=== PATIENT | male | born 1995 | race Asian ===

== ENCOUNTER 2023-03-26 09:00 | Outpatient (AMB) | payer OTHER, SELFPAY ==
[2023-03-26 09:09] VITALS: BP 116/66; PULSE 74; RESP 13; TEMP 36.4; O2SAT 99; BMI 28.3
--- NOTE | 2023-03-26 09:09 | MHC.PC.OV ---
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 Patient states that it occurred when moving a washing machine from out of a truck and at first he states that it felt like a jolt and went to go lift again and realized he pulled something. Patient states that it is more of a stiff pain. Patient states that when he tries to crack it he gets some relief but the pain is stemming from lower right back. Fitting Room Attendant Required: No Accompanied by: Self / Same As Patient Allergies No Known Allergies Allergy (Verified 03/26/23 09:43) Medication List - Last Reconciled 03/26/23 by Efren Cerda CNP No Known Home Meds Tobacco use date assessed: 03/26/23 Dental Screening Dental Screen Date: 03/26/23 Did you have a dental visit in the last 12 months?: No Did you have a dental problem in the last 6 months where you did not have access to dental care?: No Was dental information given to patient?: Yes HPI HPI Comments History of Present Illness Details 27-year-old male presents to establish care He is in the . He notes that he relocated to [facility] from [facility] in late September, He states that he was last seen by his former PCP in Sep, 2022. He does not recall his last routine blood work. He notes that he was diagnosed with anxiety 3 weeks ago. He reports history of significant anxiety with chest discomfort. His symptoms have been controlled in the past 2 weeks. He is within to be referred to a therapist by the . He is not currently on antianxiety medication. He reports stiffness to his lower back since July,. His symptoms after her moved a washing machine out of a truck. He initially had pain that completely subsided. No tingling, numbness, loss of sensation. He denies cigarette smoking or recreational drug use. He drinks alcohol occasionally. He notes that he is sexually active, in a monogamous relationship, and has no concerns for STD. [facility] Medical History (Updated 03/26/23 @ 10:12 by Efren Cerda CNP) Lower back pain Surgical History (Updated 03/26/23 @ 09:24 by Belkys Zepeda MA) No pertinent past surgical history Family History (Updated 03/26/23 @ 09:27 by Belkys Zepeda MA) Mother High blood pressure High cholesterol Maternal Grandfather High blood pressure High cholesterol Diabetes Cardiovascular disease Paternal Grandfather Diabetes Cardiovascular disease Social History Housing: House Patient Tobacco Use Status: Never used Tobacco e-Cigarette/Vaping Use: Never Used service: Yes Current occupational status: employed 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 1. Little interest or pleasure in doing things: not at all 2. Feeling down, depressed, or hopeless: several days 3. Trouble falling or staying asleep, or sleeping too much: several days 4. Feeling tired or having little energy: not at all 5. Poor appetite or overeating: several days 6. Feeling bad about yourself - or that you are a failure or have let yourself or your family down: several days 7. Trouble concentrating on things, such as reading the newspaper or watching television: not at all 8. Moving or speaking so slowly that other people could have noticed. Or the opposite - being so fidgety or restless that you have been moving around a lot more than usual: not at all 9. Thoughts that you would be better off or of hurting yourself in some way: not at all Total score: 4 Depression Screening Interpretation: Negative Depression Screening Done: Yes 95389 - PHQ-9 Billing: Yes Source: Developed by Drs. Abel Mcclendon, Bridgette Doe, Jorge A Quintana and colleagues, with an educational prachi from [employer]. Thrive Questionnaire Date Thrive assessed: 03/26/23 I am a: Patient What is your living situation today?: I have a steady place to live Within the past 12 months, did the food you bought not last and you didn't have the money to get more?: Never true Within the past 12 months, did you worry whether your food would run out before you got money to buy more?: Never true Do you have trouble paying for medicines?: No Do you have trouble getting transportation to medical appointments?: No Do you have trouble paying your heating and electricity bill?: Yes Do you have trouble taking care of your child, family member or friend?: Yes (childcare) Do you have trouble with day-to-day activities such as bathing, preparing meals, shopping, managing finances, etc.?: No Are you currently unemployed and looking for a job?: No Are you interested in more education?: No Please select the resources that you would like help with: Utilities and Childcare Currently or been in a relationship where the following occur: no concerns reported AUDIT C Alcohol Use Questionnaire (AUDIT-C) 1. How often do you have a drink containing alcohol?: Monthly or less 2. How many drinks containing alcohol do you have on a typical day when you are drinking?: 1 or 2 3. How often do you have six or more drinks on one occasion?: Never Total Score: 1 AARON-7 AMB Questionnaire AARON-7 Date AARON - 7 assessed: 03/26/23 Feeling nervous, anxious, or on edge: 2 = More than half the days Not being able to stop or control worryin = Several days Worrying too much about different things: 1 = Several days Trouble relaxin = Several days Being so restless that it is hard to sit still: 0 = Not at all Becoming easily annoyed or irritable: 0 = Not at all Feeling afraid as if something awful might happen: 1 = Several days Total AARON-7 score (0-4 normal; 5-9 mild; 10-14 moderate; 15-21 severe): 6 Source: Developed by Drs. Abel Mcclendon, Bridgette Doe, Jorge A Quintana and colleagues, with an educational prachi from [employer]. AARON-7 Assessment Billing AARON-7 Assessment Tool: AARON-7 Assessment [id number] Review of Systems Const Details: Denies chills, Denies fatigue, Denies fever(s), Denies headache(s) and Denies weakness HEENT Denies change in vision, Denies dizziness, Denies headache(s), Denies hearing loss, Denies nasal congestion, Denies sinus pain, Denies sinus pressure and Denies sore throat Card Denies chest pain, Denies lightheadedness, Denies dyspnea and Denies other (palpitations) Resp Denies cough, Denies dyspnea and Denies wheezing GI Denies abdominal pain, Denies melena, Denies hematochezia, Denies change in bowel habits, Denies dyspepsia and Denies nausea Denies hematuria and Denies dysuria Musc Reports as per HPI Skin/Breast Denies rash, Denies unusual bruising and Denies wounds Neuro Denies abnormal gait, Denies dizziness, Denies headache(s), Denies memory loss, Denies numbness, Denies Sensory deficit (Neuro), Denies tingling and Denies weakness Psych Reports anxiety, Denies depression and Denies memory loss Endo Denies cold intolerance, Denies fatigue, Denies heat intolerance, Denies polydipsia and Denies polyuria Allen/Lymph Denies easy bleeding and Denies easy bruising Aller/Immun Denies wheezing Physical exam (Primary Care) Vital Signs: Last Vital Signs Temp 97.6 F 03/26/23 09:09 Pulse 74 03/26/23 09:09 Resp 13 03/26/23 09:09 BP 116/66 03/26/23 09:09 Pulse Ox 99 03/26/23 09:09 Oxygen Delivery Method Room Air 03/26/23 09:09 BMI result Body Mass Index 28.3 Tobacco/Smoking Status: Tobacco use Status Tobacco use date assessed 03/26/23 03/26/23 09:29 Patient Tobacco Use Status Never used Tobacco 03/26/23 09:29 e-Cigarette/Vaping Use Never Used 03/26/23 09:29 PHQ-9: PHQ-9 Score PHQ-9: Total score 4 03/26/23 09:55 Depression Screening Interpretation: Negative Thrive Assessment: Date of Thrive Assessment Date Thrive assessed 03/26/23 03/26/23 09:29 Currently or been in a relationship where the following occur: no concerns reported Const Other: General: no acute distress, well developed, alert and awake Nutritional Appearance: well nourished Orientation/consciousness: patient oriented x3 HENMT Head: Yes normocephalic and Yes atraumatic Ears: hearing grossly normal bilaterally and TM's normal bilaterally General nose exam: Normal external nose present and Normal nares present Mouth: Normal oral and palatal mucosa present and moist mucous membranes Teeth and gingiva: dentition normal Throat: Yes oropharynx normal Eyes Pupils: Equal, round and reactive pupils present and Pupil accommodation reflex normal EOM: EOMs intact bilaterally Neck Neck: Yes normal visual inspection, Yes no lymphadenopathy and Yes trachea midline Thyroid: Thyroid normal Carotids: no bruits Lymphatic: no lymphadenopathy noted Chest Chest palpation & inspection: normal inspection of the chest Resp Effort & Inspection: normal respiratory effort Auscultation: clear to auscultation bilaterally Cardio Rate: regular rate Rhythm: regular rhythm Heart sounds: S1 normal heart sound present, S2 normal heart sound present, no gallops, no murmurs and no rubs Bruits: no abdominal aortic bruits and no carotid bruits GI Palpation (GI): No Abdominal aortic bruit present, Soft to palpation, nontender, No hepatosplenomegaly present and No Rebound tenderness present Auscultation: normal bowel sounds General: Yes no CVA tenderness Back/Spine/Pelvis Back: no CVA tenderness Cervical Spine: cervical ROM normal and No Cervical spine tenderness Thoracic/Lumbar Spine: thoraco-lumbar ROM normal, No pain with thoraco-lumbar ROM, No thoracic spinal tenderness and No lumbar spinal tenderness Skin General: warm and dry. Normal skin color. Normal skin turgor Lesions: no lesions Rashes: no rashes Trauma: no lacerations or abrasions Wounds: no wounds Nails: normal Neuro General: patient oriented x3, gait normal and CN's II-XI intact bilaterally Cranial nerves: Yes Equal, round and reactive pupils present Cognition (Neuro): normal cognition Gait exam (Neuro): Normal gait present Motor exam (neuro): 5/5 motor strength present throughout Sensory Exam: No Sensory deficit (Neuro) Deep tendon reflexes (DTR's): Right patellar reflex intensity grade: 2+ and Left patellar reflex intensity grade: 2+ Extrem General: Yes normal to inspection, No edema and No calf tenderness Psych Appearance: grossly normal Affect: normal affect Attitude: cooperative Thought process: Normal thought process present Assessment and Plan Assessment & Plan (1) Normal physical examination, routine: Code(s): Z00.00 - Encounter for general adult medical examination without abnormal findings Plan: No significant physical restrictions or limitations noted Advised to get blood work done before next visit Follow-up with symptoms or concerns Verbalized understanding and agreed with the plan. (2) Anxiety: Code(s): F41.9 - Anxiety disorder, unspecified Plan: PHQ-9 score is negative for depression AARON-7 score reveals mild anxiety He was diagnosed with anxiety 3 weeks ago. His symptoms have been controlled for the past 2 weeks Not currently on antianxiety medication. He is awaiting to be referred to a therapist by the Routine exercise encouraged He may contact his PCP for referral to a therapist as needed Follow-up in 1 month or return sooner with worsening or new symptoms Verbalized understanding and agreed with treatment plan. (3) Stiff back: Code(s): M25.69 - Stiffness of other specified joint, not elsewhere classified Plan: Reports low back stiffness for the past 20 months related to lifting injury No pain, tingling, numbness, or loss of sensation Stretching and warm/cool compresses encouraged Referred to PT Return with worsening or new symptoms Verbalized understanding and agreed with treatment plan. (4) Laboratory tests ordered as part of a complete physical exam (CPE): Code(s): Z00.00 - Encounter for general adult medical examination without abnormal findings Orders: Orders Comprehensive [place]. Panel Fast Today Z00.00 - Encounter for general adult medical examination without abnormal findings TSH reflex Free T4 Today Z00.00 - Encounter for general adult medical examination without abnormal findings UA CC w/rflx Micro + Cult Today Z00.00 - Encounter for general adult medical examination without abnormal findings Complete Blood Count Auto Diff Today Z00.00 - Encounter for general adult medical examination without abnormal findings Lipid Panel Today Z00.00 - Encounter for general adult medical examination without abnormal findings PT Evaluation and Treatment Today M25.69 - Stiffness of other specified joint, not elsewhere classified Coding Level of Care Code New Pt Prev Care 18-39yr([id number] Diagnoses Normal physical examination, routine Z00.00 Anxiety F41.9 Stiff back M25.69 Laboratory tests ordered as part of a complete physical exam (CPE) Z00.00 Additional Codes AARON-7 Assessment Billing - AARON-7 Assessment Tool: AARON-7 Assessment [id number] ([id number])
== END 2023-03-26 10:15 | disposition home or self-care (01) ==
PROVIDERS: PCP Nurse Practitioner Family; Visit Provider Nurse Practitioner Family
DX: Z00.00 Encounter for general adult medical examination without abnormal findings (principal); F41.9 Anxiety disorder, unspecified; M25.69 Stiffness of other specified joint, not elsewhere classified
CPT/HCPCS: 99385

== ENCOUNTER 2023-04-30 12:26 | Outpatient (AMB) | payer OTHER, SELFPAY ==
--- NOTE | 2023-04-30 12:29 | MHC.PC.OV ---
Vital Signs 04/30/23 12:30 Height 5 ft 8 in Weight 185 lb 8 oz BMI 28.2 BP 124/70 Blood Pressure Location Rt brachial Position Sitting Respiration 13 Pulse 74 Pulse Source Pulse Oximeter Temp 97.8 F Temp Source Temporal Artery Scan Pulse Oximetry (%) 99 Oxygen Delivery Method Room Air Intake Visit Reasons: labs review, anxiety Intake Note: Patient states that when he was at Physical therapy they recommended to get a MRI and X-ray of his back Director Of Event Sales Required: No Accompanied by: Self / Same As Patient Allergies No Known Allergies Allergy (Verified 04/30/23 12:46) Medication List - Last Reconciled 04/30/23 by Efren Cerda CNP No Known Home Meds Tobacco use date assessed: 03/26/23 Dental Screening Dental Screen Date: 04/30/23 Did you have a dental visit in the last 12 months?: Yes Did you have a dental problem in the last 6 months where you did not have access to dental care?: No Was dental information given to patient?: Patient has dentist HPI HPI Comments History of Present Illness Details 27-year-old male presents for anxiety and review of recent blood work He notes that he is having difficulty connecting to a therapist due to long wait lists or no coverage with his current health plan He notes that he feels more anxious. He is worried about the holidays. He has not been able to get things done for his and family. His is 27 weeks . He is not able to get thing things done financially to make her comfortable He is currently doing physical therapy for stiff back He has not gotten his routine fasting blood work done [facility] Medical History Lower back pain Surgical History No pertinent past surgical history Family History Mother High blood pressure High cholesterol Maternal Grandfather High blood pressure High cholesterol Diabetes Cardiovascular disease Paternal Grandfather Diabetes Cardiovascular disease Social History Housing: House Patient Tobacco Use Status: Never used Tobacco e-Cigarette/Vaping Use: Never Used service: Yes Current occupational status: employed 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 1. Little interest or pleasure in doing things: several days 2. Feeling down, depressed, or hopeless: several days 3. Trouble falling or staying asleep, or sleeping too much: nearly every day 4. Feeling tired or having little energy: more than half the days 5. Poor appetite or overeating: more than half the days 6. Feeling bad about yourself - or that you are a failure or have let yourself or your family down: nearly every day 7. Trouble concentrating on things, such as reading the newspaper or watching television: nearly every day 8. Moving or speaking so slowly that other people could have noticed. Or the opposite - being so fidgety or restless that you have been moving around a lot more than usual: nearly every day 9. Thoughts that you would be better off or of hurting yourself in some way: not at all Total score: 18 Depression Screening Interpretation: Positive Depression Screening Follow-up: Community Mental Health Worker F/U and Declines treatment Depression Screening Done: Yes 29416 - PHQ-9 Billing: Yes Source: Developed by Drs. Abel Mcclendon, Bridgette Doe, Jorge A Quintana and colleagues, with an educational prachi from [employer]. Thrive Questionnaire Date Thrive assessed: 03/26/23 AARON-7 AMB Questionnaire AARON-7 Date AARON - 7 assessed: 04/30/23 Feeling nervous, anxious, or on edge: 1 = Several days Not being able to stop or control worryin = Several days Worrying too much about different things: 1 = Several days Trouble relaxin = Nearly every day Being so restless that it is hard to sit still: 0 = Not at all Becoming easily annoyed or irritable: 1 = Several days Feeling afraid as if something awful might happen: 2 = More than half the days Total AARON-7 score (0-4 normal; 5-9 mild; 10-14 moderate; 15-21 severe): 9 Source: Developed by Drs. Abel Mcclendon, Jorge A Guerra and colleagues, with an educational prachi from [employer]. AARON-7 Assessment Billing AARON-7 Assessment Tool: AARON-7 Assessment 18304 Review of Systems Const Details: Const Denies chills, Denies fatigue, Denies fever(s), Denies headache(s) and Denies weakness ENT Denies dizziness and Denies headache(s) Card Denies chest pain, Denies lightheadedness, Denies dyspnea and Denies other (Palpitations) Resp Denies cough, Denies dyspnea, Denies wheezing and Denies other ( shortness of breath) GI Denies abdominal pain, Denies melena, Denies hematochezia, Denies change in bowel habits, Denies dyspepsia and Denies nausea Denies hematuria and Denies dysuria Musc Denies abnormal gait, Denies myalgias, Denies arthralgias, Denies numbness and Denies tingling Skin/Breast Denies rash, Denies unusual bruising and Denies wounds Neuro Denies abnormal gait, Denies dizziness, Denies headache(s), Denies memory loss, Denies numbness, Denies Sensory deficit (Neuro), Denies tingling and Denies weakness Psych Denies anxiety, Denies depression, Denies memory loss Endo Denies cold intolerance, Denies fatigue, Denies heat intolerance, Denies polydipsia and Denies polyuria Aller/Immun Denies wheezing Physical exam (Primary Care) Vital Signs: Last Vital Signs Temp 97.8 F 04/30/23 12:30 Pulse 74 04/30/23 12:30 Resp 13 04/30/23 12:30 BP 124/70 04/30/23 12:30 Pulse Ox 99 04/30/23 12:30 Oxygen Delivery Method Room Air 04/30/23 12:30 BMI result Body Mass Index 28.2 Tobacco/Smoking Status: Tobacco use Status Tobacco use date assessed 03/26/23 04/30/23 12:43 Patient Tobacco Use Status Never used Tobacco 04/30/23 12:43 e-Cigarette/Vaping Use Never Used 04/30/23 12:43 PHQ-9: PHQ-9 Score PHQ-9: Total score 18 04/30/23 12:43 Depression Screening Interpretation: Positive Depression Screening Follow-up: Community Mental Health Worker F/U and Declines treatment Thrive Assessment: Date of Thrive Assessment Date Thrive assessed 03/26/23 04/30/23 12:43 Const Other: General: no acute distress and well developed Nutritional Appearance: well nourished Orientation/consciousness: patient oriented x3 HENMS Head: Yes normocephalic and Yes atraumatic Eyes General: appearance normal, both eyes and all related structures Pupils: Equal, round and reactive pupils present EOM: EOMs intact bilaterally Resp Effort & Inspection: normal respiratory effort Auscultation: clear to auscultation bilaterally Cardio Rate: regular rate Rhythm: regular rhythm Heart sounds: S1 normal heart sound present, S2 normal heart sound present, no gallops, no murmurs and no rubs GI Palpation (GI): No Abdominal aortic bruit present, Soft to palpation, nontender, No hepatosplenomegaly present and No Rebound tenderness present Auscultation: normal bowel sounds General: Yes no CVA tenderness Back/Spine/Pelvis Back: no CVA tenderness Cervical Spine: cervical ROM normal and No Cervical spine tenderness Thoracic/Lumbar Spine: thoraco-lumbar ROM normal, No pain with thoraco-lumbar ROM, No thoracic spinal tenderness and No lumbar spinal tenderness Extrem General: Yes normal to inspection, No edema and No calf tenderness Skin General: warm and dry. Normal skin color. Normal skin turgor Neuro General: patient oriented x3, gait normal and no focal neuro deficit Cranial nerves: Yes Equal, round and reactive pupils present Cognition (Neuro): normal cognition Gait exam (Neuro): Normal gait present Sensory Exam: No Sensory deficit (Neuro) Psych Appearance: grossly normal Affect: normal affect Attitude: cooperative Thought process: Normal thought process present Assessment and Plan Assessment & Plan (1) Anxiety: Code(s): F41.9 - Anxiety disorder, unspecified Plan: He notes that he feels more anxious and worry about a holiday. He is not able to provide for his and family PHQ-9 and AARON-7 scores revealed moderately severe depression and mild anxiety respectively Declines medication treatment at this time He met with the community navigator who will refer him to a therapist Routine exercise encouraged Advised to get routine fast blood work done before his next visit Follow-up in 1 month or return sooner with worsening or new symptoms Verbalized understanding and agreed with treatment plan (2) Depression: Code(s): F32.A - Depression, unspecified Plan: As above Coding Level of Care Code Est Pt Level 3 (75335) Diagnoses Anxiety F41.9 Depression F32.A Additional Codes AARON-7 Assessment Billing - AARON-7 Assessment Tool: AARON-7 Assessment 93236 ([id number])
[2023-04-30 12:30] VITALS: BP 124/70; PULSE 74; RESP 13; TEMP 36.6; O2SAT 99; BMI 28.2
== END 2023-04-30 13:37 | disposition home or self-care (01) ==
PROVIDERS: PCP Nurse Practitioner Family; Visit Provider Nurse Practitioner Family
DX: F41.9 Anxiety disorder, unspecified (principal); F32.A Depression, unspecified
CPT/HCPCS: 96127; 99213

== ENCOUNTER 2023-05-12 10:34 | Outpatient (REF) | payer OTHER, SELFPAY | END 2023-05-12 10:35 | disposition home or self-care (01) | LOC: HO.WFDLDS 10:34 | PROVIDERS: Visit Provider Nurse Practitioner Family | DX: Z00.00 Encounter for general adult medical examination without abnormal findings (principal); Z13.220 Encounter for screening for lipoid disorders; Z13.29 Encounter for screening for other suspected endocrine disorder | CPT/HCPCS: 36415; 80053; 80061; 81003; 84443; 85025 ==

== ENCOUNTER 2023-05-19 13:05 | Inpatient (IN) | payer OTHER, SELFPAY ==
[2023-05-19 13:16] VITALS: BP 141/90; PULSE 76; RESP 18; TEMP 36.9; O2SAT 98; BMI 29.0
--- NOTE | 2023-05-19 13:16 | ED_ITS ---
HPI - Psych General Chief Complaint: Psychiatric Symptoms Stated Complaint: Crisis Time Seen by Provider: 05/19/23 14:43 Source: patient Mode of arrival: ambulatory Limitations: no limitations History of Present Illness HPI Narrative: Patient is a 27-year-old male with history of anxiety, depression, chronic back pain presenting to the emergency department after making suicidal statements at work prior to arrival. Patient reports increased stress over the past several weeks. He reports making these statement at work today because he feels as though no one understands the amount of stress he is currently under. States he is having difficulty establishing care with a therapist due to his insurance. His is in her 3rd trimester of and he reports significant financial stressors. States he feels as though his anxiety and stress are increasing and does not have a way to manage this stress. He denies current suicidal or homicidal ideation, denies any auditory or visual hallucinations. Reports that he does not have any family support as both he and his are from the [facility] and are here because they are in the [employer]. He reports that he recently asked his PCP for an MRI regarding his chronic back pain which stems from a Krav Perry injury from years ago but was told an MRI was not indicated. He feels as though his back pain is being minimized and this is also adding to his stress. Was seen at [facility] ED this morning for his back pain and was given Flexeril which he reports helped somewhat. Has also been using OTC Salon Pas patches. Denies any drug or alcohol use. He does not take any medications for his anxiety or depression. MD complaint: feels depressed and anxiety Onset (ago): week(s) Duration: getting worse Relieving factors: none Associated psychiatric symptoms: depression Treatments prior to arrival: none Related Data Home Medications Medication Instructions Recorded Confirmed No Known Home Meds 03/26/23 04/30/23 Allergies Allergy/AdvReac Type Severity Reaction Status Date / Time No Known Allergies Allergy Verified 04/30/23 12:46 Review of Systems 2 Review of Systems: As per HPI. Yes all other systems are reviewed and are negative Constitutional: Constitutional: Reports as per HPI [facility] Past Medical History Onset Date is defined in the Problem List Problems that require an onset date and time if occurred within 24 hrs of arrival to the ED Aortic Dissection and Rupture; Neurologic impairment; Cardiopulmonary Arrest; Endotracheal Intubation; Insertion or Replacement of Mechanical Circulatory Assist Device Medical History Lower back pain Surgical History No pertinent past surgical history Family History Family History Mother High blood pressure High cholesterol Maternal Grandfather High blood pressure High cholesterol Diabetes Cardiovascular disease Paternal Grandfather Diabetes Cardiovascular disease Social History Social History Housing: House Unable to assess alcohol history related to: Unknown Patient Tobacco Use Status: Never used Tobacco Smoked in Last 30 Days: No e-Cigarette/Vaping Use: Never Used Use of substances other than those prescribed or required for medical reasons: Unknown Advance Directives: No Advance Directives Information Provided: No Healthcare Proxy: No Guardian: No service: Yes Current occupational status: employed Current occupation: [employer] Cognitive needs: No Hearing needs: No Vision needs: No Physical Exam 2 Vital Signs: Vital Signs: Last Vital Signs Temp 98.5 F 05/19/23 13:16 Pulse 76 05/19/23 13:16 Resp 18 05/19/23 13:16 BP 141/90 H 05/19/23 13:16 Pulse Ox 98 05/19/23 13:16 O2 Del Method Room Air 05/19/23 13:16 BMI result Body Mass Index 29.0 Vital signs have been reviewed and appear to be correct. Blood pressure elevated. Heart rate normal. Respiratory rate normal. Temperature normal. Oxygen saturation normal. Const: General: cooperative, healthy appearing and no acute distress O rientation/consciousness: oriented to person, oriented to place, oriented to time and patient oriented x3 Limitations: no limitations HEENT: Head: Yes normocephalic and Yes atraumatic Ears: external ears normal General nose exam: Normal external nose present Face and sinus: Yes face symmetric Mouth: oropharynx normal and moist mucous membranes Throat: Yes uvula midline Eyes: Pupils: Equal, round and reactive pupils present Neck: Neck: Yes normal visual inspection and Yes supple Resp: Effort & Inspection: normal respiratory effort and able to speak in complete sentences Auscultation: clear to auscultation bilaterally Cardio: Rate: regular rate Rhythm: regular rhythm Heart sounds: S1 normal heart sound present and S2 normal heart sound present GI: Palpation (GI): Soft to palpation and nontender Auscultation: n ormoactive bowel sounds : General: Yes no CVA tenderness Back/Spine/Pelvis: Back: no CVA tenderness Thoracic/Lumbar Spine: thoracic and lumbar spine normal to inspection, pain with thoraco-lumbar ROM, paraspinal muscle tenderness bilaterally in the lower thoracic and in the upper lumbar, No thoracic spinal tenderness and No lumbar spinal tenderness Skin: General skin exam: elasticity normal and turgor normal Neuro: General: oriented to person, oriented to place, oriented to time, patient oriented x3, moves all extremities, no focal motor deficits and CN's II- XI intact bilaterally Cranial nerves: Yes Equal, round and reactive pupils present Cognition (Neuro): normal cognition Extrem: General: Yes full ROM, Yes no pedal edema and Yes no calf tenderness Psych: Mental Status: mental status grossly normal Affect: normal affect Thought process: Normal thought process present Course Course Course Narrative: RME: 27 year-old M w/PMHx HLD, anxiety, presenting to the ED c/o increasing depression & stating I'm getting closer to killing myself to coworkers [employer] while venting. Denies SI/HI at present labs, SOOD/Tox screen ordered Full HPI, ROS and PE to be performed by primary ED provider. Reevaluation(s) Reevaluation #1: Patient was given sign-out to me through my colleague, Grace Wells NP. Tested positive for COVID. Mild leukopenia at 4.3, differential within normal limits. ALT elevated at 48, which is the same from her previous. She tested positive for opiates, urine drug screen otherwise unremarkable. Patient medically cleared as vital signs have been stable. Pending crisis team eval Time: 22:04 Medications Administered Discontinued Medications Generic Name Dose Route Start Last Admin Trade Name Freq PRN Reason Stop Dose Admin Lidocaine 2 patch 05/19/23 15:20 05/19/23 16:11 Lidocaine 4 % Patch Adh..Patch TRANSDERMA 05/19/23 15:21 2 patch ONCE ONE Administration Protocol Medical Decision Making Medical Decision Making MDM Narrative: Patient is a 27-year-old male with history of anxiety, depression, chronic back pain presenting to the emergency department after making suicidal statements at work prior to arrival. On exam patient is awake, A+Ox3, VS WNL, afebrile, normal neurological exam without focal deficits, physical exam findings as above. Given reported symptoms and physical exam findings, initial differential includes anxiety, depression, suicidal ideation. Labs notable for mild leukopenia, mildly elevated ALT, no significant electrolyte abnormalities. COVID swab positive, patient updated on results. No evidence of infection on urinalysis. Urine drug screen positive for opiates, unsure what other medications patient received at [facility] this morning. Will clear patient for care team eval at this time. Will order lidocaine patched for back pain as patient states Flexeril is beginning to wear off. Placed on physician observation pending care team disposition. Differential Diagnosis Differential Diagnoses: The differential diagnosis associated with the presentation includes As per [facility] Admission/Observation Consideration of admission/observation: Escalation of care including admission/observation considered Lab Data [facility] Lab Attestation statement: I reviewed the patient's lab results. As per [facility] 05/19/23 14:22 05/19/23 14:22 Labs: Lab Results 05/19/23 05/19/23 Range/Units 14:22 14:53 WBC 4.3 L (4.8-10.8) X10*3/uL RBC 5.24 (4.60-5.80) X10*6/uL Hgb 15.5 (14.0-18.0) g/dl Hct 45.4 (42.0-52.0) % MCV 86.6 (80.0-98.0) fL MCH 29.6 (27.0-33.0) pg MCHC 34.1 (31.0-36.0) g/dl RDW 12.1 (11.0-16.0) % Plt Count 232 (160-400) X10*3/uL MPV 9.9 (9.4-12.4) fL Immature Gran % (Auto) 0.2 (0.0-0.4) % Neut % (Auto) 58.1 (45-73) % Lymph % (Auto) 28.3 (20-40) % [place] % (Auto) 9.9 (2-11) % Eos % (Auto) 3.0 (0-4) % Baso % (Auto) 0.5 (0-2) % Lymph # (Auto) 1.2 (1.2-4.9) X10*3/uL [place] # (Auto) 0.4 (0.1-1.2) X10*3/uL Eos # (Auto) 0.1 (0.0-0.4) X10*3/uL Baso # (Auto) 0.0 (0.0-0.2) X10*3/uL Abs Immat Gran (auto) 0.01 (0.00-0.03) X10*3/uL Absolute Neuts (auto) 2.5 (2.0-8.3) x10*3/uL Absolute Nucleated RBC 0.000 (0.0-0.012) X10*3/uL Nucleated RBC % (auto) 0.0 (0.0-0.2) /100WBC Sodium 143 (135-145) mmol/L Potassium 4.1 (3.3-5.1) mmol/L Chloride 106 (96-108) mmol/L Carbon Dioxide 25 (22-29) mmol/L Anion Gap 16 (12-20) BUN 15 (9-16) mg/dL Creatinine 1.07 (0.5-1.4) mg/dL Estim Creat Clear Calc 112.9 Estimated GFR > 60 Random Glucose 100 (60-115) mg/dL Calcium 10.1 D (8.4-10.2) mg/dL Total Bilirubin 0.5 (0.0-1.0) mg/dL Direct Bilirubin 0.1 (0.0-0.5) mg/dL AST 27 (5-37) U/L ALT 48 H (0-40) U/L Alkaline Phosphatase 71 (39-117) U/L Total Protein 8.1 H (6.5-8.0) g/dL Albumin 4.9 (3.5-5.0) g/dL Urine Color Yellow Urine Appearance Clear Urine pH 6.0 (5.0-9.0) Ur Specific [place] 1.020 (1.005-1.025) Urine Protein Negative (Neg-Trace) mg/dL Urine Glucose (UA) Negative (Negative) mg/dL Urine Ketones Negative (Negative) mg/dL Urine Blood Negative (Negative) Urine Nitrite Negative (Negative) Ur Leukocyte Esterase Negative (Negative) Salicylates < 5.0 L (15-30) mg/dL Urine Opiates Screen POSITIVE H (Not Detect) Urine Fentanyl Screen Not Detected (Not Detect) Acetaminophen 7 (<30) mcg/mL Ur Barbiturates Screen Not Detected (Not Detect) Ur Phencyclidine Scrn Not Detected (Not Detect) Ur Amphetamines Screen Not Detected (Not Detect) U Benzodiazepines Scrn Not Detected (Not Detect) Urine Cocaine Screen Not Detected (Not Detect) U Marijuana (THC) Screen Not Detected (Not Detect) COVID-19 (ABA) Positive A (Negative) COVID-19 Clin Com See Note External Record Review External record reviewed: Inpatient record, Office record and Outpatient record Discharge Plan Discharge Clinical Impression: Anxiety, COVID-19 Patient Disposition: Still a Patient Instructions: Anxiety (ED), COVID-19 (Coronavirus Disease 2019) (ED) Prescriptions: No Action No Known Home Meds Interventions: [place]-Suicide Risk Severity Scale Last Done: 05/19/23 15:00
[2023-05-19 14:28] LABS: MANUAL DIFF FLAG NO
[2023-05-19 14:30] LABS: Basophils Percent Auto 0.5 % (0-2); Eosinophils Absolute Auto 0.1 X10*3/uL (0.0-0.4); Hematocrit 45.4 % (42.0-52.0); Hemoglobin 15.5 g/dl (14.0-18.0); Imm Gran Abs Auto 0.01 X10*3/uL (0.00-0.03); Imm Gran Pct Auto 0.2 % (0.0-0.4); Lymphocytes Absolute Auto 1.2 X10*3/uL (1.2-4.9); Lymphocytes Percent Auto 28.3 % (20-40); Mean Corpuscular HGB Conc 34.1 g/dl (31.0-36.0); Mean Corpuscular Hemoglobin 29.6 pg (27.0-33.0); Mean Corpuscular Volume 86.6 fL (80.0-98.0); Mean Platelet Volume 9.9 fL (9.4-12.4); Monocytes Absolute Auto 0.4 X10*3/uL (0.1-1.2); Monocytes Percent Auto 9.9 % (2-11); Neutrophils Absolute Auto 2.5 x10*3/uL (2.0-8.3); Neutrophils Percent Auto 58.1 % (45-73); Platelet Count 232 X10*3/uL (160-400); Red Blood Count 5.24 X10*6/uL (4.60-5.80); Red Cell Distribution Width 12.1 % (11.0-16.0); White Blood Count 4.3 X10*3/uL (4.8-10.8)
[2023-05-19 14:44] LABS: Alanine Aminotransferase 48 U/L (0-40); Albumin Level 4.9 g/dL (3.5-5.0); Alkaline Phosphatase 71 U/L (39-117); Anion Gap 16 (12-20); Aspartate Amino Transferase 27 U/L (5-37); Bilirubin Direct 0.1 mg/dL (0.0-0.5); Bilirubin Total 0.5 mg/dL (0.0-1.0); Blood Urea Nitrogen 15 mg/dL (9-16); Calcium 10.1 mg/dL (8.4-10.2); Carbon Dioxide 25 mmol/L (22-29); Chloride 106 mmol/L (96-108); Creatinine Clr Calc Pharmacy 112.9; Estimated Glomerular Filt Rate > 60; Glucose Random 100 mg/dL (60-115); Potassium 4.1 mmol/L (3.3-5.1); Sodium 143 mmol/L (135-145); Total Protein 8.1 g/dL (6.5-8.0)
[2023-05-19 14:47] LABS: Acetaminophen LAB 7 mcg/mL (<30); Salicylate < 5.0 mg/dL (15-30)
[2023-05-19 15:02] LABS: Appearance Urine Clear; Color Urine Yellow; Glucose Urine UA Negative (Negative); Leukocyte Esterase Urine Negative (Negative); Nitrite Urine Negative (Negative); Urine Blood Negative (Negative); Urine Ketones Negative (Negative); Urine Protein Negative (Neg-Trace)
--- NOTE | 2023-05-19 15:02 | PC.NURSE ---
Initial contact with pt. pt oriented to unit, changed over for safety. video monitor in place also 15 min checks.
[2023-05-19 15:09] LABS: Amphetamine Screen Urine Not Detected (Not Detect); Barbiturates, Urine Not Detected (Not Detect); Benzodiazepines Screen Urine Not Detected (Not Detect); Cannabinoid Screen Urine Not Detected (Not Detect); Cocaine Screen Urine Not Detected (Not Detect); Fentanyl, urine Not Detected (Not Detect); Opiate Screen Urine POSITIVE (Not Detect); Phencyclidine Screen Urine Not Detected (Not Detect)
[2023-05-19 15:13] LABS: COVID-19 Test Positive (Negative); IDNOW Serial# 08D9AD1C
[2023-05-19] MEDS: Lidocaine 4 % Patch ADH..PATCH 2 PATCH TRANSDERMA (16:11)
--- NOTE | 2023-05-19 16:39 | PC.NURSE ---
Care team assessment at bedside.
--- NOTE | 2023-05-19 19:28 | PC.NURSE ---
patient appears to remain at rest at present respirations are even and unlabored patient appears in no distress.
--- NOTE | 2023-05-20 07:19 | MHC.CARE ---
Please contact Jose Gunn at [facility] @ [phone] for continuity of care.
--- NOTE | 2023-05-20 10:53 | PM.PSYCN ---
History of Present Illness Date of Service: 05/20/2023 Chief Complaint: Depression,Anxiety Reason for Consult: SI Discussed with referring provider: Yes Sources of Information: patient interviewed, chart reviewed and crisis/core team assessment reviewed HPI Narrative: Mr. Dial is a 27 year-old male who self presented due to increase depression, feeling overwhelmed, not sleeping for the past 2 months. He identifies several triggers including financial stress, about to have his first child with , feeling overworked and parents going through (childhood home recently sold). He presented at request of his superior due to pt reporting he would kill himself in context of expressing his frustration. In the ED, pt presents as calm and cooperative. He reports he has been struggling with depression for the 2 months. He reports feeling irritable. He also reports feeling very overwhelmed. He reports he has not been able to connect with therapist. He also reports poor sleep exacerbated by subacute back pain. He denies any plan or intent to harm himself but does admit to feeling very overwhelmed, maybe more than he realized at first. He denies hx of VH/AH. No hx of increase energy, decreased need for sleep. No prior psych tx or medications. Past Psychiatric History: Inpt: none OP: none Medication trials: none Medical Evaluation Reviewed: Yes [facility] Medical History Lower back pain Surgical History No pertinent past surgical history Diagnostics Vital Signs (24Hr): Vital Signs - 24 hr 05/19/23 13:16 Temperature 98.5 F Pulse Rate 76 Respiratory Rate 18 Blood Pressure 141/90 H Pulse Oximetry 98 Oxygen Delivery Method Room Air BMI result Body Mass Index 29.0 Labs 05/19/23 14:22 05/19/23 14:22 Labs: Laboratory Results - last 48 hr 05/19/23 05/19/23 14:22 14:53 WBC 4.3 L RBC 5.24 Hgb 15.5 Hct 45.4 MCV 86.6 MCH 29.6 MCHC 34.1 RDW 12.1 Plt Count 232 MPV 9.9 Immature Gran % (Auto) 0.2 Neut % (Auto) 58.1 Lymph % (Auto) 28.3 [place] % (Auto) 9.9 Eos % (Auto) 3.0 Baso % (Auto) 0.5 Lymph # (Auto) 1.2 [place] # (Auto) 0.4 Eos # (Auto) 0.1 Baso # (Auto) 0.0 Abs Immat Gran (auto) 0.01 Absolute Neuts (auto) 2.5 Absolute Nucleated RBC 0.000 Nucleated RBC % (auto) 0.0 Sodium 143 Potassium 4.1 Chloride 106 Carbon Dioxide 25 Anion Gap 16 BUN 15 Creatinine 1.07 Estim Creat Clear Calc 112.9 Estimated GFR > 60 Random Glucose 100 Calcium 10.1 D Total Bilirubin 0.5 Direct Bilirubin 0.1 AST 27 ALT 48 H Alkaline Phosphatase 71 Total Protein 8.1 H Albumin 4.9 Urine Color Yellow Urine Appearance Clear Urine pH 6.0 Ur Specific Miranda 1.020 Urine Protein Negative Urine Glucose (UA) Negative Urine Ketones Negative Urine Blood Negative Urine Nitrite Negative Ur Leukocyte Esterase Negative Salicylates < 5.0 L Urine Opiates Screen POSITIVE H Urine Fentanyl Screen Not Detected Acetaminophen 7 Ur Barbiturates Screen Not Detected Ur Phencyclidine Scrn Not Detected Ur Amphetamines Screen Not Detected U Benzodiazepines Scrn Not Detected Urine Cocaine Screen Not Detected U Marijuana (THC) Screen Not Detected COVID-19 (ABA) Positive A COVID-19 Clin Com See Note Mental Status Exam Mental Status Exam Narrative: Appearance:wearing hospital gown, good hygiene, in NAD Behavior: cooperative Psychomotor:no agitation or retardation noted Speech:clear, normal rate/rhythm/volume, spontaneous TP:linear TC:feeling overwhelmed, back pain Mood: overwhelmed Affect:blunted SI:passive HI: none VH/AH: none Delusions:none Insight/judgment:fair x 2. Memory/cog:alert, oriented x 3. grossly intact to conversational testing. Medications Allergies Allergies Allergy/AdvReac Type Severity Reaction Status Date / Time No Known Allergies Allergy Verified 04/30/23 12:46 Assessment & Plan Assessment & Plan (1) MDD (major depressive disorder), recurrent episode, moderate: Status: Acute Code(s): F33.1 - Major depressive disorder, recurrent, moderate Plan Mr. Dial is a 27 year-old self presented with increased depression, feeling overwhelmed, passive SI. No hx suggestive of gabby. No hx of psychosis. We discussed risks, benefits and alternative treatment options, starting antidepressant, Lexapro. PLAN 1. Pt agrees to go inpt for stabilization and containment 2. start lexapro 10mg po daily. 3. flexeril 10mg po TID PRN back pain with Naproxen 500mg po BID PRN back pain Total time managing care of this patient today ____ minutes.
[2023-05-20] MEDS: Cyclobenzaprine HCl 10 MG TABLET PO ×3 (11:21→20:46)
[2023-05-20] MEDS: NaPROXEN 500 MG TABLET PO (11:22)
[2023-05-20] MEDS: Escitalopram Oxalate 10 MG TABLET PO (11:22)
--- NOTE | 2023-05-20 15:15 | PC.NURSE ---
Client in bed resting for most of shift. Requested number for physical therapy office to cancel appt for this AM. No behavioral issues. Appetite good. Visit with that went well. Covid positive but not symptomatic. CV signed to transfer to .
[2023-05-20 16:10] VITALS: BP 119/77; PULSE 91; TEMP 36.8
[2023-05-20] MEDS: Acetaminophen 325 MG TABLET 650 MG PO (17:24)
--- NOTE | 2023-05-21 00:32 | PC.ADMIT ---
A male aged 27 years was admitted to the [facility] as a CV at 1520 following referral from [facility] ED and CARE Team. Pt reports one other IPLOC. Pt has had three crisis assessments in two months. 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 Pt made a suicidal statement in his workplace, saying I'm this much closer to killing myself . Pt minimized the statement saying he was merely venting. Pt's commander directed pt to be assessed following statement. Pt's commander said pt has a history of recanting and minimizing suicidal statements once being assessed. Pt reports having had a rough week and pt's is in her third trimester of . Pt and his lost a baby via miscarriage about one year ago. Pt's stated she is worried about pt's depression, but she denied any safety concerns. Crisis assessment also mentions financial worries that pt has been experiencing. During admission assessment pt denied anxiety and depression, SI/HI and AVH. Pt reports chronic back pain 10/17. Pt was calm, cooperative and soft spoken. Pt became tired and asked to finish up with admission so he could go to bed. Medical issues include only a current Covid 19 infection and chronic back pain. Pt is open to being connected with providers and is open to medication management. Pt has no home medications. [id number] done, admission orders obtained, skin check done, treatment plan done but needs to be signed. Pt still needs to do safety tool. Pt is resting in bed on 15 minute safety checks in group room B at this time, as pt is in isolation for Covid 19 infection
[2023-05-21] MEDS: Acetaminophen 325 MG TABLET 650 MG PO (08:20)
[2023-05-21] MEDS: Escitalopram Oxalate 10 MG TABLET PO (08:20)
[2023-05-21] MEDS: Cyclobenzaprine HCl 10 MG TABLET PO ×3 (08:21→20:12)
[2023-05-21 08:40] VITALS: BP 132/69; PULSE 70; RESP 16; TEMP 36.6; O2SAT 98
[2023-05-21 08:56] LABS: Cholesterol 134 mg/dL (<200); HDL Cholesterol 29 mg/dL (>40); LDL Cholesterol Calculated 31 mg/dL (<100); Magnesium 2.2 mg/dL (1.6-2.6); Triglycerides 370 mg/dL (<150)
[2023-05-21 09:00] LABS: Estimated Average Glucose 103 mg/dL; Hemoglobin A1c % 5.2 % (<6.0)
[2023-05-21 09:19] LABS: Free T4 (Free Thyroxine) 0.75 ng/dL (0.71-1.85); Thyroid Stimulating Hormone 1.44 uIU/mL (0.32-4.0)
[2023-05-21 09:31] LABS: Folate 8.9 ng/mL (> or = 4.0); Vitamin B12 331 pg/mL (200-900)
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
[2023-05-21 18:00] VITALS: BP 137/68; PULSE 79; RESP 18; TEMP 36.6; O2SAT 97
[2023-05-21] MEDS: traZODone HCL 50 MG TABLET PO (20:14)
[2023-05-22] MEDS: Escitalopram Oxalate 10 MG TABLET PO (09:12)
[2023-05-22] MEDS: Cyclobenzaprine HCl 10 MG TABLET PO ×3 (09:12→19:55)
[2023-05-22 09:17] VITALS: BP 135/83; PULSE 105; RESP 18; TEMP 36.5
--- NOTE | 2023-05-22 09:43 | P.PNPSI_ITS ---
Subjective Subjective Date of Service: 05/22/23 Reason For Visit: Depression,Anxiety Subjective Notes: Conditional Voluntary Interim History: Patient was seen and discussed in rounds today. Records and plans were reviewed. He is in isolation because of COVID but is asymptomatic. He is medication compliant. He is guarded with constricted affect. Eating and sleeping adequately. No SI. No changes were made today Review of Systems Review of Systems Yes all other systems are reviewed and are negative Mental Status Exam Mental Status Exam Narrative: In today's visit he is alert, pleasant and minimally interactive. Normal/soft- spoken speech. No eye contact. Affect is constricted. No signs of psychosis. No active SI. Cognitively intact. Judgment is intact Diagnostics Vital Signs (24Hr): Vital Signs - 24 hr 05/21/23 18:00 05/22/23 09:17 Temperature 97.9 F 97.7 F Pulse Rate 79 105 H Respiratory Rate 18 18 Blood Pressure 137/68 135/83 Pulse Oximetry 97 Oxygen Delivery Method Room Air BMI result Body Mass Index 29.0 Labs 05/19/23 14:22 05/19/23 14:22 Labs: Laboratory Results - last 48 hr 05/21/23 07:50 Estimat Average Glucose 103 Hemoglobin A1c % 5.2 Magnesium 2.2 Triglycerides 370 H Cholesterol 134 LDL Cholesterol, Calc 31 HDL Cholesterol 29 L Vitamin B12 331 Folate 8.9 TSH 1.44 Free T4 0.75 Medications Medications Current Medications Acetaminophen (Acetaminophen 325 Mg Tablet) 650 mg PO Q6H PRN PRN Reason: Headache/Pain Mild Scale (1-3) Last Admin: 05/21/23 08:20 Dose: 650 mg Al Hydroxide/Mg Hydroxide (Magnesium Hydrox/Alum Hydrox 30 Ml Oral.Susp) 30 ml PO Q6H PRN PRN Reason: Heartburn/Nausea Cyclobenzaprine HCl (Cyclobenzaprine Hcl 10 Mg Tablet) 10 mg PO TID [facility] Last Admin: 05/22/23 09:12 Dose: 10 mg Escitalopram Oxalate (Escitalopram Oxalate 10 Mg Tablet) 10 mg PO DAILY [facility] Last Admin: 05/22/23 09:12 Dose: 10 mg Hydroxyzine HCl (Hydroxyzine Hcl 25 Mg Tablet) 25 mg PO Q6H PRN PRN Reason: Anxiety Magnesium Hydroxide (Milk Of Magnesia 30 Ml Oral.Susp) 30 ml PO DAILY PRN PRN Reason: Constipation Naproxen (Naproxen 500 Mg Tablet) 500 mg PO Q12H PRN PRN Reason: Pain, Moderate(Pain Scale 4-6) Last Admin: 05/20/23 11:22 Dose: 500 mg Trazodone HCl (Trazodone Hcl 50 Mg Tablet) 50 mg PO BEDTIME PRN PRN Reason: sleep Last Admin: 05/21/23 20:14 Dose: 50 mg Allergies Allergies Allergy/AdvReac Type Severity Reaction Status Date / Time No Known Allergies Allergy Verified 04/30/23 12:46 Assessment & Plan Assessment & Plan (1) MDD (major depressive disorder), recurrent episode, moderate: Status: Acute Code(s): F33.1 - Major depressive disorder, recurrent, moderate Plan Mr. Dial is a 27 year-old self presented with increased depression, feeling overwhelmed, passive SI. No hx suggestive of gabby. No hx of psychosis. We discussed risks, benefits and alternative treatment options, starting antidepressant, Lexapro. PLAN 1. Pt agrees to go inpt for stabilization and containment 2. start lexapro 10mg po daily. 3. flexeril 10mg po TID PRN back pain with Naproxen 500mg po BID PRN back pain 05/22/23: Continue current regimen and plans Reason for continued inpatient stay Substantial Risk for: med/psych decompensation Time Spent With Patient Time: Total time managing care of this patient today ____ minutes.
[2023-05-22] MEDS: NaPROXEN 500 MG TABLET PO (09:46)
[2023-05-22] MEDS: Acetaminophen 325 MG TABLET 650 MG PO (12:27)
[2023-05-22 18:00] VITALS: BP 142/76; PULSE 80; RESP 18
[2023-05-22] MEDS: traZODone HCL 50 MG TABLET PO (19:56)
[2023-05-23] MEDS: Cyclobenzaprine HCl 10 MG TABLET PO ×3 (09:13→20:32)
[2023-05-23] MEDS: NaPROXEN 500 MG TABLET PO ×2 (09:13→20:32)
[2023-05-23] MEDS: Escitalopram Oxalate 10 MG TABLET PO (09:13)
[2023-05-23 09:19] VITALS: BP 138/79; PULSE 78; TEMP 36.9; O2SAT 99
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
[2023-05-23 17:22] VITALS: BP 142/84; PULSE 90; RESP 18; TEMP 36.7; O2SAT 99
[2023-05-23] MEDS: Lidocaine 4 % Patch ADH..PATCH 1 PATCH TRANSDERMA (17:27)
[2023-05-23] MEDS: traZODone HCL 50 MG TABLET PO (20:32)
[2023-05-24 08:00] VITALS: BP 128/70; PULSE 81; TEMP 36.3; O2SAT 97
[2023-05-24] MEDS: Lidocaine 4 % Patch ADH..PATCH 1 PATCH TRANSDERMA (09:29)
[2023-05-24] MEDS: Cyclobenzaprine HCl 10 MG TABLET PO ×3 (09:30→21:28)
[2023-05-24] MEDS: NaPROXEN 500 MG TABLET PO (09:30)
[2023-05-24] MEDS: Escitalopram Oxalate 10 MG TABLET PO (09:30)
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
[2023-05-24] MEDS: Acetaminophen 325 MG TABLET 650 MG PO ×2 (15:26→21:28)
[2023-05-24 18:00] VITALS: BP 141/70; PULSE 102; RESP 16; TEMP 36.8; O2SAT 97
--- NOTE | 2023-05-24 19:38 | PC.NURSE ---
Assumed care of this pt at 19:30. Standing in group room watching television at this time. Offers no complaints. Plan of care ongoing.
[2023-05-24] MEDS: traZODone HCL 50 MG TABLET PO (21:28)
[2023-05-25 08:00] VITALS: BP 135/83; PULSE 89; RESP 18; TEMP 36.9; O2SAT 100
[2023-05-25] MEDS: Cyclobenzaprine HCl 10 MG TABLET PO (08:17)
[2023-05-25] MEDS: Escitalopram Oxalate 10 MG TABLET PO (08:18)
[2023-05-25] MEDS: Lidocaine 4 % Patch ADH..PATCH 1 PATCH TRANSDERMA (08:18)
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
== END 2023-05-25 11:15 | disposition home or self-care (01) | DRG 885 ==
LOC: HO.ED 05-20 14:01 → HO.PM5 05-20 14:47
PROVIDERS: Physician Assistant; Admitting Provider Clinical Nurse Specialist Psychiatric/Mental Health, Adult; Emergency Provider Emergency Medicine; PCP Nurse Practitioner Family; Visit Provider Clinical Nurse Specialist Psychiatric/Mental Health, Adult
DX: F33.1 Major depressive disorder, recurrent, moderate (principal); U07.1 COVID-19; R45.851 Suicidal ideations; F41.9 Anxiety disorder, unspecified; M54.50 Low back pain, unspecified; Z79.899 Other long term (current) drug therapy
CPT/HCPCS: 36415; 80048; 80061; 80076; 80143; 80179; 80307; 81003; 82607; 82746; 83036; 83735; 84439; 84443; 85025; 87635; 99285; S9485

== ENCOUNTER → 2023-05-20 14:45 | Outpatient (BNV) | payer OTHER, SELFPAY | PROVIDERS: Admitting Provider Clinical Nurse Specialist Psychiatric/Mental Health, Adult; Emergency Provider Emergency Medicine; PCP Nurse Practitioner Family; Visit Provider Social Worker | DX: F33.1 Major depressive disorder, recurrent, moderate (principal); U07.1 COVID-19; F41.9 Anxiety disorder, unspecified; M54.50 Low back pain, unspecified | CPT/HCPCS: 90792; 99231; 99238; 99285 ==

== ENCOUNTER 2023-06-04 13:34 | Outpatient (AMB) | payer OTHER, SELFPAY ==
--- NOTE | 2023-06-04 13:35 | A.OFFPC_ITS ---
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: No Accompanied by: Self / Same As Patient Allergies No Known Allergies Allergy (Verified 06/04/23 14:03) Medication List - Last Reconciled 06/04/23 by Efren Cerda CNP citalopram 20 mg PO DAILY clonazepam 0.5 - 1 mg (0.5 - 1 x 1 mg) PO BEDTIME cyclobenzaprine 10 mg PO TID 30 days ibuprofen 800 mg PO .QHS lidocaine 4% (Lidocaine Pain Relief) 1 patch See Protocol transdermal DAILY PRN 30 days trazodone 50 mg PO BEDTIME PRN 30 days Tobacco use date assessed: 06/04/23 Dental Screening Dental Screen Date: 06/04/23 Did you have a dental visit in the last 12 months?: No Did you have a dental problem in the last 6 months where you did not have access to dental care?: No Was dental information given to patient?: Yes HPI HPI Comments History of Present Illness Details 27-year-old male presents for anxiety an d depression follow-up He was recently hospitalized at [facility] Psychiatry for increased anxiety and depression symptoms and suicide ideation He is currently on citalopram and trazodone which he admits to taking as prescribed without adverse reactions. He reports controlled improved symptoms. His sleep has also improved. No SI/VAUGHN/AH/VH. He notes he has been going to [facility] partial hospital treatment Mondays-Fridays for his mental illness and finds it very helpful He brought a paperwork by his employer, [employer], to be filled out and signed for light duty due to physical restrictions/limitations [facility] Medical History Lower back pain Surgical History No pertinent past surgical history Family History Mother High blood pressure High cholesterol Maternal Grandfather High blood pressure High cholesterol Diabetes Cardiovascular disease Paternal Grandfather Diabetes Cardiovascular disease Social History Household Members: Spouse Housing: House Do you presently have visiting nurse or other home services: No Unable to assess alcohol history related to: Unknown Patient Tobacco Use Status: Never used Tobacco e-Cigarette/Vaping Use: Never Used service: Yes Current occupational status: employed 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 1. Little interest or pleasure in doing things: not at all 2. Feeling down, depressed, or hopeless: several days 3. Trouble falling or staying asleep, or sleeping too much: several days 4. Feeling tired or having little energy: not at all 5. Poor appetite or overeating: several days 6. Feeling bad about yourself - or that you are a failure or have let yourself or your family down: several days 7. Trouble concentrating on things, such as reading the newspaper or watching television: not at all 8. Moving or speaking so slowly that other people could have noticed. Or the opposite - being so fidgety or restless that you have been moving around a lot more than usual: not at all 9. Thoughts that you would be better off or of hurting yourself in some way: not at all Total score: 4 Depression Screening Interpretation: Negative Depression Screening Done: Yes 66571 - PHQ-9 Billing: Yes Source: Developed by Drs. Abel Mcclendon, Bridgette Doe, Jorge A Quintana and colleagues, with an educational prachi from [employer]. Thrive Questionnaire Date Thrive assessed: 05/21/23 AARON-7 AMB Questionnaire AARON-7 Date AARON - 7 assessed: 06/04/23 Feeling nervous, anxious, or on edge: 1 = Several days Not being able to stop or control worryin = Not at all Worrying too much about different things: 1 = Several days Trouble relaxin = More than half the days Being so restless that it is hard to sit still: 0 = Not at all Becoming easily annoyed or irritable: 1 = Several days Feeling afraid as if something awful might happen: 2 = More than half the days Total AARON-7 score (0-4 normal; 5-9 mild; 10-14 moderate; 15-21 severe): 7 Source: Developed by Drs. Abel Mcclendon, Bridgette Doe, Jorge A Quintana and colleagues, with an educational prachi from [employer]. AARON-7 Assessment Billing AARON-7 Assessment Tool: AARON-7 Assessment 39670 Review of Systems Const Details: Const Denies chills, Denies fatigue, Denies fever(s), Denies headache(s) and Denies weakness ENT Denies dizziness and Denies headache(s) Card Denies chest pain, Denies lightheadedness, Denies dyspnea and Denies other (Palpitations) Resp Denies cough, Denies dyspnea, Denies wheezing and Denies other ( shortness of breath) GI Denies abdominal pain, Denies melena, Denies hematochezia, Denies change in bowel habits, Denies dyspepsia and Denies nausea Denies hematuria and Denies dysuria Musc Denies abnormal gait, Denies myalgias, Denies arthralgias, Denies numbness and Denies tingling Skin/Breast Denies rash, Denies unusual bruising and Denies wounds Neuro Denies abnormal gait, Denies dizziness, Denies headache(s), Denies memory loss, Denies numbness, Denies Sensory deficit (Neuro), Denies tingling and Denies weakness Psych Denies anxiety, Denies depression, Denies memory loss Endo Denies cold intolerance, Denies fatigue, Denies heat intolerance, Denies polydipsia and Denies polyuria Aller/Immun Denies wheezing Physical exam (Primary Care) Vital Signs: Last Vital Signs Temp 97.6 F 06/04/23 13:45 Pulse 110 H 06/04/23 13:45 Resp 13 06/04/23 13:45 BP 132/82 06/04/23 13:45 Pulse Ox 99 06/04/23 13:45 Oxygen Delivery Method Room Air 06/04/23 13:45 BMI result Body Mass Index 29.1 Tobacco/Smoking Status: Tobacco use Status Tobacco use date assessed 06/04/23 06/04/23 13:53 Patient Tobacco Use Status Never used Tobacco 06/04/23 13:53 e-Cigarette/Vaping Use Never Used 06/04/23 13:53 Depression Screening Interpretation: Negative Thrive Assessment: Date of Thrive Assessment Date Thrive assessed 05/21/23 06/04/23 13:53 Const Other: General: no acute distress and well developed Nutritional Appearance: well nourished Orientation/consciousness: patient oriented x3 [facility] Head: Yes normocephalic and Yes atraumatic Eyes General: appearance normal, both eyes and all related structures Pupils: Equal, round and reactive pupils present EOM: EOMs intact bilaterally Resp Effort & Inspection: normal respiratory effort Auscultation: clear to auscultation bilaterally Cardio Rate: regular rate Rhythm: regular rhythm Heart sounds: S1 normal heart sound present, S2 normal heart sound present, no gallops, no murmurs and no rubs GI Palpation (GI): No Abdominal aortic bruit present, Soft to palpation, nontender, No hepatosplenomegaly present and No Rebound tenderness present Auscultation: normal bowel sounds General: Yes no CVA tenderness Back/Spine/Pelvis Back: no CVA tenderness Cervical Spine: cervical ROM normal and No Cervical spine tenderness Thoracic/Lumbar Spine: thoraco-lumbar ROM normal, No pain with thoraco-lumbar ROM, No thoracic spinal tenderness and No lumbar spinal tenderness Extrem General: Yes normal to inspection, No edema and No calf tenderness Skin General: warm and dry. Normal skin color. Normal skin turgor Lesions: no lesions Rashes: no rashes Trauma: no lacerations or abrasions Wounds: no wounds Nails: normal Neuro General: patient oriented x3, gait normal and no focal neuro deficit Cranial nerves: Yes Equal, round and reactive pupils present Cognition (Neuro): normal cognition Gait exam (Neuro): Normal gait present Sensory Exam: No Sensory deficit (Neuro) Psych Appearance: grossly normal Affect: normal affect Attitude: cooperative Thought process: Normal thought process present Assessment and Plan Assessment & Plan (1) MDD (major depressive disorder), recurrent episode, moderate: Code(s): F33.1 - Major depressive disorder, recurrent, moderate Plan: PHQ-9 score is normal. AARON-7 score reveals mild anxiety Continue current treatment regimen Continue follow-up with [facility] hospital treatment as planned Routine exercise encouraged Follow-up with worsening or new symptoms Verbalized understanding and agreed with the treatment plan Will complete and sign paperwork for his employment next week (2) Anxiety: Code(s): F41.9 - Anxiety disorder, unspecified Plan: As above Medications: Changed From citalopram 20 mg PO DAILY 30 days 30 tabs 1RF To citalopram 20 mg PO DAILY Coding Level of Care Code Est Pt Level 3 (43480) Diagnoses MDD (major depressive disorder), recurrent episode, moderate F33.1 Anxiety F41.9 Additional Codes AARON-7 Assessment Billing - AARON-7 Assessment Tool: AARON-7 Assessment 42038 ([id number])
[2023-06-04 13:45] VITALS: BP 132/82; PULSE 110; RESP 13; TEMP 36.4; O2SAT 99; BMI 29.1
== END 2023-06-04 14:43 | disposition home or self-care (01) ==
PROVIDERS: PCP Nurse Practitioner Family; Visit Provider Nurse Practitioner Family
DX: F33.1 Major depressive disorder, recurrent, moderate (principal); F41.9 Anxiety disorder, unspecified
CPT/HCPCS: 99213

== ENCOUNTER 2023-06-17 08:45 | Outpatient (RCR) | payer OTHER, SELFPAY ==
--- NOTE | 2023-05-31 13:01 | PC.ADMIT ---
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 According to ER note patient reportedly presented to the ER after making suicidal statements at work prior to his arrival and reported increased stress over the past week. Patients is reportedly in her 3rd trimester of and reports of financial stresses. Patient denied any substance use and stated he rarely drinks ETOH as it makes him physically sick. ER paperwork noted positive SOOD for opiates. Patient currently is alert and oriented x4. Calm and cooperative. He stated he is anxious and that is why he is not talking very much however when he gets to know people he is a talker. He stated he moved to this area for work 7 months ago. He stated he is from the [facility] and has lived there all his life until the move. He stated that he feels that he did not need inpatient level of care and feels that people went, overboard . He stated he is always like this. He stated that he and his are homebodies and he is an introvert. He denied SI. He was given a copy of his safety plan if needed and I reviewed this plan with him. Denied any history of SA. He did state that friends from the [facility] are coming to visit with he and his next weekend. He is planning to go back to work after competing PHP. Patient's medications reconciled with patient and patient's inpatient discharge paperwork. He reports he is taking his medications as prescribed.
--- NOTE | 2023-06-01 17:45 | HO.PHP ---
At roughly 11:00 press writer met with Rj Maxx to confirm whether he wanted [facility] staff to speak with Dr. Josr Gunn from the [facility]. Dr. Murillo called [facility] to speak with staff this morning concerning Maxx however a release was required. Pt gave consent, signed a release, [place] Maxx to [facility] but he is not his doctor. Conciliator called Dr. Murillo back at roughly 1:20, he was not available, contact info was left for him to call back.
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
--- NOTE | 2023-06-03 17:34 | HO.PHP ---
Pt's case has been opened and reviewed in team.
--- NOTE | 2023-06-03 18:10 | HO.PHP ---
At roughly 1:30 pm parts data writer spoke with Dr. Summers from [facility] regarding Maxx (Rj). Dr. Summers oversaw Maxx's MH as his general psych provider as part of the , he also referred Maxx to [facility]. Dr. 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 He also had questions regarding his current mental health and wellbeing. It was recommended that Dr. Summers speak with Dr. Hawley, [facility]'s attending med provider. An appt was made for them to speak tomorrow between after 2 pm.
--- NOTE | 2023-06-04 08:10 | HO.PHP ---
A referral form was faxed to [facility] requesting Rj be enrolled in individual and couples counseling as well as psychiatric management services.
--- NOTE | 2023-06-09 16:50 | HO.PHP ---
Pt asked to check in with writer technical publications after the 3rd group, at roughly 12:45 for 1 hour and 15 minutes. Pt stated he was struggling with many emotions and overwhlming thoughts. Pt was able to talk about some of them, requiring a lot of time for him to find his words and complete a thought. Pt stated when his emotions are strong he has a hard time knowing what to do with them. Pt would close his eyes while speaking at times which he said helped him to sort his thoughts and calm his emotions. With support, pt was able to identify other ways to manage his feelings such as by improving his communication with his and other people, by taking a minute to sort out his thoughts so he can express himself properly and by setting boundaries and not making rushed decisions if not ready. Pt stated he did say he was experiencing negative thoughts but denied current SI, denied he would hurt himself, stating I would get help . Pt was future oriented when prompted. Spoke about ways to work on improving his relationship with such as by letting go and forgiving her, and accepting that I may never know . Pt did not elaborate. Pt encouraged to used coping skills, distractions to minimize dissociative-like episodes and to allow only 15 of feeling feelings then getting up and doing something present and active. Pt was open to psychoeducation. Asked for community resources and supports. Fig Washer and pt discussed some options and will revisit the topic.
--- NOTE | 2023-06-10 17:22 | P.PNPSP_ITS ---
Subjective Subjective Date of Service: 06/10/23 Reason For Visit: depression,anxiety Interim History: Patient seen for follow-up. INitially discusses concerns about the next steps after leaving here. WE also discussed his delays in thought processing. He feels it stems from difficult interactions with his mother. He described some of their interactions and the affect it had on him. It sounds like she was a very emotionally charged person (a lot like my ) and that he was somebody who never really understood emotions and his mother would escalate emotionally in tehse conflicts with him. By description she sounded very domineering and as a child it felt oppressive and kind of lacked any authority to gain control of the situation and was sort of at the mercy of her intense emotional outbursts. He says both learned to internalize and say little (like his father, kind of hardy to learned helplessness, perhaps). He also says he felt under pressure to select his words wisely to eith avoid being misunderstood/getting in trouble, or risk provoking an even more emotional (and less rational) response from his mother, and being further subject to something that felt completely foreign to him and that he couldn't control or navigate. He says he is a lot like his father in the context of conflicts- who tends to implode first then explode which to say his father will shut down and withdraw emotionally/mentally. And then if he starts to feel trapped with someone who keeps coming after him...he will lose it . FOr the patient he says he will shut down and become almost non-communicative, but if he starts feeling cornered (like if his wants to talk it out, or he is under pressure to interact or engage, he will explode with the need to immediately escape the situation and get out of the house . He admits he will get verbally angry if he is made to feel he has to stay their or feels forced to respond if bombarded with questions or his looking for reassurances. He feels he has come a long way since then. He is learning to value communication skills, and says this has paved the way for more effective conversation between he and his . He also says he has been enagging his parents in discussions, and says he recently saved their marriage as he was able to share his thoughts about their communication problems as he sees it, and point out the dysfunction in their means of communicating with one another, that has lead to further conflicts and problems. He relays feeling very pleased with this. He indicates that his own progress has been yielding improved understanding between him and his . He continues to demonstrate latent thought process and delayed responses in our interactions. He does not get distracted or lose the thread of the conversation and appears to be using the delay to formulate his responses which are for the most part appropriate repsonses. Interestingly, as the topic of discussion became less emotionally-laden, and we were talking more casually about various topics including [place] Anime and martial arts, the patient shared some anecdotes and was foudn to be remarkably animated and spontaneous in his repsonses. There was no evidence of any thought or communication delay, no detecible apprehension, and affectively he was brighter and more intense and engaging. He also was prone to using swear words when recounting some stories about martial arts and even spontaneously standing up and deomnstrating some of these techniques. Medication Compliance: Yes Side effects from medications: No Attending Groups: Yes Review of Systems Acute medical concerns: No Mental Status Exam Mental Status Exam Narrative: Alert, oriented, in no acute distress. Calm, cooperative, but difficult to engage. No psychomotor agitation or neurovegetative retardation. Eye contact intermittent, avaiodant, at times glaring. Long pauses in blinking. Mood fine Affect depressed, flat. Speech soft, low rate and prosody with notable latency in response. Thought process linear, coherent, mild paucity but will come to response after consideration to get words right . Thought content related to stressors, denies any helplessness, hopelessness or SI. Some concerns where topics loosely involve violent behavior/aggression, but not overtly making threats. He denies any aggressive ideation or HI. No paranoia or delusional content elicited. No evidence of psychosis. Insight and judgment impaired. Assessment & Plan Assessment & Plan (1) Post-traumatic stress disorder, unspecified: Status: Acute Code(s): F43.10 - Post-traumatic stress disorder, unspecified Assessment and Plan: complex PTSD and/or relational trauma (2) Adjustment disorder with mixed disturbance of emotions and conduct: Status: Acute Code(s): F43.25 - Adjustment disorder with mixed disturbance of emotions and conduct (3) Pain disorder associated with psychological factors and medical condition: Status: Acute Code(s): F45.42 - Pain disorder with related psychological factors Assessment and Plan: chronic back pain (4) Mental disorder, not otherwise specified: Status: Acute Code(s): F99 - Mental disorder, not otherwise specified Assessment and Plan: r/o Autism Spectrum Disorder r/o NVD or other language or learning disability r/o Schizoid PD (5) Aspergers' syndrome: Status: Acute Code(s): F84.5 - Asperger's syndrome Plan start prazosin 1 mg qhs for sleep, nightmares start omeprazole 20 mg qd continue citalopram 20 mg qd continue to monitor Patient educated on: diagnosis and medication risk/benefits Informed Consent: understands Reason for contiued partial hosp. stay Substantial Risk for: inability to function, rapid decompensation and med/psych decompensation Certification I certify that partial hospital treatment is medically necessary due to the symptoms and problems resulting from the patient's mental illness and the failure to treat the patient at the partial hospital level of care would likely result in the patient requiring inpatient psychiatric care which could not be prevented at a less intensive level of care. Total time managing care of this patient today _40___ minutes. Discharge Plan Discharge Attending provider: Romelia Hawley Medications: Continued cyclobenzaprine 10 mg Tablet 10 mg PO TID 15 Days Qty: 45 0RF ibuprofen 800 mg tablet 800 mg PO BEDTIME PRN (Reason: with food) Qty: 20 0RF Rx Instructions: administer with food prazosin 1 mg capsule 1 - 2 mg PO BEDTIME PRN (Reason: sleep) Qty: 30 0RF omeprazole 20 mg capsule,delayed release(DR/EC) 20 mg PO DAILY 30 Days Qty: 30 0RF Changed clonazepam 1 mg tablet 0.5 - 1 mg PO BEDTIME PRN (Reason: as directed) Qty: 8 0RF Rx Instructions: administer 30 minutes before bedtime for lower back pain citalopram 20 mg tablet 20 mg PO BEDTIME 30 Days Qty: 30 0RF Discontinued lidocaine [Lidocaine Pain Relief] 4 % Adhesive Patch,Medicated 1 patch transdermal DAILY PRN (Reason: Pain, Moderate(Pain Scale 4-6)) 30 Days Qty: 30 0RF Protocol: Apply to: Apply to: back trazodone 50 mg Tablet 50 mg PO BEDTIME PRN (Reason: sleep) 30 Days Qty: 30 1RF No Action fenofibrate 54 mg tablet 54 mg PO DAILY 30 Days Qty: 30 3RF Stand Alone Forms: Patient Portal Discharge page Patient Education: Post Traumatic Stress Disorder (DC)
--- NOTE | 2023-06-15 13:59 | HO.PHP ---
Addendum entered by Lula Mejia 06/15/23 14:00: A voice message was left and we are awaiting a call back with those appointment dates and times. Original Note: [facility] staff member contacted [facility] to follow up around the referral that was placed on 06/04/23.
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
--- NOTE | 2023-06-16 10:00 | HO.PHP ---
Late entry: 06/16/23- [facility] staff member faxed over a referral for OP therapy and med management through [facility]. [facility] staff is awaiting a phone call with the scheduled appointments.
--- NOTE | 2023-06-17 08:30 | HO.PHP ---
PHP staff member received a phone call from Claudine through [facility], stating that they are unable to provide Rj with an appointment at the [facility] due to no one accepting [facility] but there is availability with an individual in the [place] area. PHP staff member was receptive. 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 PHP staff member was receptive and noted that she will reach out to his contact finger assembler. Claudine stated if they are able to get the authorization for OP therapy and med management they can fax it to her, in which she will contact back with the appointments. PHP staff member was receptive.
--- NOTE | 2023-06-17 10:00 | HO.PHP ---
[facility] staff member reached out to Jose Gunn to see if he is able to provide an authorization for Med Management and OP therapy since a prior authorization is needed. Jose Gunn noted that he could if the clinician provides him with the agency, service, and fax. [facility] staff member was receptive and provided him with an email with that information after getting consent from [place] around what was occurring with insurance and appointments. Jose gunn was receptive.
--- NOTE | 2023-06-17 14:35 | HO.PHP ---
Jose Gunn emailed back stating that he faxed the authorization for OP psychiatry but he was unable to do OP therapy due to Rj already having a request in from March with an individual. Jose Gunn was wondering if he had missed that appointment. [facility] staff member then spoke to Claudine from [facility] over the telephone who stated that they need to have an OP authorization as well in order to provide the intake appointment and med appointment. PHP staff member was receptive and stated she would need to reach out to the individual who is supporting in that area. PHP staff member emailed Jose Gunn back informing him of needing an authorization for both services and explored if his old one could be deleted. PHP staff member is awaiting a response. While waiting [facility] contacted a couple times trying to see if we were able to resolve. PHP staff member noted she is still awaiting a response and will reach out once she hears further. PHP staff member reached out to Jose Gunn via telephone and left a message for the administrative assistant receptionist and is awaiting a call back.
--- NOTE | 2023-06-17 17:50 | HO.PHP ---
[employer] spoke with Dr. Summers at roughly 5:00pm regarding Rj's discharge plan, provided an update. Stated he will call pt regarding aftercare due to an issue with insurance that Dr. Summers is aware of and needs to address before Rj's referral for services will be covered. Dr. uSmmers also reported he will call pt to followup regarding [place] post PHP.
--- NOTE | 2023-06-17 17:51 | P.PNPSP_ITS ---
Subjective Subjective Date of Service: 06/17/23 Reason For Visit: depression,anxiety Interim History: Patient shares various thoughts about his stressors, relationship dynamics and challenges in his marriage, as well as some frustrations about delays in community referrals, due to issues with his insurance. He continues on medications - citalopram, prazosin, clonazepam, omeprazole and prn cyclobenzaprine. He reports tolerating them, denies any adverse effects. Reports sleep, appetite, energy intact. He says he has been snoring and complains of dry mouth. Medication can certainly be contributing to the problem. He continues to notice tendency to flinch which has not improved with prazosin, although he feels he is sleeping better. He says he will try to stay on top of hydration, as he suspects he is sleeping more soundly and perhaps the snoring is drying his mouth out. Mood is okay , denies feeling depressed, but still feeling stressed, he is worried about getting back to work. His back is still a problem, but pain has been more manageable, rates it at a 4 out 10. He has an upcoming PCP appointment with Efren Cerda on 06/28. Medication Compliance: Yes Side effects from medications: No Attending Groups: Yes Review of Systems Acute medical concerns: No Mental Status Exam Mental Status Exam Narrative: Alert, oriented, in no acute distress. Mood fine less depressed. Affect moments of brightening, more affect around topics of interest, otherwise still quite flat, dysthymic affect. Speech soft, low rate and prosody with notable latency in response. Thought process linear, coherent. Thought content related to stressors, denies any helplessness, hopelessness or SI. He denies any aggressive ideation or HI. No paranoia or delusional content elicited. No evidence of psychosis. Insight limited and judgment fair but adequate . Assessment & Plan Assessment & Plan (1) Post-traumatic stress disorder, unspecified: Status: Acute Code(s): F43.10 - Post-traumatic stress disorder, unspecified (2) Adjustment disorder with mixed disturbance of emotions and conduct: Status: Acute Code(s): F43.25 - Adjustment disorder with mixed disturbance of emotions and conduct (3) Pain disorder associated with psychological factors and medical condition: Status: Acute Code(s): F45.42 - Pain disorder with related psychological factors (4) Mental disorder, not otherwise specified: Status: Acute Code(s): F99 - Mental disorder, not otherwise specified Assessment and Plan: hx and clinical presentation suggestive of Aspergers/ASD vs NVLD Plan Discharge from [facility] continue with treatment defer further medication management to outpatient provider Refills sent to pharmacy Patient educated on: diagnosis and medication risk/benefits Informed Consent: understands Reason for contiued partial hosp. stay Substantial Risk for: stable for discharge Certification I certify that partial hospital treatment is medically necessary due to the symptoms and problems resulting from the patient's mental illness and the failure to treat the patient at the partial hospital level of care would likely result in the patient requiring inpatient psychiatric care which could not be prevented at a less intensive level of care. Total time managing care of this patient today __30__ minutes. Discharge Plan Discharge Attending provider: Romelia Hawley Medications: Continued cyclobenzaprine 10 mg Tablet 10 mg PO TID 15 Days Qty: 45 0RF ibuprofen 800 mg tablet 800 mg PO BEDTIME PRN (Reason: with food) Qty: 20 0RF Rx Instructions: administer with food prazosin 1 mg capsule 1 - 2 mg PO BEDTIME PRN (Reason: sleep) Qty: 30 0RF omeprazole 20 mg capsule,delayed release(DR/EC) 20 mg PO DAILY 30 Days Qty: 30 0RF Changed clonazepam 1 mg tablet 0.5 - 1 mg PO BEDTIME PRN (Reason: as directed) Qty: 8 0RF Rx Instructions: administer 30 minutes before bedtime for lower back pain citalopram 20 mg tablet 20 mg PO BEDTIME 30 Days Qty: 30 0RF Discontinued lidocaine [Lidocaine Pain Relief] 4 % Adhesive Patch,Medicated 1 patch transdermal DAILY PRN (Reason: Pain, Moderate(Pain Scale 4-6)) 30 Days Qty: 30 0RF Protocol: Apply to: Apply to: back trazodone 50 mg Tablet 50 mg PO BEDTIME PRN (Reason: sleep) 30 Days Qty: 30 1RF No Action fenofibrate 54 mg tablet 54 mg PO DAILY 30 Days Qty: 30 3RF Stand Alone Forms: Patient Portal Discharge page Patient Education: Post Traumatic Stress Disorder (DC)
== END 2023-06-17 23:59 | disposition home or self-care (01) ==
LOC: HO.PHPA 08:45
PROVIDERS: Visit Provider Psychiatry & Neurology Psychiatry
DX: F43.10 Post-traumatic stress disorder, unspecified (principal); F43.25 Adjustment disorder with mixed disturbance of emotions and conduct; F45.42 Pain disorder with related psychological factors; F99 Mental disorder, not otherwise specified; F84.5 Asperger's syndrome; Z79.899 Other long term (current) drug therapy
CPT/HCPCS: 90791; 90853

== ENCOUNTER → 2023-06-17 08:45 | Outpatient (BNV) | payer OTHER, SELFPAY | PROVIDERS: Visit Provider Psychiatry & Neurology Psychiatry | DX: F43.10 Post-traumatic stress disorder, unspecified (principal); F43.25 Adjustment disorder with mixed disturbance of emotions and conduct; F45.42 Pain disorder with related psychological factors; F99 Mental disorder, not otherwise specified | CPT/HCPCS: 90792; 99213; 99214 ==

== ENCOUNTER 2023-06-28 14:54 | Outpatient (AMB) | payer OTHER, SELFPAY ==
[2023-06-28 14:59] VITALS: BP 118/86; PULSE 106; RESP 13; TEMP 36.6; O2SAT 98; BMI 30.2
--- NOTE | 2023-06-28 14:59 | A.OFFPC_ITS ---
Vital Signs 06/28/23 14:59 Height 5 ft 8 in Weight 198 lb 8 oz BMI 30.2 BP 118/86 Blood Pressure Location Rt brachial Position Sitting Respiration 13 Pulse 106 H Pulse Source Pulse Oximeter Temp 97.8 F Temp Source Temporal Artery Scan Pulse Oximetry (%) 98 Oxygen Delivery Method Room Air Intake [place] [facility] Traffic Operations Manager Required: No Accompanied by: Self / Same As Patient Allergies No Known Allergies Allergy (Verified 06/28/23 15:10) Medication List - Last Reconciled 06/28/23 by Efren Cerda CNP citalopram 20 mg PO BEDTIME 30 days clonazepam 0.5 - 1 mg (0.5 - 1 x 1 mg) PO BEDTIME PRN cyclobenzaprine 10 mg PO TID 15 days ibuprofen 800 mg PO BEDTIME PRN omeprazole 20 mg PO DAILY 30 days prazosin 1 - 2 mg (1 - 2 x 1 mg) PO BEDTIME PRN Tobacco use date assessed: 06/28/23 Dental Screening Dental Screen Date: 06/28/23 Did you have a dental visit in the last 12 months?: No Did you have a dental problem in the last 6 months where you did not have access to dental care?: No Was dental information given to patient?: Yes HPI HPI Comments History of Present Illness Details 27-year-old male presents for anxiety an d depression follow-up He was recently hospitalized [place] [facility] for increased anxiety and depression symptoms and suicide ideation He is currently on citalopram and prazosin which he admits to taking as prescribed without adverse reactions. He reports controlled improved symptoms No SI/VAUGHN/AH/VH. He notes he completed partial hospital treatment [place] [facility] [place] week and half ago. He was connected with a therapist with [facility] whom she met last week. He has a follow up appointment in 3 days He notes that his sleep has significantly improved. He notes that he has not been waking up and sleeps throughout the night He also notes that his acid reflux has resolved He reports continued lower back pain which responds well to cyclobenzaprine and ibuprofen He states that he is starting physical therapy this week and will be going twice weekly He is excited he and his expecting a boy, their first child, in the summer [facility] Medical History Lower back pain Surgical History No pertinent past surgical history Family History Mother High blood pressure High cholesterol Maternal Grandfather High blood pressure High cholesterol Diabetes Cardiovascular disease Paternal Grandfather Diabetes Cardiovascular disease Social History Household Members: Spouse Housing: House Do you presently have visiting nurse or other home services: No Unable to assess alcohol history related to: Unknown Comment: Rj has been referred to [facility]. 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 1. Little interest or pleasure in doing things: not at all 2. Feeling down, depressed, or hopeless: not at all 3. Trouble falling or staying asleep, or sleeping too much: not at all 4. Feeling tired or having little energy: not at all 5. Poor appetite or overeating: more than half the days 6. Feeling bad about yourself - or that you are a failure or have let yourself or your family down: several days 7. Trouble concentrating on things, such as reading the newspaper or watching television: more than half the days 8. Moving or speaking so slowly that other people could have noticed. Or the opposite - being so fidgety or restless that you have been moving around a lot more than usual: not at all 9. Thoughts that you would be better off or of hurting yourself in some way: not at all Total score: 5 Depression Screening Interpretation: Positive Depression Screening Follow-up: Existing condition and In treatment Depression Screening Done: Yes 26756 - PHQ-9 Billing: Yes Source: Developed by Drs. Abel Mcclendon, Bridgette Doe, Jorge A Quintana and colleagues, with an educational prachi from [employer]. Thrive Questionnaire Date Thrive assessed: 05/21/23 AARON-7 AMB Questionnaire AARON-7 Date AARON - 7 assessed: 06/28/23 Feeling nervous, anxious, or on edge: 0 = Not at all Not being able to stop or control worryin = Not at all Worrying too much about different things: 0 = Not at all Trouble relaxin = Not at all Being so restless that it is hard to sit still: 0 = Not at all Becoming easily annoyed or irritable: 0 = Not at all Feeling afraid as if something awful might happen: 2 = More than half the days Total AARON-7 score (0-4 normal; 5-9 mild; 10-14 moderate; 15-21 severe): 2 Source: Developed by Drs. Abel Mcclendon, Bridgette Doe, Jorge A Quintana and colleagues, with an educational prachi from [employer]. AARON-7 Assessment Billing AARON-7 Assessment Tool: AARON-7 Assessment 54846 Review of Systems Const Details: Const Denies chills, Denies fatigue, Denies fever(s), Denies headache(s) and Denies weakness ENT Denies dizziness and Denies headache(s) Card Denies chest pain, Denies lightheadedness, Denies dyspnea and Denies other (Palpitations) Resp Denies cough, Denies dyspnea, Denies wheezing and Denies other ( shortness of breath) GI Denies abdominal pain, Denies melena, Denies hematochezia, Denies change in bowel habits, Denies dyspepsia and Denies nausea Denies hematuria and Denies dysuria Musc Denies abnormal gait, Denies myalgias, Denies arthralgias, Denies numbness and Denies tingling Skin/Breast Denies rash, Denies unusual bruising and Denies wounds Neuro Denies abnormal gait, Denies dizziness, Denies headache(s), Denies memory loss, Denies numbness, Denies Sensory deficit (Neuro), Denies tingling and Denies weakness Psych Denies anxiety, Denies depression, Denies memory loss Endo Denies cold intolerance, Denies fatigue, Denies heat intolerance, Denies polydipsia and Denies polyuria Aller/Immun Denies wheezing Physical exam (Primary Care) Vital Signs: Last Vital Signs Temp 97.8 F 06/28/23 14:59 Pulse 106 H 06/28/23 14:59 Resp 13 06/28/23 14:59 BP 118/86 02/19/24 14:59 Pulse Ox 98 06/28/23 14:59 Oxygen Delivery Method Room Air 06/28/23 14:59 BMI result Body Mass Index 30.2 Tobacco/Smoking Status: Tobacco use Status Tobacco use date assessed 06/28/23 06/28/23 15:13 Patient Tobacco Use Status Never used Tobacco 06/28/23 15:09 e-Cigarette/Vaping Use Never Used 06/28/23 15:09 PHQ-9: PHQ-9 Score PHQ-9: Total score 5 06/28/23 15:21 Depression Screening Interpretation: Positive Depression Screening Follow-up: Existing condition and In treatment Thrive Assessment: Date of Thrive Assessment Date Thrive assessed 05/21/23 06/28/23 15:09 Const Other: General: no acute distress and well developed Nutritional Appearance: well nourished Orientation/consciousness: patient oriented x3 HENMT Head: Yes normocephalic and Yes atraumatic Eyes General: appearance normal, both eyes and all related structures Pupils: Equal, round and reactive pupils present EOM: EOMs intact bilaterally Resp Effort & Inspection: normal respiratory effort Auscultation: clear to auscultation bilaterally Cardio Rate: regular rate Rhythm: regular rhythm Heart sounds: S1 normal heart sound present, S2 normal heart sound present, no gallops, no murmurs and no rubs GI Palpation (GI): No Abdominal aortic bruit present, Soft to palpation, nontender, No hepatosplenomegaly present and No Rebound tenderness present Auscultation: normal bowel sounds General: Yes no CVA tenderness Back/Spine/Pelvis Back: no CVA tenderness Cervical Spine: cervical ROM normal and No Cervical spine tenderness Thoracic/Lumbar Spine: thoraco-lumbar ROM normal, No pain with thoraco-lumbar ROM, No thoracic spinal tenderness and No lumbar spinal tenderness Extrem General: Yes normal to inspection, No edema and No calf tenderness Skin General: warm and dry. Normal skin color. Normal skin turgor Neuro General: patient oriented x3, gait normal and no focal neuro deficit Cranial nerves: Yes Equal, round and reactive pupils present Cognition (Neuro): normal cognition Gait exam (Neuro): Normal gait present Sensory Exam: No Sensory deficit (Neuro) Psych Appearance: grossly normal Affect: normal affect Attitude: cooperative Thought process: Normal thought process present Assessment and Plan Assessment & Plan (1) MDD (major depressive disorder), recurrent episode, moderate: Code(s): F33.1 - Major depressive disorder, recurrent, moderate Plan: Reports improved depression and anxiety symptoms on current treatment PHQ-9 score revealed mild depression. AARON-7 score is normal Continue current treatment Routine exercise encouraged Follow-up in 6 weeks or return sooner with worsening or new symptoms Verbalized understanding and agreed with treatment (2) Anxiety: Code(s): F41.9 - Anxiety disorder, unspecified Plan: As above (3) Lower back pain: Code(s): M54.50 - Low back pain, unspecified Plan: Continue current treatment regimen Return with worsening or new symptoms Verbalized understanding and agreed with the plan (4) Dyslipidemia: Code(s): E78.5 - Hyperlipidemia, unspecified Plan: Recent triglyceride level is elevated, 370. HDL level is low, 29 Fenofibrate ordered. Take as prescribed Advised to limit foods high in saturated fat and avoid foods high in trans fat Routine exercise encouraged Repeat lipid panel level in 6 weeks. Advised to fast for 10-12 hours, may drink water only, and get blood work done before his next visit Follow-up in 6 weeks Verbalized understanding and agreed with treatment plan Orders: Orders Lipid Panel 6 Weeks E78.5 - Hyperlipidemia, unspecified Medications: New fenofibrate 54 mg PO DAILY 30 tabs 3RF 30 days Coding Level of Care Code Est Pt Level 4 (03617) Diagnoses MDD (major depressive disorder), recurrent episode, moderate F33.1 Anxiety F41.9 Lower back pain M54.50 Dyslipidemia E78.5 Additional Codes AARON-7 Assessment Billing - AARON-7 Assessment Tool: AARON-7 Assessment 04759 ([id number])
== END 2023-06-28 16:05 | disposition home or self-care (01) ==
PROVIDERS: PCP Nurse Practitioner Family; Visit Provider Nurse Practitioner Family
DX: F33.1 Major depressive disorder, recurrent, moderate (principal); F41.9 Anxiety disorder, unspecified; M54.50 Low back pain, unspecified; E78.5 Hyperlipidemia, unspecified
CPT/HCPCS: 96127; 99214

== ENCOUNTER 2023-07-29 13:00 | Outpatient (RCR) | payer OTHER, SELFPAY ==
--- NOTE | 2023-04-28 10:13 | MHC.PT.EP ---
[facility] [place] [facility] [place] [facility] [place] [facility] [address] Marysol Tena [address] [phone] F: [phone] F: [phone] F: [phone] F: [phone] Physical Therapy Plan of Care Date of Evaluation: 04/28/23 Date of Surgery: Diagnosis: This is a 27 yo male presenting to skilled PT with a script for stiff back. Assessment: This is a 27 yo male presenting to skilled PT with a script for stiff back. Patient states that back pain started around July 2020 when he was moving a washing machine from out of the bed of a truck. Upon this incident he felt a jolt/felt like he pulled a muscle (machine was about 2 inches from the ground). He reports that he was bed ridden for a few weeks following this. He proceeded to see PT after this and has been seeing PT off and on since then (2 different places, this is the third facility). He reports that PT was somewhat helpful however he continues to have pain. He does do some of his HEP (mainly hip abductions) and tries to focus on his posture and core. Pain is now described as uncomfortable, tight, grabbing my spine and stiff. Pain is consistent and centralized to thoracic/low back. He denies radiating symptoms, numbness/tingling. He is cautious about lifting more than 40 lbs and modifies activities including standing, running. He has used icy hot and salon pas, self manipulation for pain relief. Assessment reveals pain that ranges from up to a 4/10 at the worst. Patient demos decreased lumbar and thoracic ROM, strength of gluts, core and back, TTP at thoracic and lumabar fascia and SP and demos impaired posture with forward head and rounded shoulders. Based on functional limitations, impaired QOL and pain tolerance patient is a good candidate for skilled PT 2x/wk for 4wks. Frequency and Duration: The patient will be seen 2x/wk for 4wks Short Term Goals: Pt will demonstrate improved postural awareness and understanding of core engagement with supine and standing tasks without cues throughout session to improve overall back safety in 2 weeks. Pt will demonstrate I in HEP in 2 wks Pt will continue to reinforce precautions, sitting, standing and ADL modifications with proper body mechanics in 2 wks. Case Briefer Goals: Pt will demonstrate improved outcome measure by 5 points in 4 weeks for improved functional mobility. Pt will demonstrate ability to bend and lift WNL min to no pain for household tasks in 4 wks. Pt will report 50% improvement in general lumbar stiffness and symptoms in 4 wks. Treatment Plan: Modalities to reduce pain, spasms and effusion. Manual therapy to restore motion and function. Therapeutic exercise to improve strength and flexibility. Neuromuscular re-education for posture and balance. Therapeutic activities to return to functional activities of daily living. Electronically signed by: Amanda Murray PT Please sign and return to therapist. Thank you for your referral.
--- NOTE | 2023-05-31 14:48 | MHC.PT.PR ---
[facility] [place] Office [place] [facility] [place] Office [address] Marysol Tena [address] [phone] F: [phone] F: [phone] F: [phone] F: [phone] Physical Therapy Progress Note Diagnosis: This is a 27 yo male presenting to skilled PT with a script for stiff back. Date of Surgery: Date of Evaluation: 04/28/23 Treatments to Date: 4 Cancellations to Date: 0 No Shows to Date: Subjective: Patient reporting that he has been in the hospital for his back. He was given cyclobenzaprine. He has 6/10 pain today that is centralized. Pain Score and Location: 6 thoracic and lumbar Objective Measures: see eval Assessment: 05/31/23: Patient returns to PT after being away for a few weeks due to covid complications and hospitalization. He reports that his pain is about the same since starting PT. He reports bending and sitting bothers him and gets up to an 8/10. He is seeing PCP this week. I educated him that he may benefit about talking with PCP about a referral to an orthopedic or pain management. He is also interested in a higher level image. In the mean time he will be continuing PT however this is also complicated by mental health appointments and program he is starting. He needed to leave 30 mins early for a conflicting appointment. PT Plan: Continue with PT Frequency and Duration: The patient will be seen 2x/wk for 4wks Treatment Plan: Therapeutic Exercise Dynamic Therapeutic Activities Neuromuscular Re-ed Manual Therapies Joint Mobilization Taping Gait Home Exercise Program Patient Education Electrical Stimulation Hot or Cold Pack Reviewed/ Agreed with Student Documentation: Therapist: Thank you once again for your referral.
--- NOTE | 2023-08-12 08:17 | MHC.PT.DC ---
[facility] [place] Office [place] Office [place] Office [address] Marysol Tena [address] [phone] F: [phone] F: [phone] F: [phone] F: [phone] Physical Therapy Discharge Report Diagnosis: This is a 27 yo male presenting to skilled PT with a script for stiff back. Date of Surgery: Date of Evaluation: 04/28/23 Date of Discharge: 08/12/23 Treatments to Date: 12 Cancellations to Date: 0 No Shows to Date: Discharge Status: Achieved Goals Improved Function Independent with HEP Insurance Declined Tx Discharge Summary: Patient had 12 visits of PT that were intermittent over a longer period of time due to patient personal complicating factors. He did improve pain, ROM and strength. He was educated on the importance of core stab, lifting mechanics, tens unit for home and postural importance. His end date has come and no further appointments were made. Patient's chart was DC'd. He has a sufficient HEP to continue on his own at this time. Electronically signed by: Amanda Murray, PT Please sign and return to therapist. Thank you for your referral.
== END 2023-08-12 08:17 | disposition home or self-care (01) ==
LOC: HO.PTCHIC 13:00
PROVIDERS: PCP Nurse Practitioner Family; Visit Provider Nurse Practitioner Family
DX: M25.69 Stiffness of other specified joint, not elsewhere classified (principal)
CPT/HCPCS: 97014; 97110; 97161

== ENCOUNTER 2023-08-24 12:39 | Outpatient (REF) | payer OTHER, SELFPAY ==
[2023-08-24 15:16] LABS: Cholesterol 135 mg/dL (<200); HDL Cholesterol 37 mg/dL (>40); LDL Cholesterol Calculated 35 mg/dL (<100); Triglycerides 315 mg/dL (<150)
== END 2023-08-24 12:40 | disposition home or self-care (01) ==
LOC: HO.CHCLDS 12:39
PROVIDERS: Visit Provider Nurse Practitioner Family
DX: E78.5 Hyperlipidemia, unspecified (principal)
CPT/HCPCS: 36415; 80061

== ENCOUNTER 2023-08-27 16:50 | Outpatient (AMB) | payer OTHER, SELFPAY ==
[2023-08-27 16:58] VITALS: BP 116/74; PULSE 95; RESP 13; TEMP 36.6; O2SAT 99; BMI 29.5
--- NOTE | 2023-08-27 16:58 | MHC.PC.OV ---
Vital Signs 08/27/23 16:58 Height 5 ft 8 in Weight 194 lb 4 oz BMI 29.5 BP 116/74 Blood Pressure Location Rt brachial Position Sitting Respiration 13 Pulse 95 Pulse Source Pulse Oximeter Temp 97.9 F Temp Source Temporal Artery Scan Pulse Oximetry (%) 99 Oxygen Delivery Method Room Air Intake Visit Reasons: anxiety, depression Table Filler Required: No Accompanied by: Self / Same As Patient Allergies No Known Allergies Allergy (Verified 08/27/23 17:12) Medication List - Last Reconciled 08/27/23 by Efren Cerda CNP citalopram 20 mg PO BEDTIME 30 days clonazepam 0.5 - 1 mg (0.5 - 1 x 1 mg) PO BEDTIME PRN cyclobenzaprine 10 mg PO TID 15 days fenofibrate 54 mg PO DAILY 30 days ibuprofen 800 mg PO BEDTIME PRN omeprazole 20 mg PO DAILY 30 days prazosin 1 - 2 mg (1 - 2 x 1 mg) PO BEDTIME PRN Tobacco use date assessed: 06/28/23 Dental Screening Dental Screen Date: 06/28/23 HPI HPI Comments History of Present Illness Details 27-year-old male presents for anxiety, depression, and hypertriglyceridemia follow-up He admits to taking his medications as prescribed without adverse reactions He is currently on citalopram, clonazepam, and prazosin which he admits to taking as prescribed without adverse reactions. He reports controlled improved symptoms He notes that his symptoms significantly improved since the of his son on 07/19/2023. He is currently on paternity leave and enjoying family time No SI/VAUGHN/AH/VH. [facility] Medical History Lower back pain Surgical History No pertinent past surgical history Family History Mother High blood pressure High cholesterol Maternal Grandfather High blood pressure High cholesterol Diabetes Cardiovascular disease Paternal Grandfather Diabetes Cardiovascular disease Social History Household Members: Spouse Housing: House Do you presently have visiting nurse or other home services: No Unable to assess alcohol history related to: Unknown Comment: Rj has been referred to [facility]. 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 1. Little interest or pleasure in doing things: not at all 2. Feeling down, depressed, or hopeless: not at all 3. Trouble falling or staying asleep, or sleeping too much: several days 4. Feeling tired or having little energy: not at all 5. Poor appetite or overeating: not at all 6. Feeling bad about yourself - or that you are a failure or have let yourself or your family down: not at all 7. Trouble concentrating on things, such as reading the newspaper or watching television: not at all 8. Moving or speaking so slowly that other people could have noticed. Or the opposite - being so fidgety or restless that you have been moving around a lot more than usual: not at all 9. Thoughts that you would be better off or of hurting yourself in some way: not at all Total score: 1 Depression Screening Interpretation: Negative Depression Screening Done: Yes 91730 - PHQ-9 Billing: Yes Source: Developed by Drs. Abel Mcclendon, Bridgette Doe, Jorge A Quintana and colleagues, with an educational prachi from [employer]. Thrive Questionnaire Date Thrive assessed: 05/21/23 AARON-7 AMB Questionnaire AARON-7 Date AARON - 7 assessed: 08/27/23 Feeling nervous, anxious, or on edge: 0 = Not at all Not being able to stop or control worryin = Not at all Worrying too much about different things: 0 = Not at all Trouble relaxin = Several days Being so restless that it is hard to sit still: 0 = Not at all Becoming easily annoyed or irritable: 1 = Several days Feeling afraid as if something awful might happen: 0 = Not at all Total AARON-7 score (0-4 normal; 5-9 mild; 10-14 moderate; 15-21 severe): 2 Source: Developed by Drs. Abel Mcclendon, Bridgette Doe, Jorge A Quintana and colleagues, with an educational prachi from [employer]. AARON-7 Assessment Billing AARON-7 Assessment Tool: AARON-7 Assessment 45104 Review of Systems Const Details: Const Denies chills, Denies fatigue, Denies fever(s), Denies headache(s) and Denies weakness ENT Denies dizziness and Denies headache(s) Card Denies chest pain, Denies lightheadedness, Denies dyspnea and Denies other (Palpitations) Resp Denies cough, Denies dyspnea, Denies wheezing and Denies other ( shortness of breath) GI Denies abdominal pain, Denies melena, Denies hematochezia, Denies change in bowel habits, Denies dyspepsia and Denies nausea Denies hematuria and Denies dysuria Musc Denies abnormal gait, Denies myalgias, Denies arthralgias, Denies numbness and Denies tingling Skin/Breast Denies rash, Denies unusual bruising and Denies wounds Neuro Denies abnormal gait, Denies dizziness, Denies headache(s), Denies memory loss, Denies numbness, Denies Sensory deficit (Neuro), Denies tingling and Denies weakness Psych Denies anxiety, Denies depression, Denies memory loss Endo Denies cold intolerance, Denies fatigue, Denies heat intolerance, Denies polydipsia and Denies polyuria Aller/Immun Denies wheezing Physical exam (Primary Care) Vital Signs: Last Vital Signs Temp 97.9 F 08/27/23 16:58 Pulse 95 08/27/23 16:58 Resp 13 08/27/23 16:58 BP 116/74 08/27/23 16:58 Pulse Ox 99 08/27/23 16:58 Oxygen Delivery Method Room Air 08/27/23 16:58 BMI result Body Mass Index 29.5 Tobacco/Smoking Status: Tobacco use Status Tobacco use date assessed 06/28/23 08/27/23 17:06 Patient Tobacco Use Status Never used Tobacco 08/27/23 17:06 e-Cigarette/Vaping Use Never Used 08/27/23 17:06 PHQ-9: PHQ-9 Score PHQ-9: Total score 1 08/27/23 17:06 Depression Screening Interpretation: Negative Thrive Assessment: Date of Thrive Assessment Date Thrive assessed 05/21/23 08/27/23 17:06 Const Other: General: no acute distress and well developed Nutritional Appearance: well nourished Orientation/consciousness: patient oriented x3 HENMT Head: Yes normocephalic and Yes atraumatic Eyes General: appearance normal, both eyes and all related structures Pupils: Equal, round and reactive pupils present EOM: EOMs intact bilaterally Resp Effort & Inspection: normal respiratory effort Auscultation: clear to auscultation bilaterally Cardio Rate: regular rate Rhythm: regular rhythm Heart sounds: S1 normal heart sound present, S2 normal heart sound present, no gallops, no murmurs and no rubs GI Palpation (GI): No Abdominal aortic bruit present, Soft to palpation, nontender, No hepatosplenomegaly present and No Rebound tenderness present Auscultation: normal bowel sounds General: Yes no CVA tenderness Back/Spine/Pelvis Back: no CVA tenderness Cervical Spine: cervical ROM normal and No Cervical spine tenderness Thoracic/Lumbar Spine: thoraco-lumbar ROM normal, No pain with thoraco-lumbar ROM, No thoracic spinal tenderness and No lumbar spinal tenderness Extrem General: Yes normal to inspection, No edema and No calf tenderness Skin General: warm and dry. Normal skin color. Normal skin turgor Neuro General: patient oriented x3, gait normal and no focal neuro deficit Cranial nerves: Yes Equal, round and reactive pupils present Cognition (Neuro): normal cognition Gait exam (Neuro): Normal gait present Sensory Exam: No Sensory deficit (Neuro) Psych Appearance: grossly normal Affect: normal affect Attitude: cooperative Thought process: Normal thought process present Assessment and Plan Assessment & Plan (1) MDD (major depressive disorder), recurrent episode, moderate: Code(s): F33.1 - Major depressive disorder, recurrent, moderate Plan: Reports controlled depression and anxiety symptoms since the of his son a month ago. He has been taking his medications as prescribed without adverse reactions PHQ-9 and AARON-7 scores are normal Continue current treatment regimen Routine exercise encouraged Follow-up in 2 months or return sooner with worsening or new symptoms Verbalized understanding and agreed with treatment plan (2) Anxiety: Code(s): F41.9 - Anxiety disorder, unspecified Plan: As above (3) Dyslipidemia: Code(s): E78.5 - Hyperlipidemia, unspecified Plan: Triglycerides improved to 370 from 315 and LDL improved to 37 from 29 Will increase fenofibrate 120 mg daily. Take as prescribed Advised to limit foods high in saturated fat and avoid foods high in trans fat Routine exercise encouraged Encouraged to get fasting labs done before his next visit Follow-up in 2 months Verbalized understanding and agreed with treatment plan Medications: New fenofibrate 120 mg PO DAILY 30 days 30 tabs 3RF Discontinued fenofibrate Discontinued Reason: Doctor's Order 54 mg PO DAILY 30 days 30 tabs 3RF Coding Level of Care Code Est Pt Level 3 (03684) Diagnoses MDD (major depressive disorder), recurrent episode, moderate F33.1 Anxiety F41.9 Dyslipidemia E78.5 Additional Codes AARON-7 Assessment Billing - AARON-7 Assessment Tool: AARON-7 Assessment 29770 ([id number])
== END 2023-08-27 17:32 | disposition home or self-care (01) ==
PROVIDERS: Visit Provider Nurse Practitioner Family
DX: E78.5 Hyperlipidemia, unspecified (principal); F33.1 Major depressive disorder, recurrent, moderate; F41.9 Anxiety disorder, unspecified
CPT/HCPCS: 99213

== ENCOUNTER 2023-10-22 08:51 | Outpatient (AMB) | payer OTHER, SELFPAY ==
[2023-10-22 08:57] VITALS: BP 124/80; PULSE 83; RESP 14; TEMP 36.4; O2SAT 98; BMI 30.6
--- NOTE | 2023-10-22 08:57 | A.OFFPC_ITS ---
Vital Signs 10/22/23 08:57 Height 5 ft 8 in Weight 201 lb 6 oz BMI 30.6 BP 124/80 Blood Pressure Location Rt brachial Position Sitting Respiration 14 Pulse 83 Pulse Source Pulse Oximeter Temp 97.6 F Temp Source Temporal Artery Scan Pulse Oximetry (%) 98 Oxygen Delivery Method Room Air Intake Visit Reasons: F/U on 08/26 Intake Note: Patient would like refill cyclobenzaprine. Port Warden Required: No Accompanied by: Self / Same As Patient Allergies No Known Allergies Allergy (Verified 10/22/23 09:22) Medication List - Last Reconciled 10/22/23 by Efren Cerda CNP citalopram 20 mg PO BEDTIME 30 days clonazepam 0.5 - 1 mg (0.5 - 1 x 1 mg) PO BEDTIME PRN cyclobenzaprine 10 mg PO TID 15 days fenofibrate micronized 134 mg PO DAILY 30 days ibuprofen 800 mg PO BEDTIME PRN omeprazole 20 mg PO DAILY 30 days prazosin 1 - 2 mg (1 - 2 x 1 mg) PO BEDTIME PRN Tobacco use date assessed: 06/28/23 Dental Screening Dental Screen Date: 06/28/23 HPI HPI Comments History of Present Illness Details 28-year-old male presents for anxiety an d depression follow-up He admits to taking his medications as prescribed without adverse reactions He offers no complaints and denies acute symptoms at this time He is excited that his son is now 3 months and doing well. His is also happy He reports continued lower back pain which responds well to cyclobenzaprine and ibuprofen [facility] Medical History Lower back pain Surgical History No pertinent past surgical history Family History (Updated 10/22/23 @ 09:08 by SHELDON Carrasco) Mother High blood pressure High cholesterol Fibromyalgia Vitiligo Maternal Grandfather High blood pressure High cholesterol Diabetes Cardiovascular disease Paternal Grandfather Diabetes Cardiovascular disease Social History Household Members: Spouse Housing: House Do you presently have visiting nurse or other home services: No Unable to assess alcohol history related to: Unknown Comment: Rj has been referred to [facility]. 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 1. Little interest or pleasure in doing things: several days 2. Feeling down, depressed, or hopeless: several days 3. Trouble falling or staying asleep, or sleeping too much: more than half the days (due to family being away) 4. Feeling tired or having little energy: several days 5. Poor appetite or overeating: not at all 6. Feeling bad about yourself - or that you are a failure or have let yourself or your family down: not at all 7. Trouble concentrating on things, such as reading the newspaper or watching television: several days 8. Moving or speaking so slowly that other people could have noticed. Or the opposite - being so fidgety or restless that you have been moving around a lot more than usual: not at all 9. Thoughts that you would be better off or of hurting yourself in some way: not at all Total score: 6 Depression Screening Interpretation: Positive Depression Screening Follow-up: Existing condition and In treatment Depression Screening Done: Yes 41079 - PHQ-9 Billing: Yes Source: Developed by Drs. Abel Mcclendon, Bridgette Doe, Jorge A Quintana and colleagues, with an educational prachi from [employer]. Thrive Questionnaire Date Thrive assessed: 05/21/23 AARON-7 AMB Questionnaire AARON-7 Date AARON - 7 assessed: 10/22/23 Feeling nervous, anxious, or on edge: 1 = Several days Not being able to stop or control worryin = Not at all Worrying too much about different things: 2 = More than half the days Trouble relaxin = Several days Being so restless that it is hard to sit still: 0 = Not at all Becoming easily annoyed or irritable: 0 = Not at all Feeling afraid as if something awful might happen: 0 = Not at all Total AARON-7 score (0-4 normal; 5-9 mild; 10-14 moderate; 15-21 severe): 4 Source: Developed by Drs. Abel Mcclendon, Bridgette Doe, Jorge A Quintana and colleagues, with an educational prachi from [employer] AARON-7 Assessment Billing AARON-7 Assessment Tool: AARON-7 Assessment 26156 Review of Systems Const Details: Const Denies chills, Denies fatigue, Denies fever(s), Denies headache(s) and Denies weakness ENT Denies dizziness and Denies headache(s) Card Denies chest pain, Denies lightheadedness, Denies dyspnea and Denies other (Palpitations) Resp Denies cough, Denies dyspnea, Denies wheezing and Denies other ( shortness of breath) GI Denies abdominal pain, Denies melena, Denies hematochezia, Denies change in bowel habits, Denies dyspepsia and Denies nausea Denies hematuria and Denies dysuria Musc Denies abnormal gait, Denies myalgias, Denies arthralgias, Denies numbness and Denies tingling Skin/Breast Denies rash, Denies unusual bruising and Denies wounds Neuro Denies abnormal gait, Denies dizziness, Denies headache(s), Denies memory loss, Denies numbness, Denies Sensory deficit (Neuro), Denies tingling and Denies weakness Psych Denies anxiety, Denies depression, Denies memory loss Endo Denies cold intolerance, Denies fatigue, Denies heat intolerance, Denies polydipsia and Denies polyuria Aller/Immun Denies wheezing Physical exam (Primary Care) Vital Signs: Last Vital Signs Temp 97.6 F 10/22/23 08:57 Pulse 83 10/22/23 08:57 Resp 14 10/22/23 08:57 BP 124/80 10/22/23 08:57 Pulse Ox 98 10/22/23 08:57 Oxygen Delivery Method Room Air 10/22/23 08:57 BMI result Body Mass Index 30.6 Tobacco/Smoking Status: Tobacco use Status Tobacco use date assessed 06/28/23 10/22/23 08:58 Patient Tobacco Use Status Never used Tobacco 10/22/23 08:58 e-Cigarette/Vaping Use Never Used 10/22/23 08:58 PHQ-9: PHQ-9 Score PHQ-9: Total score 6 10/22/23 09:12 Depression Screening Interpretation: Positive Depression Screening Follow-up: Existing condition and In treatment Thrive Assessment: Date of Thrive Assessment Date Thrive assessed 05/21/23 10/22/23 08:58 Const Other: General: no acute distress and well developed Nutritional Appearance: well nourished Orientation/consciousness: patient oriented x3 HENMT Head: Yes normocephalic and Yes atraumatic Eyes General: appearance normal, both eyes and all related structures Pupils: Equal, round and reactive pupils present EOM: EOMs intact bilaterally Resp Effort & Inspection: normal respiratory effort Auscultation: clear to auscultation bilaterally Cardio Rate: regular rate Rhythm: regular rhythm Heart sounds: S1 normal heart sound present, S2 normal heart sound present, no gallops, no murmurs and no rubs GI Palpation (GI): No Abdominal aortic bruit present, Soft to palpation, nontender, No hepatosplenomegaly present and No Rebound tenderness present Auscultation: normal bowel sounds General: Yes no CVA tenderness Back/Spine/Pelvis Back: no CVA tenderness Cervical Spine: cervical ROM normal and No Cervical spine tenderness Thoracic/Lumbar Spine: thoraco-lumbar ROM normal, No pain with thoraco-lumbar ROM, No thoracic spinal tenderness and No lumbar spinal tenderness Extrem General: Yes normal to inspection, No edema and No calf tenderness Skin General: warm and dry. Normal skin color. Normal skin turgor Neuro General: patient oriented x3, gait normal and no focal neuro deficit Cranial nerves: Yes Equal, round and reactive pupils present Cognition (Neuro): normal cognition Gait exam (Neuro): Normal gait present Sensory Exam: No Sensory deficit (Neuro) Psych Appearance: grossly normal Affect: normal affect Attitude: cooperative Thought process: Normal thought process present Assessment and Plan Assessment & Plan (1) MDD (major depressive disorder), recurrent episode, moderate: Code(s): F33.1 - Major depressive disorder, recurrent, moderate Plan: Controlled anxiety and depression symptoms PHQ-9 score revealed mild depression. AARON-7 score is normal Continue current treatment regimen Routine exercise encouraged Follow-up in 4 months or sooner with symptoms or concerns Verbalized understanding and agreed with treatment plan (2) Dyslipidemia: Code(s): E78.5 - Hyperlipidemia, unspecified Plan: Last triglyceride levels was 315 and LDL was 37 Fenofibrate was increased to 120 mg daily. Encouraged to continue current treatment regimen Advised to limit foods high in saturated fat and avoid foods high in trans fat Routine exercise encouraged Lipid panel ordered. Advised to to get fasting blood work at his earliest convenience. Will make changes as needed Verbalized understanding and agreed with the plan (3) Lower back pain: Code(s): M54.50 - Low back pain, unspecified Plan: Cyclobenzaprine and ibuprofen as prescribed Warm/cool compresses encouraged Work restriction form signed for his employer Follow-up with worsening or new symptoms Verbalized understanding and agreed with the treatment plan Orders: Orders Lipid Panel Today E78.5 - Hyperlipidemia, unspecified Medications: Refilled cyclobenzaprine 10 mg PO TID 15 days 45 tabs 0RF Coding Level of Care Code Est Pt Level 4 (29433) Complex EM visit Add On G2211 Diagnoses MDD (major depressive disorder), recurrent episode, moderate F33.1 Dyslipidemia E78.5 Lower back pain M54.50 Additional Codes AARON-7 Assessment Billing - AARON-7 Assessment Tool: AARON-7 Assessment [id number] ([id number])
== END 2023-10-22 09:39 | disposition home or self-care (01) ==
PROVIDERS: Visit Provider Nurse Practitioner Family
DX: E78.5 Hyperlipidemia, unspecified (principal); F33.1 Major depressive disorder, recurrent, moderate; M54.50 Low back pain, unspecified
CPT/HCPCS: 99214; G2211

== ENCOUNTER 2023-10-29 09:35 | Outpatient (REF) | payer OTHER, SELFPAY ==
[2023-10-29 12:25] LABS: Cholesterol 102 mg/dL (<200); HDL Cholesterol 31 mg/dL (>40); LDL Cholesterol Calculated 20 mg/dL (<100); Triglycerides 259 mg/dL (<150)
[2023-10-30 10:03] LABS: LDL Cholesterol Direct 30 mg/dL (<100)
== END 2023-10-29 09:36 | disposition home or self-care (01) ==
LOC: HO.WFDLDS 09:35
PROVIDERS: Visit Provider Nurse Practitioner Family
DX: E78.5 Hyperlipidemia, unspecified (principal)
CPT/HCPCS: 36415; 80061; 83721

== ENCOUNTER 2023-12-21 12:50 | Outpatient (AMB) | payer OTHER, SELFPAY ==
--- NOTE | 2023-12-21 13:05 | MHC.PC.OV ---
Vital Signs 12/21/23 13:09 Height 5 ft 8 in Weight 206 lb 8 oz BMI 31.4 BP 116/72 Blood Pressure Location Rt brachial Position Sitting Respiration 16 Pulse 90 Pulse Source Pulse Oximeter Pulse Oximetry (%) 97 Oxygen Delivery Method Room Air Intake Visit Reasons: blood work needed for [facility] paperwork Intake Note: Needs blood work, yearly HIV testing, for [facility]. Allergies No Known Allergies Allergy (Verified 12/21/23 13:25) Medication List - Last Reconciled 12/21/23 by Efren Cerda CNP citalopram 20 mg PO BEDTIME 30 days clonazepam 0.5 - 1 mg (0.5 - 1 x 1 mg) PO BEDTIME PRN cyclobenzaprine 10 mg PO TID 15 days fenofibrate micronized 134 mg PO DAILY 30 days ibuprofen 800 mg PO BEDTIME PRN omeprazole 20 mg PO DAILY 30 days prazosin 1 - 2 mg (1 - 2 x 1 mg) PO BEDTIME PRN Tobacco use date assessed: 06/28/23 Dental Screening Dental Screen Date: 06/28/23 HPI HPI Comments History of Present Illness Details 28-year-old male presents with request for HIV labs for his employer He offers no complaint and denies acute symptoms at this time He notes that his sexually active, in a monogamous relationship, and has no STD concerns [facility] Medical History Lower back pain Surgical History No pertinent past surgical history Family History (Updated 10/22/23 @ 09:08 by SHELDON Carrasco) Mother High blood pressure High cholesterol Fibromyalgia Vitiligo Maternal Grandfather High blood pressure High cholesterol Diabetes Cardiovascular disease Paternal Grandfather Diabetes Cardiovascular disease Social History Household Members: Spouse Housing: House Do you presently have visiting nurse or other home services: No Unable to assess alcohol history related to: Unknown Comment: Rj has been referred to [facility]. Patient Tobacco Use Status: Never used Tobacco e-Cigarette/Vaping Use: Never Used service: Yes Current occupational status: employed Current occupation: [employer] Sexual orientation: Straight/Heterosexual Cognitive needs: No Hearing needs: No Vision needs: No Questionnaire PHQ-9 Over the last 2 weeks, how often have you been bothered by any of the following problems? 1. Little interest or pleasure in doing things: not at all 2. Feeling down, depressed, or hopeless: not at all 3. Trouble falling or staying asleep, or sleeping too much: not at all 4. Feeling tired or having little energy: not at all 5. Poor appetite or overeating: not at all 6. Feeling bad about yourself - or that you are a failure or have let yourself or your family down: not at all 7. Trouble concentrating on things, such as reading the newspaper or watching television: not at all 8. Moving or speaking so slowly that other people could have noticed. Or the opposite - being so fidgety or restless that you have been moving around a lot more than usual: not at all 9. Thoughts that you would be better off or of hurting yourself in some way: not at all Total score: 0 Depression Screening Interpretation: Negative Depression Screening Done: Yes 47547 - PHQ-9 Billing: Yes Source: Developed by Drs. Abel Mcclendon, Bridgette Doe, Jorge A Quintana and colleagues, with an educational prachi from [employer]. Thrive Questionnaire Date Thrive assessed: 05/21/23 AARON-7 AMB Questionnaire AARON-7 Date AARON - 7 assessed: 12/21/23 Feeling nervous, anxious, or on edge: 0 = Not at all Not being able to stop or control worryin = Not at all Worrying too much about different things: 0 = Not at all Trouble relaxin = Not at all Being so restless that it is hard to sit still: 0 = Not at all Becoming easily annoyed or irritable: 0 = Not at all Feeling afraid as if something awful might happen: 0 = Not at all Total AARON-7 score (0-4 normal; 5-9 mild; 10-14 moderate; 15-21 severe): 0 Source: Developed by Drs. Abel Mcclendon, Bridgette Doe, Jorge A Quintana and colleagues, with an educational prachi from [employer]. AARON-7 Assessment Billing AARON-7 Assessment Tool: AARON-7 Assessment 47161 Review of Systems Const Details: Const Denies chills, Denies fatigue, Denies fever(s), Denies headache(s) and Denies weakness ENT Denies dizziness and Denies headache(s) Card Denies chest pain, Denies lightheadedness, Denies dyspnea and Denies other (Palpitations) Resp Denies cough, Denies dyspnea, Denies wheezing and Denies other ( shortness of breath) GI Denies abdominal pain, Denies melena, Denies hematochezia, Denies change in bowel habits, Denies dyspepsia and Denies nausea Denies hematuria and Denies dysuria Musc Denies abnormal gait, Denies myalgias, Denies arthralgias, Denies numbness and Denies tingling Skin/Breast Denies rash, Denies unusual bruising and Denies wounds Neuro Denies abnormal gait, Denies dizziness, Denies headache(s), Denies memory loss, Denies numbness, Denies Sensory deficit (Neuro), Denies tingling and Denies weakness Psych Denies anxiety, Denies depression, Denies memory loss Endo Denies cold intolerance, Denies fatigue, Denies heat intolerance, Denies polydipsia and Denies polyuria Aller/Immun Denies wheezing Physical exam (Primary Care) Vital Signs: Last Vital Signs Pulse 90 12/21/23 13:09 Resp 16 12/21/23 13:09 BP 116/72 12/21/23 13:09 Pulse Ox 97 12/21/23 13:09 Oxygen Delivery Method Room Air 12/21/23 13:09 BMI result Body Mass Index 31.4 Tobacco/Smoking Status: Tobacco use Status Tobacco use date assessed 06/28/23 12/21/23 13:13 Patient Tobacco Use Status Never used Tobacco 12/21/23 13:13 e-Cigarette/Vaping Use Never Used 12/21/23 13:13 PHQ-9: PHQ-9 Score PHQ-9: Total score 0 12/21/23 13:13 Depression Screening Interpretation: Negative Thrive Assessment: Date of Thrive Assessment Date Thrive assessed 05/21/23 12/21/23 13:13 Const Other: General: no acute distress and well developed Nutritional Appearance: well nourished Orientation/consciousness: patient oriented x3 HENMT Head: Yes normocephalic and Yes atraumatic Eyes General: appearance normal, both eyes and all related structures Pupils: Equal, round and reactive pupils present EOM: EOMs intact bilaterally Resp Effort & Inspection: normal respiratory effort Auscultation: clear to auscultation bilaterally Cardio Rate: regular rate Rhythm: regular rhythm Heart sounds: S1 normal heart sound present, S2 normal heart sound present, no gallops, no murmurs and no rubs GI Palpation (GI): No Abdominal aortic bruit present, Soft to palpation, nontender, No hepatosplenomegaly present and No Rebound tenderness present Auscultation: normal bowel sounds General: Yes no CVA tenderness Back/Spine/Pelvis Back: no CVA tenderness Cervical Spine: cervical ROM normal and No Cervical spine tenderness Thoracic/Lumbar Spine: thoraco-lumbar ROM normal, No pain with thoraco-lumbar ROM, No thoracic spinal tenderness and No lumbar spinal tenderness Extrem General: Yes normal to inspection, No edema and No calf tenderness Skin General: warm and dry. Normal skin color. Normal skin turgor Neuro General: patient oriented x3, gait normal and no focal neuro deficit Cranial nerves: Yes Equal, round and reactive pupils present Cognition (Neuro): normal cognition Gait exam (Neuro): Normal gait present Sensory Exam: No Sensory deficit (Neuro) Psych Appearance: grossly normal Affect: normal affect Attitude: cooperative Thought process: Normal thought process present Assessment and Plan Assessment & Plan (1) Screen for STD (sexually transmitted disease): Code(s): Z11.3 - Encounter for screening for infections with a predominantly sexual mode of transmission Plan: HIV lab ordered Advised to follow-up as planned Verbalized understanding and agreed with the plan Orders: Orders HIV Ab/Ag Today Z11.3 - Encounter for screening for infections with a predominantly sexual mode of transmission Coding Level of Care Code Est Pt Level 3 (72920) Diagnoses Screen for STD (sexually transmitted disease) Z11.3 Additional Codes AARON-7 Assessment Billing - AARNO-7 Assessment Tool: AARON-7 Assessment 09540 ([id number])
[2023-12-21 13:09] VITALS: BP 116/72; PULSE 90; RESP 16; O2SAT 97; BMI 31.4
== END 2023-12-21 13:32 | disposition home or self-care (01) ==
PROVIDERS: Visit Provider Nurse Practitioner Family
DX: Z11.3 Encounter for screening for infections with a predominantly sexual mode of transmission (principal)
CPT/HCPCS: 99213

== ENCOUNTER 2023-12-21 13:46 | Outpatient (REF) | payer OTHER, SELFPAY ==
[2023-12-22 08:06] LABS: HIV AB/AG Nonreactive (Nonreactive); HIV Num 1 0.05 S/CO (0.00-0.99)
== END 2023-12-21 13:47 | disposition home or self-care (01) ==
LOC: HO.WFDLDS 13:46
PROVIDERS: Visit Provider Nurse Practitioner Family
DX: Z11.3 Encounter for screening for infections with a predominantly sexual mode of transmission (principal)
CPT/HCPCS: 36415; 87389

== ENCOUNTER 2024-02-03 09:30 | Outpatient (REF) | payer OTHER, SELFPAY ==
[2024-02-03 12:21] LABS: Cholesterol 108 mg/dL (<200); HDL Cholesterol 34 mg/dL (>40); LDL Cholesterol Calculated 39 mg/dL (<100); Triglycerides 176 mg/dL (<150)
== END 2024-02-03 09:31 | disposition home or self-care (01) ==
LOC: HO.WFDLDS 09:30
PROVIDERS: Visit Provider Nurse Practitioner Family
DX: E78.5 Hyperlipidemia, unspecified (principal)
CPT/HCPCS: 36415; 80061

== ENCOUNTER 2024-02-22 08:57 | Outpatient (AMB) | payer OTHER, SELFPAY ==
--- NOTE | 2024-02-22 08:59 | MHC.PC.OV ---
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: No Allergies No Known Allergies Allergy (Verified 02/22/24 09:14) Medication List - Last Reconciled 02/22/24 by Efren Cerda CNP citalopram 20 mg PO BEDTIME 30 days clonazepam 0.5 - 1 mg (0.5 - 1 x 1 mg) PO BEDTIME PRN cyclobenzaprine 10 mg PO TID 15 days fenofibrate micronized 134 mg PO DAILY 30 days ibuprofen 800 mg PO BEDTIME PRN prazosin 1 - 2 mg (1 - 2 x 1 mg) PO BEDTIME PRN Tobacco use date assessed: 02/22/24 Dental Screening Dental Screen Date: 02/22/24 Did you have a dental visit in the last 12 months?: Yes Did you have a dental problem in the last 6 months where you did not have access to dental care?: No Was dental information given to patient?: Patient has dentist HPI HPI Comments History of Present Illness Details 28-year-old male presents for depression follow-up He admits to taking his medications as prescribed without adverse reactions He admits to taking as prescribed without adverse reactions. He reports controlled depressive symptoms He continues to enjoy fatherhood He notes intermittent low back stiffness. He had physical therapy at [facility] for this with improvement; he requests another referral for physical therapy. He has not had imaging of the lumbar spine. No associated pain. No injury or trauma No SI/VAUGHN/AH/VH. [facility] Medical History Lower back pain Surgical History No pertinent past surgical history Family History (Updated 10/22/23 @ 09:08 by SHELDON Carrasco) Mother High blood pressure High cholesterol Fibromyalgia Vitiligo Maternal Grandfather High blood pressure High cholesterol Diabetes Cardiovascular disease Paternal Grandfather Diabetes Cardiovascular disease Social History Household Members: Spouse Housing: House Do you presently have visiting nurse or other home services: No Unable to assess alcohol history related to: Unknown Comment: Rj has been referred to [facility]. Patient Tobacco Use Status: Never used Tobacco e-Cigarette/Vaping Use: Never Used service: Yes Current occupational status: employed Current occupation: [employer] Sexual orientation: Straight/Heterosexual Cognitive needs: No Hearing needs: No Vision needs: No Questionnaire PHQ-9 Over the last 2 weeks, how often have you been bothered by any of the following problems? 1. Little interest or pleasure in doing things: not at all 2. Feeling down, depressed, or hopeless: not at all 3. Trouble falling or staying asleep, or sleeping too much: not at all 4. Feeling tired or having little energy: not at all 5. Poor appetite or overeating: more than half the days 6. Feeling bad about yourself - or that you are a failure or have let yourself or your family down: not at all 7. Trouble concentrating on things, such as reading the newspaper or watching television: not at all 8. Moving or speaking so slowly that other people could have noticed. Or the opposite - being so fidgety or restless that you have been moving around a lot more than usual: not at all 9. Thoughts that you would be better off or of hurting yourself in some way: not at all Total score: 2 Depression Screening Interpretation: Negative Depression Screening Done: Yes 66676 - PHQ-9 Billing: Yes Source: Developed by Drs. Abel Mcclendon, Bridgette Doe, Jorge A Quintana and colleagues, with an educational prachi from [employer]. Thrive Questionnaire Date Thrive assessed: 05/21/23 AARON-7 AMB Questionnaire AARON-7 Date AARON - 7 assessed: 02/22/24 Feeling nervous, anxious, or on edge: 0 = Not at all Not being able to stop or control worryin = Several days Worrying too much about different things: 1 = Several days Trouble relaxin = Several days Being so restless that it is hard to sit still: 0 = Not at all Becoming easily annoyed or irritable: 1 = Several days Feeling afraid as if something awful might happen: 0 = Not at all Total AARON-7 score (0-4 normal; 5-9 mild; 10-14 moderate; 15-21 severe): 4 Source: Developed by Drs. Abel Mcclendon, Bridgette Doe, Jorge A Quintana and colleagues, with an educational prachi from [employer]. AARON-7 Assessment Billing AARON-7 Assessment Tool: AARON-7 Assessment 92470 Review of Systems Const Details: Const Denies chills, Denies fatigue, Denies fever(s), Denies headache(s) and Denies weakness ENT Denies dizziness and Denies headache(s) Card Denies chest pain, Denies lightheadedness, Denies dyspnea and Denies other (Palpitations) Resp Denies cough, Denies dyspnea, Denies wheezing and Denies other ( shortness of breath) GI Denies abdominal pain, Denies melena, Denies hematochezia, Denies change in bowel habits, Denies dyspepsia and Denies nausea Denies hematuria and Denies dysuria Musc Denies abnormal gait, Denies myalgias, Denies arthralgias, Denies numbness and Denies tingling Skin/Breast Denies rash, Denies unusual bruising and Denies wounds Neuro Denies abnormal gait, Denies dizziness, Denies headache(s), Denies memory loss, Denies numbness, Denies Sensory deficit (Neuro), Denies tingling and Denies weakness Psych Denies anxiety, Denies depression, Denies memory loss Endo Denies cold intolerance, Denies fatigue, Denies heat intolerance, Denies polydipsia and Denies polyuria Aller/Immun Denies wheezing Physical exam (Primary Care) Vital Signs: Last Vital Signs Temp 98.2 F 02/22/24 09:05 Pulse 76 02/22/24 09:05 Resp 16 02/22/24 09:05 BP 120/72 02/22/24 09:05 Pulse Ox 97 02/22/24 09:05 Oxygen Delivery Method Room Air 02/22/24 09:05 BMI result Body Mass Index 29.8 Tobacco/Smoking Status: Tobacco use Status Tobacco use date assessed 02/22/24 02/22/24 09:05 Patient Tobacco Use Status Never used Tobacco 02/22/24 09:02 e-Cigarette/Vaping Use Never Used 02/22/24 09:02 PHQ-9: PHQ-9 Score PHQ-9: Total score 2 02/22/24 09:17 Depression Screening Interpretation: Negative Thrive Assessment: Date of Thrive Assessment Date Thrive assessed 05/21/23 02/22/24 09:02 Const Other: General: no acute distress and well developed Nutritional Appearance: well nourished Orientation/consciousness: patient oriented x3 HENMT Head: Yes normocephalic and Yes atraumatic Eyes General: appearance normal, both eyes and all related structures Pupils: Equal, round and reactive pupils present EOM: EOMs intact bilaterally Resp Effort & Inspection: normal respiratory effort Auscultation: clear to auscultation bilaterally Cardio Rate: regular rate Rhythm: regular rhythm Heart sounds: S1 normal heart sound present, S2 normal heart sound present, no gallops, no murmurs and no rubs GI Palpation (GI): No Abdominal aortic bruit present, Soft to palpation, nontender, No hepatosplenomegaly present and No Rebound tenderness present Auscultation: normal bowel sounds General: Yes no CVA tenderness Back/Spine/Pelvis Back: no CVA tenderness Cervical Spine: cervical ROM normal and No Cervical spine tenderness Thoracic/Lumbar Spine: thoraco-lumbar ROM normal, No pain with thoraco-lumbar ROM, No thoracic spinal tenderness and No lumbar spinal tenderness Extrem General: Yes normal to inspection, No edema and No calf tenderness Skin General: warm and dry. Normal skin color. Normal skin turgor Neuro General: patient oriented x3, gait normal and no focal neuro deficit Cranial nerves: Yes Equal, round and reactive pupils present Cognition (Neuro): normal cognition Gait exam (Neuro): Normal gait present Sensory Exam: No Sensory deficit (Neuro) Psych Appearance: grossly normal Affect: normal affect Attitude: cooperative Thought process: Normal thought process present Coding Level of Care Code Est Pt Level 3 (72825) Diagnoses Depression F32.A Dyslipidemia E78.5 Stiff back M25.69 Additional Codes AARON-7 Assessment Billing - AARON-7 Assessment Tool: AARON-7 Assessment 65629 ([id number]) Assessment & Plan Assessment & Plan (1) Depression: Code(s): F32.A - Depression, unspecified Category: Medical Plan: Reports controlled anxiety and depressive symptoms PHQ-9 and AARON-7 scores are normal Continue current treatment regimen Routine exercise encouraged Follow-up in 2 months for an extended physical exam or sooner with symptoms or concerns Verbalized understanding and agreed with treatment plan (2) Dyslipidemia: Code(s): E78.5 - Hyperlipidemia, unspecified Category: Medical Plan: Recent triglycerides level with significant improvement, 176. Previous triglycerides level was 259. HDL level with slight improvement, 34. Previous HDL was 31 Continue to take fenofibrate as prescribed Advised to limit foods high in saturated fat and avoid foods high in trans fat Routine exercise encouraged Will recheck lipid panel levels. Advised to fast for 10-12 hours, may drink water only, and get blood work done before his next visit Follow-up in 2 months Verbalized understanding and agreed with the plan (3) Stiff back: Code(s): M25.69 - Stiffness of other specified joint, not elsewhere classified Category: Medical Plan: Reports intermittent low back stiffness; he had physical therapy for this in the past with improvement Lumbar spine nontender to palpation Referred to physical therapy as requested X-ray of lumbar spine ordered Stretching as tolerable encouraged Follow-up as needed Verbalized understanding and agreed with the plan Orders: Orders PT Evaluation and Treatment Today M25.69 - Stiffness of other specified joint, not elsewhere classified Lipid Panel 2 Months E78.5 - Hyperlipidemia, unspecified XR lumbar spine 2-3V Today M25.69 - Stiffness of other specified joint, not elsewhere classified
[2024-02-22 09:05] VITALS: BP 120/72; PULSE 76; RESP 16; TEMP 36.8; O2SAT 97; BMI 29.8
== END 2024-02-22 09:55 | disposition home or self-care (01) ==
PROVIDERS: Visit Provider Nurse Practitioner Family
DX: F32.A Depression, unspecified (principal); E78.5 Hyperlipidemia, unspecified; M25.69 Stiffness of other specified joint, not elsewhere classified

== ENCOUNTER → 2024-02-22 08:57 | Outpatient (BNVA) | payer OTHER, SELFPAY | PROVIDERS: Visit Provider Nurse Practitioner Family | DX: F32.A Depression, unspecified (principal); E78.5 Hyperlipidemia, unspecified; M25.69 Stiffness of other specified joint, not elsewhere classified | CPT/HCPCS: 96127; 99212 ==

== ENCOUNTER 2024-03-30 16:15 | Emergency (ER) | payer OTHER, SELFPAY ==
--- NOTE | ~2024-03-30 | XR_ITS ---
EXAMINATION: XR LUMBOSACRAL SPINE CLINICAL INFORMATION: low back pain COMPARISON: None available. TECHNIQUE: Frontal and lateral and coned views of the lumbosacral spine. FINDINGS: The vertebral bodies and posterior elements are normal. The disc spaces are preserved and the vertebral alignment is normal. The sacrum and sacroiliac joints are unremarkable. The paraspinal soft tissues are normal. XR/XR lumbar spine 2-3V IMPRESSION: Unremarkable plain radiographs of the lumbar spine.. Electronically signed by: Jose Vu MD 03/30/2024 06:59 PM [facility]
[2024-03-30 16:51] VITALS: BP 120/75; PULSE 72; RESP 18; TEMP 36.5; O2SAT 98; BMI 29.7
--- NOTE | 2024-03-30 16:56 | ED.GENADULT ---
HPI - General Adult General Chief complaint: Back Pain/Injury Stated complaint: lwr back x-ray Time Seen by Provider: 03/30/24 20:27 Source: patient, RN notes reviewed and old records reviewed Mode of arrival: ambulatory Limitations: no limitations History of Present Illness ED Provider: Ayo RICHARDSON narrative: 28-year-old male presents for evaluation of back pain. Patient reports he has had the pain for 3 years his pain started after he was lifting a dry and he has had a pain in the area ever since. His pain is a 5/10 today. 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 He reports he is always bent in awkward positions which he feels is contributing to his back pain he denies any numbness, tingling, weakness. Denies any bladder or bowel incontinence Related Data Previous Rx's ?Medication ?Instructions ?Recorded citalopram 20 mg tablet 20 mg PO BEDTIME 30 days #30 tabs 06/18/23 clonazepam 1 mg tablet 0.5 - 1 mg (0.5 - 1 x 1 mg) PO 06/18/23 BEDTIME PRN as directed #8 tabs ibuprofen 800 mg tablet 800 mg PO BEDTIME PRN with food 06/18/23 #20 tabs prazosin 1 mg capsule 1 - 2 mg (1 - 2 x 1 mg) PO BEDTIME 06/18/23 PRN sleep #30 caps cyclobenzaprine 10 mg tablet 10 mg PO TID 15 days #45 tabs 10/22/23 fenofibrate micronized 134 mg 134 mg PO DAILY 30 days #30 caps 01/13/24 capsule cyclobenzaprine 10 mg tablet 10 mg PO TID PRN muscle spasm #20 03/30/24 tabs Allergies Allergy/AdvReac Type Severity Reaction Status Date / Time No Known Allergies Allergy Verified 03/30/24 16:53 Review of Systems Constitutional: Constitutional: Denies body ache(s), Denies chills and Denies fever(s) ENT: Denies vertigo, Denies dizziness and Denies sore throat Cardiovascular: Cardiovascular: Denies chest pain and Denies dyspnea Respiratory: Respiratory: Denies cough and Denies dyspnea Gastrointestinal: Gastrointestinal: Denies abdominal pain, Denies nausea and Denies vomiting Musculoskeletal: Musculoskeletal: Reports back pain, Denies muscle weakness, Denies numbness, Denies radiating pain into limb, Reports stiffness and Denies tingling Integumentary/Breasts: Skin/Breast: Denies rash Neurologic: Denies vertigo, Denies dizziness, Denies numbness and Denies tingling Psychiatric: Psychiatric: Denies anxiety PMFSH Past Medical History Medical History Lower back pain Surgical History No pertinent past surgical history Family History Family History (Updated 10/22/23 @ 09:08 by SHELDON Carrasco) Mother High blood pressure High cholesterol Fibromyalgia Vitiligo Maternal Grandfather High blood pressure High cholesterol Diabetes Cardiovascular disease Paternal Grandfather Diabetes Cardiovascular disease Social History Social History Household Members: Spouse Housing: House Do you presently have visiting nurse or other home services: No Unable to assess alcohol history related to: Unknown Comment: Rj has been referred to [facility]. Patient Tobacco Use Status: Never used Tobacco e-Cigarette/Vaping Use: Never Used Advance Directives: No Advance Directives Information Provided: No Do you have a plan to hurt others: No Plan service: Yes Current occupational status: employed Current occupation: [employer] Sexual orientation: Straight/Heterosexual Cognitive needs: No Hearing needs: No Vision needs: No Physical Exam ED Vital Signs: Vital Signs - 24 hr 03/30/24 16:51 03/30/24 20:28 03/30/24 20:48 Temperature 97.7 F 98.1 F 98.1 F Pulse Rate 72 57 57 Respiratory Rate 18 16 16 Blood Pressure 120/75 138/81 138/81 Pulse Oximetry 98 98 98 Oxygen Delivery Method Room Air Room Air Room Air BMI result Body Mass Index 29.7 Const General: healthy appearing, comfortable, no acute distress, alert and awake Nutritional Appearance: well nourished Orientation/consciousness: patient oriented x3 HENMT Head: Yes normocephalic and Yes atraumatic Eyes Eyelids: Yes eyelids normal Conjunctivae: conjunctivae normal Sclerae: sclerae normal Corneas: corneas normal Pupils: Equal, round and reactive pupils present EOM: EOMs intact bilaterally Neck Neck: Yes full ROM Resp Effort & Inspection: normal respiratory effort, able to speak in complete sentences and not labored Cardio Rate: regular rate Rhythm: regular rhythm GI Inspection: No distended Palpation (GI): Soft to palpation, not firm, nontender, no guarding and not rigid Back/Spine/Pelvis Other: no significant tenderness to the lumbar spine or paraspinous region. Straight leg raise negative bilaterally Skin General skin exam: elasticity normal Neuro General: patient oriented x3 Cranial nerves: Yes Equal, round and reactive pupils present and Yes Bilaterally intact EOM present Cognition (Neuro): normal cognition Motor exam (neuro): 5/5 motor strength present throughout Extrem Other: Moving all extremities well without any obvious deformities Course Course Course Narrative: RME: 28 yold male presens to the ED for chronic back pain exacerbatio. Patient has exacerbated lower back pain after heavy lifting. Positive for lumbar spine tenderness on palpation. X-ray ordered. Medical Decision Making Medical Decision Making [facility] Narrative: 28-year-old male presents for evaluation of chronic back pain. His x-ray shows no significant abnormalities, he has no warning signs for cauda equina syndrome, his reflexes are normal, 2+ to the patellar region. He has no bladder or bowel incontinence / retention. Plan to discharge with symptomatic treatment only Differential Diagnosis Differential Diagnoses: The differential diagnosis associated with the presentation includes chronic back pain Muscle strain Radiculopathy Sciatica Independent Interpretation I performed an independent interpretation of an: Plain X-Ray Interpretation: straightening of the lumbar spine Radiology Impression Discussion of test interpretation with radiology: I have reviewed the radiologist's reading. Radiologist Impression: FINDINGS: The vertebral bodies and posterior elements are normal. The disc spaces are preserved and the vertebral alignment is normal. The sacrum and sacroiliac joints are unremarkable. The paraspinal soft tissues are normal. XR/XR lumbar spine 2-3V IMPRESSION: Unremarkable plain radiographs of the lumbar spine.. Electronically signed by: Jose Vu MD 03/30/2024 06:59 PM [facility] [place] Management I considered prescription management with: Pain Medication Discharge Plan Discharge Clinical Impression: Chronic bilateral back pain Patient Disposition: Home, Self-Care Instructions: Back Pain (ED) Additional Instructions: your x-ray today was completely unremarkable. I recommend an MRI of the lumbar spine on an outpatient basis to assess for herniated disc in the meantime, you may use ibuprofen / Tylenol for pain. You may use cyclobenzaprine/ Flexeril as needed for muscle spasms this may make you drowsy, do not take it before work or before driving, do not mix with alcohol Ordering Physician: Darion Moore Date of Service: 03/30/24 Procedure(s): XR lumbar spine 2-3V Accession Number(s): [id number] cc: Darion Moore; Physician,Unknown ~ EXAMINATION: XR LUMBOSACRAL SPINE CLINICAL INFORMATION: low back pain COMPARISON: None available. TECHNIQUE: Frontal and lateral and coned views of the lumbosacral spine. FINDINGS: The vertebral bodies and posterior elements are normal. The disc spaces are preserved and the vertebral alignment is normal. The sacrum and sacroiliac joints are unremarkable. The paraspinal soft tissues are normal. XR/XR lumbar spine 2-3V IMPRESSION: Unremarkable plain radiographs of the lumbar spine.. Electronically signed by: Jose Vu MD 03/30/2024 06:59 PM [facility] [place] Prescriptions: New cyclobenzaprine 10 mg tablet 10 mg PO TID PRN (Reason: muscle spasm) Qty: 20 0RF No Action fenofibrate micronized 134 mg capsule 134 mg PO DAILY 30 Days Qty: 30 3RF ibuprofen 800 mg tablet 800 mg PO BEDTIME PRN (Reason: with food) Qty: 20 0RF Rx Instructions: administer with food prazosin 1 mg capsule 1 - 2 mg PO BEDTIME PRN (Reason: sleep) Qty: 30 0RF clonazepam 1 mg tablet 0.5 - 1 mg PO BEDTIME PRN (Reason: as directed) Qty: 8 0RF Rx Instructions: administer 30 minutes before bedtime for lower back pain citalopram 20 mg tablet 20 mg PO BEDTIME 30 Days Qty: 30 0RF cyclobenzaprine 10 mg tablet 10 mg PO TID 15 Days Qty: 45 0RF Interventions: ED Discharge Assessment Last Done: 03/30/24 20:48 Discharge Date/Time: 03/30/24 20:50 Print Language: Irish
[2024-03-30 20:28] VITALS: BP 138/81; PULSE 57; RESP 16; TEMP 36.7; O2SAT 98
--- NOTE | 2024-03-30 20:33 | PC.NURSE ---
Pt ambulatory to 22h from waiting room assumed care of pt at this time. A&Ox3 skin pwd respirations even unlabored. Provider to bedside for primary eval, plan for dc with outpt f/u.
[2024-03-30 20:48] VITALS: BP 138/81; PULSE 57; RESP 16; TEMP 36.7; O2SAT 98
== END 2024-03-30 20:50 | disposition home or self-care (01) ==
PROVIDERS: Emergency Provider Internal Medicine; PCP Nurse Practitioner Family
DX: M54.50 Low back pain, unspecified (principal); Z79.899 Other long term (current) drug therapy
CPT/HCPCS: 72100; 99282; 99283

== ENCOUNTER 2024-03-31 12:58 | Outpatient (AMB) | payer OTHER, SELFPAY ==
--- NOTE | 2024-03-31 13:04 | A.OFFPC_ITS ---
Vital Signs 03/31/24 13:10 Height 5 ft 8 in Weight 191 lb 2 oz BMI 29.1 BP 114/78 Blood Pressure Location Rt brachial Position Sitting Respiration 16 Pulse 60 Pulse Source Pulse Oximeter Temp 97.8 F Temp Source Oral Pulse Oximetry (%) 99 Oxygen Delivery Method Room Air Intake Visit Reasons: ED follow up and paperwork Intake Note: patient here for [employer] paper work to be filled, PT referral. Lifestyle Coordinator Required: No Allergies No Known Allergies Allergy (Verified 03/31/24 13:15) Medication List - Last Reconciled 03/31/24 by Efren Cerda CNP citalopram 20 mg PO BEDTIME 30 days clonazepam 0.5 - 1 mg (0.5 - 1 x 1 mg) PO BEDTIME PRN cyclobenzaprine 10 mg PO TID PRN fenofibrate micronized 134 mg PO DAILY 30 days ibuprofen 800 mg PO BEDTIME PRN prazosin 1 - 2 mg (1 - 2 x 1 mg) PO BEDTIME PRN Tobacco use date assessed: 03/31/24 Dental Screening Dental Screen Date: 03/31/24 Did you have a dental visit in the last 12 months?: Yes Did you have a dental problem in the last 6 months where you did not have access to dental care?: No Was dental information given to patient?: Patient has dentist HPI HPI Comments History of Present Illness Details The patient is a 28-year-old male presenting with low back stiffness and request to have paperwork completed for his employer in the [employer]. The back stiffness has been ongoing, with the patient having had stiffness when attempting physical activities such as jogging and prolonged work. The discomfort is persistent and described as a constant sensation like something being held or seized in the back. Previous interventions include the use of Tylenol, ibuprofen, and cyclobenzaprine. The patient reported presenting to the emergency room yesterday due to the back stiffness, where he was instructed to continue the medications as prescribed. X-ray was negative. The stiffness remains unchanged since the visit. The patient has attempted physical therapy but faced issues with the referral specifics regarding its indication for lower back pain at [facility]. The patient was also recommended warm and cold compresses, in conjunction with stretching exercises that are tolerable. FOR[facility]LY [facility], [facility] Medical History Lower back pain Surgical History No pertinent past surgical history Family History (Updated 10/22/23 @ 09:08 by SHELDON Carrasco) Mother High blood pressure High cholesterol Fibromyalgia Vitiligo Maternal Grandfather High blood pressure High cholesterol Diabetes Cardiovascular disease Paternal Grandfather Diabetes Cardiovascular disease Social History Household Members: Spouse Housing: House Do you presently have visiting nurse or other home services: No Unable to assess alcohol history related to: Unknown Comment: Rj has been referred to [facility]. 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 1. Little interest or pleasure in doing things: not at all 2. Feeling down, depressed, or hopeless: not at all 3. Trouble falling or staying asleep, or sleeping too much: several days 4. Feeling tired or having little energy: several days 5. Poor appetite or overeating: not at all 6. Feeling bad about yourself - or that you are a failure or have let yourself or your family down: not at all 7. Trouble concentrating on things, such as reading the newspaper or watching television: not at all 8. Moving or speaking so slowly that other people could have noticed. Or the opposite - being so fidgety or restless that you have been moving around a lot more than usual: not at all 9. Thoughts that you would be better off or of hurting yourself in some way: not at all Total score: 2 Depression Screening Interpretation: Negative Depression Screening Done: Yes Source: Developed by Drs. Abel Mcclendon, Bridgette Doe, Jorge A Quintana and colleagues, with an educational prachi from [employer]. Thrive Questionnaire Date Thrive assessed: 03/31/24 I am a: Patient What is your living situation today?: I have a place to live, but I am worried about losing it in the future Within the past 12 months, did the food you bought not last and you didn't have the money to get more?: Never true Within the past 12 months, did you worry whether your food would run out before you got money to buy more?: Sometimes True Do you have trouble paying for medicines?: No Do you have trouble getting transportation to medical appointments?: No Do you have trouble paying your heating and electricity bill?: Yes Do you have trouble taking care of your child, family member or friend?: No Do you have trouble with day-to-day activities such as bathing, preparing meals, shopping, managing finances, etc.?: No Are you currently unemployed and looking for a job?: No Are you interested in more education?: No Please select the resources that you would like help with: Food Currently or been in a relationship where the following occur: I choose not to answer THRIVE Score: 3 AUDIT C Alcohol Use Questionnaire (AUDIT-C) 1. How often do you have a drink containing alcohol?: Monthly or less 2. How many drinks containing alcohol do you have on a typical day when you are drinking?: 1 or 2 3. How often do you have six or more drinks on one occasion?: Never Total Score: 1 AARON-7 AMB Questionnaire AARON-7 Date AARON - 7 assessed: 03/31/24 Feeling nervous, anxious, or on edge: 0 = Not at all Not being able to stop or control worryin = Not at all Worrying too much about different things: 0 = Not at all Trouble relaxin = Not at all Being so restless that it is hard to sit still: 0 = Not at all Becoming easily annoyed or irritable: 0 = Not at all Feeling afraid as if something awful might happen: 0 = Not at all Total AARON-7 score (0-4 normal; 5-9 mild; 10-14 moderate; 15-21 severe): 0 Source: Developed by Drs. Abel Mcclendon, Bridgette Doe, Jorge A Quintana and colleagues, with an educational prachi from [employer]. AARON-7 Assessment Billing AARON-7 Assessment Tool: AARON-7 Assessment 03216 Review of Systems Const Details: Const Denies chills, Denies fatigue, Denies fever(s), Denies headache(s) and Denies weakness ENT Denies dizziness and Denies headache(s) Card Denies chest pain, Denies lightheadedness, Denies dyspnea and Denies other (Palpitations) Resp Denies cough, Denies dyspnea, Denies wheezing and Denies other ( shortness of breath) GI Denies abdominal pain, Denies melena, Denies hematochezia, Denies change in bowel habits, Denies dyspepsia and Denies nausea Denies hematuria and Denies dysuria Musc Reports as per HPI Skin/Breast Denies rash, Denies unusual bruising and Denies wounds Neuro Denies abnormal gait, Denies dizziness, Denies headache(s), Denies memory loss, Denies numbness, Denies Sensory deficit (Neuro), Denies tingling and Denies weakness Psych Denies anxiety, Denies depression, Denies memory loss Endo Denies cold intolerance, Denies fatigue, Denies heat intolerance, Denies polydipsia and Denies polyuria Aller/Immun Denies wheezing Physical exam (Primary Care) Vital Signs: Last Vital Signs Temp 97.8 F 03/31/24 13:10 Pulse 60 03/31/24 13:10 Resp 16 03/31/24 13:10 BP 114/78 03/31/24 13:10 Pulse Ox 99 03/31/24 13:10 Oxygen Delivery Method Room Air 03/31/24 13:10 BMI result Body Mass Index 29.1 Tobacco/Smoking Status: Tobacco use Status Tobacco use date assessed 03/31/24 03/31/24 13:13 Patient Tobacco Use Status Never used Tobacco 03/31/24 13:07 e-Cigarette/Vaping Use Never Used 03/31/24 13:07 PHQ-9: PHQ-9 Score PHQ-9: Total score 2 03/31/24 13:07 Depression Screening Interpretation: Negative Thrive Assessment: Date of Thrive Assessment Date Thrive assessed 03/31/24 03/31/24 13:13 Currently or been in a relationship where the following occur: I choose not to answer Const Other: General: no acute distress and well developed Nutritional Appearance: well nourished Orientation/consciousness: patient oriented x3 HENMT Head: Yes normocephalic and Yes atraumatic Eyes General: appearance normal, both eyes and all related structures Pupils: Equal, round and reactive pupils present EOM: EOMs intact bilaterally Resp Effort & Inspection: normal respiratory effort Auscultation: clear to auscultation bilaterally Cardio Rate: regular rate Rhythm: regular rhythm Heart sounds: S1 normal heart sound present, S2 normal heart sound present, no gallops, no murmurs and no rubs GI Palpation (GI): No Abdominal aortic bruit present, Soft to palpation, nontender, No hepatosplenomegaly present and No Rebound tenderness present Auscultation: normal bowel sounds General: Yes no CVA tenderness Back/Spine/Pelvis Back: no CVA tenderness Cervical Spine: cervical ROM normal and No Cervical spine tenderness Thoracic/Lumbar Spine: thoraco-lumbar ROM normal, No pain with thoraco-lumbar ROM, No thoracic spinal tenderness and No lumbar spinal tenderness Extrem General: Yes normal to inspection, No edema and No calf tenderness Skin General: warm and dry. Normal skin color. Normal skin turgor Lesions: no lesions Rashes: no rashes Trauma: no lacerations or abrasions Wounds: no wounds Nails: normal Neuro General: patient oriented x3, gait normal and no focal neuro deficit Cranial nerves: Yes Equal, round and reactive pupils present Cognition (Neuro): normal cognition Gait exam (Neuro): Normal gait present Sensory Exam: No Sensory deficit (Neuro) Psych Appearance: grossly normal Affect: normal affect Attitude: cooperative Thought process: Normal thought process present Coding Level of Care Code Est Pt Level 4 (20987) Diagnoses Stiff back M25.69 Additional Codes AARON-7 Assessment Billing - AARON-7 Assessment Tool: AARON-7 Assessment 07592 ([id number]) Assessment & Plan Assessment & Plan (1) Stiff back: Code(s): M25.69 - Stiffness of other specified joint, not elsewhere classified Category: Medical Plan: Transition the patient to receive physical therapy within our facility, addressing issues with previous therapy referrals. The patient is advised to continue prescribed medications, including cyclobenzaprine and ibuprofen, and to apply warm and cold compresses. Monitoring of symptoms and function will occur at follow-up. Plan During the visit, I discussed with the patient the management of his low back pain, including the continuation of current medications and the transition to physical therapy within our facility. We explored the challenges faced with previous therapy referrals and planned to address them. I emphasized the importance of adhering to the prescribed treatment regimen and the approach of stretching exercises as tolerable. I informed the patient that scheduling for his annual physical examination could be arranged, noting its relevance for his requirements. Additionally, I assured him that further paperwork and referrals would be coordinated to minimize impediments in therapy continuity. Future contact was also arranged to facilitate timely appointments. Patient Instructions: - Continue taking cyclobenzaprine and ibuprofen as needed. - Apply warm and cold compresses as required to manage pain and stiffness. - Schedule and attend physical therapy appointments as organized with our facility. - Arrange the annual physical evaluation at the earliest possible convenience. - Return to the clinic if symptoms persist or escalate despite treatment. - paperwork will be completed after his physical exam. Patient was informed and verbally consented to the use of an ambient scribe for clinic note documentation during this visit.
[2024-03-31 13:10] VITALS: BP 114/78; PULSE 60; RESP 16; TEMP 36.6; O2SAT 99; BMI 29.1
== END 2024-03-31 13:27 | disposition home or self-care (01) ==
PROVIDERS: Visit Provider Nurse Practitioner Family
DX: M25.69 Stiffness of other specified joint, not elsewhere classified (principal)

== ENCOUNTER → 2024-03-31 12:58 | Outpatient (BNVA) | payer OTHER, SELFPAY | PROVIDERS: Visit Provider Nurse Practitioner Family | DX: M25.69 Stiffness of other specified joint, not elsewhere classified (principal) | CPT/HCPCS: 96127; 99212 ==

== ENCOUNTER 2024-04-03 07:50 | Outpatient (AMB) | payer OTHER, SELFPAY ==
--- NOTE | 2024-04-03 08:01 | MHC.PC.OV ---
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 Allergies No Known Allergies Allergy (Verified 04/03/24 08:19) Medication List - Last Reconciled 04/03/24 by Efren Cerda CNP citalopram 20 mg PO BEDTIME 30 days clonazepam 0.5 - 1 mg (0.5 - 1 x 1 mg) PO BEDTIME PRN cyclobenzaprine 10 mg PO TID PRN fenofibrate micronized 134 mg PO DAILY 30 days ibuprofen 800 mg PO BEDTIME PRN prazosin 1 - 2 mg (1 - 2 x 1 mg) PO BEDTIME PRN Tobacco use date assessed: 03/31/24 Dental Screening Dental Screen Date: 04/03/24 Did you have a dental visit in the last 12 months?: No Did you have a dental problem in the last 6 months where you did not have access to dental care?: No Was dental information given to patient?: Patient has dentist HPI HPI Comments History of Present Illness Details Routine physical examination and medication review. The patient is a 28-year-old male presenting for an external physical examination and evaluation of current medication management. He has a history of Major Depressive Disorder, for which he is currently taking Citalopram and prazosin. The patient reports that his depressive symptoms are currently well controlled. He is also being managed for hyperlipidemia with fenofibrate. The patient has a history of back muscle stiffness, for which he is taking cyclobenzaprine and ibuprofen. There are no new complaints of pain or stiffness reported during this visit. He is followed by a psychiatric provider every four to six months via [facility] and a therapist every two weeks in person at [facility]. Social History - The patient has a child who is approximately eight months old, suggesting a family status as a parent. - He denies smoking, vaping, and use of recreational drugs. - Alcohol consumption is limited to having a beer approximately every month and a half. - The patient describes his diet as mainly processed foods with limited fresh or healthy options. - He exercises regularly. 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 - He is sexually active, in a monogamous relationship, and has no concern for STDs. Health Maintenance - Last dental check-up was approximately one year ago; advised to schedule annual dental exams. - PHQ-9 and AARON-7 scores are normal, indicating well-managed depressive and anxiety symptoms. - Last eye exam was performed several years ago; referral to an eye surgeon was agreed upon for annual eye exams. - Tetanus vaccination status is uncertain, suggested to verify with records. - His flu vaccine status is up-to-date. [facility], LAT[facility] Medical History Lower back pain Surgical History No pertinent past surgical history Family History (Updated 10/22/23 @ 09:08 by SHELDON Carrasco) Mother High blood pressure High cholesterol Fibromyalgia Vitiligo Maternal Grandfather High blood pressure High cholesterol Diabetes Cardiovascular disease Paternal Grandfather Diabetes Cardiovascular disease Social History Household Members: Spouse Housing: House Do you presently have visiting nurse or other home services: No Unable to assess alcohol history related to: Unknown Comment: Rj has been referred to [facility]. 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 1. Little interest or pleasure in doing things: not at all 2. Feeling down, depressed, or hopeless: not at all 3. Trouble falling or staying asleep, or sleeping too much: not at all 4. Feeling tired or having little energy: not at all 5. Poor appetite or overeating: not at all 6. Feeling bad about yourself - or that you are a failure or have let yourself or your family down: not at all 7. Trouble concentrating on things, such as reading the newspaper or watching television: not at all 8. Moving or speaking so slowly that other people could have noticed. Or the opposite - being so fidgety or restless that you have been moving around a lot more than usual: not at all 9. Thoughts that you would be better off or of hurting yourself in some way: not at all Total score: 0 Depression Screening Interpretation: Negative Depression Screening Done: Yes Source: Developed by Drs. Abel Mcclendon, Bridgette Doe, Jorge A Quintana and colleagues, with an educational prachi from [employer]. Thrive Questionnaire Date Thrive assessed: 04/03/24 I am a: Patient What is your living situation today?: I have a place to live, but I am worried about losing it in the future Within the past 12 months, did the food you bought not last and you didn't have the money to get more?: Never true Within the past 12 months, did you worry whether your food would run out before you got money to buy more?: Sometimes True Do you have trouble paying for medicines?: No Do you have trouble getting transportation to medical appointments?: No Do you have trouble paying your heating and electricity bill?: Yes Do you have trouble taking care of your child, family member or friend?: No Do you have trouble with day-to-day activities such as bathing, preparing meals, shopping, managing finances, etc.?: No Are you currently unemployed and looking for a job?: No Are you interested in more education?: No Please select the resources that you would like help with: Food Currently or been in a relationship where the following occur: I choose not to answer THRIVE Score: 3 AUDIT C Alcohol Use Questionnaire (AUDIT-C) 1. How often do you have a drink containing alcohol?: Monthly or less 2. How many drinks containing alcohol do you have on a typical day when you are drinking?: 1 or 2 3. How often do you have six or more drinks on one occasion?: Never Total Score: 1 Score Reviewed/Action Taken: Yes AARON-7 AMB Questionnaire AARON-7 Date AARON - 7 assessed: 04/03/24 Feeling nervous, anxious, or on edge: 0 = Not at all Not being able to stop or control worryin = Not at all Worrying too much about different things: 1 = Several days Trouble relaxin = Not at all Being so restless that it is hard to sit still: 0 = Not at all Becoming easily annoyed or irritable: 0 = Not at all Feeling afraid as if something awful might happen: 0 = Not at all Total AARON-7 score (0-4 normal; 5-9 mild; 10-14 moderate; 15-21 severe): 1 Source: Developed by Drs. Abel Mcclendon, Bridgette Doe, Jorge A Quintana and colleagues, with an educational prachi from [employer]. AARON-7 Assessment Billing AARON-7 Assessment Tool: AARON-7 Assessment 11660 Review of Systems Const Details: Denies chills, Denies fatigue, Denies fever(s), Denies headache(s) and Denies weakness HEENT Denies change in vision, Denies dizziness, Denies headache(s), Denies hearing loss, Denies nasal congestion, Denies sinus pain, Denies sinus pressure and Denies sore throat Card Denies chest pain, Denies lightheadedness, Denies dyspnea and Denies other (palpitations) Resp Denies cough, Denies dyspnea and Denies wheezing GI Denies abdominal pain, Denies melena, Denies hematochezia, Denies change in bowel habits, Denies dyspepsia and Denies nausea Denies hematuria and Denies dysuria Musc Denies abnormal gait, Denies myalgias, Denies arthralgias, Denies numbness and Denies tingling Skin/Breast Denies rash, Denies unusual bruising and Denies wounds Neuro Denies abnormal gait, Denies dizziness, Denies headache(s), Denies memory loss, Denies numbness, Denies Sensory deficit (Neuro), Denies tingling and Denies weakness Psych Denies anxiety, Denies depression and Denies memory loss Endo Denies cold intolerance, Denies fatigue, Denies heat intolerance, Denies polydipsia and Denies polyuria Allen/Lymph Denies easy bleeding and Denies easy bruising Aller/Immun Denies wheezing Physical exam (Primary Care) Vital Signs: Last Vital Signs Temp 97.3 F 04/03/24 08:09 Pulse 69 04/03/24 08:09 Resp 16 04/03/24 08:09 BP 123/71 04/03/24 08:09 Pulse Ox 97 04/03/24 08:09 Oxygen Delivery Method Room Air 04/03/24 08:09 BMI result Body Mass Index 29.1 Tobacco/Smoking Status: Tobacco use Status Tobacco use date assessed 03/31/24 04/03/24 08:04 Patient Tobacco Use Status Never used Tobacco 04/03/24 08:04 e-Cigarette/Vaping Use Never Used 04/03/24 08:04 PHQ-9: PHQ-9 Score PHQ-9: Total score 0 04/03/24 10:18 Depression Screening Interpretation: Negative Thrive Assessment: Date of Thrive Assessment Date Thrive assessed 04/03/24 04/03/24 08:04 Currently or been in a relationship where the following occur: I choose not to answer Const Other: General: no acute distress, well developed, alert and awake Nutritional Appearance: well nourished Orientation/consciousness: patient oriented x3 HENMT Head: Yes normocephalic and Yes atraumatic Ears: hearing grossly normal bilaterally and TM's normal bilaterally General nose exam: Normal external nose present and Normal nares present Mouth: Normal oral and palatal mucosa present and moist mucous membranes Teeth and gingiva: dentition normal Throat: Yes oropharynx normal Eyes Pupils: Equal, round and reactive pupils present and Pupil accommodation reflex normal EOM: EOMs intact bilaterally Neck Neck: Yes normal visual inspection, Yes no lymphadenopathy and Yes trachea midline Thyroid: Thyroid normal Carotids: no bruits Lymphatic: no lymphadenopathy noted Chest Chest palpation & inspection: normal inspection of the chest Resp Effort & Inspection: normal respiratory effort Auscultation: clear to auscultation bilaterally Cardio Rate: regular rate Rhythm: regular rhythm Heart sounds: S1 normal heart sound present, S2 normal heart sound present, no gallops, no murmurs and no rubs Bruits: no abdominal aortic bruits and no carotid bruits GI Palpation (GI): No Abdominal aortic bruit present, Soft to palpation, nontender, No hepatosplenomegaly present and No Rebound tenderness present Auscultation: normal bowel sounds General: Yes no CVA tenderness Back/Spine/Pelvis Back: no CVA tenderness Cervical Spine: cervical ROM normal and No Cervical spine tenderness Thoracic/Lumbar Spine: thoraco-lumbar ROM normal, No pain with thoraco-lumbar ROM, No thoracic spinal tenderness and No lumbar spinal tenderness Skin General: warm and dry. Normal skin color. Normal skin turgor Lesions: no lesions Rashes: no rashes Trauma: no lacerations or abrasions Wounds: no wounds Nails: normal Neuro General: patient oriented x3, gait normal and CN's II-XI intact bilaterally Cranial nerves: Yes Equal, round and reactive pupils present Cognition (Neuro): normal cognition Gait exam (Neuro): Normal gait present Motor exam (neuro): 5/5 motor strength present throughout Sensory Exam: No Sensory deficit (Neuro) Deep tendon reflexes (DTR's): Right patellar reflex intensity grade: 2+ and Left patellar reflex intensity grade: 2+ Extrem General: Yes normal to inspection, No edema and No calf tenderness Psych Appearance: grossly normal Affect: normal affect Attitude: cooperative Thought process: Normal thought process present Coding Level of Care Code Est Pt Prev Care 18-39y(86045) Diagnoses Normal physical examination, routine Z00.00 MDD (major depressive disorder), recurrent episode, moderate F33.1 Dyslipidemia E78.5 Stiff back M25.69 Eye exam, routine Z01.00 Additional Codes AARON-7 Assessment Billing - AARON-7 Assessment Tool: AARON-7 Assessment 73949 ([id number]) Assessment & Plan Assessment & Plan (1) Normal physical examination, routine: Code(s): Z00.00 - Encounter for general adult medical examination without abnormal findings Category: Medical Plan: No significant functional limitation noted (2) MDD (major depressive disorder), recurrent episode, moderate: Code(s): F33.1 - Major depressive disorder, recurrent, moderate Category: Medical Plan: Continue current regimen of Tylopam and prazosin as symptoms are well-controlled. Follow up with a psychiatric provider and therapist as planned. (3) Dyslipidemia: Code(s): E78.5 - Hyperlipidemia, unspecified Category: Medical Plan: Maintain current treatment with fenofibrate. Schedule follow-up in a month for a cholesterol check with fasting lipids done 10-12 hours before labs. (4) Stiff back: Code(s): M25.69 - Stiffness of other specified joint, not elsewhere classified Category: Medical Plan: Continue using cyclobenzaprine and ibuprofen as needed for symptom management. (5) Eye exam, routine: Code(s): Z01.00 - Encounter for examination of eyes and vision without abnormal findings Category: Medical Plan: Referred to ophthalmology Plan During the consultation, I reviewed the management of the patient's depression and anxiety. The patient seems to benefit from his current medication regimen, with no new depressive or anxiety symptoms emerging. We discussed the importance of maintaining regular psychiatric follow-ups and therapist sessions to manage his mental health proactively. Regarding hyperlipidemia management, I emphasized the necessity of completing blood work and following up as scheduled to monitor lipid levels. We also addressed his muscle and back stiffness, focusing on continued use of current medications. I provided recommendations for diet improvement and regular physical activity to improve his overall health. Discussions included arranging an eye exam and verifying his tetanus vaccination status, emphasizing the significance of these preventive care measures. Orders: Referrals Ophthalmology Referral Z01.00 - Encounter for examination of eyes and vision without abnormal findings Patient Instructions: - Schedule a dental appointment for annual exam. - Arrange an eye exam with the referral provided. - Verify tetanus vaccination status with records. - Continue current medications as prescribed. - Follow fasting instructions and complete lipid blood work before the next visit. - Maintain routine appointments with psychiatric and therapy providers. - Focus on incorporating fresh and healthy dietary choices. - Engage in regular physical exercise and manage sleep routines. - Return for follow-up in one month for cholesterol evaluation. Patient was informed and verbally consented to the use of an ambient scribe for clinic note documentation during this visit.
[2024-04-03 08:09] VITALS: BP 123/71; PULSE 69; RESP 16; TEMP 36.3; O2SAT 97; BMI 29.1
== END 2024-04-03 08:48 | disposition home or self-care (01) ==
PROVIDERS: PCP Nurse Practitioner Family; Visit Provider Nurse Practitioner Family
DX: Z00.00 Encounter for general adult medical examination without abnormal findings (principal); F33.1 Major depressive disorder, recurrent, moderate; E78.5 Hyperlipidemia, unspecified; M25.69 Stiffness of other specified joint, not elsewhere classified

== ENCOUNTER → 2024-04-03 07:50 | Outpatient (BNVA) | payer OTHER, SELFPAY | PROVIDERS: PCP Nurse Practitioner Family; Visit Provider Nurse Practitioner Family | DX: Z00.00 Encounter for general adult medical examination without abnormal findings (principal); F33.1 Major depressive disorder, recurrent, moderate; E78.5 Hyperlipidemia, unspecified; M25.69 Stiffness of other specified joint, not elsewhere classified | CPT/HCPCS: 96127 ==

== ENCOUNTER 2024-04-18 15:25 | Outpatient (REF) | payer OTHER, SELFPAY ==
[2024-04-18 17:55] LABS: Cholesterol 124 mg/dL (<200); HDL Cholesterol 31 mg/dL (>40); LDL Cholesterol Calculated 34 mg/dL (<100); Triglycerides 298 mg/dL (<150)
--- OUTSIDE RECORDS SUMMARY | 2024-04-19 22:24 | XMS_ITS | Continuity of Care Document ---
Author Name [facility] Organization [facility] Care Team Providers Care Thiokol Operator Name Role Phone [facility] Unavailable Unavailable Problems Combined list of problems from Department of Defense and Veterans Affairs facilities. It does not include entries that were removed or entered in error. 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 Follow up CSP Aug 2021 revelaed single 4mm sigmoid polyp, otherwise unremarkable w/o evidence of diverticulosis. Ambulatory Pharmacy Dyslipidemia Active Condition [facility] Ganglion cyst of left dorsal wrist2 Active Condition 3 mm diameter; asymptomatic: 12/2018 Ambulatory Pharmacy Insomnia Active Condition Ambulatory Pharm[facility] LBP - Low back pain Active Condition [facility]ulatory Pharm[facility] Low back pain Active Condition [facility] Pain of left wrist Active Condition Ambulatory Pharmacy Medications Combined list of outpatient medications from Department of [facility] and Veterans Affairs facilities.Medications provided include 1) outpatient medications from the last 15 months, and 2) patient-reported medications. Medication Details Route Status Patient Instructions Prescription Expires Prescription Number Last Dispense Date Ordering Provider Order Date Order Qty Source Augmentin 875 mg-125 mg oral tablet amoxicil jeniffer (as trihydra te) 1 tabs, Oral, every 12 hr, X 7 days, # 20 tabs, 0 total refill(s ), Acute, 11/13/18 12:56:00 PM CDT Oral (given by mouth) Complet ed 11/13/2018 20.0 0128C-9 [facility] chlorhexidi ne 0.12% mucous membrane liquid 15 mL, Oral, BID, swish and spit; do not swallow, # 473 mL, 0 total refill(s ), Maintena nce, [facility] pharmacy dispense (Rx) Oral (given by mouth) Discont inued 11/05/2020 473.0 0128C-[address] [place] [address]-[facility] R[facility] CITALOPRAM HBR (CITALOPRAM HYDROBROMID E), 20MG, TABLET, ORAL, [facility], 500 ea. BOTTLE Cancele d [id number] : 2023 0 Pharmac y Data Transac tion Service Facilit y CITALOPRAM HBR (CITALOPRAM HYDROBROMID E), 20MG, TABLET, ORAL, [facility], 500 ea. BOTTLE Cancele d [id number] : 2023 0 Pharmac y Data Transac tion Service Facilit y CITALOPRAM HBR (CITALOPRAM HYDROBROMID E), 20MG, TABLET, ORAL, [facility], 500 ea. BOTTLE Active [id number] 4 2023 30 Pharmac y Data Transac tion Service Facilit y CITALOPRAM HBR (CITALOPRAM HYDROBROMID E), 20MG, TABLET, ORAL, [facility], 500 ea. BOTTLE Active [id number] 4 2023 30 Pharmac y Data Transac tion Service Facilit y CLONAZEPAM (CLONAZEPAM ), 0.5MG, TABLET, ORAL, TEVA [place], 500 ea. BOTTLE Active [id number] 4 2023 30 Pharmac y Data Transac tion Service Facilit y CLONAZEPAM (clonazepam ), 1 MG, TABLET, ORAL, TEVA [place], 500 ea. BOTTLE Active [id number] 4 2023 8 Pharmac y Data Transac tion Service Facilit y CLONAZEPAM (clonazepam ), 1 MG, TABLET, ORAL, TEVA [place], 500 ea. BOTTLE Active [id number] 4 2023 8 Pharmac y Data Transac tion Service Facilit y clonazePAM 0.5 mg oral tablet 2 tab(s), Oral, Daily, 0 total refill(s ), Maintena nce Oral (given by mouth) Ordered 0310C-A F-C[facility]t [facility] CLONIDINE HCL (clonidine HCl), 0.1 MG, TABLET, ORAL, [facility], 1000 ea. BOTTLE Active [id number] 2023 45 Pharmac y Data Transac tion Service Facilit y CLONIDINE HCL (clonidine HCl), 0.1 MG, TABLET, ORAL, [facility], 1000 ea. BOTTLE Active [id number] 4 2023 45 Pharmac y Data Transac tion Service Facilit y CLONIDINE HCL (clonidine HCl), 0.1 MG, TABLET, ORAL, [facility], 1000 ea. BOTTLE Active [id number] 4 2023 45 Pharmac y Data Transac tion Service Facilit y CLONIDINE HCL (clonidine HCl), 0.1 MG, TABLET, ORAL, [facility], 1000 ea. BOTTLE Active [id number] 4 2023 45 Pharmac y Data Transac tion Service Facilit y cyclobenzap rine 10 mg oral tablet See Instruct ions, TAKE ONE TABLET BY MOUTH AT BEDTIME NEEDED FOR MUSCLE SPASM, # 21 tab(s), 0 total refill(s ), Acute, TAKE ONE TABLET BY MOUTH AT BEDTIME NEEDED FOR MUSCLE SPASM, Pharmacy : [facility] Complet ed 12/19/2021 21.0 0128C-9 [facility] cyclobenzap rine 10 mg oral tablet 1 tab(s), Oral, TID, 0 total refill(s ), Maintencalixto nce Oral (given by mouth) Discont inued 11/18/2021 0128C-9 [facility] CYCLOBENZAP RINE HCL (cyclobenza dayana HCl), 10 MG, TABLET, ORAL, TEVA [place], 1000 ea. BOTTLE Active [id number] 2023 45 Pharmac y Data Transac tion Service Facilit y CYCLOBENZAP RINE HCL (cyclobenza dayana HCl), 10 MG, TABLET, ORAL, TEVA [place], 1000 ea. BOTTLE Active [id number] 4 2023 45 Pharmac y Data Transac tion Service Facilit y CYCLOBENZAP RINE HCL (cyclobenza dayana HCl), 10 MG, TABLET, ORAL, TEVA [place], 1000 ea. BOTTLE Active [id number] 2023 90 Pharmac y Data Transac tion Service Facilit y CYCLOBENZAP RINE HCL (cyclobenza dayana HCl), 10 MG, TABLET, ORAL, TEVA [place], 1000 ea. BOTTLE Active [id number] 4 2023 90 Pharmac y Data Transac tion Service Facilit y escitalopra m 10 mg oral tablet 1 tab(s), Oral, Daily, 0 total refill(s ), Maintena nce Oral (given by mouth) Ordered 0310C-A F[facility] ESCITALOPRA M OXALATE (ESCITALOPR AM OXALATE), 10 MG, TABLET, ORAL, [facility], 100 ea. BOTTLE Active [id number] 4 2023 30 Pharmac y Data Transac tion Service Facilit y ESCITALOPRA M OXALATE (ESCITALOPR AM OXALATE), 10 MG, TABLET, ORAL, [facility], 100 ea. BOTTLE Active [id number] 2023 30 Pharmac y Data Transac tion Service Facilit y ESCITALOPRA M OXALATE (ESCITALOPR AM OXALATE), 10 MG, TABLET, ORAL, [facility], 100 ea. BOTTLE Active [id number] 2023 30 Pharmac y Data Transac tion Service Facilit y ESCITALOPRA M OXALATE (ESCITALOPR AM OXALATE), 10 MG, TABLET, ORAL, [facility], 100 ea. BOTTLE Active [id number] 2023 30 Pharmac y Data Transac tion Service Facilit y FENOFIBRATE (fenofibrat e), 54 MG, TABLET, ORAL, [facility], 90 ea. BOTTLE Active [id number] 4 2023 30 Pharmac y Data Transac tion Service Facilit y FENOFIBRATE (fenofibrat e), 54 MG, TABLET, ORAL, AUROBINDO PHARM, 90 ea. BOTTLE Active [id number] 4 2023 30 Pharmac y Data Transac tion Service Facilit y FENOFIBRATE (fenofibrat e), 54 MG, TABLET, ORAL, AUROBINDO PHARM, 90 ea. BOTTLE Active [id number] 4 2023 30 Pharmac y Data Transac tion Service Facilit y FENOFIBRATE (fenofibrat e,micronize d), 134 MG, CAPSULE, ORAL, AJANTA PHARMA L, 100 ea. BOTTLE Cancele d [id number] : 2023 0 Pharmac y Data Transac tion Service Facilit y FENOFIBRATE (fenofibrat e,micronize d), 134 MG, CAPSULE, ORAL, AJANTA PHARMA L, 100 ea. BOTTLE Active [id number] 4 2023 30 Pharmac y Data Transac tion Service Facilit y FENOFIBRATE (fenofibrat e,micronize d), 134 MG, CAPSULE, ORAL, AJANTA PHARMA L, 100 ea. BOTTLE Active [id number] 4 2023 30 Pharmac y Data Transac tion Service Facilit y fenofibrate 30 mg oral capsule 1 cap(s), Oral, Daily, # 30 cap(s), 0 total refill(s ), Maintena nce Oral (given by mouth) Ordered 30.0 0310C-A F-C-66t h [facility] IBUPROFEN (ibuprofen) , 800 MG, TABLET, ORAL, TIME-CAP LABS, 500 ea. BOTTLE Active [id number] 4 2023 20 Pharmac y Data Transac tion Service Facilit y IBUPROFEN (ibuprofen) , 800 MG, TABLET, ORAL, TIME-CAP LABS, 500 ea. BOTTLE Active [id number] 4 2023 7 Pharmac y Data Transac tion Service Facilit y ibuprofen 800 mg oral tablet 1 tab(s), Oral, TID, PRN pain, # 30 tab(s), 0 total refill(s ), Acute, 03/17/20 2:00:00 AM [facility], [facility] pharmacy dispense (Rx) Oral (given by mouth) Complet ed 03/17/2020 30.0 0128C-9 [facility] lidocaine 5% topical film 1 patch(es ), Topical, Daily, Leave on for up to 12 hours within a 24 hour period (12 hours on, 12 hours off), # 30 patch(es ), 3 total refill(s ), Maintena nce, 1 patch(es ) Topical Daily,In str:Mary arnold on for up to 12 hours within a 24 hour period (12 hours on, 12 hours off), Pharmacy : [facility] Topica l (on the skin) Discont inued 04/12/2024 30.0 0128C-9 [facility] melatonin every day at bedtime, 0 total refill(s ), Maintena nce Discont inued 04/12/2024 0128C-9 [facility] mupirocin 2% topical ointment 1 appl(s), Topical, TID, X 7 days, # 15 g, 0 total refill(s ), Acute, 1 appl(s) Topical TID,x7 days, Pharmacy : [facility] Topica l (on the skin) Complet ed 09/11/2022 15.0 0128C-9 [facility] naproxen 500 mg oral tablet 1 tab(s), Oral, BID, # 20 tab(s), 0 total refill(s ), Acute, 12/19/21 2:00:00 AM CDT, 1 tab(s) Oral BID, Pharmacy : [facility] Oral (given by mouth) Complet ed 12/19/2021 20.0 0128C-9 [facility] OMEPRAZOLE (omeprazole ), 20 MG, CAPSULE DR, ORAL, [facility], 1000 ea. BOTTLE Active [id number] 4 2023 30 Pharmac y Data Transac tion Service Facilit y Percocet 5 mg-325 mg oral tablet 1 tab(s), Oral, every 4 hr, PRN pain, # 24 tab(s), 0 total refill(s ), Acute, 03/24/19 2:00:00 AM [employer], [facility] pharmacy dispense (Rx) Oral (given by mouth) Complet ed 03/24/2019 24.0 0128C-9 [facility] PRAZOSIN HCL (prazosin HCl), 1 MG, CAPSULE, ORAL, NOVITIUM/AN I PH, 100 ea. BOTTLE Active [id number] 4 2023 30 Pharmac y Data Transac tion Service Facilit y PRAZOSIN HCL (prazosin HCl), 1 MG, CAPSULE, ORAL, NOVITIUM/AN I PH, 100 ea. BOTTLE Active [id number] 4 2023 30 Pharmac y Data Transac tion Service Facilit y PRAZOSIN HCL (prazosin HCl), 1 MG, CAPSULE, ORAL, NOVITIUM/AN I PH, 100 ea. BOTTLE Active [id number] 4 2023 30 Pharmac y Data Transac tion Service Facilit y PRAZOSIN HCL (prazosin HCl), 1 MG, CAPSULE, ORAL, NOVITIUM/AN I PH, 100 ea. BOTTLE Active [id number] 4 2023 30 Pharmac y Data Transac tion Service Facilit y PRAZOSIN HCL (prazosin HCl), 1 MG, CAPSULE, ORAL, NOVITIUM/AN I PH, 100 ea. BOTTLE Active [id number] 4 2023 30 Pharmac y Data Transac tion Service Facilit y PRAZOSIN HCL (prazosin HCl), 1 MG, CAPSULE, ORAL, NOVITIUM/AN I PH, 100 ea. BOTTLE Active [id number] 4 2023 20 Pharmac y Data Transac tion Service Facilit y TRAZODONE HCL (trazodone HCl), 50 MG, TABLET, ORAL, TEVA [place], 100 ea. BOTTLE Active [id number] 4 2023 15 Pharmac y Data Transac tion Service Facilit y TRAZODONE HCL (trazodone HCl), 50 MG, TABLET, ORAL, TEVA [place], 100 ea. BOTTLE Active [id number] 4 2023 15 Pharmac y Data Transac tion Service Facilit y TRAZODONE HCL (trazodone HCl), 50 MG, TABLET, ORAL, TEVA [place], 100 ea. BOTTLE Active [id number] 4 2023 15 Pharmac y Data Transac tion Service Facilit y TRAZODONE HCL (trazodone HCl), 50 MG, TABLET, ORAL, TEVA [place], 100 ea. BOTTLE Active [id number] 4 2023 15 Pharmac y Data Transac tion Service Facilit y TRAZODONE HCL (trazodone HCl), 50 MG, TABLET, ORAL, TEVA [place], 100 ea. BOTTLE Active [id number] 4 2023 30 Pharmac y Data Transac tion Service Facilit y TRAZODONE HCL (trazodone HCl), 50 MG, TABLET, ORAL, TEVA [place], 100 ea. BOTTLE Active [id number] 4 2023 30 Pharmac y Data Transac tion Service Facilit y Tylenol Oral, 0 total refill(s ), Maintena nce Oral (given by mouth) Discont inued 09/16/2022127C-9 [facility] Tylenol 325 mg oral tablet 1 tab(s), Oral, every 4 hr, PRN pain or fever, # 100 tab(s), 0 total refill(s ), Acute, 12/19/21 2:00:00 AM CDT, 1 tab(s) Oral every 4 hr,PRN:a s needed for pain or fever, Pharmacy : [facility] Oral (given by mouth) Complet ed 12/19/2021 100.0 8C-9 [facility] Allergies, Adverse Reactions, Alerts Combined list of allergies from Department of Defense and Veterans Affairs facilities. It does not include entries that were removed or entered in error. Substance Category Reaction Severity Reaction type Status Date Reported Comments Source No Known Allergies Drug allergy (disorder) active 09/16/2022 [facility] [place], [place] ([facility]) Immunizations Combined list of available immunizations from the Department of Defense and Veterans Affairs facilities. Immunization Series Date Given Administered By Site Reaction Lot Number CVX Code Drug Cash Applications Representative Status Comments Source influenza, injectable, quadrivalent- pf 2021 GENEVIEVERCAN ETE [id number] complet ed Result Comment: Route: Unknown Manufactu rer: OTH (SKB) 0128C-9 [facility] COVID Vaccine Pfizer 2020 Geraldine er Shoul sung, left (delt oid) [id number] PFIZER complet ed COVID Vaccine Pfizer 08/20/20 Given 0128C-9 [facility] COVID Vaccine Pfizer 2020 JONO Kumarul sung, left (delt oid) [id number] PFIZER complet ed COVID Vaccine Pfizer 08/01/20 Given 0128C-9 [facility] Human Papillomaviru s 9-valent vaccine 2018 CAPTGENEVIEVE RCANETE [id number] 165 complet ed Result Comment: Route: Unknown Manufactu rer: OT (MSD) 0128C-9 [facility] human papillomaviru s vaccine 2018 Sivakumar howard Arm [id number] 165 [employer] complet ed human papilloma virus vaccine 11/09/18 Given 0128C-9 [facility] Human Papillomaviru s 9-valent vaccine 2018 GENEVIEVERCAN ETE [id number] 165 complet ed Result Comment: Route: Unknown Manufactu rer: OT (MSD) 0128C-9 [facility] Human Papillomaviru s 9-valent vaccine 2017 GENEVIEVERCAN ETE [id number] 165 complet ed Result Comment: Route: Unknown Manufactu rer: OT (MSD) 0128C-9 [facility] hepatitis B adult vaccine 2017 [id number] GlaxoSmithKli ne complet ed hepatitis B adult vaccine 11/15/17 Given Ambulat ory Pharmac y hepatitis B vaccine, adult dosage 1 2017 [id number] 43 SmithKline (SKB) complet ed hepatitis B vaccine, adult dosage DoD hepatitis B adult vaccine 2017 [id number] 43 GlaxoSmithKli ne complet ed hepatitis B adult vaccine 10/06/17 Given Ambulat ory Pharmac y hepatitis B vaccine, adult dosage 1 2017 [id number] 43 SmithKline (SKB) complet ed hepatitis B vaccine, adult dosage DoD adenovirus vaccine, live 2017 [id number] 143 Teva Pharmaceutica complet ed adenoviru s vaccine, live 09/29/17 Given Ambulat ory Pharmac y tetanus, diphtheria, acellular pertu is 2017 [id number] 115 [facility] ed tetanus, diphtheri a, acellular pertussis 09/29/17 Given Ambulat ory Pharmac y meningococcal A,C,Y,W-135 (MCV4P) 2017 [id number] 114 sanofi pasteur complet ed meningoco ccal A,C,Y,W-1 35 (MCV4P) 09/29/17 Given Ambulat ory Pharmac y poliovirus vaccine, inactivated 2017 [id number] sanofi pasteur complet ed polioviru s vaccine, inactivat ed 09/29/17 Given Ambulat ory Pharmac y poliovirus vaccine, inactivated 1 2017 [id number] 10 Sanofi Pasteur (PMC) complet ed polioviru s vaccine, inactivat ed DoD meningococcal polysaccharid e (groups A, C, Y and W-135) diphtheria toxoid conjugate vaccine (MCV4P) 1 2017 [id number] 114 Sanofi Pasteur (PMC) complet ed meningoco ccal polysacch aride (groups A, C, Y and W-135) diphtheri a toxoid conjugate vaccine (MCV4P) DoD tetanus toxoid, reduced diphtheria toxoid, and acellular pertu is vaccine, adsorbed 1 2017 [id number] 115 [facility] (SKB) complet ed tetanus toxoid, reduced diphtheri a toxoid, and acellular pertussis vaccine, adsorbed DoD Adenovirus, type 4 and type 7, live, oral 1 2017 [id number] 143 [facility] ([facility]) complet ed Adenoviru s, type 4 and type 7, live, oral DoD Influenza, injectable, Madin Su Canine Kidney, quadrivalent with preservative 1 2017 [id number] Seqirus (SEQ) comple t ed Influenza , injectabl e, Madin Su Canine Kidney, quadrival ent with preservat victor m DoD measles virus vaccine 0 2017 05 () Not Given measles virus vaccine DoD rubella virus vaccine 0 2017 06 () Not Given rubella virus vaccine DoD mumps virus vaccine 0 2017 07 () Not Given mumps virus vaccine DoD varicella virus vaccine 0 2017 21 () Not Given varicella virus vaccine DoD hepatitis A vaccine, adult dosage 0 2017 52 () Not Given hepatitis A vaccine, adult dosage DoD Results Combined list of recent chemistry, hematology and other laboratory results from Department of Defense and Veterans Affairs, ranging from 15 months to all on record, depending upon the facility. Order Name Results Value Reference Range Date Interpretation Specimen Comments Source Infectio us Disease HIV-1/O/2 Non-Reac tive 9 (12/24/23 10:39 AM) 12/23 N Interpretiv e Data: INTERPRETAT ION: This method is a screening procedure for the detection of HIV p24 Antigen and Antibodies to HIV-1, including Group O, and/or HIV-2. NON-REACTIV E: HIV-1 antigen and HIV-1 / HIV-2 antibodies were not detected. No laboratory evidence of HIV infection. A negative test result does not exclude the possibility of exposure to or infection with HIV. HIV antibodies and/or p24 antigen may be undetectabl e in some stages of the infection and in some clinical conditions. If acute HIV infection is suspected, consider submitting another specimen to a reference laboratory for HIV-1 RNA. SCREEN REACTIVE - CONFIRMATIO N TO FOLLOW: Possible presence of HIV-1antibo dies, HIV-2 antibodies and/or HIV-1 p24 antigen. Specimen will reflex to the confirmatio n testing that fulfills the Center for Disease Control and Prevention' s HIV diagnostic algorithm. Refer to [facility] Lab Guide for additional information : [email or web address] [email or web address] x Testing performed by [facility] leandro peck. [facility] Miscella neous Sendouts Repository Sample Received (12/24/23 10:39 AM) 12/23 N [facility] Infectio us Disease HIV-1/O/2. EPI NON-REAC TIVE 11/04 Result Comment: INTERPRETAT ION(S): This method is a screening procedure for the detection of HIV p24 Antigen and Antibodies to HIV-1, including Group O, and/or HIV-2. NON-REACTIV E: HIV-1 antigen and HIV-1 / HIV-2 antibodies were not detected. No laboratory evidence of HIV infection. A negative test results does not exclude the possibility of exposure to or infection with HIV. HIV antibodies and/or p24 antigen may be undetectabl e in some stages of the infection and in some clinical conditions. If acute HIV infection is suspected, consider submitting another specimen to a reference laboratory for HIV-1 RNA. SCREEN REACTIVE - CONFIRMATIO N TO FOLLOW: Possible presence of HIV-1 antibodies, HIV-2 antibodies and/or HIV-1 p24 antigen. Specimen will reflex to the confirmatio n testing that fulfills the Center for Disease Control and Prevention' s HIV diagnostic algorithm. Refer to [facility] Lab Guide for additional information : [email or web address]/ [email or web address] [email or web address] x Testing performed by [facility] [employer] [facility]. Performed by: Epidemi[facility] [address] [place] [address], [place] [address] [facility] Miscella neous Sendouts Repository Sample.EPI RECEIVED 11/04 Result Comment: INTERPRETAT ION(S): Performed by: Epidemiolog [facility] [address] [place] [address], [place] [address] [facility] Molecula r Infectio us Disease Reason for Test? Diagnosi s ( 1 9:28 AM) 04/25 N [facility] Molecula r Infectio us Disease SARS-CoV-2 PCR SEE COMMENT 04/25 Result Comment: SARS: NEG FLU A: NEG FLU B: NEG RSV: POSITIVE 04/25/21 10:17:29 PST. CTL Interpretiv e Data: This test is not yet approved or cleared by the [place] FDA. When there are no FDA-approve d or cleared tests available, and other criteria are met, FDA can make tests available under an emergency access mechanism called an Emergency Use Authorizati on (EUA). The EUA for this test is supported by the Hazmat Technician of Health and Human Service s (HHS s ) declaration that circumstanc es exist to justify the emergency use of in vitro diagnostics for the detection and/or diagnosis of the virus that causes COVID-19. This EUA will remain in effect (meaning this test can be used) for the duration of the COVID-19 declaration justifying emergency of IVDs, unless it is terminated or revoked by FDA (after which the test may no longer be used). [facility] Infectio us Disease SARS-CoV-2 ANTIGEN Negative (01/15/21 7:53 AM) 01/15 N [facility] Infectio us Disease Flu A Rapid Ag Neg (01/15/21 7:53 AM) 01/15 N [facility] Infectio us Disease Flu B Rapid Ag Neg (01/15/21 7:53 AM) 01/15 N [facility] Pharm[facility] Infectio us Disease Reason for Test? Diagnosi s (01/15/21 7:53 AM) 01/15 N [facility] Molecula r Infectio us Disease SARS-CoV-2 PCR Negative 12, 13 (01/15/21 7:53 AM) 01/15 N Result Comment: flu a negative, flu b negative, rsv negative 01/15/21 11:38:12 PDT gww Interpretiv e Data: This test is not yet approved or cleared by the [place] FDA. When there are no FDA-approve d or cleared tests available, and other criteria are met, FDA can make tests available under an emergency access mechanism called an Emergency Use Authorizati on (EUA). The EUA for this test is supported by the Hazmat Technician of Health and Human Service s (HHS s ) declaration that circumstanc es exist to justify the emergency use of in vitro diagnostics for the detection and/or diagnosis of the virus that causes COVID-19. This EUA will remain in effect (meaning this test can be used) for the duration of the COVID-19 declaration justifying emergency of IVDs, unless it is terminated or revoked by FDA (after which the test may no longer be used). [facility] Molecula r Infectio us Disease Reason for Test? Diagnosi s (01/15/21 7:53 AM) 01/15 N [facility] Infectio us Disease SARS-CoV-2 ANTIGEN Negative (12/13/20 8:02 AM) 12/13 N [facility] Infectio us Disease Flu A Rapid Ag Neg (12/13/20 8:02 AM) 12/13 N [facility] Infectio us Disease Flu B Rapid Ag Neg (12/13/20 8:02 AM) 12/13 N [facility] Infectio us Disease Reason for Test? Diagnosi s (12/13/20 8:02 AM) 12/13 N [facility] Molecula r Infectio us Disease SARS-CoV-2 PCR Negative 14 (12/13/20 8:02 AM) 12/13 N Interpretiv e Data: This test is not yet approved or cleared by the [place] FDA. When there are no FDA-approve d or cleared tests available, and other criteria are met, FDA can make tests available under an emergency access mechanism called an Emergency Use Authorizati on (EUA). The EUA for this test is supported by the Hazmat Technician of Health and Human Service s (HHS s ) declaration that circumstanc es exist to justify the emergency use of in vitro diagnostics for the detection and/or diagnosis of the virus that causes COVID-19. This EUA will remain in effect (meaning this test can be used) for the duration of the COVID-19 declaration justifying emergency of IVDs, unless it is terminated or revoked by FDA (after which the test may no longer be used). [facility] Molecula r Infectio us Disease Reason for Test? Diagnosi s (12/13/20 8:02 AM) 12/13 N [facility] Infectio us Disease HIV-1/O/2. EPI NON-REAC TIVE 10/25 Result Comment: INTERPRETAT ION(S): This method is a screening procedure for the detection of HIV p24 Antigen and Antibodies to HIV-1, including Group O, and/or HIV-2. NON-REACTIV E: HIV-1 antigen and HIV-1 / HIV-2 antibodies were not detected. No laboratory evidence of HIV infection. A negative test results does not exclude the possibility of exposure to or infection with HIV. HIV antibodies and/or p24 antigen may be undetectabl e in some stages of the infection and in some clinical conditions. If acute HIV infection is suspected, consider submitting another specimen to a reference laboratory for HIV-1 RNA. SCREEN REACTIVE - CONFIRMATIO N TO FOLLOW: Possible presence of HIV-1 antibodies, HIV-2 antibodies and/or HIV-1 p24 antigen. Specimen will reflex to the confirmatio n testing that fulfills the Center for Disease Control and Prevention' s HIV diagnostic algorithm. Refer to [facility] Lab Guide for additional information : [email or web address] .[email or web address]/k j/kx5/EPILa b/Pages/lab _guide.aspx Testing performed by Osmany peck. Performed by: Epidemiolog y Laboratory Service [facility] [address] [place] [address], [place] [address] [facility] Surinder ptael Sendouts Repository Sample.EPI RECEIVED 10/25 Result Comment: INTERPRETAT ION(S): Performed by: Epidemiolog y Laboratory Service [facility] [address] [place] [address], [place] [address] [facility] Immunolo gy/Serol ogy Hep B Surface Ag Non-Reac tive 1 (10/26/19 11:16 AM) 10/25 N Interpretiv e Data: Note to [facility] Physicians: = Acute Hepatitis A, B, or C is a reportable illness. If these results indicate acute hepatitis, please forward the results to PM,DOCTOR . Preventive Medicine will contact the patient to begin contact tracing. [facility] Immunolo gy/Serol ogy Hep B Surface Ab Reactive *ABN* (10/26/19 11:16 AM) 10/25 A [facility] Immunolo gy/Serol ogy Hep C Ab Non-Reac tive (10/26/19 11:16 AM) 10/25 N [facility] Immunolo gy/Serol ogy Hep A Ab Reactive *ABN* (10/26/19 11:16 AM) 10/25 A [facility] Immunolo gy/Serol ogy Hep B Core Ab Non-Reac tive (10/26/19 11:16 AM) 10/25 N [facility] Immunolo gy/Serol ogy Syphilis Screen Non-Reac tive (10/26/19 11:16 AM) 10/25 N [facility] Immunolo gy/Serol ogy Hep A Ab IgM Non-Reac tive (10/26/19 11:16 AM) 10/25 N [facility] Infectio us Disease Chlamydia NAAT.EPI NEGATIVE 10/25 Result Comment: INTERPRETAT ION(S): [facility] Infectio us Disease GC NAAT.EPI NEGATIVE 10/25 Result Comment: INTERPRETAT ION(S): NAAT = Nucleic acid amplificati on test A positive result indicates that DNA of Chlamydia trachomatis (CT) and/or Neisseria gonorrhoeae (GC) is present in the specimen tested and strongly supports a diagnosis of chlamydial/ gonorrheal infection. A negative result indicates that DNA for CT and/or GC was not detected in the specimen. The performance of this assay has not been evaluated in adolescents less than 14 years of age. This report is intended for use in clinical monitoring or management of patients; it is not intended for use in medico-lega l application s. The assay has not been evaluated with patients who are currently being treated with antimicrobi al agents active against CT or GC as well as patients with a history of hysterectom y. In general, this assay should not be used to assess therapeutic success or failure since nucleic acids from these organisms may persist for 3 weeks or more following antimicrobi al therapy. The predictive value of an assay depends on the prevalence of the disease in any particular population. In settings with a high prevalence of sexually transmitted disease, positive assay results have a high likelihood of being true positives. In settings with a low prevalence of sexually transmitted disease, or in any setting in which a patient's clinical signs and symptoms or risk factors are inconsisten t with gonococcal or chlamydial urogenital infection, positive results should be carefully assessed and the patient retested by other methods (e.g., culture for Neisseria gonorrhoeae ), if appropriate . The prevalence for all specimens tested in this laboratory is 5% for CT and 0.5% for GC. At this prevalence, the [employer] r estimates the overall sensitivity and specificity for CT to be 94.1% and 99.6% respectivel y. For GC the sensitivity and specificity rates are 97.1% and 99.8%. The Positive Predictive Value and the Negative Predictive Value calculated by the [employer] [facility] r using the above clinical trial data are 92% and 99.7% for CT and 82% and 100% for GC. Results should be interpreted in conjunction with other laboratory and clinical information . A negative result does not exclude the possibility of infection. Improper specimen collection, concurrent antibiotic therapy, presence of inhibitors, or low numbers of organisms in the specimen may cause false-negat victor m results. If clinical indications strongly suggest gonococcal or chlamydial infection, additional specimens should be collected for testing. A result of inconclusiv e indicates that a new specimen should be collected. Testing of urine specimens with this method is not intended to replace a cervical exam and endocervica l sampling for diagnosis of urogenital infection. A first catch urine specimen is acceptable but may detect up to 10% fewer infections when compared with vaginal and endocervica l swab specimens. Methodology : NAAT Notifiable result/cond ition for Local/State department. Notify your local public health immediately for proper notificatio n. Performed by: [facility]emiolog [facility] [address] [place] [phone] [facility] Vital Signs Combined list of inpatient and outpatient Vital Signs from Department of Defense and Veterans Affairs, ranging from 12 months to all on record, depending upon the facility. Vital Sign Value Date Comments Source Systolic Blood Pressure 120mm[Hg] 12/13/2020 14:55:00 Ambulatory Pharmacy Diastolic Blood Pressure 83mm[Hg] 12/13/2020 14:55:00 Ambulatory Pharmacy Mean Arterial Pressure, Calc 95mm[Hg] 12/13/2020 14:55:00 Ambulatory P harmacy Peripheral Pulse Rate 66bpm 12/13/2020 14:55:00 Ambulatory Pharmacy Respiratory Rate 16br/min 12/13/2020 14:55:00 Ambulatory Pharmacy Temperature Tympanic 36.8Cel 12/13/2020 14:55:00 Ambulatory Pharmacy Respiratory Rate 16br/min 11/09/2018 17:27:00 Ambulatory Pharmacy Temperature Oral 36.7Cel 11/09/2018 17:27:00 Ambulatory Pharmacy Peripheral Pulse Rate 79bpm 11/09/2018 17:27:00 Ambulatory Pharmacy Systolic Blood Pressure 111mm[Hg] 11/09/2018 17:27:00 Ambulatory Pharmacy Diastolic Blood Pressure 67mm[Hg] 11/09/2018 17:27:00 Ambulatory Pharmacy Blood Pressure Method 11/09/2018 17:27:00 Ambulatory Pharmacy Mean Arterial Pressure, Calc 82mm[Hg] 11/09/2018 17:27:00 Ambulatory P harmacy Systolic Blood Pressure 127mm[Hg] 07/28/2021 14:37:00 Ambulatory Pharmacy Diastolic Blood Pressure 81mm[Hg] 07/28/2021 14:37:00 Ambulatory Pharmacy Mean Arterial Pressure, Calc 96mm[Hg] 07/28/2021 14:37:00 Ambulatory P harmacy Peripheral Pulse Rate 79bpm 07/28/2021 14:37:00 Ambulatory Pharmacy Respiratory Rate 16br/min 07/28/2021 14:37:00 Ambulatory Pharmacy BP Site 07/28/2021 14:37:00 Ambul [facility]ory Pharmacy Blood Pressure Manual 07/28/2021 14:37:00 Ambulatory Pharmacy Systolic Blood Pressure 126mm[Hg] 12/01/2021 17:24:00 Ambulatory Pharmacy Diastolic Blood Pressure 80mm[Hg] 12/01/2021 17:24:00 Ambulatory Pharmacy Mean Arterial Pressure, Calc 95mm[Hg] 12/01/2021 17:24:00 Ambulatory P harmacy Peripheral Pulse Rate 87bpm 12/01/2021 17:24:00 Ambulatory Pharmacy Respiratory Rate 16br/min 12/01/2021 17:24:00 Ambulatory Pharmacy Temperature Oral 36.9Cel 12/01/2021 17:24:00 Ambulatory Pharmacy BP Site 12/01/2021 17:24:00 Ambul [facility] Pharmacy Blood Pressure Manual 12/01/2021 17:24:00 Ambulatory Pharmacy Systolic Blood Pressure 120mm[Hg] 01/15/2021 15:11:00 Ambulatory Pharmacy Diastolic Blood Pressure 79mm[Hg] 01/15/2021 15:11:00 Ambulatory Pharmacy Mean Arterial Pressure, Calc 93mm[Hg] 01/15/2021 15:11:00 Ambulatory P harmacy Peripheral Pulse Rate 81bpm 01/15/2021 15:11:00 Ambulatory Pharmacy Respiratory Rate 16br/min 01/15/2021 15:11:00 Ambulatory Pharmacy Temperature Oral 37.1Cel 01/15/2021 15:11:00 Ambulatory Pharmacy BP Site 01/15/2021 15:11:00 Ambul atory Pharmacy Blood Pressure Manual 01/15/2021 15:11:00 Ambulatory Pharmacy Temperature Oral 36.9Cel 12/01/2021 17:00:00 Ambulatory Pharmacy Peripheral Pulse Rate 87bpm 12/01/2021 17:00:00 Ambulatory Pharmacy Systolic Blood Pressure 126mm[Hg] 12/01/2021 17:00:00 Ambulatory Pharmacy Diastolic Blood Pressure 80mm[Hg] 12/01/2021 17:00:00 Ambulatory Pharmacy Mean Arterial Pressure, Calc 95mm[Hg] 12/01/2021 17:00:00 Ambulatory P harmacy Temperature Oral 36.8Cel 12/28/2018 16:11:00 Ambulatory Pharmacy Peripheral Pulse Rate 54bpm 12/28/2018 16:11:00 Ambulatory Pharmacy Systolic Blood Pressure 115mm[Hg] 12/28/2018 16:11:00 Ambulatory Pharmacy Diastolic Blood Pressure 65mm[Hg] 12/28/2018 16:11:00 Ambulatory Pharmacy Respiratory Rate 16br/min 12/28/2018 16:11:00 Ambulatory Pharmacy Mean Arterial Pressure, Calc 82mm[Hg] 12/28/2018 16:11:00 Ambulatory P harmacy Systolic Blood Pressure 121mm[Hg] 09/16/2022 14:55:00 Ambulatory Pharmacy Diastolic Blood Pressure 80mm[Hg] 09/16/2022 14:55:00 Ambulatory Pharmacy Mean Arterial Pressure, Calc 94mm[Hg] 09/16/2022 14:55:00 Ambulatory P harmacy Peripheral Pulse Rate 76bpm 09/16/2022 14:55:00 Ambulatory Pharmacy Respiratory Rate 14br/min 09/16/2022 14:55:00 Ambulatory Pharmacy Temperature Oral 36.7Cel 09/16/2022 14:55:00 Ambulatory Pharmacy BP Site 09/16/2022 14:55:00 Ambul atory Pharmacy Blood Pressure Manual 09/16/2022 14:55:00 Ambulatory Pharmacy Encounters Combined list of: 1) Encounters from Department of Veterans Affairs facilities going back up to thelast 18 months. 2) Encounters from the Department of Defense facilities going back up to 280 months. Location Location Details Encounter Type Encounter Number Reason For Visit Attending Provider ADM Date DC Date Status Disposition Source [facility] [address] [id number] Notes Entered by: ANUJ CASTANEDA 07 Oct 2017 1029 ------- ------- ------- ------- -- Strep Prophyl axis ALETHA CASTANEDA 10/07 Released w/o Limitations [facility] [place] [address] [place] [facility] [address]([facility] ion, BMT) OUTPATIENT [id number] CATRACHO SPAULDING 10/08 Released w/o Limitations [facility] [place] [address]([facility] earing [facility] ation, BMT) [employer] OUTPATIENT [id number] Notes Entered by: Luz Marina SMITH 19 Jan 2018 0659 ------- ------- ------- ------- -- SICK CALL - Insect ite swollen on right hand middle finger/ Right leg back thigh SURENDRA DAVILA 01/19 Released w/o Limitations [employer]( [facility] ) [employer]([facility]) OUTPATIENT [id number] Notes Entered by: EMILY MAYORGA 19 Jan 2018 1601 ------- ------- ------- ------- [facility] PAP[facility] ORDOÑEZ 01/19 Released w/o Limitations [employer]([facility]) 0310C-AF- C-[facility] [id number] NASIM MUHAMMAD 10/20 Discharge Disposition: Home or Self Care 0310C-[id number] F-C-[facility] [id number]-AF- C-[facility] [id number] KAELA WILCOX 10/20 Discharge Disposition: Home or Self Care 0310C-A F-C-[facility] 0310A-AF- C-[facility] Between Visit [id number] 10/25 Discharge Disposition: Home or Self Care [id number]-[id number] F-C-[facility]t [facility] [id number] AMDS Outpatient [id number] RALPH CYU 01/10 Discharge Disposition: Home or Self Care [id number] AMDS 0310C-AF- C-[facility] [id number] Adjustm ent disorde r, unspeci fied,Hy perlipi demia, unspeci fied,EX AM/ASSE SSMENT, 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, TIPPLE BOSS EMILEE Desai HEALTH ASSESSM ENT (PHA) ELISHA BBOUD 04/12 Discharge Disposition: Home or Self Care 0310C-A F-C-66t h [facility] Procedures Combined list of: 1) Procedures from Department of Veterans Affairs facilities going back up to thelast 18 months, not all CT non-surgical procedures are included; 2) All procedures from the Department of Defense facilities. Procedure Procedure Type Code Date Perfomer Comments [facility] e ECG 12-Lead With Interpretation And Report ECG 12-Lead With Interpretation And Report [id number] 01/31/20 18 PAPO ORDOÑEZ [facility] Threshold Audiogram (Pure Tone) Threshold Audiogram (Pure Tone) [id number] 10/09/19 18 MARISOL MERINO [facility] Physician Supervised Injection Intramuscular Antibiotic Physician Supervised Injection Intramuscular Antibiotic [id number] 10/08/19 18 ALETHA CASTANEDA [facility] ELECTROCARDIOGRAM, ROUTINE ECG WITH AT LEAST 12 LEADS; WITH INTERPRETATION AND REPORT 01/20/20 18 [facility] PURE TONE AUDIOMETRY (THRESHOLD); AIR ONLY 10/09/19 18 [facility] THERAPEUTIC, PROPHYLACTIC, OR DIAGNOSTIC INJECTION (SPECIFY SUBSTANCE OR DRUG); SUBCUTANEOUS OR INTRAMUSCULAR 10/08/19 18 [facility] Diagnostic colonoscopy 08/05/19 22 [id number] [facility] WTEx[facility] 0310C-AF-C- 66th [facility] Social History Combined list of available smoking, tobacco, and other social history from Department of Defense and Veterans Affairs facilities. Social History Type Response Date Comment Nirav e Male 02/16/2018 Ambulatory Pha rmacy This section is an empty social history section. 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 Other Tobacco use: Never-other tobacco user (not cigarettes). Ambulatory Pharma cy Sexual Orientation Ambula tory Pharmacy Gender identity [facility] Pharmacy Assessment and Plan Combined list of future care activities from Department of Defense and Veterans Affairs facilities (e.g., assessment and plan notes, appointments, orders, and referrals). Additional future care activities may be listed in the Plan of Care section. 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 SM present for virtual encounter. All age/gender specific CPS IAW USPSTF are up to date. ? IMR- Green.? Profile- None Active.? ? +WWQ.? ? This MHA/PHA is for screening purposes only, and is Not to replace a face to face appointment with PCM or other specialty care?if needed. ? SM was informed that?if there are any?health concerns,?it is the SM's responsibility to schedule an appointment with PCM or specialty?care for evaluation and management. ? 2.?Dyslipidemia ?Continue?Fenofibrate,?and?follow a healthy diet limiting saturated fats (red meats, processed meats, full fat dairy), regular exercise, and maintaining a healthy weight; continue F/U with PCM for lipid panel monitoring and HLP management.? 3.?Adjustment disorder Continue?Escitalopram as prescribed, and continue F/U with Psychiatry for management.? SM informed that prolonged use of Clonazepam over 6 months could result in a [employer] review; instructed SM to discuss alternative treatment to Clonazepam; SM verbalized understanding; SM reports that Clonazepam is not needed, and will be discussing disconsolation with Psychiatrist.? Willa Cardoso CTR?[employer]ER-C [facility] Provider Flight Medicine? [address] [place]??[id number] [facility] [phone] ? 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 SM present for virtual encounter. All age/gender specific CPS IAW USPSTF are up to date. ? IMR-?Red for profile; Profile- Yes, MR for adjustment disorder with mixed anxiety and depressed mood expires 20 Jun 2023. NOT -WWQ. ? ? ? 2.?LBP - Low back pain F/U with PCM as needed. 3.?Adjustment disorder F/U with civilian care referral for management. 4.?Insomnia Continue OTC Melatonin as needed/ per packaging instructions; F/U with PCM for persistent or worsening symptoms. Willa Cardoso CTR?[employer] TE[employer]ER-[employer] [facility] Provider Flight Medicine? [address] [place], [place]??[address] [facility] [phone] ? Extracted from:Title: LBP Profile f/u Author: BREN ANDRADE NP Date: 09/16/22 1.?Low back pain Chronic, improvement, controlled.? Pt desires to resolve profile. He endorses has been performing HEP and dedicated PT since fall 2022.? Pt with pain 2-3/10 tightness of low back, no changes except soreness from moving boxes d/t upcoming PCS. pt w/o red flag sxs. Continue conservative management- ordered meds for pt lidocaine patches, naproxen, tylenol prn as directed. ? intermittent ice/heat q2 hours prn pain. epsom salt bath to relax muscles.? Pt to continue relative rest.? Recommend no prolonged sitting or standing >30 minutes.? Pt to f/u with PC[facility] at [facility] to request PT as he will benefit from this. ? ? Patient informed?chronicity of?low back pain?can?increase future?flare ups humphrey w/strenuous physical activity ?and will?most likely?recur intermittently in the future; therefore,?continue conservative?self management and practice appropriate posture, good body mechanics for preventive measures.? Return precautions and report to ED for any red flags discussed. Patient expressed understanding and intent to comply. ? Informed pt to f/u prn PVUA. ? Not on PRP or?flying status,?No???AuOf. YES:???indication for new or modified - resolved FR ? ? Return precautions discussed. Patient expressed understanding and intent to comply. All questions answered. Patient agreed to notification regarding results of labs, imaging, other diagnostic testing via the [facility] Patient Portal. ? -A total of approximately? 30 minutes- 81851? ( Face to face ? 20 minutes??) ? Date of service:? ?10?_?September 2022? with the following actions?below and as applicable based on this EHR as above: ? reviewing?previous notes?and/or specialty notes, including JLV x [id number] w/ pt x medical charting including documenting the findings in the note ?review of diagnostic testing including: __ labs __ radiology studies x ordering meds, test, or procedures x greater than 50% in counseling/coordination of care: diagnosis/diff dx, treatment and follow up plan. x AGAM/ASIMS review/update ? x Medical Standards processes/FFD requirement and/or disqualifications and process for medical?board 5 minutes spent updating immunizations on mariluz in reconciliation w/IMR ? _ please see attached documents: ekg, pft, or?consent forms in [facility] mariluz chart ? ?Follow up?PRN. -Portions of this note were scribed by my medical esthetician(s). I have verified the information and medical decision making is my own. ? YES:Reviewed pertinent?Mental Health Screening scores below?- pt is low risk.?Pt denies suicidal or homicidal ideations No?CSSRS YES:?AARON -7? YES:?PHQ- 9? No?[place] No?MoCA No?Audit No?PCL/PTSD Screening ? //SIGNED// XENIA Tran, ?, [facility], [place] Family Nurse Practitioner? [facility], [address] [place], [place] [phone] ? Ordered: lidocaine topical(lidocaine 5% topical film), 1 patch(es), Topical, Daily, Leave on for up to 12 hours within a 24 hour period (12 hours on, 12 hours off), # 30 patch(es), 3 total refill(s), Maintenance, 1 patch(es) Topical Daily,Instr:Leave on for up to 12 hours within a 24 hour period (12 hours... naproxen(naproxen 500 mg oral tablet), 1 tab(s), Oral, BID, # 20 tab(s), 0 total refill(s), Acute, 11/16/2022, 1 tab(s) Oral BID, Pharmacy: [facility] [Not filled] acetaminophen(Tylenol 325 mg oral tablet), 1 tab(s), Oral, every 4 hr, PRN pain or fever, # 30 tab(s), 0 total refill(s), Acute, 11/16/2022, 1 tab(s) Oral every 4 hr,PRN:pain or fever, Pharmacy: [facility] [Not filled] ? 2.?Acute stress reaction Pt seeing FAP/MH ongoing has appts.? Denies suicidal or homicidal ideations- has all his appts.? Pt feels safe at home and at work.? Informed pt to f/u with new PCM at next base to f/u w/continuity of MH care. Pt has no further needs and pt to f/u prn PVUA ? ? Extracted from:Title: Pain of Left Toes (System Outage) Author: BREN ANDRADE NP Date: 09/01/22 1.?Pain in left toe(s) see SF600 for charting- ACI was completed?before system shut down ?- unable to reconcile meds/history/immunizations as Travellution system was down at the time of appt.? - Adding codes/dx/referral/med ?to this encounter. ? 26 y/o male with ingrown toenail of 1st/2nd/3rd digit of left foot.? Referral to podiatry for consideration of removal and for eval and tx thanks!? ? Not on PRP or?flying status,?No???AuOf. ? No???indication for new or modified FR/MR/DR? ? ? Return precautions discussed. Patient expressed understanding and intent to comply. All questions answered. Patient agreed to notification regarding results of labs, imaging, other diagnostic testing via the [facility] [employer] Patient Portal. ? -A total of approximately? 30 minutes- 01739? ( Face to face ? 20 minutes??) ? Date of service:? ?25?_?Aug 2022? with the following actions?below and as applicable based on this EHR as above: ? ?reviewing?previous notes?and/or specialty notes x [id number] w/ pt x medical charting including documenting the findings in the note ?review of diagnostic testing including: __ labs __ radiology studies x medication adjustment x greater than 50% in counseling/coordination of care: diagnosis/diff dx, treatment and follow up plan. ?AGAM/ASIMS review/update ? Medical Standards processes/FFD requirement and/or disqualifications and process for medical?board ? _ please see attached documents: ekg, pft, or?consent forms in [facility] mariluz chart ? ?Follow up?PRN. -Portions of this note were scribed by my medical esthetician(s). I have verified the information and medical decision making is my own. ? YES:Reviewed pertinent?Mental Health Screening scores below?- pt is low risk.?Pt denies suicidal or homicidal ideations ? No?CSSRS ? YES:?AARON -7? ? YES:?PHQ- 9? ? No?[place] ? No?MoCA ? No?Audit ? No?PCL/PTSD Screening ? ? //SIGNED// Bren Andrade, XENIA, ARISTEO?, [employer], [place] Family Nurse Practitioner? [facility] [address] [facility] [place] [phone] ? Ordered: mupirocin topical(mupirocin 2% topical ointment), 1 appl(s), Topical, TID, X 7 days, # 15 g, 0 total refill(s), Acute, 1 appl(s) Topical TID,x7 days, Pharmacy: [facility] [Not filled] Referral Request 2.0 ? 2.?Male erectile dysfunction, unspecified same as above ? ? 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 Reviewed [id number]. No new specific concerns identified in past medical or family history when compared to the PHAQ. All information was updated to the e2766 as needed. 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 Completed provider portion of the PHAQ, any abnormalities were noted in the Provider Comments section below. Not on PRP or flying status. No indication for new or modified DR/MR/FR at this time. ? -Hx of low back pain. Active AF469 w/ MR/DR/FR. PT to start Jan 2022. ? ASIMS:?RED. Due for audiogram. All Preventative Screening Recommendations IAW USPSTF have been accomplished. Follow up?PRN. ? Arturo Graham, CTR, PA-C? [address]/[facility]? [place], [place]? ANNUAL PERIODIC HEALTH ASSESSMENT ? I. TIPPLE BOSS INFORMATION AND DEMOGRAPHICS (SMI) 1. Last Name: DARRION 2. First Name: KYRA 3. Middle Name: OZ 4. Assessment Date: 5. : 6. Age: 26 7. Gender: M 8. Do[employer] ID Number: [id number] 9. Service Branch: [employer] 10. 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 Pay Grade: E04 13. Unit Name: [address] [place] [address] 14. Duty Station/Location: [place] 15. [facility]: [id number] 16. Is this your first Periodic Health Assessment (PHA)?: N 17. Are you enrolled in a secure messaging system with your health care provider?:? N ? 18. Current contact information: Preferred Method: Day Time Phone DSN: [id number] Day Time Phone: [phone] Night Time Phone: Email 1: [email or web address] Email 2: Address: [address] City: [facility] State: [place] Zip Code: [address] ? 19. Point of contact who can always reach you: Name: Marah Cuellar Phone 1: [phone] Phone 2: EMAIL: [email or web address] Address: [address] [place] [address] Unit [facility]: [place] State: [place] Zip Code: [address] ? II. DEPLOYMENT INFORMATION (DEP) 1. [ Never deployed ] Total number of deployments in the PAST 5 YEARS 4. [ N ] Are you going to deploy within the NEXT 120 DAYS? ? III. OCCUPATIONAL INFORMATION (OCC) 1? 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 [ No ] Does your specialty require an operational duty physical exam? 4. [ No ] Are you currently enrolled in a medical surveillance/occupational health program?:? No ? IV. MEDICAL CONDITIONS (MIKE): 1. Since your last PHA, have you experienced any of the following health conditions, and if so, what is your status? [? ] Conditions with no medical care ? ?? [? ] Conditions with medical care, but no longer under treatment ? ?? [? ] Conditions with medical care, and NOW under treatment 2. Since your last PHA, have you experienced any of the following health conditions, and if so, what is your status? [? ] Conditions with no medical care ? ?? [ Recurring muscle, joint, or low back pain ] Conditions with medical care, but no longer under treatment ? ?? [? ] Conditions with medical care, and NOW under treatment 3. For any condition marked YES in question 1 or 2, are you currently on any profile or limited duty for that condition?[? ] Conditions 4. [ Not Sure ] Have you been based or stationed at a location where an open burn pit was used? 5. [ Not Sure ] Have you been exposed to toxic airborne chemicals or other airborne contaminants? 6. [ No ] Are you enrolled in the Airborne Hazards and Open Burn Pit Registry? 7. [ N ] If you are eligible, do you elect to enroll in the Airborne Hazards and Open Burn Pit Registry? 8. Have you had any surgery since your last PHA?: No 10.a. [ No ] Since your last PHA, has a health care provider recommended surgery(s) that you have not had? 11.a. [ No ] Do you currently require hearing aids, special medical supplies, CPAP, adaptive equipment, assistive technology devices, and/or other special accommodations? 12.a. [ No ] Do you have a waiver or profile for any part of your Service's physical fitness test? 13.a. [ Never had to wear these items. ] Do you have any problems wearing a gas mask, ballistic helmet, body armor, and/or chemical/biological protective garments? 14.a. [ No ] Have you ever been told by a health care provider that you SHOULD NOT receive an immunization for medical reasons? 15.a. [ No ] Do you have a permanent profile or an Assignment Limitation Code C? 16.a. [ No ] Are you on a temporary profile or limited duty? 17. [ 1 ] During the PAST 2 years, how many times have you been placed on a temporary profile or on limited duty? ? V. INDIVIDUAL MEDICAL READINESS (IMR) 1. [ No ] Do you have any allergies? 3. [ Not required ] Do you have red medical warning dog tags? 4. [ No ] Do you wear corrective lenses? ? . BEHAVIORAL HEALTH (MHA) 1. a. [ None? ] Over the PAST MONTH, what major life stressors have you experienced that are a cause of significant concern or make it difficult for you to do your work, take care of things at home, or get along with other people (for example, serious conflicts with others, relationship problems, or a legal, disciplinary or financial problem)? ? 2. a. [ No? ] In the PAST YEAR did you receive care for any mental health condition or concern such as, but not limited to post traumatic stress disorder (PTSD), depression, anxiety disorder, alcohol abuse or substance abuse? ? 3. [ None? ] What prescription or over-the counter medications (including herbals/supplements) for sleep, pain, combat stress, or a mental health problem are you CURRENTLY taking? ? 4. a. [ Yes ] In the past 12 months, have you gambled? 4. b. [ No ] During the past 12 months, have you become restless, irritable, or anxious when trying to stop/cut down on gambling? 4. c. [ No ] During the past 12 months, have you tried to keep your family or friends from knowing how much you gambled? 4. d. [ No ] During the past 12 months, did you have such financial trouble as a result of your gambling that you had to get help with living expenses from family, friends, or welfare? 5. a. [ Monthly or less ] How often do you have a drink containing alcohol? 5. b. [ 1 or 2 ] How many drinks containing alcohol do you have on a typical day when you are drinking? 5. c. [ Never ] How often do you have six or more drinks on one occasion? ? 6. Have you ever had any experience that was so frightening, horrible, or upsetting that in the PAST MONTH, you: 6. a. [ No ] Have had nightmares about it or thought about it when you did not want to? 6. b. [ No ] Tried hard not to think about it or went out of your way to avoid situations that remind you of it? 6. c. [ No ] Were constantly on guard, watchful or easily startled? 6. d. [ No ] [place] numb or detached from others, activities, or your surroundings? 6. e. [ Not answered ] [place] guilt or unable to stop blaming yourself or others for the event(s) or any problems the event(s) may have caused? ? 7. Over the LAST 2 WEEKS, how often have you been bothered by the following problems? 7. a. [ Not at all ] Little interest or pleasure in doing things 7. b. [ Not at all ] Feeling down, depressed, or hopeless ? 8. [ Yes ] Would you like to schedule an appointment with a health care provider to discuss any health concern(s)? 9. [ No ] Are you interested in receiving information or assistance for a stress, emotional or alcohol concern? 10. [ No ] Are you interested in receiving assistance for a family or relationship concern? 11. [ No ] Would you like to schedule a visit with a assembler tester, mental health care provider, or a community support counselor? ? VII. FAMILY HISTORY AND LIFESTYLE (LIF) 1. [ Fair ] Overall, how would you rate your health during the PAST MONTH? 2. [ Heart-related conditions, Diabet ] Member indicates that family members have the following problems 4. The following family members has/had a history of heart-related conditions: ? ?? High Blood Pressure: Mother ? ?? Heart Attack: Grandfather ? ?? Sudden Cardiac : Grandfather 5. The following family members has/had a history of diabetes: ? ?? Type II: Grandfather 6. [ Yes ] I participate in moderate intensity physical activites at least 2.5 hours, or a combination of moderate and vigorous aerobic activites, for at least 75 minutes per week. 7. In a typical week, I do physical activities specifically designed to STRENGTHEN my muscles: ? ?? [ 2 ] Day(s) per week 8. [ tylenol ] What prescriptions or [id number] medications are you CURRENTLY taking for health problems on a ROUTINE BASIS? 9. Which of the following products have you taken since your last PHA: ? ? None of the above 11. Think about the PAST 30 DAYS. How often did you eat/drink the following foods/beverages? ? ? [ 1 or 2 servings per week ] Fruits ? ? [ 1 or 2 servings per week ] Vegetables ? ? [ Rarely or Never ] Starchy Vegetables ? ? [ Rarely or Never ] Whole Grains ? ? [ 1 or 2 servings per week ] Dairy and Calcium Containing Foods ? ? [ 1 or 2 servings per week ] Fish ? ? [ 3 to 6 servings per week ] Lean Protein ? ? [ 1 or 2 servings per week ] Sugar-Sweetened Beverages ] Have you had a cholesterol check by a health patient care provider within the PAST 5 YEARS? 13.a. In the PAST 30 DAYS, which of the following products have you used on at least one day? ? ? None 15. Which of the following best describes your past tobacco use? I have never used tobacco products. 16. [ No ] Are you regularly exposed to secondhand smoke? 17. [ More than 9 hours ] During the LAST 2 WEEKS, how many hours of sleep did you get on most days? 18. [ Yes ] During the LAST 2 WEEKS, have you felt impaired or unable to adequately perform due to sleepiness or poor quality sleep? 19. [ No ] Have you had any unexplained weight loss or gain since your last PHA? 20. Member is not at risk for sexually transmitted infections. 22. Since your last PHA, what, if anything, have you and your partner used to keep from getting ? [ my has an IUD ] I am actively taking steps to prevent , including 23. [ No ] In the last year, have you or your partner had a scare, where you were not trying to get but were worried enough to use a home test? ? X. OTHER MEDICAL (OTH) 1. [ 3 ] Rate the amount of pain you have had, on average, over the PAST 24 HOURS 2. [ No ] Are you receiving treatment for pain? 3. [ No ] Since your last PHA, have you received care or treatment for any medical and/or mental health condition(s) from a civilian or non- facility? 5. Member acknowledged responsibility for reporting health issues. 7. [ Yes ] Woud you like to schedule an appointment with a health care provider to discuss any health concerns? ? XI. SEPARATION AND NURSING HOME 1. [ No ] Are you planning to separate or retire within the next year from Active Duty or [place] Duty (activated for greater than 30 continuous days) OR do you intend to file a claim for disability compensation with the [employer] Administration? ? PART B. RECORD REVIEW AND RECOMMENDATIONS I. RECORD REVIEWER INFORMATION 1. Last Name: BEATA 2. First Name: FELISA 3. Middle Name: JOSSIE 4. Service Branch: [employer] 5. 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 EMAIL: [email or web address] 8. Facility: [facility] 9. Unit: [address] [place] [address] 10. Address: [address] [place] [address] 11. State: [place] 12. Zip Code: [address] 13. 14. Date Record Review: ? II. MEDICAL SCREENING 1. 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 [ 5 feet 8 inches? ?Date: ] rail crew member's most recently documented height 3. [ 182 pounds? Date: ] rail crew member's most recently documented weight 4. [ 126/80? Date: ] rail crew member's most recently documented blood pressure reading 5. [ No ] Does the rail crew member have a history of abnormal blood pressure since their last PHA? 6. [ Yes ] Does the rail crew member have a laboratory test of sickle cell trait documented in their permanent medical record? 7. [ No Cholesterol Test Documented ] What is the date of the rail crew member's most recently documented cholesterol test? 9. [ tylenol ]? List of rail crew member's active medications listed in their permanent medical record 10. [ Yes: tylenol ] Is there a discrepancy between the active medication record review and the rail crew member's self-reported list of medications? 11. [ 05/30/21 ER, diverticulitis 08/04/21-09/29/21 PTx, dorsalgia ] List documented significant care the rail crew member has received since their last PHA from a provider OUTSIDE the Health System 12. [ Yes: 05/30/21 ER, diverticulitis 08/04/21-09/29/21 PTx, dorsalgia ] Is there a discrepancy between the rail crew member's list of OUTSIDE care (from OT5), and the OUTSIDE care found in the record? 13. [ 03/31/21-12/02/21 MH 07/28/21 ER f/u and mild back pain 11/18/21 low back pain 12/01/21 CSP and LBP ] List documented significant care the rail crew member has received since their last PHA from a provider INSIDE the Health System 15. [ Not Answered ] Confirm that vaccine exemptions are listed in the medical record for each vaccine listed ? IV. FAMILY HISTORY AND LIFESTYLE 1. [ Yes ]? Does the [id number] reflect the rail crew member's reported family history? ? VII. INDIVIDUAL MEDICAL READINESS 1. [ No ] Does the rail crew member have an Assignment Limitation Code C? 3. [ Classification: 1 ] Most recently documented dental exam 4. [ Yes ] Is the rail crew member current on all required immunizations in the immunization tracking system? 6. Does the rail crew member have the following laboratory tests documented in their permanent medical record? ? ? [ Yes ] HIV test within the PAST 24 months? ? [ Yes ] G6PD results on file? ? [ Yes ] Blood type and Rh on file? ? [ Yes ] DNA test on file IX. ADDITIONAL RECORD REVIEWER COMMENTS 1. This record review does NOT have a need for provider notification or referral.2. Additional comments about this record review that need to be forwarded to the Health Paper Mill Superintendent completing PART C: ? ? Date Record Review Completed: --------- PART C. HEALTH CARE PROVIDER I. MENTAL HEALTH ASSESSMENT (MHA) PROVIDER INFORMATION 1. Last Name: Nader 2. First Name: Demond 3. Middle Name: 4. 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 EMAIL: [email or web address] 8. Facility: [address] [place] [address] 9. Unit: [facility] 10. Address: [address] [place] [address] 11. State: [place] 12. Zip Code: [address] 13. 14. Date HCP Review initiated: ? 1.? Member marked that they did not have a concern or a difficulty with a major life stressor. ? 2.? Address concerns identified on member questions 2 and 3. ? ? History of mental health care: N/A ? Member's response:? Provider's comments: none ? ? Medications: N/A ? Member's response:? Provider's comments: Tylenol, seasonal allergy medications (OTC) and ZZquil for sleep. ? 3.? Member's AUDIT-C screening score was 1. (nothing required) ? 4.? Member did not britney yes on two or more of questions 6a through 6e. 5.? Member did not britney More than half the days or nearly every day on question 7a or 7b. ? 6.? Suicide risk evaluation. 6. a. Ask: Over the past month, have you wished you were or wished you could go to sleep and not wake up?: No 6. b. Ask: Have you actually had any thoughts of killing yourself?: No 6. f. 1. Ask: In you lifetime, have you done anything, started to do anything, or prepared to do anything to end your life?: No 6. g. Further risk assessment comments: ? 7.? Member states that they have not had thoughts or concerns over the past month that they might hurt or lose control with someone. ? 9. Summary of Provider's identified concerns needing referrals: None 11. Comments: SM does not endorse SI, HI or self-harm. SM reported having a good support system which includes his and work friends. SM expressed having awareness of available mental health resources on [employer]. SM denied having any current resource or service needs. No concerns or referral needs identified at this time. ? 12. 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 Behavioral Health): ? ? Request medical appointment: Appt is scheduled ? 13. Supplemental services recommended/information provided: ? ? No supplemental services required ? Date MHA Certified: ? III. PERIODIC HEALTH ASSESSMENT (PHA) PROVIDER INFORMATION 1. Last Name: Santos 2. First Name: Arturo 3. Middle Name: 4. 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 EMAIL: [email or web address] 8. Facility: [facility] 9. Unit: [facility] 10. Address: [address] [place] [address] 11. State: [place] 12. Zip Code: [address] 13. 14. Date HCP Review initiated: ? IV. PERIODIC HEALTH ASSESSMENT PROVIDER RECOMMENDATIONS and REFERRALS 1. Provider concerns with this assessment: No issues or concerns identified ? V. SUMMARY AND COMMENTS 1. Additional information summarizing findings during the rail crew member assessment: ? 2. Provider Comments: SM already had appointment with PCM since PHAQ was completed. ? . INDIVIDUAL MEDICAL READINESS DISPOSITION DETERMINATION ? ? MIKE: Not Ready? ? DEN: Ready? ? IMM: Ready? ? LAB: Ready? ? ME: Ready ? ? IMR Status: Not Medically Ready ? VII. SERVICE MEDICAL DEPLOYABILITY EVALUATION INDICATED Based on your review of all documentation, is the rail crew member medically deployable without limitations?? Reference Mignon 6490.07 ? ?No (rail crew member currently has a medical condition that DOES require duty limitation(s) AND limits deployability) ? Date PHA Completed: ? END OF [id number] REPORT ? [facility] ? [ No ] Does the member have 4 or more consecutive fitness exemptions or any waist circumference exemptions? ? [ No ] Does the member have a history of a RILO/MEB? ? [ No ] Does the member have any abnormal laboratory results since their last PHA? ? [ No ] Does the member have any pathology or radiology results since their last PHA? ? [ No ] Does the member have any outstanding medical concerns/open consults or referrals? ? [ No ] Is the member currently under specialty medical care? ? [ No ] Does the member have any conditions that dictate a referral to the [employer] Board? ? Active Medical Conditions:? None. ? [ NA ] Cleared for flying/special operation duties ? [ NA ] Cleared for PRAP duties ? [ No ] Medical surveillance examination requirements up to date ? [ Yes - with restrictions ] Cleared for [employer] Duties ? [ Yes ] Cleared for continued service ? [ No ] Cleared for mobility duties ? 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 END OF BO SUMMARY ? Extracted from:Title: CSP and LBP f/u Author: BREN ANDRADE NP Date: 12/01/21 1.?Diverticulitis of colon Asymptomatic. Will request records for full report of biopsy of polyp and CSP. Preliminary results reviewed WNL- No diverticulosis noted on CSP- 4mm polyp of sigmoid colon removed with biopsy. Pt to increase fiber in diet- also given contact for nutrition for assistance for fiber diet if needed.? Given pt f/u precautions and RTC if sxs return or if severe abdominal pain, fever/chills, severe n/v, lightheadedness/dizziness pt to seek care ER.? Informed pt to f/u prn PVUA ? Return precautions discussed. Patient expressed understanding and intent to comply. All questions answered. Patient agreed to notification regarding results of labs, imaging, other diagnostic testing via the [facility] Patient Portal. ? -A total of? 20-29?min. with the following actions?below and as applicable based on this EHR as above: ? x?reviewing?previous notes?and/or specialty notes x [id number] w/ pt x medical charting including documenting the findings in the note ?review of diagnostic testing including: __ labs __ radiology studies x medication adjustment x greater than 50% in counseling/coordination of care: diagnosis/diff dx, treatment and follow up plan. ?AGAM/ASIMS review/update ?Medical Standards processes/FFD requirement and/or disqualifications and process for medical?board ? ?Follow up?PRN. -Portions of this note were scribed by my medical esthetician(s). I have verified the information and medical decision making is my own. ? Not on PRP, flying status, AuOf. No indication for new or modified FR/DR/MR at this time.? Will not be extending pt's profile unless rehab with PT for LBP. ? //Electronically signed// ? XENIA TRAN, ?, [facility], [place] Family Nurse Practitioner? 2.?Low back pain Acute, Suspect low?back strain.? Continued?LBP?- pt continue to take medication.? No focal neuro deficits or evidence of radiculopathy. No indication for?imaging at this time.? re-educated pt: Counselled on conservative home management including ice/heat TID, stretching,?avoiding strenuous activity but maintenance of normal day to day activities as able. Will treat symptomatically naproxen BID prn and tylenol as ordered.? Pt counseled to only take flexiril at bedtime- no driving or operate machinery within 10 hours of taking flexiril or mix with alcohol ? ? Pt given check out sheet - PT schedule here at [facility].? If not improved with PT - pt to f/u with PCM and consider imaging and pain management though I do not believe this is necessary based on sxs and DAYANA.??No back pain red flags.? ? Pt to f/u after course of PT and sooner for new/worsening sxs. Informed pt to f/u prn PVUA. ? Extracted from:Title: Virtual: LBP Author: BREN ANDRADE NP Date: 11/18/21 1.?Low back pain Acute, Suspect back strain.? ? No focal neuro deficits or evidence of radiculopathy. No indication for?imaging at this time.?Counselled on conservative home management including ice/heat TID, stretching,?avoiding strenuous activity but maintenance of normal day to day activities as able. Will treat symptomatically naproxen BID prn and tylenol as ordered.? Pt counseled to only take flexiril at bedtime- no driving or operate machinery within 10 hours of taking flexiril or mix with alcohol ? Pt given phone number to PT schedule here at [facility].? If not improved with PT- pt to f/u with PCM and consider imaging and pain management though I do not believe this is necessary based on sxs and DAYANA. No back pain red flags.? ? Pt already has f/u appt with PCM in 2 weeks for f/u to today's visit.? Informed pt to f/u prn PVUA. ? Return precautions discussed. Patient expressed understanding and intent to comply. All questions answered. Patient agreed to notification regarding results of labs, imaging, other diagnostic testing via the [facility] Patient Portal. ? -A total of? 20-29?min. with the following actions?below and as applicable based on this EHR as above: ? x reviewing?previous notes?and/or specialty notes x virtual w/ pt x medical charting including documenting the findings in the note ?review of diagnostic testing including: __ labs __ radiology studies ?medication adjustment x greater than 50% in counseling/coordination of care: diagnosis/diff dx, treatment and follow up plan. x AGAM/ASIMS review/update ? x Medical Standards processes/FFD requirement and/or disqualifications and process for medical?board ? ?Follow up?PRN. -Portions of this note were scribed by my medical esthetician(s). I have verified the information and medical decision making is my own. ? Not on PRP, flying status, AuOf. new x30 days for FR/DR/MR at this time. ? //Electronically signed// ? BREN ANDRADE, XENIA, [place]?, [employer], [place] Family Nurse Practitioner? Ordered: cyclobenzaprine(cyclobenzaprine 10 mg oral tablet), See Instructions, TAKE ONE TABLET BY MOUTH AT BEDTIME NEEDED FOR MUSCLE SPASM, # 21 tab(s), 0 total refill(s), Acute, TAKE ONE TABLET BY MOUTH AT BEDTIME NEEDED FOR MUSCLE SPASM, Pharmacy: [facility] [Not filled] ? Orders: naproxen(naproxen 500 mg oral tablet), 1 tab(s), Oral, BID, # 20 tab(s), 0 total refill(s), Acute, 12/19/2021, 1 tab(s) Oral BID, Pharmacy: [facility] [Not filled] acetaminophen(Tylenol 325 mg oral tablet), 1 tab(s), Oral, every 4 hr, PRN pain or fever, # 100 tab(s), 0 total refill(s), Acute, 12/19/2021, 1 tab(s) Oral every 4 hr,PRN:as needed for pain or fever, Pharmacy: [facility] [Not filled] Extracted from:Title: ER f/u and Mid Back Pain Author: BREN ANDRADE NP Date: 07/28/21 1.?Back pain Acute, mechanical mid back pain Suspect back strain.? ? No focal neuro deficits or evidence of radiculopathy. No indication for?imaging at this time.?Counselled on conservative home management including ice/heat TID, stretching,?avoiding strenuous activity but maintenance of normal day to day activities as able. Will treat symptomatically w/topical txs? and naproxenas ordered.? Pt counseled to only take flexiril at bedtime- no driving or operate machinery within 10 hours of taking flexiril. ? If not improved with PT- pt to f/u with PCM and consider imaging and pain management though I do not believe this is necessary based on sxs and DAYANA. Informed pt to f/u prn PVUA. ? Return precautions discussed. Patient expressed understanding and intent to comply. All questions answered. Patient agreed to notification regarding results of labs, imaging, other diagnostic testing via the [facility] [employer] Patient Portal. ? Not on PRP or flying status. x30 days new or modified FR/DR/MR at this time ? //Electronically signed// ? BREN ANDRADE, XENIA, ?, [employer], [place] Family Nurse Practitioner? Ordered: lidocaine topical, 1 patch(es), Topical, Daily, Leave on for up to 12 hours within a 24 hour period (12 hours on, 12 hours off), # 30 patch(es), 3 total refill(s), Maintenance, 1 patch(es) Topical Daily,Instr:Leave on for up to 12 hours within a 24 hour period (12 hours... naproxen, 1 tab(s), Oral, BID, # 20 tab(s), 0 total refill(s), Acute, 08/28/2021, 1 tab(s) Oral BID, Pharmacy: [facility] [Not filled] ? 2.?Diverticulitis of colon Resolved.??Per guidelines will order for CSP to assess for malignancy and other?pathology.? ?25 y/o male with mild diverticulitis noted of distal colon at ED May 2021. Sxs have resolved.? Order for colonoscopy with interpretation thanks! ? Informed pt to f/u after CSP.? Given f/u precautions.? PVUA. ? Ordered: Referral Request 2.0 ? Extracted from:Title: stoker erector and servicer-Bloody stool Author: HOLLY WALSH RN Date: 05/30/21 -Per [facility] 2020 protocol, patient should be seen at the [facility] today.?Advised patient to be evaluated at urgent care today because there are no available clinic appointments today. ?Patient would like to be seen at the [facility]. Patient assisted with making appointment for tomorrow at [facility] @0830. Referral placed. -Red flags signs and symptoms discussed to seek emergency care to include severe or moderate?rectal bleeding, severe dizziness, bloody, black or tarry bowel movements, or severe abdominal pain. -Advised patient to return call to clinic for any questions or concerns. -Instructed patient to call Nurse Advise Line to speak with a nurse after hours or to get after hours Urgent Care referral at [phone] ? Patient verbalized understanding and agreeable with plan of care. Patient intends to comply.? RN PERIOPERATIVE Raymond, please review. Thank you. ? Talk time?9?minutes ? ? Extracted from:Title: Virtual MHA Author: OUMAR MONTANA WHNP Date: 10/29/20 1.?EXAM/ASSESSMENT, OCCUPATIONAL, TIPPLE BOSS PERIODIC HEALTH ASSESSMENT (PHA) ?Virtual MHA was reviewed with SM by phone after confirming his identity by 2 patient identifiers. He does not endorse depression, PTSD, risky drinking, gambling addiction, critical stressors, emotional problems or SI/HI. His brief virtual MSE is WNL. At this time he appears to be well adjusted to his home, work, and social environments. He expressed awareness of available mental health resources that he may access as needed. No further action is needed at this time. ? Addendum:? SM reports rash on right arm x 2 months (~ 2 x 3 inches) in diameter.? Rash started 1 week after receiving 2nd COVID vaccine dose in right arm.? Rash is occasionally pruritic.? Has been applying moisturizing lotion.? Instructed to try OTC Hydrocortisone cream BID x 1 to 2 weeks prn?and to schedule PCM f/u if rash does not resolve.? He verbalized understanding and agreed to plan of care. ? Ordered: Administration,Pt-Foc [facility] [address] Brief Comm Tech-Based Svc, Virt, Phys, Est Pt; 5-10 Min Med Dis G2012 ? Addendum by OUMAR MONTANA WHNP on October 29, 2020 08:21:05 PDT ANNUAL PERIODIC HEALTH ASSESSMENT ? I. TIPPLE BOSS INFORMATION AND DEMOGRAPHICS (SMI) 1. Last Name: DARRION 2. First Name: KYRA 3. Middle Name: OZ 4. Assessment Date: 5. : 6. Age: 25 7. Social Security Number: [id number] 8. Gender: M 9. DoD ID: [id number] 10. Service Branch: [employer] 11. Status: 12. Pay Grade: E04 13. 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 Duty Station/Location: [facility] 15. [facility]: [id number] 16. Is this your first Periodic Health Assessment (PHA)?: N 17. Are you enrolled in a secure messaging system with your health care provider?:? N ? 18. Current contact information: Preferred Method: Other Phone DSN: Phone: [phone] EMAIL: [email or web address] Address: [address] [place] [address] [address] [place] State: [place] Zip Code: [address] ? 19. Point of contact who can always reach you: Name: Marah Cuellar Phone 1: [phone] Phone 2: EMAIL: [email or web address] Address: [address] [place] [address] [address] [place] [address] State: [place] Zip Code: [address] ? . BEHAVIORIAL HEALTH (MHA) 1. a. Over the PAST MONTH, what major life stressors have you experienced that are a cause of significant concern or make it difficult for you to do your work, take care of things at home, or get along with other people (for example, serious conflicts with others, relationship problems, or a legal, disciplinary or financial problem)? : None ? 2. In the PAST YEAR did you receive care for any mental health condition or concern such as, but not limited to post traumatic stress disorder (PTSD), depression, anxiety disorder, alcohol abuse or substance abuse? : No ? 3. What prescription or over-the counter medications (including herbals/supplements) for sleep, pain, combat stress, or a mental health problem are you CURRENTLY taking? : None ? 4. a. How often do you have a drink containing alcohol? Monthly or less 4. b. How many drinks containing alcohol do you have on a typical day when you are drinking? 1 or 2 4. c. How often do you have six or more drinks on one occasion? Never ? 5. Have you ever had any experience that was so frightening, horrible, or upsetting that in the PAST MONTH, you: 5. a. Have had nightmares about it or thought about it when you did not want to? No 5. b. Tried hard not to think about it or went out of your way to avoid situations that remind you of it? No 5. c. Were constantly on guard, watchful or easily startled? No 5. d. [place] numb or detached from others, activities, or your surroundings? No ? 6. Over the LAST 2 WEEKS, how often have you been bothered by the following problems? 6. a. Little interest or pleasure in doing things: Not at all 6. b. Feeling down, depressed, or hopeless: Not at all ? 7. Would you like to schedule an appointment with a health care provider to discuss any health concern(s)?: Yes 8. Are you interested in receiving information or assistance for a stress, emotional or alcohol concern?: No 9. Are you interested in receiving assistance for a family or relationship concern?: No 10. Would you like to schedule a visit with a assembler tester or a community support counselor?: No ? PART C. HEALTH CARE PROVIDER I. MENTAL HEALTH ASSESSMENT (MHA) PROVIDER INFORMATION 1. Last Name: NAN 2. First Name: OUMAR 3. Middle Name: May 13. Service Branch: [employer] 5. 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 EMAIL: [email or web address] 8. Facility: [address] [place] [address] 9. Unit: [facility] 10. Address: [address] [place], [place] [address] [employer] 11. State: [place] 12. Zip Code: [address] 13. Phone: [phone] 14. Date HCP Review initiated: ? 1.? Member marked that they did not have a concern or a difficulty with a major life stressor. ? 2.? Address concerns identified on member questions 2 and 3. ? ? History of mental health care: N/A ? Member's response:? Provider's comments: ? ? Medications: N/A ? Member's response:? Provider's comments: ? 3.? Member's AUDIT-C screening score was 1. (nothing required) ? 4.? Member did not britney yes on two or more of questions 5a through 5d. 5.? Member did not britney More than half the days or nearly every day on question 6a or 6b. ? 6.? Member has not been bothered by thoughts that they would be better off or of hurting themself in some way. ? 7.? Member states that they have not had thoughts or concerns over the past month that they might hurt or lose control with someone. ? 9. Summary of Provider's identified concerns needing referrals: None 11. 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 ? ? Virtual MHA was reviewed with SM by phone after confirming his identity by 2 patient identifiers. He does not endorse depression, PTSD, risky drinking, gambling addiction, critical stressors, emotional problems or SI/HI. His brief virtual MSE is WNL. At this time he appears to be well adjusted to his home, work, and social environments. He expressed awareness of available mental health resources that he may access as needed. No further action is needed at this time. ? Addendum:? SM reports rash on right arm x 2 months (~ 2 x 3 inches) in diameter.? Rash started 1 week after receiving 2nd COVID vaccine dose in right arm.? Rash is occasionally pruritic.? Has been applying moisturizing lotion.? Instructed to try OTC Hydrocortisone cream BID x 1 to 2 weeks and to schedule PCM f/u if rash does not resolve.? He verbalized understanding and agreed to plan of care. ? 12. 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 Behavioral Health): ? ? Request medical appointment: Noted ? 13. Supplemental services recommended/information provided: ? ? Health Education and Information ? Date MHA Certified: ? ? Extracted from:Title: Virtual A Author: OUMAR MONTANA WHNP Date: 07/14/19 1.?EXAM/ASSESSMENT, OCCUPATIONAL, TIPPLE BOSS PERIODIC HEALTH ASSESSMENT (PHA) ?Virtual MHA was reviewed with by phone after confirming his identity by 2 patient identifiers. He does not endorse depression, PTSD, risky drinking, critical stressors, emotional problems or SI/HI. His brief virtual MSE is WNL. At this time, he appears to be well adjusted to his home, work, and social environments.?Available mental health resources were briefly reviewed with SM with encouragement to access as needed.? He verbalized understanding. needed. No further action is needed?at this time. Ordered: Administration,[facility] [place] [place] [facility] Brief Comm Tech-Based Svc, Virt, Phys, Est Pt; 5-10 Min Med Dis G2012 ? Addendum by OUMAR MONTANA WHNP on July 14, 2019 14:49:00 [facility] ANNUAL PERIODIC HEALTH ASSESSMENT ? I. TIPPLE BOSS INFORMATION AND DEMOGRAPHICS (SMI) 1. Last Name: DARRION 2. First Name: KYRA 3. Middle Name: OZ 4. Assessment Date: 5. : 6. Age: 23 7. Social Security Number: [id number] 8. Gender: M 9. DoD ID: [id number] 10. Service Branch: [employer] 11. Status: 12. Pay Grade: E03 13. Unit Name: [address] [facility] 14. Duty Station/Location: [place] 15. C: [id number] 16. Is this your first Periodic Health Assessment (PHA)?: N 17. Are you enrolled in a secure messaging system with your health care provider?:? N ? 18. Current contact information: Preferred Method: EMAIL DSN: Phone: [phone] EMAIL: [email or web address] Address: [address] [facility] State: [place] Zip Code: [address] ? 19. Point of contact who can always reach you: Name: AARON MAIER Phone 1: [phone] Phone 2: EMAIL: [email or web address] Address: [address] [facility] State: [place] Zip Code: [address] ? . BEHAVIORIAL HEALTH (MHA) 1. a. Over the PAST MONTH, what major life stressors have you experienced that are a cause of significant concern or make it difficult for you to do your work, take care of things at home, or get along with other people (for example, serious conflicts with others, relationship problems, or a legal, disciplinary or financial problem)? : None ? 2. In the PAST YEAR did you receive care for any mental health condition or concern such as, but not limited to post traumatic stress disorder (PTSD), depression, anxiety disorder, alcohol abuse or substance abuse? : No ? 3. What prescription or over-the counter medications (including herbals/supplements) for sleep, pain, combat stress, or a mental health problem are you CURRENTLY taking? : None ? 4. a. How often do you have a drink containing alcohol? 2-4 times a month 4. b. How many drinks containing alcohol do you have on a typical day when you are drinking? 1 or 2 4. c. How often do you have six or more drinks on one occasion? Never ? 5. Have you ever had any experience that was so frightening, horrible, or upsetting that in the PAST MONTH, you: 5. a. Have had nightmares about it or thought about it when you did not want to? No 5. b. Tried hard not to think about it or went out of your way to avoid situations that remind you of it? No 5. c. Were constantly on guard, watchful or easily startled? No 5. d. New[place] numb or detached from others, activities, or your surroundings? No ? 6. Over the LAST 2 WEEKS, how often have you been bothered by the following problems? 6. a. Little interest or pleasure in doing things: Not at all 6. b. Feeling down, depressed, or hopeless: Not at all ? 7. Would you like to schedule an appointment with a health care provider to discuss any health concern(s)?: No 8. Are you interested in receiving information or assistance for a stress, emotional or alcohol concern?: No 9. Are you interested in receiving assistance for a family or relationship concern?: No 10. Would you like to schedule a visit with a assembler tester or a community support counselor?: No ? PART C. HEALTH CARE PROVIDER I. MENTAL HEALTH ASSESSMENT (MHA) PROVIDER INFORMATION 1. Last Name: CARMELITAALLAN 2. First Name: OUMAR 3. Middle Name: May 13. Service Branch: [employer] 5. 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 EMAIL: [email or web address] 8. Facility: [facility] 9. Unit: [facility] 10. Address: [address] [place], [place] [address] 11. State: [place] 12. Zip Code: [address] 13. Phone: [phone] 14. Date HCP Review initiated: ? 1.? Member marked that they did not have a concern or a difficulty with a major life stressor. ? --? Gambling Disorder Evaluation ? ? --- Member does not become restless, irritable, or anxious when trying to stop/cut down on gambling. ? ? --- Member does not try to keep family and friends from knowing how much they carrizales. ? ? --- Member has NOT had to get help with living expenses from family, friends, or welfare during the past 12 months as a result of gambling. ? 2.? Address concerns identified on member questions 2 and 3. ? ? History of mental health care: N/A ? Member's response:? Provider's comments: ? ? Medications: N/A ? Member's response:? Provider's comments: ? 3.? Member's AUDIT-C screening score was 2. (nothing required) ? 4.? Member did not britney yes on two or more of questions 5a through 5d. 5.? Member did not britney More than half the days or nearly every day on question 6a or 6b. ? 6.? Member has not been bothered by thoughts that they would be better off or of hurting themself in some way. ? 7.? Member states that they have not had thoughts or concerns over the past month that they might hurt or lose control with someone. ? 9. Summary of Provider's identified concerns needing referrals: None 11. Comments: Virtual MHA was reviewed with SM by phone after confirming his identity by 2 patient identifiers. He does not endorse depression, PTSD, risky drinking, critical stressors, emotional problems or SI/HI. His brief virtual MSE is WNL. At this time, he appears to be well adjusted to his home, work, and social environments. Available mental health resources were briefly reviewed with SM with encouragement to access as needed.? He verbalized understanding. needed. No further action is needed at this time. ? 13. Supplemental services recommended/information provided: ? ? Health Education and Information ? Date MHA Certified: ? ? 04/20/2024 Ambulatory Pharmacy Functional Status Combined list of recent functional and cognitive assessments recorded at [employer] (VA).VA Functional [place] Measurement (FIM) Scale: 1 = Total Assistance (Subject = 0% +), 2 = Maximal Assistance (Subject = 25% +), 3 = Moderate Assistance (Subject = 50% +), 4 = Minimal Assistance (Subject = 75% +), 5 = Supervision, 6 = Modified [place] (Device), 7 = Complete [place] (Timely, Safely). Assessment Date/Time Source Assessment Type Assessment Skill Assessment Score Assessment Details No data available for this section
== END 2024-04-18 15:26 | disposition home or self-care (01) ==
LOC: HO.WFDLDS 15:25
PROVIDERS: Visit Provider Nurse Practitioner Family
DX: E78.5 Hyperlipidemia, unspecified (principal)
CPT/HCPCS: 36415; 80061

== ENCOUNTER 2024-04-21 15:10 | Outpatient (AMB) | payer OTHER, SELFPAY ==
--- OUTSIDE RECORDS SUMMARY | 2024-04-21 15:12 | XMS_ITS | Continuity of Care Document ---
Author Name [facility] Organization [facility] Care Team Providers Care Dumper Name Role Phone [facility] Unavailable Unavailable Problems Combined list of problems from Department of Defense and Veterans Affairs facilities. It does not include entries that were removed or entered in error. 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) Active 04/11/20 24 Diagnosis [id number]-P-66 [facility] Adjustment disorder Active Condition Ambulatory Pharmacy Diverticulitis [...] list of outpatient medications from Department of [facility] and Veterans Affairs facilities.Medications provided include 1) [...] mL, 0 total refill(s ), Maintena nce, [facility] pharmacy dispense (Rx) Oral (given by mouth) Discont inued 11/05/2020 473.0 0128C-[address] [place] [address]-MARIBETH RCHILD CITALOPRAM HBR (CITALOPRAM HYDROBROMID E), 20MG, TABLET, ORAL, [facility]ARMAC, 500 ea. BOTTLE Cancele d [id number] : 2023 0 Pharmac y Data Transac tion Service Facilit y CITALOPRAM HBR (CITALOPRAM HYDROBROMID E), 20MG, TABLET, ORAL, TORRENT PHARMAC, 500 ea. BOTTLE Cancele d [id number] : 2023 0 Pharmac y Data Transac tion Service Facilit y CITALOPRAM HBR (CITALOPRAM HYDROBROMID E), 20MG, TABLET, ORAL, TORRENT PHARMAC, 500 ea. BOTTLE Active [id number] 2023 30 Pharmac y Data Transac tion Service Facilit y CITALOPRAM HBR (CITALOPRAM HYDROBROMID E), 20MG, TABLET, ORAL, TORRENT PHARMAC, 500 ea. BOTTLE Active [id number] 4 2023 30 Pharmac y Data Transac tion Service Facilit y CLONAZEPAM (CLONAZEPAM ), 0.5MG, TABLET, ORAL, TEVA [place], 500 ea. BOTTLE Active [id number] 4 2023 30 Pharmac y Data Transac tion Service Facilit y CLONAZEPAM (clonazepam ), 1 MG, TABLET, ORAL, TEVA [place], 500 ea. BOTTLE Active [id number] 4 2023 8 Pharmac y Data Transac tion Service Facilit y CLONAZEPAM (clonazepam ), 1 MG, TABLET, ORAL, TEVA [place], 500 ea. BOTTLE Active [id number] 4 2023 8 Pharmac y Data Transac tion Service Facilit y clonazePAM 0.5 mg oral tablet 2 tab(s), Oral, Daily, 0 total refill(s ), Maintena nce Oral (given by mouth) Ordered 0310C-A F-C-66t h [facility] CLONIDINE HCL (clonidine HCl), 0.1 MG, TABLET, ORAL, [facility], 1000 ea. BOTTLE Active [id number] 2023 45 Pharmac y Data Transac tion Service Facilit y CLONIDINE HCL (clonidine HCl), 0.1 MG, TABLET, ORAL, [facility], 1000 ea. BOTTLE Active [id number] 2023 45 Pharmac y Data Transac tion Service Facilit y CLONIDINE HCL (clonidine HCl), 0.1 MG, TABLET, ORAL, [facility], 1000 ea. BOTTLE Active [id number] 2023 45 Pharmac y Data Transac tion Service Facilit y CLONIDINE HCL (clonidine HCl), 0.1 MG, TABLET, ORAL, [facility], 1000 ea. BOTTLE Active [id number] 4 2023 45 Pharmac y Data Transac [...] MED GRP-MARIBETH RCHILD CYCLOBENZAP RINE HCL (cyclobenza dayaan HCl), 10 MG, TABLET, ORAL, TEVA [place], 1000 ea. BOTTLE Active [id number] 4 2023 45 Pharmac y Data Transac tion Service Facilit y CYCLOBENZAP RINE HCL (cyclobenza dayana HCl), 10 MG, TABLET, ORAL, TEVA [place], 1000 ea. BOTTLE Active [id number] 4 2023 45 Pharmac y Data Transac tion Service Facilit y CYCLOBENZAP RINE HCL (cyclobenza dayana HCl), 10 MG, TABLET, ORAL, TEVA [place], 1000 ea. BOTTLE Active [id number] 4 2023 90 Pharmac y Data Transac tion Service Facilit y CYCLOBENZAP RINE HCL (cyclobenza dayana HCl), 10 MG, TABLET, ORAL, TEVA [place], 1000 ea. BOTTLE Active [id number] 4 2023 90 Pharmac y Data Transac tion Service Facilit y escitalopra m 10 mg oral tablet 1 tab(s), Oral, Daily, 0 total refill(s ), Maintena nce Oral (given by mouth) Ordered 0310C-A F-C-[facility]t [facility] ESCITALOPRA M OXALATE (ESCITALOPR AM OXALATE), 10 MG, TABLET, ORAL, TORRENT PHARMAC, 100 ea. BOTTLE Active [id number] 4 2023 30 Pharmac y Data Transac tion Service Facilit y ESCITALOPRA M OXALATE (ESCITALOPR AM OXALATE), 10 MG, TABLET, ORAL, TORRENT PHARMAC, 100 ea. BOTTLE Active [id number] 4 2023 30 Pharmac y Data Transac tion Service Facilit y ESCITALOPRA M OXALATE (ESCITALOPR AM OXALATE), 10 MG, TABLET, ORAL, TORRENT PHARMAC, 100 ea. BOTTLE Active [id number] 2023 30 Pharmac y Data Transac tion Service Facilit y ESCITALOPRA M OXALATE (ESCITALOPR AM OXALATE), 10 MG, TABLET, ORAL, TORRENT PHARMAC, 100 ea. BOTTLE Active [id number] 4 2023 30 Pharmac y Data Transac tion Service Facilit y FENOFIBRATE (fenofibrat e), 54 MG, TABLET, ORAL, AUROBINDO PHARM, 90 ea. BOTTLE Active [id number] 2023 30 Pharmac y Data Transac tion Service Facilit y FENOFIBRATE (fenofibrat e), 54 MG, TABLET, ORAL, AUROBINDO PHARM, 90 ea. BOTTLE Active [id number] 2023 30 Pharmac y Data Transac tion Service Facilit y FENOFIBRATE (fenofibrat e), 54 MG, TABLET, ORAL, AUROBINDO PHARM, 90 ea. BOTTLE Active [id number] 2023 30 Pharmac y Data Transac tion Service Facilit y FENOFIBRATE (fenofibrat e,micronize d), 134 MG, CAPSULE, ORAL, AJANTA PHARMA L, 100 ea. BOTTLE Cancele d [id number] : 2023 0 Pharmac y Data Transac tion Service Facilit y FENOFIBRATE (fenofibrat e,micronize d), 134 MG, CAPSULE, ORAL, AJANTA PHARMA L, 100 ea. BOTTLE Active [id number] 2023 30 Pharmac y Data Transac tion Service Facilit y FENOFIBRATE (fenofibrat e,micronize d), 134 MG, CAPSULE, ORAL, AJANTA PHARMA L, 100 ea. BOTTLE Active [id number] 4 2023 30 Pharmac y Data Transac tion Service Facilit y fenofibrate 30 mg oral capsule 1 cap(s), Oral, Daily, # 30 cap(s), 0 total refill(s ), Maintena nce Oral (given by mouth) Ordered 30.0 0310C-A F-C-66t h [facility] IBUPROFEN (ibuprofen) , 800 MG, TABLET, ORAL, TIME-CAP LABS, 500 ea. BOTTLE Active [id number] 4 2023 20 Pharmac y Data Transac tion Service Facilit y IBUPROFEN (ibuprofen) , 800 MG, TABLET, ORAL, TIME-CAP LABS, 500 ea. BOTTLE Active [id number] 4 2023 7 Pharmac y Data Transac tion Service Facilit y ibuprofen 800 mg oral tablet 1 tab(s), Oral, TID, PRN pain, # 30 tab(s), 0 total refill(s ), Acute, 03/17/20 2:00:00 AM [facility], [facility] pharmacy dispense (Rx) Oral (given by mouth) [...] ORAL, [facility], 1000 ea. 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 BOTTLE Active [id number] 4 2023 30 Pharmac y Data Transac tion Service Facilit y PRAZOSIN HCL (prazosin HCl), 1 MG, CAPSULE, ORAL, NOVITIUM/AN I PH, 100 ea. BOTTLE Active [id number] 4 2023 30 Pharmac y Data Transac tion Service Facilit y PRAZOSIN HCL (prazosin HCl), 1 MG, CAPSULE, ORAL, NOVITIUM/AN I PH, 100 ea. BOTTLE Active [id number] 4 2023 30 Pharmac y Data Transac tion Service Facilit y PRAZOSIN HCL (prazosin HCl), 1 MG, CAPSULE, ORAL, NOVITIUM/AN I PH, 100 ea. BOTTLE Active [id number] 4 2023 30 Pharmac y Data Transac tion Service Facilit y PRAZOSIN HCL (prazosin HCl), 1 MG, CAPSULE, ORAL, NOVITIUM/AN I PH, 100 ea. BOTTLE Active [id number] 2023 30 Pharmac y Data Transac tion Service Facilit y PRAZOSIN HCL (prazosin HCl), 1 MG, CAPSULE, ORAL, NOVITIUM/AN I PH, 100 ea. BOTTLE Active [id number] 4 2023 20 Pharmac y Data Transac tion Service Facilit y TRAZODONE HCL (trazodone HCl), 50 MG, TABLET, ORAL, TEVA [place], 100 ea. BOTTLE Active [id number] 4 2023 15 Pharmac y Data Transac tion Service Facilit y TRAZODONE HCL (trazodone HCl), 50 MG, TABLET, ORAL, TEVA [place], 100 ea. BOTTLE Active [id number] 4 2023 15 Pharmac y Data Transac tion Service Facilit y TRAZODONE HCL (trazodone HCl), 50 MG, TABLET, ORAL, TEVA [place], 100 ea. BOTTLE Active [id number] 4 2023 15 Pharmac y Data Transac tion Service Facilit y TRAZODONE HCL (trazodone HCl), 50 MG, TABLET, ORAL, TEVA [place], 100 ea. BOTTLE Active [id number] 4 2023 15 Pharmac y Data Transac tion Service Facilit y TRAZODONE HCL (trazodone HCl), 50 MG, TABLET, ORAL, TEVA [place], 100 ea. BOTTLE Active [id number] 4 2023 30 Pharmac y Data Transac tion Service Facilit y TRAZODONE HCL (trazodone HCl), 50 MG, TABLET, ORAL, TEVA [place], 100 ea. BOTTLE Active [id number] 4 2023 30 Pharmac y Data Transac [...] Known Allergies Drug allergy (disorder) active 09/16/2022 [facility] [place], [place] ([facility]) Immunizations Combined list of available immunizations from the Department of Defense and Veterans Affairs facilities. Immunization Series Date Given Administered By Site Reaction Lot Number CVX Code Drug Crm Marketing Executive Status Comments Source influenza, injectable, quadrivalent- pf 2021 GENEVIEVERCAN ETE [id number] 150 complet ed Result Comment: Route: Unknown Manufactu rer: OTH (SKB) 0128C-9 2ND MED GRP-MARIBETH RCHILD COVID Vaccine Pfizer 2020 Geraldine er Shoul sung, left (delt oid) [id number] PFIZER complet ed COVID Vaccine Pfizer 08/20/20 Given 0128C-9 2ND MED GRP-MARIBETH RCHILD COVID Vaccine Pfizer 2020 JONO Kumarul sung, left (delt oid) [id number] 208 PFIZER complet ed COVID Vaccine Pfizer 08/01/20 Given 0128C-9 2ND MED GRP-MARIBETH RCHILD Human Papillomaviru s 9-valent vaccine 2018 CAPTGENEVIEVE RCANETE [id number] 165 complet ed Result Comment: Route: Unknown Manufactu rer: OT (MSD) 0128C-9 2ND MED GRP-MARIBETH RCHILD human papillomaviru s vaccine 2018 Sivakumar howard Arm [id number] 165 [employer] complet ed human papilloma virus vaccine 11/09/18 Given 0128C-9 2ND MED GRP-MARIBETH RCHILD Human Papillomaviru s 9-valent vaccine 2018 GENEVIEVERCAN ETE [id number] 165 complet ed Result Comment: Route: Unknown Manufactu rer: OT (MSD) 0128C-9 2ND MED GRP-MARIBETH RCHILD Human Papillomaviru s 9-valent vaccine 2017 GENEVIEVERCAN ETE [id number] 165 complet ed Result Comment: Route: Unknown [...] adult dosage DoD adenovirus vaccine, live 2017 [id number] 9 143 Teva [employer] complet ed adenoviru s vaccine, live 09/29/17 Given Ambulat ory Pharmac y tetanus, diphtheria, acellular pertu is 2017 [id number] 115 [employer] [facility] complet ed tetanus, diphtheri a, acellular pertussis 09/29/17 Given Ambulat ory Pharmac y meningococcal A,C,Y,W-135 (MCV4P) 2017 [id number] F 114 sanofi pasteur complet ed meningoco [...] diphtheria toxoid conjugate vaccine (MCV4P) 1 2017 [id number] F 114 Sanofi Pasteur (PMC) complet ed meningoco ccal polysacch aride (groups A, C, Y and W-135) diphtheri a toxoid conjugate vaccine (MCV4P) DoD tetanus toxoid, reduced diphtheria toxoid, and acellular pertu is vaccine, adsorbed 1 2017 [id number] 115 [facility] (SKB) complet ed tetanus toxoid, reduced diphtheri a toxoid, and acellular pertussis vaccine, adsorbed DoD Adenovirus, type 4 and type 7, live, oral 1 2017 [id number] 9 143 [facility] (BRR) complet ed Adenoviru s, type 4 and type 7, live, oral DoD Influenza, injectable, Madin Su Canine Kidney, quadrivalent with preservative 1 2017 [id number] 186 Seqirus (SEQ) comple t ed Influenza [...] Prevention' s HIV diagnostic algorithm. Refer to [facility] Lab Guide for additional information : [email or web address]. [facility]/ kj/kx5/EPIL ab/Pages/la b_guide.asp x Testing performed by [...] Prevention' s HIV diagnostic algorithm. Refer to [facility] Lab Guide for additional information : [email or web address]. [employer].[facility]/ kj/kx5/EPIL ab/Pages/la b_guide.asp x Testing performed by [employer] inf[employer] GmbHteofilo ce. Performed by: Epidemiolog y Laboratory Service [facility] [address] [place] [address], [place] [address] Ambulator y Pharmacy Miscella neous Sendouts Repository Sample.EPI RECEIVED 11/04 Result Comment: INTERPRETAT ION(S): Performed by: Epidemiolog y Laboratory Service [facility] [address] [place] [address], [place] [address] Ambulator y Pharmacy Molecula r Infectio us [...] for this test is supported by the Human Resource Assistant of Health and Human Service s (HHS [...] for this test is supported by the Human Resource Assistant of Health and Human Service s (HHS [...] for this test is supported by the Human Resource Assistant of Health and Human Service s (HHS [...] Prevention' s HIV diagnostic algorithm. Refer to [facility] Lab Guide for additional information : [email or web address]/k j/kx5/EPILa b/Pages/lab _guide.aspx Testing performed by Osmany peck. Performed by: Epidemiolog y Laboratory Service [facility] [address] [place] [address], [place] [address] Ambulator y Pharmacy Surinder patel Sendouts Repository Sample.EPI RECEIVED 10/25 Result Comment: INTERPRETAT ION(S): Performed by: Epidemiolog y Laboratory Service [facility] [address] [place] [address], [place] [address] Ambulator y Pharmacy Immunolo gy/Serol ogy Hep B Surface Ag Non-Reac tive 1 (10/26/19 11:16 AM) 10/25 N Interpretiv e Data: Note to [facility] Physicians: = Acute Hepatitis A, B, or [...] 0.5% for GC. At this prevalence, the [employer] r estimates the overall sensitivity and specificity for CT to be 94.1% and 99.6% respectivel y. For GC the sensitivity and specificity rates are 97.1% and 99.8%. The Positive Predictive Value and the Negative Predictive Value calculated by the [employer] r using the above clinical trial data [...] n. Performed by: Epidemiolog y Laboratory Service [facility] [address] [place] [phone] Ambulator y Pharmacy Vital Signs Combined list [...] ADM Date DC Date Status Disposition [place] [address] OUTPATIENT [id number] Notes Entered by: ANUJ CASTANEDA 07 Oct 2017 1029 ------- ------- ------- ------- -- Strep Prophyl axis ALETHA CASTANEDA 10/07 Released w/o Limitations [facility] [place] [address]([facility] [place] [address](Hea ring Conservat ion, BMT) OUTPATIENT [id number] CATRACHO SPAULDING 10/08 Released w/o Limitations [facility] [address](H earing Conserv ation, BMT) [employer]([facility]) OUTPATIENT [id number] Notes Entered by: Luz Marina SMITH 19 Jan 2018 0659 ------- ------- ------- ------- -- SICK CALL - Insect ite swollen on right hand middle finger/ Right leg back thigh SURENDRA DAVILA 01/19 Released w/o Limitations [employer]( [facility] ) [employer]([facility]) OUTPATIENT [id number] Notes Entered by: EMILY MAYORGA 19 Jan 2018 1601 ------- ------- ------- ------- -- [facility] PAPO ORDOÑEZ 01/19 Released w/o Limitations [employer]([facility]) 0310C-AF- C-66th [facility] [id number] NASIM MUHAMMAD 10/20 Discharge Disposition: Home or Self Care 0310C-A F-C-66t h [facility] 0310C-AF- C-66th [facility] [id number] KAELA WILCOX 10/20 Discharge Disposition: Home or Self Care 0310C-A F-C-66t h [facility] 0310A-AF- C-66th [facility] Between Visit [id number] 10/25 Discharge Disposition: Home or Self Care 0310A-A F-C-66t h [facility] [id number] AMDS Outpatient [id number] RALPH CYU 01/10 Discharge Disposition: Home or Self Care [id number] AMDS 0310C-AF- C-66th [facility] [id number] Adjustm ent disorde r, unspeci fied,Hy perlipi demia, unspeci fied,EX AM/ASSE SSMENT, 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 Procedure Procedure Type Code Date Perfomer Comments Nirav clayton Diagnostic colonoscopy 08/05/19 22 0128C-92ND MED GRP-FAIRCHI LD WTEx4 0310C-AF-C- 66th [facility] ELECTROCARDIOGRAM, ROUTINE ECG WITH AT LEAST 12 LEADS; WITH INTERPRETATION AND REPORT 01/20/20 18 [facility] PURE TONE AUDIOMETRY (THRESHOLD); AIR ONLY 10/09/19 18 [facility] THERAPEUTIC, PROPHYLACTIC, OR DIAGNOSTIC INJECTION (SPECIFY SUBSTANCE OR DRUG); SUBCUTANEOUS OR INTRAMUSCULAR 10/08/19 18 [facility] ECG 12-Lead With Interpretation And Report ECG 12-Lead With Interpretation And Report [id number] 01/31/20 18 PAPO ORDOÑEZ [facility] Threshold Audiogram (Pure Tone) Threshold Audiogram (Pure Tone) 16415 10/09/19 18 MARISOL MERINO [facility] Physician Supervised Injection Intramuscular Antibiotic Physician Supervised Injection Intramuscular Antibiotic 15037 10/08/19 18 ALETHA CASTANEDA [facility] Social History Combined list of available smoking, tobacco, and other social history from Department of Defense and Veterans Affairs facilities. Social History Type Response Date Comment Caro arnold Male 02/16/2018 Ambulatory Pha rmacy Tobacco Cigarette use: Never-cigarette user. Other Tobacco use: Never-other tobacco user (not cigarettes). Ambulatory Pharma cy Sexual Orientation Ambula tory Pharmacy Gender identity Ambulator y Pharmacy This section is an empty social history section. [facility] Assessment and Plan Combined list of future care activities from Department of Defense and Veterans Affairs facilities (e.g., assessment and plan notes, appointments, orders, and referrals). Additional future care activities may be listed in the Plan of Care section. 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 Willa Cardoso CTR?MANAGER ARCHITECTURE-[facility] Provider Flight Medicine? [address] [place]??[address] [facility] [phone] ? 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 Willa Cardoso CTR?MANAGER ARCHITECTURE-C [facility] Provider Flight Medicine? [address]?[employer] [place], [place]??[address] [facility] [phone] ? Extracted from:Title: LBP Profile f/u Author: [...] minutes.? [facility] PT as he will benefit [...] labs, imaging, other diagnostic testing via the [facility] Patient Portal. ? -A total of approximately? 30 minutes- [address]11? ( Face to face ? 20 minutes??) ? Date of service:? ?10?_?September 2022? with the following actions?below and as applicable based on this EHR as above: ? reviewing?previous notes?and/or specialty notes, including JLV x vbln-th-jauu w/ pt x medical charting including documenting [...] attached documents: ekg, pft, or?consent forms in [facility] mariluz chart ? ?Follow up?PRN. -Portions of this note were scribed by my medical administrative technician(s). I have verified the information and medical decision making is my own. ? YES:Reviewed pertinent?Mental Health Screening scores below?- pt is low risk.?Pt denies suicidal or homicidal ideations No?CSSRS YES:?AARON -7? YES:?PHQ- 9? No?Cameron No?MoCA No?Audit No?PCL/PTSD Screening ? //SIGNED// XENIA Tran, ?, [facility], [place] Family Nurse Practitioner? [facility], [address] [place], [place] [phone] ? Ordered: lidocaine topical(lidocaine 5% topical film), [...] Acute, 11/16/2022, 1 tab(s) Oral BID, Pharmacy: [facility] [Not filled] acetaminophen(Tylenol 325 mg oral tablet), 1 tab(s), Oral, every 4 hr, PRN pain or fever, # 30 tab(s), 0 total refill(s), Acute, 11/16/2022, 1 tab(s) Oral every 4 hr,PRN:pain or fever, Pharmacy: [facility] [Not filled] ? 2.?Acute stress reaction [...] down ?- unable to reconcile meds/history/immunizations as [employer] system was down at the time of [...] labs, imaging, other diagnostic testing via the [facility] Patient Portal. ? -A total of approximately? 30 minutes- 32972? ( Face to face ? 20 minutes??) ? Date of service:? ?25?_?Aug 2022? with the following actions?below and as applicable based on this EHR as above: ? ?reviewing?previous notes?and/or specialty notes x [id number] w/ pt x medical charting including documenting [...] attached documents: ekg, pft, or?consent forms in [facility] mariluz chart ? ?Follow up?PRN. -Portions of this note were scribed by my medical administrative technician(s). I have verified the information and medical decision making is my own. ? YES:Reviewed pertinent?Mental Health Screening scores below?- pt is low risk.?Pt denies suicidal or homicidal ideations ? No?CSSRS ? YES:?AARON -7? ? YES:?PHQ- 9? ? No?Cameron ? No?MoCA ? No?Audit ? No?PCL/PTSD Screening ? ? //SIGNED// Bren Andrade, XENIA, ARISTEO?, [employer], [place] Family Nurse Practitioner? [facility], [address] [facility] [place] [place] [phone] ? Ordered: mupirocin topical(mupirocin 2% topical ointment), 1 appl(s), Topical, TID, X 7 days, # 15 g, 0 total refill(s), Acute, 1 appl(s) Topical TID,x7 days, Pharmacy: [facility] [Not filled] Referral Request 2.0 ? 2.?Male erectile dysfunction, unspecified same as above ? ? 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 Reviewed e2766. No new specific concerns identified in past medical or family history when compared to the PHAQ. All information was updated to the e2766 as needed. Electronic records reviewed to include member s summary and reliability technicians's Record Review section of PHAQ which is [...] up?PRN. ? Arturo Graham, CTR, PA-C? [address]/[facility]? [place], [place]? ANNUAL PERIODIC HEALTH ASSESSMENT ? I. 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 Last Name: DARRION 2. First Name: KYRA 3. Middle Name: OZ 4. Assessment Date: 5. : 6. Age: 26 7. Gender: M 8. Do[employer] ID Number: [id number] 9. Service Branch: [employer] 10. 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 Pay Grade: E04 13. Unit Name: [address] [place] [address] 14. Duty Station/Location: [place] 15. [facility]: [id number] 16. Is this your first Periodic Health Assessment (PHA)?: N 17. Are you enrolled in a secure messaging system with your health care provider?:? N ? 18. Current contact information: Preferred Method: Day Time Phone DSN: [id number] Day Time Phone: [phone] Night Time Phone: Email 1: [email or web address] Email 2: Address: [address] City: [facility] State: [place] Zip Code: [address] ? 19. Point of contact who can always reach you: Name: Marah Cuellar Phone 1: [phone] Phone 2: EMAIL: [email or web address] Address: [address] [place] [address] Unit [facility]: [place] State: [place] Zip Code: [address] ? II. DEPLOYMENT INFORMATION (DEP) 1. [ Never deployed ] Total number of deployments in the PAST 5 YEARS 4. [ N ] Are you going to deploy within the NEXT 120 DAYS? ? III. OCCUPATIONAL INFORMATION (OCC) 1? [ [id number] ] What is your occupational code 2. [...] easily startled? 6. d. [ No ] Emmet numb or detached from others, activities, or your surroundings? 6. e. [ Not answered ] Emmet guilt or unable to stop blaming yourself [...] like to schedule a visit with a tool shaper setup operator, mental health care provider, or a community [...] 8. [ tylenol ] What prescriptions or inxn-yay-qhmxkat medications are you CURRENTLY taking for health [...] had a cholesterol check by a health transitional care manager within the PAST 5 YEARS? 13.a. In [...] any health concerns? ? XI. SEPARATION AND FPC 1. [ No ] Are you planning to separate or retire within the next year from Active Duty or [place] Duty (activated for greater than 30 continuous days) OR do you intend to file a claim for disability compensation with the [employer]? ? PART B. RECORD REVIEW AND RECOMMENDATIONS I. RECORD REVIEWER INFORMATION 1. Last Name: BEATA 2. First Name: FELISA 3. Middle Name: JOSSIE 4. Service Branch: [employer] 5. 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 EMAIL: [email or web address] 8. Facility: MEDICAL 9. Unit: [address] [place] [address] 10. Address: [address] [place] [address] 11. State: [place] 12. Zip Code: [address] 13. 14. Date Record Review: ? II. MEDICAL SCREENING 1. [ ] Date of membership director's most recent PHA 2. [ 5 feet 8 inches? ?Date: ] membership director's most recently documented height 3. [ 182 pounds? Date: ] membership director's most recently documented weight 4. [ 126/80? 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 6. [ Yes ] Does the membership director have a laboratory test of sickle cell trait documented in their permanent medical record? 7. [ No Cholesterol Test Documented ] What is the date of the membership director's most recently documented cholesterol test? 9. [ tylenol ]? List of membership director's active medications listed in their permanent medical record 10. [ Yes: tylenol ] Is there a discrepancy between the active medication record review and the membership director's self-reported list of medications? 11. [ 05/30/21 ER, diverticulitis 08/04/21-09/29/21 PTx, dorsalgia ] List documented significant care the membership director has received since their last PHA from a provider OUTSIDE the Health System 12. [ Yes: 05/30/21 ER, diverticulitis 08/04/21-09/29/21 PTx, dorsalgia ] Is there a discrepancy between the membership director's list of OUTSIDE care (from OT5), and the OUTSIDE care found in the record? 13. 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 [ Not Answered ] Confirm that vaccine exemptions are listed in the medical record for each vaccine listed ? IV. FAMILY HISTORY AND LIFESTYLE 1. [ Yes ]? Does the [id number] reflect the membership director's reported family history? ? VII. INDIVIDUAL MEDICAL READINESS 1. [ No ] Does the membership director have an Assignment Limitation Code C? 3. [ Classification: 1 ] Most recently documented dental exam 4. [ Yes ] Is the membership director current on all required immunizations in the immunization tracking system? 6. Does the membership director have the following laboratory tests documented in [...] need to be forwarded to the Health Chain Carrier completing PART C: ? ? Date Record Review Completed: --------- PART C. HEALTH CARE PROVIDER I. MENTAL HEALTH ASSESSMENT (MHA) PROVIDER INFORMATION 1. Last Name: Nader 2. First Name: Demond 3. Middle Name: 4. Service Branch: [employer] 5. 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 EMAIL: [email or web address] 8. Facility: [address] [place] [address] 9. Unit: [facility] 10. Address: [address] [place] [address] 11. State: [place] 12. Zip Code: [address] 13. 14. Date HCP Review initiated: ? [...] ? 12. Address requests as reported on membership director questions 7 through 10 (in Adjunct Physics Instructor Section . Behavioral Health): ? ? Request medical appointment: Appt is scheduled ? 13. Supplemental services recommended/information provided: ? ? No supplemental services required ? Date MHA Certified: ? III. PERIODIC HEALTH ASSESSMENT (PHA) PROVIDER INFORMATION 1. Last Name: Santos 2. First Name: Arturo 3. Middle Name: 4. Service Branch: [employer] 5. 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 EMAIL: [email or web address] 8. Facility: [facility] 9. Unit: [facility] 10. Address: [address] [place] [address] 11. State: [place] 12. Zip Code: [address] 13. 14. Date HCP Review initiated: ? IV. PERIODIC HEALTH ASSESSMENT PROVIDER RECOMMENDATIONS and REFERRALS 1. Provider concerns with this assessment: No issues or concerns identified ? V. SUMMARY AND COMMENTS 1. Additional information summarizing findings during the membership director assessment: ? 2. Provider Comments: SM already had appointment with PCM since PHAQ was completed. ? . INDIVIDUAL MEDICAL READINESS DISPOSITION DETERMINATION ? ? MIKE: Not Ready? ? DEN: Ready? ? IMM: Ready? ? LAB: Ready? ? ME: Ready ? ? IMR Status: Not Medically Ready ? VII. 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 Reference Mignon 6490.07 ? ?No (membership director currently has a medical condition that DOES require duty limitation(s) AND limits deployability) ? Date PHA Completed: ? END OF XV2014 REPORT ? [facility] Review Summary ? [ No ] Does [...] labs, imaging, other diagnostic testing via the [email or web address] Patient Portal. ? -A total of? 20-29?min. with the following actions?below and as applicable based on this EHR as above: ? x?reviewing?previous notes?and/or specialty notes x zmog-kk-[id number] w/ pt x medical charting including documenting [...] this note were scribed by my medical administrative technician(s). I have verified the information and medical decision making is my own. ? Not on PRP, flying status, AuOf. No indication for new or modified FR/DR/MR at this time.? Will not be extending pt's profile unless rehab with PT for LBP. ? //Electronically signed// ? XENIA TRAN, ?, [facility], [place] Family Nurse Practitioner? 2.?Low back pain Acute, [...] labs, imaging, other diagnostic testing via the [email or web address] Patient Portal. ? -A total of? 20-29?min. [...] this note were scribed by my medical administrative technician(s). I have verified the information and medical [...] AT BEDTIME NEEDED FOR MUSCLE SPASM, Pharmacy: [facility] [Not filled] ? Orders: naproxen(naproxen 500 mg oral tablet), 1 tab(s), Oral, BID, # 20 tab(s), 0 total refill(s), Acute, 12/19/2021, 1 tab(s) Oral BID, Pharmacy: [facility] [Not filled] acetaminophen(Tylenol 325 mg oral tablet), 1 tab(s), Oral, every 4 hr, PRN pain or fever, # 100 tab(s), 0 total refill(s), Acute, 12/19/2021, 1 tab(s) Oral every 4 hr,PRN:as needed for pain or fever, Pharmacy: [facility] [Not filled] Extracted from:Title: ER f/u [...] labs, imaging, other diagnostic testing via the [facility] Patient Portal. ? Not on PRP or [...] 08/28/2021, 1 tab(s) Oral BID, Pharmacy: [facility] [Not filled] ? 2.?Diverticulitis of colon Resolved.??Per guidelines will order for CSP to assess for malignancy and other?pathology.? ?25 y/o male with mild diverticulitis noted of distal colon at ED May 2021. Sxs have resolved.? Order for colonoscopy with interpretation thanks! ? Informed pt to f/u after CSP.? Given f/u precautions.? PVUA. ? Ordered: Referral Request 2.0 ? Extracted from:Title: wet process head miller-Bloody stool Author: HOLLY WALSH RN Date: 05/30/21 -Per [facility] 2020 protocol, patient should be seen at the [facility] today.?Advised patient to be evaluated at urgent care today because there are no available clinic appointments today. ?Patient would like to be seen at the [facility]. Patient assisted with making appointment for tomorrow at [facility] @0830. Referral placed. -Red flags [...] get after hours Urgent Care referral at [phone] ? Patient verbalized understanding and agreeable with plan of care. Patient intends to comply.? LIQUEFIER Raymond, please review. Thank you. ? Talk time?9?minutes ? ? 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 Ordered: Administration,Pt-Foc [facility] [address] Brief Comm Tech-Based Svc, Virt, Phys, Est Pt; 5-10 Min Med Dis G2012 ? Addendum by OUMAR MONTANA WHNP on October 29, 2020 08:21:05 PDT ANNUAL PERIODIC HEALTH ASSESSMENT ? I. 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 Last Name: DARRION 2. First Name: KYRA 3. Middle Name: OZ 4. Assessment Date: 5. : 6. Age: 25 7. Social Security Number: [id number] 8. Gender: M 9. DoD ID: [id number] 10. Service Branch: [employer] 11. Status: 12. Pay Grade: E04 13. 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 Duty Station/Location: [employer] 15. [facility]: [id number] 16. Is this your first Periodic Health Assessment (PHA)?: N 17. Are you enrolled in a secure messaging system with your health care provider?:? N ? 18. Current contact information: Preferred Method: Other Phone DSN: Phone: [phone] EMAIL: [email or web address] Address: [address] [place] [address] [address] [place] State: [place] Zip Code: [address] ? 19. Point of contact who can always reach you: Name: Marah Cuellar Phone 1: [phone] Phone 2: EMAIL: [email or web address] Address: [address] [place] [address] [address] [place] [address] State: [place] Zip Code: [address] ? . BEHAVIORIAL HEALTH (MHA) 1. a. [...] watchful or easily startled? No 5. d. Emmet numb or detached from others, activities, or [...] like to schedule a visit with a tool shaper setup operator or a community support counselor?: No ? PART C. HEALTH CARE PROVIDER I. MENTAL HEALTH ASSESSMENT (MHA) PROVIDER INFORMATION 1. Last Name: NAN 2. First Name: OUMAR 3. Middle Name: May 13. Service Branch: [employer] 5. 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 Title: Nurse Practitioner (LIQUEFIER) 7. EMAIL: [email or web address] 8. Facility: [address] [place] [address] 9. Unit: [facility] 10. Address: [address] [place], [place] [address] 11. State: [place] 12. Zip Code: [address] 13. Phone: [phone] 14. Date HCP Review initiated: ? 1.? [...] identified concerns needing referrals: None 11. Comments: membership director reported they have not gambled in the [...] ? 12. Address requests as reported on membership director questions 7 through 10 (in Adjunct Physics Instructor Section . Behavioral Health): ? ? Request medical appointment: Noted ? 13. Supplemental services recommended/information provided: ? ? Health Education and Information ? Date MHA Certified: ? ? 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 Ordered: Administration,[facility]oc [facility] Brief Comm Tech-Based Svc, Virt, Phys, Est Pt; 5-10 Min Med Dis G2012 ? Addendum by OUMAR MONTANA WHNP on July 14, 2019 14:49:00 [facility] ANNUAL PERIODIC HEALTH ASSESSMENT ? I. 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 Last Name: DARRION 2. First Name: KYRA 3. Middle Name: OZ 4. Assessment Date: 5. : 6. Age: 23 7. Social Security Number: [id number] 8. Gender: M 9. DoD ID: [id number] 10. Service Branch: [employer] 11. Status: 12. Pay Grade: E03 13. Unit Name: [facility] 14. Duty Station/Location: [place] 15. C: [id number] 16. Is this your first Periodic Health Assessment (PHA)?: N 17. Are you enrolled in a secure messaging system with your health care provider?:? N ? 18. Current contact information: Preferred Method: EMAIL DSN: Phone: [phone] EMAIL: [email or web address] Address: [address] [facility] State: [place] Zip Code: [address] ? 19. Point of contact who can always reach you: Name: AARON MAIER Phone 1: [phone] Phone 2: EMAIL: [email or web address] Address: [address] [facility] State: [place] Zip Code: [address] ? . BEHAVIORIAL HEALTH (MHA) 1. a. [...] watchful or easily startled? No 5. d. Emmet numb or detached from others, activities, or [...] like to schedule a visit with a tool shaper setup operator or a community support counselor?: No ? PART C. HEALTH CARE PROVIDER I. MENTAL HEALTH ASSESSMENT (MHA) PROVIDER INFORMATION 1. Last Name: CARMELITAALLAN 2. First Name: OUMAR 3. Middle Name: May 13. Service Branch: [employer] 5. 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 Title: Nurse Practitioner (LIQUEFIER) 7. EMAIL: [email or web address] 8. Facility: [facility] 9. Unit: [facility] 10. Address: [address] [place], [place] [address] 11. State: [place] 12. Zip Code: [address] 13. Phone: [phone] 14. Date HCP Review initiated: ? 1.? [...] Information ? Date MHA Certified: ? ? 04/21/2024 Ambulatory Pharmacy Functional Status Combined list of recent functional and cognitive assessments recorded at Department of Defense and Veterans Affairs (VA).VA Functional [place] Measurement (FIM) Scale: 1 = Total Assistance (Subject = 0% +), 2 = Maximal Assistance (Subject = 25% +), 3 = Moderate Assistance (Subject = 50% +), 4 = Minimal Assistance (Subject = 75% +), 5 = Supervision, 6 = Modified [place] (Device), 7 = Complete [place] (Timely, Safely). Assessment Date/Time Source Assessment Type Assessment Skill Assessment Score Assessment Details No data available for this section
--- NOTE | 2024-04-21 15:13 | A.OFFPC_ITS ---
Vital Signs 04/21/24 15:23 Height 5 ft 8 in Weight 201 lb 6 oz BMI 30.6 BP 123/74 Blood Pressure Location Rt brachial Position Sitting Respiration 16 Pulse 74 Pulse Source Pulse Oximeter Temp 97.2 F Temp Source Temporal Artery Scan Pulse Oximetry (%) 96 Oxygen Delivery Method Room Air Intake Visit Reasons: 1 mos Dyslipidemia Intake Note: patient here for follow up on Dyslipidemia. Head Of Ict Required: No Allergies No Known Allergies Allergy (Verified 04/21/24 15:21) Tobacco use date assessed: 04/21/24 Dental Screening Dental Screen Date: 04/21/24 Did you have a dental visit in the last 12 months?: No Did you have a dental problem in the last 6 months where you did not have access to dental care?: No Was dental information given to patient?: Patient has dentist HPI HPI Comments History of Present Illness Details 28-year-old male presents for dyslipidem ia follow-up. He admits to taking fenofibrate as prescribed without adverse reactions. He has cut down on his cheese intake. However, he has been consuming significant amount of meat and processed foods. He has a 9-month-old child excited that there is another baby on the way. No acute symptoms at the time. [facility] Medical History Lower back pain Surgical History No pertinent past surgical history Family History (Updated 10/22/23 @ 09:08 by SHELDON Carrasco) Mother High blood pressure High cholesterol Fibromyalgia Vitiligo Maternal Grandfather High blood pressure High cholesterol Diabetes Cardiovascular disease Paternal Grandfather Diabetes Cardiovascular disease Social History Household Members: Spouse Housing: House Do you presently have visiting nurse or other home services: No Unable to assess alcohol history related to: Unknown Comment: Rj has been referred to [facility]. 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 Current occupational exposures/hazards: Yes Sexual orientation: Straight/Heterosexual Cognitive needs: No Hearing needs: No Vision needs: No Questionnaire Thrive Questionnaire Date Thrive assessed: 03/31/24 I am a: Patient What is your living situation today?: I have a place to live, but I am worried about losing it in the future Within the past 12 months, did the food you bought not last and you didn't have the money to get more?: Never true Within the past 12 months, did you worry whether your food would run out before you got money to buy more?: Sometimes True Do you have trouble paying for medicines?: No Do you have trouble getting transportation to medical appointments?: No Do you have trouble paying your heating and electricity bill?: Yes Do you have trouble taking care of your child, family member or friend?: No Do you have trouble with day-to-day activities such as bathing, preparing meals, shopping, managing finances, etc.?: No Are you currently unemployed and looking for a job?: No Are you interested in more education?: No Please select the resources that you would like help with: Food Currently or been in a relationship where the following occur: I choose not to answer THRIVE Score: 3 AARON-7 AMB Questionnaire AARON-7 Date AARON - 7 assessed: 04/03/24 Source: Developed by Drs. Abel Mcclendon, Bridgette Doe, Jorge A Quintana and colleagues, with an educational prachi from [employer]. Review of Systems Const Details: Const Denies chills, Denies fatigue, Denies fever(s), Denies headache(s) and Denies weakness ENT Denies dizziness and Denies headache(s) Card Denies chest pain, Denies lightheadedness, Denies dyspnea and Denies other (Palpitations) Resp Denies cough, Denies dyspnea, Denies wheezing and Denies other ( shortness of breath) GI Denies abdominal pain, Denies melena, Denies hematochezia, Denies change in bowel habits, Denies dyspepsia and Denies nausea Denies hematuria and Denies dysuria Musc Denies abnormal gait, Denies myalgias, Denies arthralgias, Denies numbness and Denies tingling Skin/Breast Denies rash, Denies unusual bruising and Denies wounds Neuro Denies abnormal gait, Denies dizziness, Denies headache(s), Denies memory loss, Denies numbness, Denies Sensory deficit (Neuro), Denies tingling and Denies weakness Psych Denies anxiety, Denies depression, Denies memory loss Endo Denies cold intolerance, Denies fatigue, Denies heat intolerance, Denies polydipsia and Denies polyuria Aller/Immun Denies wheezing Physical exam (Primary Care) Tobacco/Smoking Status: Tobacco use Status Tobacco use date assessed 03/31/24 04/21/24 15:14 Patient Tobacco Use Status Never used Tobacco 04/21/24 15:14 e-Cigarette/Vaping Use Never Used 04/21/24 15:14 Thrive Assessment: Date of Thrive Assessment Date Thrive assessed 03/31/24 04/21/24 15:14 Currently or been in a relationship where the following occur: I choose not to answer Const Other: General: no acute distress and well developed Nutritional Appearance: well nourished Orientation/consciousness: patient oriented x3 HENMT Head: Yes normocephalic and Yes atraumatic Eyes General: appearance normal, both eyes and all related structures Pupils: Equal, round and reactive pupils present EOM: EOMs intact bilaterally Resp Effort & Inspection: normal respiratory effort Auscultation: clear to auscultation bilaterally Cardio Rate: regular rate Rhythm: regular rhythm Heart sounds: S1 normal heart sound present, S2 normal heart sound present, no gallops, no murmurs and no rubs GI Palpation (GI): No Abdominal aortic bruit present, Soft to palpation, nontender, No hepatosplenomegaly present and No Rebound tenderness present Auscultation: normal bowel sounds General: Yes no CVA tenderness Back/Spine/Pelvis Back: no CVA tenderness Cervical Spine: cervical ROM normal and No Cervical spine tenderness Thoracic/Lumbar Spine: thoraco-lumbar ROM normal, No pain with thoraco-lumbar ROM, No thoracic spinal tenderness and No lumbar spinal tenderness Extrem General: Yes normal to inspection, No edema and No calf tenderness Skin General: warm and dry. Normal skin color. Normal skin turgor Neuro General: patient oriented x3, gait normal and no focal neuro deficit Cranial nerves: Yes Equal, round and reactive pupils present Cognition (Neuro): normal cognition Gait exam (Neuro): Normal gait present Sensory Exam: No Sensory deficit (Neuro) Psych Appearance: grossly normal Affect: normal affect Attitude: cooperative Thought process: Normal thought process present Coding Level of Care Code Est Pt Level 3 (39154) Diagnoses Dyslipidemia E78.5 Assessment & Plan Assessment & Plan (1) Dyslipidemia: Code(s): E78.5 - Hyperlipidemia, unspecified Category: Medical Plan: Recent triglycerides level is elevated, 298; previous level was 176. LDL level is low, 31. Will increase fenofibrate to 160 mg daily. Advised to take as prescribed. Advised to limit foods high in saturated fat and avoid foods high in trans fat. Routine exercise encouraged. Fast for 10-12 hours, may drink water, and get fasting blood work done 2-3 days before next visit. Follow-up in 2 months or sooner with symptoms or concerns. Verbalized understanding and agreed with the plan. Orders: Orders Lipid Panel 2 Months E78.5 - Hyperlipidemia, unspecified Medications: New fenofibrate 160 mg PO DAILY 30 days 30 tabs 3RF Discontinued fenofibrate micronized Discontinued Reason: Doctor's Order 134 mg PO DAILY 30 days 30 caps 3RF
[2024-04-21 15:23] VITALS: BP 123/74; PULSE 74; RESP 16; TEMP 36.2; O2SAT 96; BMI 30.6
== END 2024-04-21 15:47 | disposition home or self-care (01) ==
PROVIDERS: PCP Nurse Practitioner Family; Visit Provider Nurse Practitioner Family
DX: E78.5 Hyperlipidemia, unspecified (principal)

== ENCOUNTER → 2024-04-21 15:10 | Outpatient (BNVA) | payer OTHER, SELFPAY | PROVIDERS: PCP Nurse Practitioner Family; Visit Provider Nurse Practitioner Family | DX: E78.5 Hyperlipidemia, unspecified (principal) | CPT/HCPCS: 99212 ==

== ENCOUNTER 2024-04-28 10:00 | Outpatient (AMB) | payer OTHER, SELFPAY ==
--- NOTE | 2024-04-28 10:01 | A.OFFPC_ITS ---
Vital Signs 04/28/24 10:08 Height 5 ft 8 in Weight 193 lb 8 oz BMI 29.4 BP 129/66 Blood Pressure Location Rt brachial Position Sitting Respiration 16 Pulse 69 Pulse Source Pulse Oximeter Temp 98.0 F Temp Source Oral Pulse Oximetry (%) 97 Oxygen Delivery Method Room Air Intake Visit Reasons: 2 mos CPE Intake Note: patient here for CPE Spool Salvager Required: No Allergies No Known Allergies Allergy (Verified 04/28/24 10:22) Medication List - Last Reconciled 04/28/24 by Efren Cerda CNP citalopram 20 mg PO BEDTIME 30 days clonazepam 0.5 - 1 mg (0.5 - 1 x 1 mg) PO BEDTIME PRN cyclobenzaprine 10 mg PO TID PRN fenofibrate 160 mg PO DAILY 30 days ibuprofen 800 mg PO BEDTIME PRN prazosin 1 - 2 mg (1 - 2 x 1 mg) PO BEDTIME PRN Tobacco use date assessed: 04/28/24 Dental Screening Dental Screen Date: 04/28/24 Did you have a dental visit in the last 12 months?: Yes Did you have a dental problem in the last 6 months where you did not have access to dental care?: No Was dental information given to patient?: Patient has dentist HPI HPI Comments History of Present Illness Details 28-year-old male presents for an extende d physical exam. He admits to taking his medications as prescribed without adverse reactions Acute issue(s) - None Past Medical History - Asperger syndrome, MDD, dyslipidemia, chronic low back stiffness Surgical History - None Social History - Nonsmoker. Does not vape. Drinks less a beer one monthy. Denies recreational drug use - Has been making healthy dietary choice s. Exercises routinely. He has a 9 month old son that keeps him awake at night - He is sexually active, in a monogamous relationship, no concern for STDs Health maintenance - Last eye exam was over a year ago. Artemio reilly refer to ophthalmology - Last dental visit was 10 months ago - Last tetanus vaccine unknown. He will review his health record and update as needed - He is up-to-date on the flu vaccine Specialists - Psychiatrist at [facility] every 3-4 months v ia telehealth - Therapist at [facility] every other week in [facility] Medical History Lower back pain Surgical History No pertinent past surgical history Family History (Updated 10/22/23 @ 09:08 by SHELDON Carrasco) Mother High blood pressure High cholesterol Fibromyalgia Vitiligo Maternal Grandfather High blood pressure High cholesterol Diabetes Cardiovascular disease Paternal Grandfather Diabetes Cardiovascular disease Social History Household Members: Spouse Housing: House Do you presently have visiting nurse or other home services: No Unable to assess alcohol history related to: Unknown Comment: Rj has been referred to [facility]. Patient Tobacco Use Status: Never used Tobacco e-Cigarette/Vaping Use: Never Used Second Hand Smoke Exposure: No service: Yes Current occupation: [employer] Current occupational exposures/hazards: Yes Sexual orientation: Straight/Heterosexual Cognitive needs: No Hearing needs: No Vision needs: No Questionnaire PHQ-9 Over the last 2 weeks, how often have you been bothered by any of the following problems? 1. Little interest or pleasure in doing things: not at all 2. Feeling down, depressed, or hopeless: not at all 3. Trouble falling or staying asleep, or sleeping too much: not at all 4. Feeling tired or having little energy: not at all 5. Poor appetite or overeating: not at all 6. Feeling bad about yourself - or that you are a failure or have let yourself or your family down: not at all 7. Trouble concentrating on things, such as reading the newspaper or watching television: not at all 8. Moving or speaking so slowly that other people could have noticed. Or the opposite - being so fidgety or restless that you have been moving around a lot more than usual: not at all 9. Thoughts that you would be better off or of hurting yourself in some way: not at all Total score: 0 Depression Screening Interpretation: Negative Depression Screening Done: Yes 46755 - PHQ-9 Billing: Yes Source: Developed by Drs. Abel Mcclendon, Bridgette Doe, Jorge A Quintana and colleagues, with an educational prachi from [employer]. Thrive Questionnaire Date Thrive assessed: 04/28/24 I am a: Patient What is your living situation today?: I have a steady place to live Within the past 12 months, did the food you bought not last and you didn't have the money to get more?: Never true Within the past 12 months, did you worry whether your food would run out before you got money to buy more?: Never true Do you have trouble paying for medicines?: No Do you have trouble getting transportation to medical appointments?: No Do you have trouble paying your heating and electricity bill?: Yes Do you have trouble taking care of your child, family member or friend?: Yes Do you have trouble with day-to-day activities such as bathing, preparing meals, shopping, managing finances, etc.?: Yes Are you currently unemployed and looking for a job?: No Are you interested in more education?: Yes Please select the resources that you would like help with: Education Currently or been in a relationship where the following occur: No concerns reported THRIVE Score: 1 AUDIT C Alcohol Use Questionnaire (AUDIT-C) 1. How often do you have a drink containing alcohol?: Monthly or less 2. How many drinks containing alcohol do you have on a typical day when you are drinking?: 1 or 2 3. How often do you have six or more drinks on one occasion?: Never Total Score: 1 Score Reviewed/Action Taken: Yes AARON-7 AMB Questionnaire AARON-7 Date AARON - 7 assessed: 04/28/24 Feeling nervous, anxious, or on edge: 0 = Not at all Not being able to stop or control worryin = Not at all Worrying too much about different things: 0 = Not at all Trouble relaxin = Not at all Being so restless that it is hard to sit still: 0 = Not at all Becoming easily annoyed or irritable: 0 = Not at all Feeling afraid as if something awful might happen: 0 = Not at all Total AARON-7 score (0-4 normal; 5-9 mild; 10-14 moderate; 15-21 severe): 0 Source: Developed by Drs. Abel Mcclendon, Bridgette Doe, Jorge A Quintana and colleagues, with an educational prachi from [employer]. AARON-7 Assessment Billing AARON-7 Assessment Tool: AARON-7 Assessment 60720 Review of Systems Const Details: Denies chills, Denies fatigue, Denies fever(s), Denies headache(s) and Denies weakness HEENT Denies change in vision, Denies dizziness, Denies headache(s), Denies hearing loss, Denies nasal congestion, Denies sinus pain, Denies sinus pressure and Denies sore throat Card Denies chest pain, Denies lightheadedness, Denies dyspnea and Denies other (palpitations) Resp Denies cough, Denies dyspnea and Denies wheezing GI Denies abdominal pain, Denies melena, Denies hematochezia, Denies change in bowel habits, Denies dyspepsia and Denies nausea Denies hematuria and Denies dysuria Musc Denies abnormal gait, Denies myalgias, Denies arthralgias, Denies numbness and Denies tingling Skin/Breast Denies rash, Denies unusual bruising and Denies wounds Neuro Denies abnormal gait, Denies dizziness, Denies headache(s), Denies memory loss, Denies numbness, Denies Sensory deficit (Neuro), Denies tingling and Denies weakness Psych Denies anxiety, Denies depression and Denies memory loss Endo Denies cold intolerance, Denies fatigue, Denies heat intolerance, Denies polydipsia and Denies polyuria Allen/Lymph Denies easy bleeding and Denies easy bruising Aller/Immun Denies wheezing Physical exam (Primary Care) Vital Signs: Last Vital Signs Temp 98.0 F 04/28/24 10:08 Pulse 69 04/28/24 10:08 Resp 16 04/28/24 10:08 BP 129/66 04/28/24 10:08 Pulse Ox 97 04/28/24 10:08 Oxygen Delivery Method Room Air 04/28/24 10:08 BMI result Body Mass Index 29.4 Tobacco/Smoking Status: Tobacco use Status Tobacco use date assessed 04/28/24 04/28/24 10:08 Patient Tobacco Use Status Never used Tobacco 04/28/24 10:05 e-Cigarette/Vaping Use Never Used 04/28/24 10:05 PHQ-9: PHQ-9 Score PHQ-9: Total score 0 04/28/24 10:13 Depression Screening Interpretation: Negative Thrive Assessment: Date of Thrive Assessment Date Thrive assessed 04/28/24 04/28/24 10:13 Currently or been in a relationship where the following occur: No concerns reported Const Other: General: no acute distress, well developed, alert and awake Nutritional Appearance: well nourished Orientation/consciousness: patient oriented x3 [facility] Head: Yes normocephalic and Yes atraumatic Ears: hearing grossly normal bilaterally and TM's normal bilaterally General nose exam: Normal external nose present and Normal nares present Mouth: Normal oral and palatal mucosa present and moist mucous membranes Teeth and gingiva: dentition normal Throat: Yes oropharynx normal Eyes Pupils: Equal, round and reactive pupils present and Pupil accommodation reflex normal EOM: EOMs intact bilaterally Neck Neck: Yes normal visual inspection, Yes no lymphadenopathy and Yes trachea midline Thyroid: Thyroid normal Carotids: no bruits Lymphatic: no lymphadenopathy noted Chest Chest palpation & inspection: normal inspection of the chest Resp Effort & Inspection: normal respiratory effort Auscultation: clear to auscultation bilaterally Cardio Rate: regular rate Rhythm: regular rhythm Heart sounds: S1 normal heart sound present, S2 normal heart sound present, no gallops, no murmurs and no rubs Bruits: no abdominal aortic bruits and no carotid bruits GI Palpation (GI): No Abdominal aortic bruit present, Soft to palpation, nontender, No hepatosplenomegaly present and No Rebound tenderness present Auscultation: normal bowel sounds General: Yes no CVA tenderness Back/Spine/Pelvis Back: no CVA tenderness Cervical Spine: cervical ROM normal and No Cervical spine tenderness Thoracic/Lumbar Spine: thoraco-lumbar ROM normal, No pain with thoraco-lumbar ROM, No thoracic spinal tenderness and No lumbar spinal tenderness Skin General: warm and dry. Normal skin color. Normal skin turgor Lesions: no lesions Rashes: no rashes Trauma: no lacerations or abrasions Wounds: no wounds Nails: normal Neuro General: patient oriented x3, gait normal and CN's II-XI intact bilaterally Cranial nerves: Yes Equal, round and reactive pupils present Cognition (Neuro): normal cognition Gait exam (Neuro): Normal gait present Motor exam (neuro): 5/5 motor strength present throughout Sensory Exam: No Sensory deficit (Neuro) Deep tendon reflexes (DTR's): Right patellar reflex intensity grade: 2+ and Left patellar reflex intensity grade: 2+ Extrem General: Yes normal to inspection, No edema and No calf tenderness Psych Appearance: grossly normal Affect: normal affect Attitude: cooperative Thought process: Normal thought process present Coding Level of Care Code Est Pt Prev Care [id number]([id number]) Diagnoses Normal physical examination, routine Z00.00 MDD (major depressive disorder), recurrent episode, moderate F33.1 Depression F32.A Additional Codes AARON-7 Assessment Billing - AARON-7 Assessment Tool: AARON-7 Assessment 81027 ([id number]) PHQ-9 - 10654 - PHQ-9 Billing: Yes ([id number]) Assessment & Plan Assessment & Plan (1) Normal physical examination, routine: Code(s): Z00.00 - Encounter for general adult medical examination without abnormal findings Category: Medical Plan: No significant functional limitation noted. Continue current treatment regimen. Healthy diet and routine exercise encouraged. Advised to get lipid panel lab work done before his next visit. Follow-up in 2 months for dyslipidemia MDD or sooner with symptoms or concerns. Verbalized understanding and agreed with the plan. (2) MDD (major depressive disorder), recurrent episode, moderate: Code(s): F33.1 - Major depressive disorder, recurrent, moderate Category: Medical Plan: Controlled symptoms. Follow-up with therapist and psychiatrist as planned. Verbalized understanding and agreed with the plan. (3) Depression: Code(s): F32.A - Depression, unspecified Category: Medical Plan: Continue current treatment regimen. Advised to limit foods high in saturated fat and avoid foods high in trans fat. Routine exercise encouraged. Follow-up as planned in June. Verbalized understanding and agreed with the plan. Patient Instructions: No significant functional limitations noted. Continue current treatment regimen. Routine exercise encouraged. Follow-up as scheduled in June for dyslipidemia or return sooner with symptoms or concerns. Verbalized understanding and agreed with the plan.
--- OUTSIDE RECORDS SUMMARY | 2024-04-28 10:02 | XMS_ITS | Continuity of Care Document ---
Author Name [facility] Organization [facility] Care Team Providers [employer] Banker Name Role Phone [facility] Unavailable Unavailable Problems Combined list of problems from Department of Defense and Veterans Affairs facilities. It does not include entries that were removed or entered in error. 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 Medication Details Route Status Patient Instructions Prescription Expires Prescription Number Last Dispense Date Ordering Provider Order Date Order Qty Source Augmentin 875 mg-125 mg oral tablet 1 tabs, Oral, every 12 hr, X 7 days, # 20 tabs, 0 total refill(s ), Acute, 11/13/18 12:56:00 PM CDT Oral (given by mouth) Complet ed 11/13/2018 20.0 0128C-9 2ND MED GR[facility] chlorhexidi ne 0.12% mucous membrane liquid 15 mL, Oral, BID, swish and spit; do not swallow, # 473 mL, 0 total refill(s ), Maintena nce, [facility] pharmacy dispense (Rx) Oral (given by mouth) Discont inued 11/05/2020 473.0 0128C-[address] [place] [address]-MARIBETH RCHILD CITALOPRAM HBR (CITALOPRAM HYDROBROMID E), 20MG, TABLET, ORAL, [facility], 500 ea. BOTTLE Cancele d [id number] : 2023 0 Pharmac y Data Transac tion Service Facilit y CITALOPRAM HBR (CITALOPRAM HYDROBROMID E), 20MG, TABLET, ORAL, [facility], 500 ea. BOTTLE Cancele d [id number] : 2023 0 Pharmac y Data Transac tion Service Facilit y CITALOPRAM HBR (CITALOPRAM HYDROBROMID E), 20MG, TABLET, ORAL, [facility], 500 ea. BOTTLE Active [id number] 4 2023 30 Pharmac y Data Transac tion Service Facilit y CITALOPRAM HBR (CITALOPRAM HYDROBROMID E), 20MG, TABLET, ORAL, [facility], 500 ea. BOTTLE Active [id number] 4 2023 30 Pharmac y Data Transac tion Service Facilit y CLONAZEPAM (CLONAZEPAM ), 0.5MG, TABLET, ORAL, TEVA [place], 500 ea. BOTTLE Active [id number] 4 2023 30 Pharmac y Data Transac tion Service Facilit y CLONAZEPAM (clonazepam ), 1 MG, TABLET, ORAL, TEVA [place], 500 ea. BOTTLE Active [id number] 2023 8 Pharmac y Data Transac tion Service Facilit y CLONAZEPAM (clonazepam ), 1 MG, TABLET, ORAL, TEVA [place], 500 ea. BOTTLE Active [id number] 4 2023 8 Pharmac y Data Transac tion Service Facilit y clonazePAM 0.5 mg oral tablet 2 tab(s), Oral, Daily, 0 total refill(s ), Maintena nce Oral (given by mouth) Ordered 0310C-A F-C-66t h [facility] CLONIDINE HCL (clonidine HCl), 0.1 MG, TABLET, ORAL, [facility], 1000 ea. BOTTLE Active [id number] 2023 45 Pharmac y Data Transac tion Service Facilit y CLONIDINE HCL (clonidine HCl), 0.1 MG, TABLET, ORAL, [facility], 1000 ea. BOTTLE Active [id number] 2023 45 Pharmac y Data Transac tion Service Facilit y CLONIDINE HCL (clonidine HCl), 0.1 MG, TABLET, ORAL, [facility], 1000 ea. BOTTLE Active [id number] 4 2023 45 Pharmac y Data Transac tion Service Facilit y CLONIDINE HCL (clonidine HCl), 0.1 MG, TABLET, ORAL, [facility], 1000 ea. BOTTLE Active [id number] 2023 45 Pharmac y Data Transac [...] tab(s), Oral, TID, 0 total refill(s ), Maintena nce Oral (given by mouth) Discont inued 11/18/2021 0128C-9 2ND MED GRP-[facility] CYCLOBENZAP RINE HCL (cyclobenza dayana HCl), 10 MG, TABLET, ORAL, TEVA [place], 1000 ea. BOTTLE Active [id number] 2023 45 Pharmac y Data Transac tion Service Facilit y CYCLOBENZAP RINE HCL (cyclobenza dayana HCl), 10 MG, TABLET, ORAL, TEVA [place], 1000 ea. BOTTLE Active [id number] 2023 45 Pharmac y Data Transac tion Service Facilit y CYCLOBENZAP RINE HCL (cyclobenza dayana HCl), 10 MG, TABLET, ORAL, TEVA [place], 1000 ea. BOTTLE Active [id number] 4 2023 90 Pharmac y Data Transac tion Service Facilit y CYCLOBENZAP RINE HCL (cyclobenza dayana HCl), 10 MG, TABLET, ORAL, TEVA [place], 1000 ea. BOTTLE Active [id number] 2023 90 Pharmac y Data Transac tion Service Facilit y escitalopra m 10 mg oral tablet 1 tab(s), Oral, Daily, 0 total refill(s ), Maintena nce Oral (given by mouth) Ordered 0310C-A F-C-[facility]t [facility] ESCITALOPRA M OXALATE (ESCITALOPR AM OXALATE), 10 MG, TABLET, ORAL, [facility], 100 ea. BOTTLE Active [id number] 4 2023 30 Pharmac y Data Transac tion Service Facilit y ESCITALOPRA M OXALATE (ESCITALOPR AM OXALATE), 10 MG, TABLET, ORAL, [facility], 100 ea. BOTTLE Active [id number] 2023 30 Pharmac y Data Transac tion Service Facilit y ESCITALOPRA M OXALATE (ESCITALOPR AM OXALATE), 10 MG, TABLET, ORAL, [facility]AC, 100 ea. BOTTLE Active [id number] 4 2023 30 Pharmac y Data Transac tion Service Facilit y ESCITALOPRA M OXALATE (ESCITALOPR AM OXALATE), 10 MG, TABLET, ORAL, [facility], 100 ea. BOTTLE Active [id number] 2023 30 Pharmac y Data Transac tion Service Facilit y FENOFIBRATE (fenofibrat e), 54 MG, TABLET, ORAL, [facility], 90 ea. BOTTLE Active [id number] 2023 30 Pharmac y Data Transac tion Service Facilit y FENOFIBRATE (fenofibrat e), 54 MG, TABLET, ORAL, AUROBINDO PHARM, 90 ea. BOTTLE Active [id number] 2023 30 Pharmac y Data Transac tion Service Facilit y FENOFIBRATE (fenofibrat e), 54 MG, TABLET, ORAL, AUROBINDO PHARM, 90 ea. BOTTLE Active [id number] 2023 30 Pharmac y Data Transac tion Service Facilit y FENOFIBRATE (fenofibrat e,micronize d), 134 MG, CAPSULE, ORAL, AJANTA PHARMA L, 100 ea. BOTTLE Cancele d [id number] : 2023 0 Pharmac y Data Transac tion Service Facilit y FENOFIBRATE (fenofibrat e,micronize d), 134 MG, CAPSULE, ORAL, AJANTA PHARMA L, 100 ea. BOTTLE Active [id number] 2023 30 Pharmac y Data Transac tion Service Facilit y FENOFIBRATE (fenofibrat e,micronize d), 134 MG, CAPSULE, ORAL, AJANTA PHARMA L, 100 ea. BOTTLE Active [id number] 2023 30 Pharmac y Data Transac tion Service Facilit y fenofibrate 30 mg oral capsule 1 cap(s), Oral, Daily, # 30 cap(s), 0 total refill(s ), Maintena nce Oral (given by mouth) Ordered 30.0 0310C-A F-C-66t h [facility] IBUPROFEN (ibuprofen) , 800 MG, TABLET, ORAL, TIME-CAP LABS, 500 ea. BOTTLE Active [id number] 4 2023 20 Pharmac y Data Transac tion Service Facilit y IBUPROFEN (ibuprofen) , 800 MG, TABLET, ORAL, TIME-CAP LABS, 500 ea. BOTTLE Active [id number] 4 2023 7 Pharmac y Data Transac tion Service Facilit y ibuprofen 800 mg oral tablet 1 tab(s), Oral, TID, PRN pain, # 30 tab(s), 0 total refill(s ), Acute, 03/17/20 2:00:[address] [facility], [facility] pharmacy dispense (Rx) Oral (given by mouth) Complet ed 03/17/2020 30.0 0128C-9 2ND MED GR[facility] lidocaine 5% topical film 1 patch(es ), Topical, Daily, Leave on for up to 12 hours within a 24 hour period (12 hours on, 12 hours off), # 30 patch(es ), 3 total refill(s ), Maintena nce, 1 patch(es ) Topical Daily,In str:Ledean e on for up to 12 hours within [...] ORAL, [facility], 1000 ea. BOTTLE Active [id number] 2023 30 Pharmac y Data Transac tion Service Facilit y Percocet 5 mg-325 mg oral tablet 1 tab(s), Oral, every 4 hr, PRN pain, # 24 tab(s), 0 total refill(s ), Acute, 03/24/19 2:00:00 AM [employer], [facility] pharmacy dispense (Rx) Oral (given by mouth) Complet ed 03/24/2019 24.0 0128C-9 2ND MED GR[facility] PRAZOSIN HCL (prazosin HCl), 1 MG, CAPSULE, ORAL, NOVITIUM/AN I PH, 100 ea. BOTTLE Active [id number] 4 2023 30 Pharmac y Data Transac tion Service Facilit y PRAZOSIN HCL (prazosin HCl), 1 MG, CAPSULE, ORAL, NOVITIUM/AN I PH, 100 ea. BOTTLE Active [id number] 4 2023 30 Pharmac y Data Transac tion Service Facilit y PRAZOSIN HCL (prazosin HCl), 1 MG, CAPSULE, ORAL, NOVITIUM/AN I PH, 100 ea. BOTTLE Active [id number] 2023 30 Pharmac y Data Transac tion Service Facilit y PRAZOSIN HCL (prazosin HCl), 1 MG, CAPSULE, ORAL, NOVITIUM/AN I PH, 100 ea. BOTTLE Active [id number] 2023 30 Pharmac y Data Transac tion Service Facilit y PRAZOSIN HCL (prazosin HCl), 1 MG, CAPSULE, ORAL, NOVITIUM/AN I PH, 100 ea. BOTTLE Active [id number] 4 2023 30 Pharmac y Data Transac tion Service Facilit y PRAZOSIN HCL (prazosin HCl), 1 MG, CAPSULE, ORAL, NOVITIUM/AN I PH, 100 ea. BOTTLE Active [id number] 4 2023 20 Pharmac y Data Transac tion Service Facilit y TRAZODONE HCL (trazodone HCl), 50 MG, TABLET, ORAL, TEVA [place], 100 ea. BOTTLE Active [id number] 4 2023 15 Pharmac y Data Transac tion Service Facilit y TRAZODONE HCL (trazodone HCl), 50 MG, TABLET, ORAL, TEVA [place], 100 ea. BOTTLE Active [id number] 4 2023 15 Pharmac y Data Transac tion Service Facilit y TRAZODONE HCL (trazodone HCl), 50 MG, TABLET, ORAL, TEVA [place], 100 ea. BOTTLE Active [id number] 4 2023 15 Pharmac y Data Transac tion Service Facilit y TRAZODONE HCL (trazodone HCl), 50 MG, TABLET, ORAL, TEVA [place], 100 ea. BOTTLE Active [id number] 4 2023 15 Pharmac y Data Transac tion Service Facilit y TRAZODONE HCL (trazodone HCl), 50 MG, TABLET, ORAL, TEVA [place], 100 ea. BOTTLE Active [id number] 4 2023 30 Pharmac y Data Transac tion Service Facilit y TRAZODONE HCL (trazodone HCl), 50 MG, TABLET, ORAL, TEVA [place], 100 ea. BOTTLE Active [id number] 2023 30 Pharmac y Data Transac [...] needed for pain or fever, Pharmacy : [facility] Oral (given by mouth) Complet ed 12/19/2021 100.0 127C-9 2ND [facility] Allergies, Adverse Reactions, Alerts Combined list of allergies from Department of Defense and Veterans Affairs facilities. It does not include entries that were removed or entered in error. Substance Category Reaction Severity Reaction type Status Date Reported Comments Source No Known Allergies Drug allergy (disorder) active 09/16/2022 [facility] [place], [place] Immunizations Combined list of available immunizations from the Department of Defense and Veterans Affairs facilities. Immunization Series Date Given Administered By Site Reaction Lot Number CVX Code Drug Clip Riveter Status Comments Source influenza, injectable, quadrivalent- pf 2021 GENEVIEVERCAN ETE [id number] complet ed Result Comment: Route: Unknown Manufactu rer: OTH (SKB) 0128C-9 2ND MED GRP-[facility] COVID Vaccine Pfizer 2020 Geraldine er Shoul sung, left (delt oid) [id number] 208 PFIZER complet ed COVID Vaccine Pfizer 08/20/20 Given 0128C-9 2ND [facility] GR[facility] COVID Vaccine Pfizer 2020 JONO Kumarrochelle sung, left (delt oid) [id number] 208 PFIZER complet ed COVID Vaccine Pfizer 08/01/20 Given 0128C-9 2ND [facility] GR[facility] Human Papillomaviru s 9-valent vaccine 2018 CAPTGENEVIEVE RCANETE [id number] 165 complet ed Result Comment: Route: Unknown Manufactu rer: OTH (MSD) 0128C-9 2ND [facility] GR[facility] human papillomaviru s vaccine 2018 MarquezsenaMarleneitzel howard Arm [id number] 165 [employer] complet ed human papilloma virus vaccine 11/09/18 Given 0128C-9 2ND [facility] GR[facility] Human Papillomaviru s 9-valent vaccine 2018 GENEVIEVERCAN ETE [id number] 165 complet ed Result Comment: Route: Unknown Manufactu rer: OTH (MSD) 0128C-9 2ND [facility] Human Papillomaviru s 9-valent vaccine 2017 GENEVIEVERCAN ETE [id number] 165 complet ed Result Comment: Route: Unknown [...] adult dosage DoD adenovirus vaccine, live 2017 [id number] 9 143 Teva [employer] ls complet ed adenoviru s vaccine, live 09/29/17 Given Ambulat ory Pharmac y tetanus, diphtheria, acellular pertu is 2017 [id number] 115 [employer] [facility] [facility] complet ed tetanus, diphtheri a, acellular pertussis 09/29/17 Given Ambulat ory Pharmac y meningococcal A,C,Y,W-135 (MCV4P) 2017 [id number] F 114 sanofi pasteur complet ed meningoco [...] diphtheria toxoid conjugate vaccine (MCV4P) 1 2017 [id number] F 114 Sanofi Pasteur (PMC) complet ed meningoco ccal polysacch aride (groups A, C, Y and W-135) diphtheri a toxoid conjugate vaccine (MCV4P) DoD tetanus toxoid, reduced diphtheria toxoid, and acellular pertu is vaccine, adsorbed 1 2017 [id number] 115 OpinewsTV (SKB) complet ed tetanus toxoid, reduced diphtheri a toxoid, and acellular pertussis vaccine, adsorbed DoD Adenovirus, type 4 and type 7, live, oral 1 2017 [id number] 9 143 [facility] ([facility]) complet ed Adenoviru s, type 4 and type 7, live, oral DoD Influenza, injectable, Madin Su Canine Kidney, quadrivalent with preservative 1 2017 [id number] 186 Seqirus (SEQ) comple t ed Influenza , injectabl e, Madin [place] Canine Kidney, quadrival ent with preservat victor [...] Prevention' s HIV diagnostic algorithm. Refer to [facility] Lab Guide for additional information : https://Biomode - Biomolecular Determinationx. [facility]/ kj/kx5/EPIL ab/Pages/la b_guide.asp x Testing [...] Prevention' s HIV diagnostic algorithm. Refer to [facility] Lab Guide for additional information : https://Biomode - Biomolecular Determinationx. [employer].[facility]/ kj/kx5/EPIL ab/Pages/la b_guide.asp x Testing performed by [employer]. Performed by: Epidemiolog y Laboratory Service [employer]/Nayatek [address] [place] [address], [place] [address] Ambulator y Pharmacy Miscella neous Sendouts Repository Sample.EPI RECEIVED 11/04 Result Comment: INTERPRETAT ION(S): Performed by: Epidemiolog y Laboratory Service Kamego/Qianrui Clothes [facility] [address] [place] [address], [place] [address] Ambulator y Pharmacy Molecula r Infectio us [...] for this test is supported by the Dairy Nutrition Specialist of Health and Human Service s (HHS [...] for this test is supported by the [place] of Health and Human Service s (HHS [...] for this test is supported by the [place] of Health and Human Service s (HHS [...] Prevention' s HIV diagnostic algorithm. Refer to [facility] Lab Guide for additional information : [email or web address]://[email or web address] .[facility]/k j/kx5/EPILa b/Pages/lab _guide.aspx Testing performed by Osmany pcek. Performed by: Epidemiolog y Laboratory Service [facility]/Critical access hospital [address] [place] [address], [place] [address] Ambulator y Pharmacy Surinder patel Sendouts Repository Sample.EPI RECEIVED 10/25 Result Comment: INTERPRETAT ION(S): Performed by: Epidemiolog y Laboratory Service [facility]/Critical access hospital [address] [place] [address], [place] [address] Ambulator y Pharmacy Immunolo gy/Serol ogy Hep B Surface Ag Non-Reac tive 1 (10/26/19 11:16 AM) 10/25 N Interpretiv e Data: Note to [facility] Physicians: = Acute Hepatitis A, B, [...] 0.5% for GC. At this prevalence, the YouView r estimates the overall sensitivity and specificity for CT to be 94.1% and 99.6% respectivel y. For GC the sensitivity and specificity rates are 97.1% and 99.8%. The Positive Predictive Value and the Negative Predictive Value calculated by the YouView r using the above clinical trial data [...] n. Performed by: Epidemiolog y Laboratory Service USAFSAM/PHE Bldg. [address] [place] [phone] Ambulator y Pharmacy Vital Signs Combined list [...] ADM Date DC Date Status Disposition Source [place] [address] [id number] Notes Entered by: ANUJ CASTANEDA 07 Oct 2017 1029 ------- ------- ------- ------- -- Strep Prophyl axis ALETHA CASTANEDA 10/07 Released w/o Limitations [facility] [place] [address]([facility] [place] [address](Hea ring Conservat ion, BMT) OUTPATIENT [id number] CATRACHO SPAULDING 10/08 Released w/o Limitations [facility] [address](H earing Conserv ation, BMT) [employer]([facility]) OUTPATIENT [id number] Notes Entered by: Luz Marina SMITH 19 Jan 2018 0659 ------- ------- ------- ------- -- SICK CALL - Insect ite swollen on right hand middle finger/ Right leg back thigh SURENDRA DAVILA 01/19 Released w/o Limitations [employer]([facility] ) [employer]([facility]) OUTPATIENT [id number] Notes Entered by: EMILY MAYORGA 19 Jan 2018 1601 ------- ------- ------- ------- -- WALK IN [facility] n to [facility] PAPO ORDOÑEZ 01/19 Released w/o Limitations [employer]([facility]) 0310C-AF- C-66th [facility] [id number] NASIM MUHAMMAD 10/20 Discharge Disposition: Home or Self Care 0310C-A F-C-66t h [facility] 0310C-AF- C-66th [facility] [id number] KAELA WILCOX 10/20 Discharge Disposition: Home or Self Care 0310C-A F-C-66t h [facility] 0310A-AF- C-66th [facility] Between Visit [id number] 10/25 Discharge Disposition: Home or Self Care 0310A-A F-C-66t h [facility] [id number] AMDS Outpatient [id number] RALPH CORONA 01/10 Discharge Disposition: Home or Self Care 8344R-4 [id number] AMDS 0310C-AF- C-66th [facility] [id number] Adjustm ent disorde r, unspeci fied,Hy perlipi demia, unspeci fied,EX AM/ASSE SSMENT, 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 Procedure Procedure Type Code Date Perfomer Comments Caro e Diagnostic colonoscopy 08/05/19 22 0128C-92ND MED GRP-FAIRCH[facility] LD WTEx4 0310C-AF-C- 66th [facility] ELECTROCARDIOGRAM, ROUTINE ECG WITH AT LEAST 12 LEADS; WITH INTERPRETATION AND REPORT 01/20/20 18 [facility] PURE TONE AUDIOMETRY (THRESHOLD); AIR ONLY 10/09/19 18 [facility] THERAPEUTIC, PROPHYLACTIC, OR DIAGNOSTIC INJECTION (SPECIFY SUBSTANCE OR DRUG); SUBCUTANEOUS OR INTRAMUSCULAR 10/08/19 18 [facility] ECG 12-Lead With Interpretation And Report ECG 12-Lead With Interpretation And Report [id number] 01/31/20 18 PAPO ORDOÑEZ [facility] Threshold Audiogram (Pure Tone) Threshold Audiogram (Pure Tone) [id number] 10/09/19 18 MARISOL MERINO [facility] Physician Supervised Injection Intramuscular Antibiotic Physician Supervised Injection Intramuscular Antibiotic 54497 10/08/19 18 ALETHA CASTANEDA [facility] Social History Combined list of available smoking, tobacco, and other social history from Department of Defense and Veterans Affairs facilities. Social History Type Response Date Comment Caro e Male 02/16/2018 Ambulatory Pha rmacy Tobacco Cigarette use: Never-cigarette user. Other Tobacco use: Never-other tobacco user (not cigarettes). Ambulatory Pharma cy Sexual Orientation Ambula tory Pharmacy Gender identity Ambulator y Pharmacy This section is an empty social history section. DoD Assessment and Plan Combined list of future care activities from Department of Defense and Veterans Affairs facilities (e.g., assessment and plan notes, appointments, orders, and referrals). Additional future care activities may be listed in the Plan of Care section. 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 Willa Cardoso CTR?CHEESE SUPERVISOR-C [facility] Provider Flight Medicine? [address] [place]??[address] [facility] [phone] ? 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 Willa Cardoso CTR?CHEESE SUPERVISOR-C [facility] Provider Flight Medicine? [address] [place], [place]??[address] [facility] [phone] ? Extracted from:Title: LBP Profile f/u Author: [...] minutes.? Pt to f/u with PCM at [facility] to request PT as he will benefit [...] labs, imaging, other diagnostic testing via the [employer] Patient Portal. ? -A total of approximately? 30 minutes- 73795? ( Face to face ? 20 minutes??) ? Date of service:? ?10?_?September 2022? with the following actions?below and as applicable based on this EHR as above: ? reviewing?previous notes?and/or specialty notes, including JLV x wdwb-th-imxc w/ pt x medical charting including documenting [...] attached documents: ekg, pft, or?consent forms in [facility] chart ? ?Follow up?PRN. -Portions of this note were scribed by my medical staff services coordinator(s). I have verified the information and medical decision making is my own. ? YES:Reviewed pertinent?Mental Health Screening scores below?- pt is low risk.?Pt denies suicidal or homicidal ideations No?CSSRS YES:?AARON -7? YES:?PHQ- 9? No?[place]anti No?MoCA No?Audit No?PCL/PTSD Screening ? //SIGNED// XENIA Tran, ?, [facility], [place] Family Nurse Practitioner? [facility], [address] [place], [place] [phone] ? Ordered: lidocaine topical(lidocaine 5% topical film), [...] Acute, 11/16/2022, 1 tab(s) Oral BID, Pharmacy: [facility] [Not filled] acetaminophen(Tylenol 325 mg oral tablet), 1 tab(s), Oral, every 4 hr, PRN pain or fever, # 30 tab(s), 0 total refill(s), Acute, 11/16/2022, 1 tab(s) Oral every 4 hr,PRN:pain or fever, Pharmacy: [facility] [Not filled] ? 2.?Acute stress reaction Pt seeing FAP/MH ongoing has appts.? Denies suicidal or homicidal ideations- has all his appts.? Pt feels safe at home and at work.? Informed pt to f/[place] PCM [place] to f/u w/continuity of care. Pt has no further needs and pt to f/u prn [facility] ? ? Extracted from:Title: Pain of Left Toes (System Outage) Author: BREN ANDRADE NP Date: 09/01/22 1.?Pain in left toe(s) see 600 for charting- ACI was completed?before system shut down ?- unable to reconcile meds/history/immunizations as [employer] system was down at the time of [...] labs, imaging, other diagnostic testing via the [employer] Patient Portal. ? -A total of approximately? 30 minutes- 33367? ( Face to face ? 20 minutes??) ? Date of service:? ?25?_?Aug 2022? with the following actions?below and as applicable based on this EHR as above: ? ?reviewing?previous notes?and/or specialty notes x mfzn-nt-ezhx w/ pt x medical charting including documenting [...] attached documents: ekg, pft, or?consent forms in [facility] chart ? ?Follow up?PRN. -Portions of this note were scribed by my medical staff services coordinator(s). I have verified the information and medical decision making is my own. ? YES:Reviewed pertinent?Mental Health Screening scores below?- pt is low risk.?Pt denies suicidal or homicidal ideations ? No?CSSRS ? YES:?AARON -7? ? YES:?PHQ- 9? ? No?Isanti ? No?MoCA ? No?Audit ? No?PCL/PTSD Screening ? ? //SIGNED// Bren Andrade, XENIA, ARISTEO?, [facility], [place] Family Nurse Practitioner? [facility] [address] [facility] [place] [phone] ? Ordered: mupirocin topical(mupirocin 2% topical ointment), 1 appl(s), Topical, TID, X 7 days, # 15 g, 0 total refill(s), Acute, 1 appl(s) Topical TID,x7 days, Pharmacy: [facility] [Not filled] Referral Request 2.0 ? 2.?Male erectile dysfunction, unspecified same as above ? ? 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 Reviewed [id number]. No new specific concerns identified in past medical or family history when compared to the PHAQ. All information was updated to the e2766 as needed. Electronic records reviewed to include member s summary and chiller technician's Record Review section of PHAQ which [...] up?PRN. ? Arturo Graham, CTR, PA-C? [address] [facility]? [place], [place]? ANNUAL PERIODIC HEALTH ASSESSMENT ? I. LOSS PREVENTION COORDINATOR INFORMATION AND DEMOGRAPHICS (SMI) 1. Last Name: DARRION 2. First Name: KYRA 3. Middle Name: OZ 4. Assessment Date: 5. : 6. Age: 26 7. Gender: M 8. DoD ID Number: [id number] 9. Service Branch: [employer] 10. 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 Pay Grade: E04 13. Unit Name: [address] [place] [address] 14. Duty Station/Location: [place] 15. [facility]: [id number] 16. Is this your first Periodic Health Assessment (PHA)?: N 17. Are you enrolled in a secure messaging system with your health care provider?:? N ? 18. Current contact information: Preferred Method: Day Time Phone DSN: [phone] Day Time Phone: [phone] Night Time Phone: Email 1: [email or web address] Email 2: Address: [facility] City: [facility] State: [place] Zip Code: [address] ? 19. Point of contact who can always reach you: Name: Marah Cuellar Phone 1: [phone] Phone 2: EMAIL: [email or web address] Address: [address] [place] [address] Unit City: [place] State: [place] Zip Code: [address] ? II. DEPLOYMENT INFORMATION (DEP) 1. [ Never deployed ] Total number of deployments in the PAST 5 YEARS 4. [ N ] Are you going to deploy within the NEXT 120 DAYS? ? III. OCCUPATIONAL INFORMATION (OCC) 1? [ [id number] ] What is your occupational code 2. [...] easily startled? 6. d. [ No ] [place] numb or detached from others, activities, or your surroundings? 6. e. [ Not answered ] [place] guilt or unable to stop blaming yourself [...] like to schedule a visit with a masonry installer, mental health care provider, or a community [...] 8. [ tylenol ] What prescriptions or ztom-ezi-hwfxytr medications are you CURRENTLY taking for health [...] had a cholesterol check by a health senior care provider within the PAST 5 YEARS? [...] any health concerns? ? XI. SEPARATION AND SKILLED NURSING 1. [ No ] Are you planning to separate or retire within the next year from Active Duty or [place] Duty (activated for greater than 30 continuous days) OR do you intend to file a claim for disability compensation with the [employer]? ? PART B. RECORD REVIEW AND RECOMMENDATIONS I. RECORD REVIEWER INFORMATION 1. Last Name: BEATA 2. First Name: FELISA 3. Middle Name: JOSSIE 4. Service Branch: [employer] 5. 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 EMAIL: [email or web address] 8. Facility: MEDICAL 9. Unit: [address] [place] [address] 10. Address: [address] [place] [address] 11. State: [place] 12. Zip Code: [address] 13. 14. Date Record Review: ? II. MEDICAL SCREENING 1. 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 [ 5 feet 8 inches? ?Date: ] environmental studies faculty member's most recently documented height 3. [ 182 pounds? Date: ] environmental studies faculty member's most recently documented weight 4. [ 126/80? Date: ] environmental studies faculty member's most recently documented blood pressure reading 5. [ No ] Does the environmental studies faculty member have a history of abnormal blood pressure since their last PHA? 6. [ Yes ] Does the environmental studies faculty member have a laboratory test of sickle cell trait documented in their permanent medical record? 7. [ No Cholesterol Test Documented ] What is the date of the environmental studies faculty member's most recently documented cholesterol test? 9. [ tylenol ]? List of environmental studies faculty member's active medications listed in their permanent medical record 10. [ Yes: tylenol ] Is there a discrepancy between the active medication record review and the environmental studies faculty member's self-reported list of medications? 11. 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 [ Yes: 05/30/21 ER, diverticulitis 08/04/21-09/29/21 PTx, dorsalgia ] Is there a discrepancy between the environmental studies faculty member's list of OUTSIDE care (from OT5), and the OUTSIDE care found in the record? 13. 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 [ Not Answered ] Confirm that vaccine exemptions are listed in the medical record for each vaccine listed ? IV. FAMILY HISTORY AND LIFESTYLE 1. [ Yes ]? Does the [id number] reflect the environmental studies faculty member's reported family history? ? VII. INDIVIDUAL MEDICAL READINESS 1. [ No ] Does the environmental studies faculty member have an Assignment Limitation Code C? 3. [ Classification: 1 ] Most recently documented dental exam 4. [ Yes ] Is the environmental studies faculty member current on all required immunizations in the immunization tracking system? 6. Does the environmental studies faculty member have the following laboratory tests documented [...] need to be forwarded to the Health Doper Operator completing PART C: ? ? Date Record Review Completed: --------- PART C. HEALTH CARE PROVIDER I. MENTAL HEALTH ASSESSMENT (MHA) PROVIDER INFORMATION 1. Last Name: Nader 2. First Name: Demond 3. Middle Name: 4. Service Branch: [employer] 5. 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 EMAIL: [email or web address] 8. Facility: [facility] 9. Unit: [facility] 10. Address: [address] [place] [address] 11. State: [place] 12. Zip Code: [address] 13. 14. Date HCP Review initiated: ? [...] ? 12. Address requests as reported on environmental studies faculty member questions 7 through 10 (in Procedure Tech Section . Behavioral Health): ? ? Request medical appointment: Appt is scheduled ? 13. Supplemental services recommended/information provided: ? ? No supplemental services required ? Date MHA Certified: ? III. PERIODIC HEALTH ASSESSMENT (PHA) PROVIDER INFORMATION 1. Last Name: Santos 2. First Name: Arturo 3. Middle Name: 4. Service Branch: [employer] 5. 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 EMAIL: [email or web address] 8. Facility: [facility] 9. Unit: [facility] 10. Address: [address] [place] [address] 11. State: [place] 12. Zip Code: [address] 13. 14. Date HCP Review initiated: ? IV. PERIODIC HEALTH ASSESSMENT PROVIDER RECOMMENDATIONS and REFERRALS 1. Provider concerns with this assessment: No issues or concerns identified ? V. SUMMARY AND COMMENTS 1. Additional information summarizing findings during the environmental studies faculty member assessment: ? 2. Provider Comments: SM already had appointment with PCM since PHAQ was completed. ? . INDIVIDUAL MEDICAL READINESS DISPOSITION DETERMINATION ? ? MIKE: Not Ready? ? DEN: Ready? ? IMM: Ready? ? LAB: Ready? ? ME: Ready ? ? IMR Status: Not Medically Ready ? VII. SERVICE MEDICAL DEPLOYABILITY EVALUATION INDICATED Based on your review of all documentation, is the environmental studies faculty member medically deployable without limitations?? Reference Mignon 6490.07 ? ?No (environmental studies faculty member currently has a medical condition that DOES require duty limitation(s) AND limits deployability) ? Date PHA Completed: ? END OF [id number] REPORT ? [facility] Review Summary ? [ No ] Does [...] AF physical fitness program ? END OF [facility]OM[facility] SUMMARY ? Extracted from:Title: CSP and LBP [...] labs, imaging, other diagnostic testing via the [employer] Patient Portal. ? -A total of? 20-29?min. with the following actions?below and as applicable based on this EHR as above: ? x?reviewing?previous notes?and/or specialty notes x ylvh-am-fjhw w/ pt x medical charting including documenting [...] this note were scribed by my medical staff services coordinator(s). I have verified the information and medical decision making is my own. ? Not on PRP, flying status, AuOf. No indication for new or modified FR/DR/MR at this time.? Will not be extending pt's profile unless rehab with PT for LBP. ? //Electronically signed// ? XENIA TRAN, ?, [employer], [place] Family Nurse Practitioner? 2.?Low back pain Acute, [...] sheet - PT schedule here at [facility].? If not improved with PT - pt [...] labs, imaging, other diagnostic testing via the [employer] Patient Portal. ? -A total of? 20-29?min. [...] this note were scribed by my medical staff services coordinator(s). I have verified the information and medical decision making is my own. ? Not on PRP, flying status, AuOf. new x30 days for FR/DR/MR at this time. ? //Electronically signed// ? BREN ANDRADE, XENIA, [place]?, [employer], [place] Family Nurse Practitioner? Ordered: cyclobenzaprine(cyclobenzaprine 10 mg oral tablet), See Instructions, TAKE ONE TABLET BY MOUTH AT BEDTIME NEEDED FOR MUSCLE SPASM, # 21 tab(s), 0 total refill(s), Acute, TAKE ONE TABLET BY MOUTH AT BEDTIME NEEDED FOR MUSCLE SPASM, Pharmacy: [facility] [Not filled] ? Orders: naproxen(naproxen 500 mg oral tablet), 1 tab(s), Oral, BID, # 20 tab(s), 0 total refill(s), Acute, 12/19/2021, 1 tab(s) Oral BID, Pharmacy: [facility] [Not filled] acetaminophen(Tylenol 325 mg oral tablet), 1 tab(s), Oral, every 4 hr, PRN pain or fever, # 100 tab(s), 0 total refill(s), Acute, 12/19/2021, 1 tab(s) Oral every 4 hr,PRN:as needed for pain or fever, Pharmacy: [facility] [Not filled] Extracted from:Title: ER [...] labs, imaging, other diagnostic testing via the [employer] Patient Portal. ? Not on PRP or flying status. x30 days new or modified FR/DR/MR at this time ? //Electronically signed// ? BREN ANDRADE, SHI-C, [place]?, [employer], [place] Family Nurse Practitioner? Ordered: lidocaine [...] Acute, 08/28/2021, 1 tab(s) Oral BID, Pharmacy: [facility] [Not filled] ? 2.?Diverticulitis of colon Resolved.??Per guidelines will order for CSP to assess for malignancy and other?pathology.? ?25 y/o male with mild diverticulitis noted of distal colon at ED May 2021. Sxs have resolved.? Order for colonoscopy with interpretation thanks! ? Informed pt to f/u after CSP.? Given f/u precautions.? PVUA. ? Ordered: Referral Request 2.0 ? Extracted from:Title: denture contour wire specialist-Bloody stool Author: HOLLY WALSH RN Date: 05/30/21 -Per [facility] 2020 protocol, patient should be seen at the [facility] today.?Advised patient to be evaluated at urgent care today because there are no available clinic appointments today. ?Patient would like to be seen at the [facility]. Patient assisted with making appointment for tomorrow at [facility] @0830. Referral placed. -Red flags [...] get after hours Urgent Care referral at [phone] ? Patient verbalized understanding and agreeable with plan of care. Patient intends to comply.? EXTENSION COURSE COORDINATOR Raymond, please review. Thank you. ? Talk time?9?minutes ? ? Extracted from:Title: Virtual MHA Author: OUMAR MONTANA WHNP Date: 10/29/20 1.?EXAM/ASSESSMENT, OCCUPATIONAL, LOSS PREVENTION COORDINATOR PERIODIC HEALTH ASSESSMENT (PHA) ?Virtual MHA was [...] ? Ordered: Administration,Pt-Foc [place]lth [place] [id number] Brief Comm Tech-Based Svc, Virt, Phys, Est Pt; 5-10 Min Med Dis G2012 ? Addendum by OUMAR MONTANA WHNP on October 29, 2020 08:21:05 PDT ANNUAL PERIODIC HEALTH ASSESSMENT ? I. LOSS PREVENTION COORDINATOR INFORMATION AND DEMOGRAPHICS (SMI) 1. Last Name: DARRION 2. First Name: KYRA 3. Middle Name: OZ 4. Assessment Date: 5. : 6. Age: 25 7. Social Security Number: [id number] 8. Gender: M 9. DoD ID: [id number] 10. Service Branch: [employer] 11. Status: 12. Pay Grade: E04 13. Unit Name: [address] 14. Duty Station/Location: [employer] 15. C: [id number] 16. Is this your first Periodic Health Assessment (PHA)?: N 17. Are you enrolled in a secure messaging system with your health care provider?:? N ? 18. Current contact information: Preferred Method: Other Phone DSN: Phone: [phone] EMAIL: [email or web address] Address: [facility] [address] [place] State: [place] Zip Code: [address] ? 19. Point of contact who can always reach you: Name: Marah Cuellar Phone 1: [phone] Phone 2: EMAIL: [email or web address] Address: [facility] [address] [place] [address] State: [place] Zip Code: [address] ? . BEHAVIORIAL HEALTH (MHA) 1. a. [...] watchful or easily startled? No 5. d. [place] numb or detached from others, activities, or [...] like to schedule a visit with a masonry installer or a community support counselor?: No ? PART C. HEALTH CARE PROVIDER I. MENTAL HEALTH ASSESSMENT (MHA) PROVIDER INFORMATION 1. Last Name: NAN 2. First Name: OUMAR 3. Middle Name: May 13. Service Branch: [employer] 5. 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 Title: Nurse Practitioner (EXTENSION COURSE COORDINATOR) 7. EMAIL: [email or web address] 8. Facility: [facility] 9. Unit: [facility] 10. Address: [address] [place] [address] [place] 11. State: [place] 12. Zip Code: [address] 13. Phone: [phone] 14. Date HCP Review initiated: ? 1.? [...] identified concerns needing referrals: None 11. Comments: environmental studies faculty member reported they have not gambled in [...] ? 12. Address requests as reported on environmental studies faculty member questions 7 through 10 (in Procedure Tech Section . Behavioral Health): ? ? Request medical appointment: Noted ? 13. Supplemental services recommended/information provided: ? ? Health Education and Information ? Date MHA Certified: ? ? Extracted from:Title: Virtual MHA Author: OUMAR MONTANA WHNP Date: 07/14/19 1.?EXAM/ASSESSMENT, OCCUPATIONAL, LOSS PREVENTION COORDINATOR PERIODIC HEALTH ASSESSMENT (PHA) ?Virtual MHA was [...] action is needed?at this time. Ordered: Administration,Pt-Foc Hlth [place]es Inst [id number] Brief Comm Tech-Based Svc, Virt, Phys, Est Pt; 5-10 Min Med Dis G2012 ? Addendum by OUMAR MONTANA WHNP on July 14, 2019 14:49:00 [facility] ANNUAL PERIODIC HEALTH ASSESSMENT ? I. LOSS PREVENTION COORDINATOR INFORMATION AND DEMOGRAPHICS (SMI) 1. Last Name: DARRION 2. First Name: KYRA 3. Middle Name: OZ 4. Assessment Date: 5. : 6. Age: 23 7. Social Security Number: [id number] 8. Gender: M 9. DoD ID: [id number] 10. Service Branch: [employer] 11. Status: 12. Pay Grade: E03 13. Unit Name: [address] 14. Duty Station/Location: [place] 15. C: [id number] 16. Is this your first Periodic Health Assessment (PHA)?: N 17. Are you enrolled in a secure messaging system with your health care provider?:? N ? 18. Current contact information: Preferred Method: EMAIL DSN: Phone: [phone] EMAIL: [email or web address] Address: [address] [facility] State: [place] Zip Code: [address] ? 19. Point of contact who can always reach you: Name: AARON MAIER Phone 1: [phone] Phone 2: EMAIL: [email or web address] Address: [address] [facility] State: [place] Zip Code: [address] ? . [facility] (MHA) 1. a. Over the PAST [...] watchful or easily startled? No 5. d. [place] numb or detached from others, activities, or [...] like to schedule a visit with a masonry installer or a community support counselor?: No ? PART C. HEALTH CARE PROVIDER I. MENTAL HEALTH ASSESSMENT (MHA) PROVIDER INFORMATION 1. Last Name: NAN 2. First Name: OUMAR 3. Middle Name: May 13. Service Branch: [employer] 5. 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 Title: Nurse Practitioner (EXTENSION COURSE COORDINATOR) 7. EMAIL: [email or web address] 8. Facility: [facility] 9. Unit: [facility] 10. Address: [address] [facility] [place] [employer] 11. State: [place] 12. Zip Code: [address] 13. Phone: [phone] 14. Date HCP Review initiated: ? 1.? [...] mental health resources were briefly reviewed with THANIA with encouragement to access as needed.? He verbalized understanding. needed. No further action is needed at this time. ? 13. Supplemental services recommended/information provided: ? ? Health Education and Information ? Date MHA Certified: ? ? 04/28/2024 Ambulatory Pharmacy Functional Status Combined list of recent functional and cognitive assessments recorded at [employer] and [employer] (VA).VA Functional [place] Measurement (FIM) Scale: 1 = Total Assistance (Subject = 0% +), 2 = Maximal Assistance (Subject = 25% +), 3 = Moderate Assistance (Subject = 50% +), 4 = Minimal Assistance (Subject = 75% +), 5 = Supervision, 6 = Modified [place] (Device), 7 = Complete [place] (Timely, Safely). Assessment Date/Time Source Assessment Type Assessment Skill Assessment Score Assessment Details No data available for this section
[2024-04-28 10:08] VITALS: BP 129/66; PULSE 69; RESP 16; TEMP 36.7; O2SAT 97; BMI 29.4
== END 2024-04-28 10:40 | disposition home or self-care (01) ==
PROVIDERS: Visit Provider Nurse Practitioner Family
DX: Z00.00 Encounter for general adult medical examination without abnormal findings (principal); F33.1 Major depressive disorder, recurrent, moderate

== ENCOUNTER → 2024-04-28 10:00 | Outpatient (BNVA) | payer OTHER, SELFPAY | PROVIDERS: Visit Provider Nurse Practitioner Family | DX: Z00.00 Encounter for general adult medical examination without abnormal findings (principal); F33.1 Major depressive disorder, recurrent, moderate | CPT/HCPCS: 96127 ==

== ENCOUNTER 2024-06-20 13:19 | Outpatient (REF) | payer OTHER, SELFPAY ==
[2024-06-20 16:47] LABS: Cholesterol 125 mg/dL (<200); HDL Cholesterol 36 mg/dL (>40); LDL Cholesterol Calculated 40 mg/dL (<100); Triglycerides 245 mg/dL (<150)
== END 2024-06-20 13:20 | disposition home or self-care (01) ==
LOC: HO.HMGCLDS 13:19
PROVIDERS: PCP Nurse Practitioner Family; Visit Provider Nurse Practitioner Family
DX: E78.5 Hyperlipidemia, unspecified (principal)
CPT/HCPCS: 36415; 80061

== ENCOUNTER 2024-06-23 15:03 | Outpatient (AMB) | payer OTHER, SELFPAY ==
--- OUTSIDE RECORDS SUMMARY | 2024-06-23 15:07 | XMS_ITS | Continuity of Care Document ---
Author Name [facility] Organization [facility] Care Team Providers Care Power And Recovery Superintendent Name Role Phone [facility] Unavailable Unavailable Problems Combined list of problems from Department of Defense and Veterans Affairs facilities. It does not include entries that were removed or entered in error. 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 Follow up CSP Aug 2021 revelaed single 4mm sigmoid polyp, otherwise unremarkable w/o evidence of diverticulosis. MED GRP-[facility] Dyslipidemia Active Condition C [facility] Ganglion cyst of left dorsal wrist2 Active Condition 3 mm diameter; asymptomatic: 12/2018 Ambulatory Pharmacy Insomnia Active Condition 6753J-AQ-B [facility] LBP - Low back pain Active Condition 5736M-UT-M [facility] Low back pain Active Condition - ND MED GR[facility] Pain of left wrist Active Condition Ambulatory [...] # 473 mL, 0 total refill(s ), [place], [facility] pharmacy dispense (Rx) Oral (given by mouth) Discont inued 11/05/2020 473.0 0128C-9 2ND MED GRP-[facility] RCH[facility] CITALOPRAM HBR (CITALOPRAM HYDROBROMID E), 20MG, TABLET, ORAL, [facility], 500 ea. BOTTLE Cancele d [id number] : 2023 0 Pharmac y Data Transac tion Service Facilit y CITALOPRAM HBR (CITALOPRAM HYDROBROMID E), 20MG, TABLET, ORAL, [facility], 500 ea. BOTTLE Cancele d [id number] : 2023 0 Pharmac y Data Transac tion Service Facilit y CITALOPRAM HBR (CITALOPRAM HYDROBROMID E), 20MG, TABLET, ORAL, [facility], 500 ea. BOTTLE Active [id number] 4 2023 30 Pharmac y Data Transac tion Service Facilit y CITALOPRAM HBR (CITALOPRAM HYDROBROMID E), 20MG, TABLET, ORAL, [facility], 500 ea. BOTTLE Active [id number] 4 2023 30 Pharmac y Data Transac tion Service Facilit y CLONAZEPAM (CLONAZEPAM ), 0.5MG, TABLET, ORAL, TEVA [place], 500 ea. BOTTLE Active [id number] 4 2023 30 Pharmac y Data Transac tion Service Facilit y CLONAZEPAM (clonazepam ), 1 MG, TABLET, ORAL, TEVA [place], 500 ea. BOTTLE Active [id number] 4 2023 8 Pharmac y Data Transac tion Service Facilit y CLONAZEPAM (clonazepam ), 1 MG, TABLET, ORAL, TEVA [place], 500 ea. BOTTLE Active [id number] 4 2023 8 Pharmac y Data Transac tion Service Facilit y clonazePAM 0.5 mg oral tablet 2 tab(s), Oral, Daily, 0 total refill(s ), Maintena nce Oral (given by mouth) Ordered 0310C-A F-C-66t h MED[facility] CLONIDINE HCL (clonidine HCl), 0.1 MG, TABLET, ORAL, [facility], 1000 ea. BOTTLE Active [id number] 4 2023 45 Pharmac y Data Transac tion Service Facilit y CLONIDINE HCL (clonidine HCl), 0.1 MG, TABLET, ORAL, [facility], 1000 ea. BOTTLE Active [id number] 4 2023 45 Pharmac y Data Transac tion Service Facilit y CLONIDINE HCL (clonidine HCl), 0.1 MG, TABLET, ORAL, [facility], 1000 ea. BOTTLE Active [id number] 2023 45 Pharmac y Data Transac tion Service Facilit y CLONIDINE HCL (clonidine HCl), 0.1 MG, TABLET, ORAL, [facility], 1000 ea. BOTTLE Active [id number] 4 2023 45 Pharmac y Data Transac tion Service Facilit y cyclobenzap rine 10 mg oral tablet See Instruct ions, TAKE ONE TABLET BY MOUTH AT BEDTIME NEEDED FOR MUSCLE SPASM, # 21 tab(s), 0 total refill(s ), Acute, Pharmacy : [facility] Complet ed 12/19/2021 21.0 0128C-9 2ND MED GRP-[facility] RCHILD cyclobenzap rine 10 mg oral tablet 1 tab(s), Oral, TID, 0 total refill(s ), Maintena nce Oral (given by mouth) Discont inued 11/18/2021 0128C-9 2ND MED GR[facility] CYCLOBENZAP RINE HCL (cyclobenza dayana HCl), 10 MG, TABLET, ORAL, TEVA [place], 1000 ea. BOTTLE Active [id number] 4 2023 45 Pharmac y Data Transac tion Service Facilit y CYCLOBENZAP RINE HCL (cyclobenza dayana HCl), 10 MG, TABLET, ORAL, TEVA [place], 1000 ea. BOTTLE Active [id number] 2023 45 Pharmac y Data Transac tion Service Facilit y CYCLOBENZAP RINE HCL (cyclobenza dayana HCl), 10 MG, TABLET, ORAL, TEVA [place], 1000 ea. BOTTLE Active [id number] 4 2023 90 Pharmac y Data Transac tion Service Facilit y CYCLOBENZAP RINE HCL (cyclobenza dayana HCl), 10 MG, TABLET, ORAL, TEVA [place], 1000 ea. BOTTLE Active [id number] 4 2023 90 Pharmac y Data Transac tion Service Facilit y escitalopra m 10 mg oral tablet 1 tab(s), Oral, Daily, 0 total refill(s ), Maintena nce Oral (given by mouth) [facility] 0310[facility] ESCITAL[facility]RA [facility] OXALATE (ESCITALOPR AM OXALATE), 10 MG, TABLET, ORAL, [facility], 100 ea. BOTTLE Active [id number] 2023 30 Pharmac y Data Transac tion Service Facilit y ESCITALOPRA M OXALATE (ESCITALOPR AM OXALATE), 10 MG, TABLET, ORAL, [facility]ARM[facility], 100 ea. BOTTLE Active [id number] 2023 30 Pharmac y Data Transac tion Service Facilit y ESCITALOPRA M OXALATE (ESCITALOPR AM OXALATE), 10 MG, TABLET, ORAL, [facility], 100 ea. BOTTLE Active [id number] 4 2023 30 Pharmac y Data Transac tion Service Facilit y ESCITALOPRA M OXALATE (ESCITALOPR AM OXALATE), 10 MG, TABLET, ORAL, [facility], 100 ea. BOTTLE Active [id number] 4 2023 30 Pharmac y Data Transac tion Service Facilit y FENOFIBRATE (fenofibrat e), 54 MG, TABLET, ORAL, [facility], 90 ea. BOTTLE Active [id number] 2023 30 Pharmac y Data Transac tion Service Facilit y FENOFIBRATE (fenofibrat e), 54 MG, TABLET, ORAL, AUROBINDO PHARM, 90 ea. BOTTLE Active [id number] 4 2023 30 Pharmac y Data Transac tion Service Facilit y FENOFIBRATE (fenofibrat e), 54 MG, TABLET, ORAL, AUROBINDO PHARM, 90 ea. BOTTLE Active [id number] 4 2023 30 Pharmac y Data Transac tion Service Facilit y FENOFIBRATE (fenofibrat e,micronize d), 134 MG, CAPSULE, ORAL, AJANTA PHARMA L, 100 ea. BOTTLE Cancele d [id number] : 2023 0 Pharmac y Data Transac tion Service Facilit y FENOFIBRATE (fenofibrat e,micronize d), 134 MG, CAPSULE, ORAL, AJANTA PHARMA L, 100 ea. BOTTLE Active [id number] 4 2023 30 Pharmac y Data Transac tion Service Facilit y FENOFIBRATE (fenofibrat e,micronize d), 134 MG, CAPSULE, ORAL, AJANTA PHARMA L, 100 ea. BOTTLE Active [id number] 2023 30 Pharmac y Data Transac tion Service Facilit y fenofibrate 30 mg oral capsule 1 cap(s), Oral, Daily, # 30 cap(s), 0 total refill(s ), Maintena nce Oral (given by mouth) Ordered 30.0 0310C-A F-C-66t h [facility] IBUPROFEN (ibuprofen) , 800 MG, TABLET, ORAL, TIME-CAP LABS, 500 ea. BOTTLE Active [id number] 4 2023 20 Pharmac y Data Transac tion Service Facilit y IBUPROFEN (ibuprofen) , 800 MG, TABLET, ORAL, TIME-CAP LABS, 500 ea. BOTTLE Active [id number] 4 2023 7 Pharmac y Data Transac tion Service Facilit y ibuprofen 800 mg oral tablet 1 tab(s), Oral, TID, PRN pain, # 30 tab(s), 0 total refill(s ), Acute, 03/17/20 2:00:00 AM [facility], [facility] pharmacy dispense (Rx) Oral (given by mouth) Complet ed 03/17/2020 30.0 0128C-9 2ND MED GRP-[facility] lidocaine 5% topical film 1 patch(es ), Topical, Daily, Leave on for up to 12 hours within a 24 hour period (12 hours on, 12 hours off), # 30 patch(es ), 3 total refill(s ), [facility], Pharmacy : [facility] Topica l (on the skin) Discont inued 04/12/2024 30.0 0128C-9 2ND MED GR[facility] melatonin every day at bedtime, 0 total refill(s ), Maintena nce Discont inued 04/12/2024 0128C-9 2ND MED GR[facility] mupirocin 2% topical ointment 1 appl(s), Topical, TID, X 7 days, # 15 g, 0 total refill(s ), Acute, Pharmacy : [facility] Topica l (on the skin) Complet ed 09/11/2022 15.0 0128C-9 2ND MED [facility] naproxen 500 mg oral tablet 1 tab(s), Oral, BID, # 20 tab(s), 0 total refill(s ), Acute, 12/19/21 2:00:00 AM CDT, Pharmacy : [facility] Oral (given by mouth) Complet ed 12/19/2021 20.0 0128C-9 2ND MED GR[facility] OMEPRAZOLE (omeprazole ), 20 MG, CAPSULE DR, ORAL, [facility], 1000 ea. BOTTLE Active [id number] 2023 30 Pharmac y Data Transac tion Service Facilit y Percocet 5 mg-325 mg oral tablet 1 tab(s), Oral, every 4 hr, PRN pain, # 24 tab(s), 0 total refill(s ), Acute, 03/24/19 2:00:00 AM [employer]PER[employer], [facility] pharmacy dispense (Rx) Oral (given by mouth) Complet ed 03/24/2019 24.0 0128C-9 2ND MED [facility] PRAZOSIN HCL (prazosin HCl), 1 MG, CAPSULE, ORAL, NOVITIUM/AN I PH, 100 ea. BOTTLE Active [id number] 4 2023 30 Pharmac y Data Transac tion Service Facilit y PRAZOSIN HCL (prazosin HCl), 1 MG, CAPSULE, ORAL, NOVITIUM/AN I PH, 100 ea. BOTTLE Active [id number] 2023 30 Pharmac y Data Transac tion Service Facilit y PRAZOSIN HCL (prazosin HCl), 1 MG, CAPSULE, ORAL, NOVITIUM/AN I PH, 100 ea. BOTTLE Active [id number] 4 2023 30 Pharmac y Data Transac tion Service Facilit y PRAZOSIN HCL (prazosin HCl), 1 MG, CAPSULE, ORAL, NOVITIUM/AN I PH, 100 ea. BOTTLE Active [id number] 4 2023 30 Pharmac y Data Transac tion Service Facilit y PRAZOSIN HCL (prazosin HCl), 1 MG, CAPSULE, ORAL, NOVITIUM/AN I PH, 100 ea. BOTTLE Active [id number] 2023 30 Pharmac y Data Transac tion Service Facilit y PRAZOSIN HCL (prazosin HCl), 1 MG, CAPSULE, ORAL, NOVITIUM/AN I PH, 100 ea. BOTTLE Active [id number] 4 2023 20 Pharmac y Data Transac tion Service Facilit y TRAZODONE HCL (trazodone HCl), 50 MG, TABLET, ORAL, TEVA [place], 100 ea. BOTTLE Active [id number] 4 2023 15 Pharmac y Data Transac tion Service Facilit y TRAZODONE HCL (trazodone HCl), 50 MG, TABLET, ORAL, TEVA [place], 100 ea. BOTTLE Active [id number] 4 2023 15 Pharmac y Data Transac tion Service Facilit y TRAZODONE HCL (trazodone HCl), 50 MG, TABLET, ORAL, TEVA [place], 100 ea. BOTTLE Active [id number] 4 2023 15 Pharmac y Data Transac tion Service Facilit y TRAZODONE HCL (trazodone HCl), 50 MG, TABLET, ORAL, TEVA [place], 100 ea. BOTTLE Active [id number] 2023 15 Pharmac y Data Transac tion Service Facilit y TRAZODONE HCL (trazodone HCl), 50 MG, TABLET, ORAL, TEVA [place], 100 ea. BOTTLE Active [id number] 4 2023 30 Pharmac y Data Transac tion Service Facilit y TRAZODONE HCL (trazodone HCl), 50 MG, TABLET, ORAL, TEVA [place], 100 ea. BOTTLE Active [id number] 4 2023 30 Pharmac y Data Transac tion Service Facilit y Tylenol Oral, 0 total refill(s ), Maintena nce Oral (given by mouth) Discont inued 09/16/2022127C-9 2ND MED GRP[facility]CHILD Tylenol 325 mg oral tablet 1 tab(s), Oral, every 4 hr, PRN pain or fever, # 100 tab(s), 0 total refill(s ), Acute, 12/19/21 2:00:00 AM CDT, Pharmacy : [facility] Oral (given [...] Known Allergies Drug allergy (disorder) active 09/16/2022 [facility] [place] [place] Immunizations Combined list of available immunizations from the Department of Defense and Veterans Affairs facilities. Immunization Series Date Given Administered By Site Reaction Lot Number CVX Code Drug Graves Registration Specialist Status Comments Source influenza, injectable, quadrivalent- pf 2021 GENEVIEVERCAN ETE [id number] 150 complet ed Result Comment: Route: Unknown Manufactu rer: OTH (SKB) 127C-9 2ND MED GR[facility]CHILD COVID Vaccine Pfizer 2020 Geraldine er Shoul sung, left (delt oid) [id number] PFIZER complet ed COVID Vaccine Pfizer 08/20/20 Given 127C-9 2ND MED GRP-[facility] RCHILD COVID Vaccine Pfizer 2020 RUCHIBRYAN Vaughan sung, left (delt oid) [id number] 208 PFIZER complet ed COVID Vaccine Pfizer 08/01/20 Given 0128C-9 2ND MED GRP-MAR[facility]ETH RCHILD Human Papillomaviru s 9-valent vaccine 2018 CAPTGENEVIEVE RCANETE [id number] 165 complet ed Result Comment: Route: Unknown Manufactu rer: OTH (MSD) 0128C-9 2ND MED GRP-MAR[facility]ETH RCHILD human papillomaviru s vaccine 2018 Sivakumar Morley t Arm [id number] 165 [employer] complet ed human papilloma virus vaccine 11/09/18 Given 0128C-9 2ND MED GRP-MARIBETH RCHILD Human Papillomaviru s 9-valent vaccine 2018 GENEVIEVERCAN ETE [id number] 165 complet ed Result Comment: Route: Unknown Manufactu rer: OTH (MSD) 0128C-9 2ND MED GRP-MAR[facility] RCHILD Human Papillomaviru s 9-valent vaccine 2017 GENEVIEVERCAN ETE [id number] 165 complet ed Result Comment: Route: Unknown Manufactu rer: OTH (MSD) 0128C-9 2ND MED GRP-MAR[facility]ETH RCHILD hepatitis B adult vaccine 2017 [id number] GlaxoSmithKli ne complet ed hepatitis B adult vaccine 11/15/17 Given Ambulat ory Pharmac y hepatitis B vaccine, adult dosage 1 2017 [id number] 43 GenomOncologyKline (SKB) complet ed hepatitis B vaccine, adult dosage DoD hepatitis B adult vaccine 2017 [id number] 43 GlaxoSmithKli ne complet ed hepatitis B adult vaccine 10/06/17 Given Ambulat ory Pharmac y hepatitis B vaccine, adult dosage 1 2017 [id number] 43 SmithKline (SKB) complet ed hepatitis B vaccine, adult dosage DoD adenovirus vaccine, live 2017 [id number] 143 Teva Pharmaceutica complet ed adenoviru s vaccine, live 09/29/17 Given Ambulat ory Pharmac y tetanus, diphtheria, acellular pertu is 2017 [id number] GlaxoSmithKli ne complet ed tetanus, diphtheri a, acellular pertussis 09/29/17 Given Ambulat ory Pharmac y meningococcal A,C,Y,W-135 (MCV4P) 2017 [id number] 114 sanofi pasteur complet ed meningoco [...] diphtheria toxoid conjugate vaccine (MCV4P) 1 2017 [id number] F 114 Sanofi Pasteur (PMC) complet ed meningoco ccal polysacch aride (groups A, C, Y and W-135) diphtheri a toxoid conjugate vaccine (MCV4P) DoD tetanus toxoid, reduced diphtheria toxoid, and acellular pertu is vaccine, adsorbed 1 2017 [id number] 115 Metrum [place] (SKB) complet ed tetanus toxoid, reduced diphtheri a toxoid, and acellular pertussis vaccine, adsorbed DoD Adenovirus, type 4 and type 7, live, oral 1 2017 [id number] 143 [facility] (BRR) complet ed Adenoviru s, type 4 and type 7, live, oral DoD Influenza, injectable, Madin [place] Canine Kidney, quadrivalent with preservative 1 2017 [id number] 186 Seqirus (SEQ) comple t ed Influenza [...] Reference Range Date Interpretation Specimen Comments Source Infectiou s Disease HIV-1/O/2 Non-Reac tive 9 (12/24/23 10:39 [...] Prevention' s HIV diagnostic algorithm. Refer to [facility] Lab Guide for additional information : [email or web address]. [email or web address]/ [email or web address] [email or web address] x Testing performed by Osmany tate 5600A-US AFSAM EPILAB Miscellan eous Sendouts Repository Sample Received (12/24/23 10:39 AM) 12/23 N 5600A-US AFSAM EPILAB Infectiou s Disease HIV-1/O/2. EPI NON-REAC TIVE 11/04 Result [...] Prevention' s HIV diagnostic algorithm. Refer to [facility] Lab Guide for additional information : [email or web address]. [email or web address]/ [email or web address]/EPIL [email or web address] [email or web address] x Testing performed by Osmany peck. Performed by: Epidemiolog y Laboratory Service [facility]/[place] [address] [place] [address], [place] [address] 012C [place] MED GRP-FAIR CHILD Miscellan eous Sendouts Repository Sample.EPI RECEIVED 11/04 Result Comment: INTERPRETAT ION(S): Performed by: Epidemiolog y Laboratory Service [facility] [address] [place] [address], [place] [address] 127C [place] [facility] GRP[facility] CHILD Molecular Infectiou s Disease Reason for Test? Diagnosi s ( 1 9:28 AM) 04/25 N - [place] [facility]IR CHILD Molecular Infectiou s Disease SARS-CoV-2 PCR SEE COMMENT 04/25 Result [...] for this test is supported by the Banquet Manager of Health and Human Service s (HHS [...] the test may no longer be used). [place] [facility] CH[facility] Infectiou s Disease SARS-CoV-2 ANTIGEN Negative (01/15/21 7:53 AM) 01/15 N 0128C-92 [place] [facility] CHILD Infectiou s Disease Flu A Rapid Ag Neg (01/15/21 7:53 AM) 01/15 N 0128C-92 [place] [facility] Infectiou s Disease Flu B Rapid Ag Neg (01/15/21 7:53 AM) 01/15 N 127C-92 [place] [facility] CH[facility] Infectiou s Disease Reason for Test? Diagnosi s (01/15/21 7:53 AM) 01/15 N 8C-92 [place] [facility]FAIR CHILD Molecular Infectiou s Disease SARS-CoV-2 PCR Negative 12, (01/15/21 7:53 AM) 01/15 N Result Comment: [...] for this test is supported by the Arab of Health and Human Service s (HHS [...] the test may no longer be used). 0128C- [place] [facility] CHILD Molecular Infectiou s Disease Reason for Test? Diagnosi s (01/15/21 7:53 AM) 01/15 N 0128C- [place] [facility] CH[facility] Infectiou s Disease SARS-CoV-2 ANTIGEN Negative (12/13/20 8:02 AM) 12/13 N 0128C-92 [place] [facility]IR CHILD Infectiou s Disease Flu A Rapid Ag Neg (12/13/20 8:02 AM) 12/13 N 0128- [facility] GRP-FAIR CHILD Infectiou s Disease Flu B Rapid Ag Neg (12/13/20 8:02 AM) 12/13 N 0128 [facility] GRP-FAIR CHILD Infectiou s Disease Reason for Test? Diagnosi s (12/13/20 8:02 AM) 12/13 N 0128- [place] [facility]-ON LICENSE OF [facility] CHILD Molecular Infectiou s Disease SARS-CoV-2 PCR Negative 14 (12/13/20 8:02 [...] for this test is supported by the Arab of Health and Human Service s (HHS [...] the test may no longer be used). 0128 [facility]-ON LICENSE OF [facility] CHILD Molecular Infectiou s Disease Reason for Test? Diagnosi s (12/13/20 8:02 AM) 12/13 N 0128 [facility]-ON LICENSE OF [facility] CHILD Infectiou s Disease HIV-1/O/2. EPI NON-REAC TIVE 10/25 Result [...] Prevention' s HIV diagnostic algorithm. Refer to [facility] Lab Guide for additional information : [email or web address] [email or web address] Testing performed by Electrochem leandro peck. Performed by: Epidemiolog y Laboratory Service [facility]/[employer] [facility] [address] [place] [address], [place] [address] 0128C-92 [place] MED GRP-FAIR CHILD Miscellan eous Sendouts Repository Sample.EPI RECEIVED 10/25 Result Comment: INTERPRETAT ION(S): Performed by: Merchant Exchangeiolog y Laboratory Service [facility]/[employer] [facility] [address] [place] [address], [place] [address] 0128C-92 [place] [facility] GRP-[facility] CHILD Immunolog y/Serolog y Hep B Surface Ag Non-Reac tive 1 (10/26/19 11:16 AM) 10/25 N Interpretiv e Data: Note to [facility] Physicians: = Acute Hepatitis A, B, or C is a reportable illness. If these results indicate acute hepatitis, please forward the results to PM,DOCTOR . Preventive Medicine will contact the patient to begin contact tracing. 0125A-AM C [place] Immunolog y/Serolog y Hep B Surface Ab Reactive *ABN* (10/26/19 11:16 AM) 10/25 A 0125A-AM C [place] Immunolog y/Serolog y Hep C Ab Non-Reac tive (10/26/19 11:16 AM) 10/25 N 0125A-AM C [place] Immunolog y/Serolog y Hep A Ab Reactive *ABN* (10/26/19 11:16 AM) 10/25 A 0125A-AM C [place] Immunolog y/Serolog y Hep B Core Ab Non-Reac tive (10/26/19 11:16 AM) 10/25 N 0125A-AM C [place] Immunolog y/Serolog y Syphilis Screen Non-Reac tive (10/26/19 11:16 AM) 10/25 N 0125A-AM C [place] Immunolog y/Serolog y Hep A Ab IgM Non-Reac tive (10/26/19 11:16 AM) 10/25 N 0125A-AM C [place] Infectiou s Disease Chlamydia NAAT.EPI NEGATIVE 10/25 Result Comment: INTERPRETAT ION(S): 0128C-92 [place] MED [facility] CHILD Infectiou s Disease GC NAAT.EPI NEGATIVE 10/25 Result Comment: [...] 0.5% for GC. At this prevalence, the manufacture r estimates the overall sensitivity and specificity for CT to be 94.1% and 99.6% respectivel y. For GC the sensitivity and specificity rates are 97.1% and 99.8%. The Positive Predictive Value and the Negative Predictive Value calculated by the [employer] using the above clinical trial data are [...] : NAAT Notifiable result/cond ition for Local/State PH department. Notify your local public health immediately for proper notificatio n. Performed by: Epidemiolog y Laboratory Service [facility] [address]ld[address]. [address] [place] [phone] 0128C [place] [facility] Vital Signs Combined list of inpatient and outpatient Vital Signs from Department of Defense and Veterans Affairs, ranging from 12 months to all on record, depending upon the facility. Vital Sign Value Date Comments Source Systolic Blood Pressure 120 mm[Hg] 12/13/2020 14:55:00 0128C- [facility] Diastolic Blood Pressure 83 mm[Hg] 12/13/2020 14:55:00 0128CND [facility] Mean Arterial Pressure, Calc 95 mm[Hg] 12/13/2020 14:55:00 0128C-ND [facility] Peripheral Pulse Rate 66 bpm 12/13/2020 14:55:00 0128C [facility] Respiratory Rate 16 br/min 12/13/2020 14:55:00 0128C [facility] Temperature Tympanic 36.8 Anupama 12/13/2020 14:55:00 0128C-92ND MED GRP-ABDIEL Respiratory Rate 16 br/min 11/09/2018 17:27:00 0128C-92ND MED GRP-ABDIEL Temperature Oral 36.7 Anupama 11/09/2018 17:27:00 0128C-92ND MED GRP[facility]AB[facility]EL Peripheral Pulse Rate 79 bpm 11/09/2018 17:27:00 0128C-92ND MED GRP-ABDIEL Systolic Blood Pressure 111 mm[Hg] 11/09/2018 17:27:00 0128C-92ND MED GRP[facility]AB[facility]EL Diastolic Blood Pressure 67 mm[Hg] 11/09/2018 17:27:00 0128C-92ND MED GR[facility] Blood Pressure Method Automatic 11/09/2018 17:27:00 0128C-92ND MED GRP[facility] Mean Arterial Pressure, Calc 82 mm[Hg] 11/09/2018 17:27:00 0128C-92ND M ED GRP-ABDIEL Systolic Blood Pressure 127 mm[Hg] 07/28/2021 14:37:00 0128C-92ND MED GRP[facility]EL Diastolic Blood Pressure 81 mm[Hg] 07/28/2021 14:37:00 0128C-92ND MED GRP[facility] Mean Arterial Pressure, Calc 96 mm[Hg] 07/28/2021 14:37:00 0128C-92ND M ED GRP-ABDIEL Peripheral Pulse Rate 79 bpm 07/28/2021 14:37:00 0128C-92ND MED GRP[facility] Respiratory Rate 16 br/min 07/28/2021 14:37:00 0128C-92ND MED GRP[facility] BP Site Left arm 07/28/2021 14:37:00 0128C -92ND MED GRP[facility]AB[facility] Blood Pressure Manual Automatic 07/28/2021 14:37:00 0128C-92ND MED GR[facility] Systolic Blood Pressure 126 mm[Hg] 12/01/2021 17:24:00 0128C-92ND MED GR[facility] Diastolic Blood Pressure 80 mm[Hg] 12/01/2021 17:24:00 0128C-92ND MED GRP[facility]ABDIEL Mean Arterial Pressure, Calc 95 mm[Hg] 12/01/2021 17:24:00 0128C-92ND M ED GRP-ABDIEL Peripheral Pulse Rate 87 bpm 12/01/2021 17:24:00 0128C-92ND MED [facility] Respiratory Rate 16 br/min 12/01/2021 17:24:00 0128C-92ND MED GR[facility] Temperature Oral 36.9 Anupama 12/01/2021 17:24:00 0128C-92ND MED GRP[facility]AB[facility] BP Site Right arm 12/01/2021 17:24:00 0128C -92ND MED GRP[facility] Blood Pressure Manual Automatic 12/01/2021 17:24:00 0128C-92ND MED [facility] Systolic Blood Pressure 120 mm[Hg] 01/15/2021 15:11:00 0128C-92ND MED [facility] Diastolic Blood Pressure 79 mm[Hg] 01/15/2021 15:11:00 0128C-92ND MED GRP[facility]AB[facility]EL Mean Arterial Pressure, Calc 93 mm[Hg] 01/15/2021 15:11:00 0128C-92ND M ED GRP-ABDIEL Peripheral Pulse Rate 81 bpm 01/15/2021 15:11:00 0128C-92ND MED GRP[facility] Respiratory Rate 16 br/min 01/15/2021 15:11:00 0128C-92ND MED GRP[facility]AB[facility] Temperature Oral 37.1 Anupama 01/15/2021 15:11:00 0128C-92ND MED GRP-ABDIEL BP Site Left arm 01/15/2021 15:11:00 0128C -92ND MED GRP-AB[facility]EL Blood Pressure Manual Automatic 01/15/2021 15:11:00 0128C-92ND MED GRP[facility] Temperature Oral 36.9 Anupama 12/01/2021 17:00:00 0128C-92ND MED GRP[facility]AB[facility]EL Peripheral Pulse Rate 87 bpm 12/01/2021 17:00:00 0128C-92ND MED GRP[facility]AB[facility]EL Systolic Blood Pressure 126 mm[Hg] 12/01/2021 17:00:00 0128C-92ND MED GRP[facility]AB[facility]EL Diastolic Blood Pressure 80 mm[Hg] 12/01/2021 17:00:00 0128C-92ND MED GRP-ABDIEL Mean Arterial Pressure, Calc 95 mm[Hg] 12/01/2021 17:00:00 0128C-92ND M ED GRP-ABDIEL Temperature Oral 36.8 Anupama 12/28/2018 16:11:00 0128C-92ND MED GRP-ABDIEL Peripheral Pulse Rate 54 bpm 12/28/2018 16:11:00 0128C-92ND MED GRP-ABDIEL Systolic Blood Pressure 115 mm[Hg] 12/28/2018 16:11:00 0128C-92ND MED GRP-ABDIEL Diastolic Blood Pressure 65 mm[Hg] 12/28/2018 16:11:00 0128C-92ND [facility] Respiratory Rate 16 br/min 12/28/2018 16:11:00 0128C-92ND [facility] Mean Arterial Pressure, Calc 82 mm[Hg] 12/28/2018 16:11:00 0128C-92ND M ED [facility] Systolic Blood Pressure 121 mm[Hg] 09/16/2022 14:55:00 0128C-92ND [facility] Diastolic Blood Pressure 80 mm[Hg] 09/16/2022 14:55:00 0128C-92ND [facility] Mean Arterial Pressure, Calc 94 mm[Hg] 09/16/2022 14:55:00 0128C-92ND M ED [facility] Peripheral Pulse Rate 76 bpm 09/16/2022 14:55:00 0128C-92ND [facility] Respiratory Rate 14 br/min 09/16/2022 14:55:00 0128C-92ND [facility] Temperature Oral 36.7 Anupama 09/16/2022 14:55:00 0128C-92ND [facility] BP Site Left arm 09/16/2022 14:55:00 0128C -92ND [facility] Blood Pressure Manual Automatic 09/16/2022 14:55:00 0128C-92ND [facility] Encounters Combined list of: 1) Encounters from Department of Veterans Affairs facilities going backup to the last 18 months, not all VA inpatient encounters are included; 2) Encounters from the Department of Defense facilities going backup to 280 months. Location Location Details Encounter Type Encounter Number Reason For Visit Attending Provider ADM Date DC Date Status Disposition Source [facility] [place] [address](Formerly [facility]) OUTPATIENT [id number] Notes Entered by: ANUJ CASTANEDA 07 Oct 2017 1029 ------- ------- ------- ------- -- Strep Prophyl axis ALETHA CASTANEDA 10/07 [facility]ased w/o Limitations [facility] [place] [place] [address]([facility] d) NELA [facility] [place] [address]([facility] Conserv[facility] ion, BMT) OUTPATIENT [id number] CATRACHO SPAULDING 10/08 Released w/o Limitations [facility] [place] [address]([facility] e[facility] Conserv ation, BMT) [employer]([facility]) OUTPATIENT [id number] Notes Entered by: Luz Marina SMITH 19 Jan 2018 0659 ------- ------- ------- ------- -- SICK CALL - Insect ite swollen on right hand middle finger/ Right leg back thigh SURENDRA DAVILA 01/19 Released w/o Limitations [employer]( [facility] ) [employer]([facility]) OUTPATIENT [id number] Notes Entered by: EMILY MAYORGA 19 Jan 2018 1601 ------- ------- ------- ------- [facility] Released w/o Limitations [employer]([facility]) 0310C-AF- C-66th [facility] [id number] KAELA WILCOX 10/20 Discharge Disposition: Home or Self Care 0310C-A F-C-66t h [facility] 0310A-AF- C-66th [facility] Between Visit [id number] 10/25 Discharge Disposition: Home or Self Care 0310A-A F-C-66t h [facility] [id number] AMDS Outpatient [id number] RALPH CORONA 01/10 Discharge Disposition: Home or Self Care [id number] AMDS 0C-AF- C-66 [facility] [id number] Adjustm ent disorde r, unspeci fied,Hy perlipi demia, unspeci fied,EX AM/ASSE SSMENT, 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 Procedure Procedure Type Code Date Perfomer Comments Nirav clayton Diagnostic colonoscopy 08/05/19 22 0128C-92ND MED [facility] LD WTEx4 0C-AF-C- 66th [facility] ECG 12-Lead With Interpretation And Report ECG 12-Lead With Interpretation And Report [id number] 01/31/20 18 PAPO ORDOÑEZ [facility] Threshold Audiogram (Pure Tone) Threshold Audiogram (Pure Tone) 43137 10/09/19 18 MARISOL MERINO [facility] Physician Supervised Injection Intramuscular Antibiotic Physician Supervised Injection Intramuscular Antibiotic [id number] 10/08/19 18 ALETHA CASTANEDA [facility] ELECTROCARDIOGRAM, ROUTINE ECG WITH AT LEAST 12 LEADS; WITH INTERPRETATION AND REPORT 01/20/20 18 [facility] PURE TONE AUDIOMETRY (THRESHOLD); AIR ONLY 10/09/19 18 [facility] THERAPEUTIC, PROPHYLACTIC, OR DIAGNOSTIC INJECTION (SPECIFY SUBSTANCE OR DRUG); SUBCUTANEOUS OR INTRAMUSCULAR 10/08/19 18 [facility] Social History Combined list of available [...] WILLA CARDOSO NP Date: 04/12/24 1.?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 ? 2.?Dyslipidemia ?Continue?Fenofibrate,?and?follo w a healthy diet limiting saturated fats (red [...] be discussing disconsolation with Psychiatrist.? Willa Cardoso CTR?CONVEYOR SYSTEM DISPATCHER-C [facility] Provider Flight Medicine? [address]?[place]??[address] [facility] [phone] ? 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 Willa Cardoso CTR?CONVEYOR SYSTEM DISPATCHER-C [facility] Provider Flight Medicine? [address]?[place]??[address] [facility] [phone] ? Extracted from:Title: LBP Profile f/u Author: [...] minutes.? Pt to f/u with PCM at [facility] to request PT as he will benefit [...] imaging, other diagnostic testing via the [facility] Janice Patient Portal. ? -A total of approximately? 30 minutes- 11042? ( Face to face ? 20 minutes??) ? Date of service:? ?10?_?September 2022? with the following actions?below and as applicable based on this EHR as above: ? reviewing?previous notes?and/or specialty notes, including JLV x lszj-jo-pxez w/ pt x medical charting including documenting [...] medical?board 5 minutes spent updating immunizations on janice in reconciliation w/IMR ? _ please see attached documents: ekg, pft, or?consent forms in [facility] chart ? ?Follow up?PRN. -Portions of this note were scribed by my medical administrative(s). I have verified the information and medical decision making is my own. ? YES:Reviewed pertinent?Mental Health Screening scores below?- pt is low risk.?Pt denies suicidal or homicidal ideations No?CSSRS YES:?AARON -7? YES:?PHQ- 9? No?[place] No?MoCA No?Audit No?PCL/PTSD Screening ? //SIGNED// XENIA Tran, ?, [facility], [place] Family Nurse Practitioner? [facility], [address] [employer], [place] [phone] ? Ordered: lidocaine topical(lidocaine 5% topical film), [...] Acute, 11/16/2022, 1 tab(s) Oral BID, [facility] [Not filled] acetaminophen(Tylenol 325 mg oral tablet), 1 tab(s), Oral, every 4 hr, PRN pain or fever, # 30 tab(s), 0 total refill(s), Acute, 11/16/2022, 1 tab(s) Oral every 4 hr,PRN:pain or fever, Pharmacy: [facility] [Not filled] ? 2.?Acute stress reaction [...] down ?- unable to reconcile meds/history/immunizations as janice system was down at the time of [...] imaging, other diagnostic testing via the [facility] [email or web address] Patient Portal. ? -A total of approximately? 30 minutes- 89026? ( Face to face ? 20 minutes??) ? Date of service:? ?25?_?Aug 2022? with the following actions?below and as applicable based on this EHR as above: ? ?reviewing?previous notes?and/or specialty notes x mmhp-pf-tkvp w/ pt x medical charting including documenting [...] documents: ekg, pft, or?consent forms in [facility] [employer]Works chart ? ?Follow up?PRN. -Portions of this note were scribed by my medical administrative(s). I have verified the information and medical decision making is my own. ? YES:Reviewed pertinent?Mental Health Screening scores below?- pt is low risk.?Pt denies suicidal or homicidal ideations ? No?CSSRS ? YES:?AARON -7? ? YES:?PHQ- 9? ? No?[place] ? No?MoCA ? No?Audit ? No?PCL/PTSD Screening ? ? //SIGNED// XENIA Tran, ?, [facility], [place] Family Nurse Practitioner? [facility], [address] [facility], [place] [phone] ? Ordered: mupirocin topical(mupirocin 2% topical ointment), 1 appl(s), Topical, TID, X 7 days, # 15 g, 0 total refill(s), Acute, 1 appl(s) Topical TID,x7 days, Pharmacy: [facility] [Not filled] Referral Request 2.0 ? 2.?Male erectile dysfunction, unspecified same as above ? ? 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 Reviewed e2766. No new specific concerns identified in past medical or family history when compared to the PHAQ. All information was updated to the e2766 as needed. Electronic records reviewed to include member s summary and drivability technician's Record Review section of PHAQ which [...] have been accomplished. Follow up?PRN. ? Arturo Jorgensen. Santos, GLORIA, CARA? [address] [facility]? [place], [place]? ANNUAL PERIODIC HEALTH ASSESSMENT ? I. NEONATAL PEDIATRIC NURSE INFORMATION AND DEMOGRAPHICS (SMI) 1. Last Name: DARRION 2. First Name: KYRA 3. Middle Name: OZ 4. Assessment Date: 5. : 6. Age: 26 7. Gender: M 8. DoD ID Number: [id number] 9. Service Branch: [employer] 10. 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 Pay Grade: E04 13. Unit Name: [address] [place] [address] 14. Duty Station/Location: [place] 15. [facility]: [id number] 16. Is this your first Periodic Health Assessment (PHA)?: N 17. Are you enrolled in a secure messaging system with your health care provider?:? N ? 18. Current contact information: Preferred Method: Day Time Phone DSN: [id number] Day Time Phone: [phone] Night Time Phone: Email 1: [email or web address] Email 2: Address: [address] City: [facility] State: [place] Zip Code: [address] ? 19. Point of contact who can always reach you: Name: Marah Cuellar Phone 1: [phone] Phone 2: EMAIL: [email or web address] Address: [address] [place] [address] [facility] City: [place] State: [place] Zip Code: [address] ? II. DEPLOYMENT INFORMATION (DEP) 1. [ Never deployed ] Total number of deployments in the PAST 5 YEARS 4. [ N ] Are you going to deploy within the NEXT 120 DAYS? ? III. OCCUPATIONAL INFORMATION (OCC) 1? [ [id number] ] What is your occupational code 2. [...] easily startled? 6. d. [ No ] [place] numb or detached from others, activities, or your surroundings? 6. e. [ Not answered ] [place] guilt or unable to stop blaming yourself [...] like to schedule a visit with a hadoop admin, mental health care provider, or a community [...] 8. [ tylenol ] What prescriptions or bluy-qwb-boxnppb medications are you CURRENTLY taking for health [...] any health concerns? ? XI. SEPARATION AND SENIOR LIVING 1. [ No ] Are you planning to separate or retire within the next year from Active Duty or [place] Duty (activated for greater than 30 continuous days) OR do you intend to file a claim for disability compensation with the [employer]? ? PART B. RECORD REVIEW AND RECOMMENDATIONS I. RECORD REVIEWER INFORMATION 1. Last Name: BEATA 2. First Name: FELISA 3. Middle Name: JOSSIE 4. Service Branch: [employer] 5. 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 EMAIL: [email or web address] 8. Facility: MEDICAL 9. Unit: [address] [place] [address] 10. Address: [address] [place] [address] 11. State: [place] 12. Zip Code: [address] 13. 14. Date Record Review: ? II. MEDICAL SCREENING 1. [ ] Date of food court team member's most recent PHA 2. [ 5 feet 8 inches? ?Date: ] food court team member's most recently documented height 3. [ 182 pounds? Date: ] food court team member's most recently documented weight 4. [ 126/80? Date: ] food court team member's most recently documented blood pressure reading 5. [ No ] Does the food court team member have a history of abnormal blood pressure since their last PHA? 6. [ Yes ] Does the food court team member have a laboratory test of sickle cell trait documented in their permanent medical record? 7. [ No Cholesterol Test Documented ] What is the date of the food court team member's most recently documented cholesterol test? 9. [ tylenol ]? List of food court team member's active medications listed in their permanent medical record 10. [ Yes: tylenol ] Is there a discrepancy between the active medication record review and the food court team member's self-reported list of medications? 11. [ 05/30/21 ER, diverticulitis 08/04/21-09/29/21 PTx, dorsalgia ] List documented significant care the food court team member has received since their last PHA from a provider OUTSIDE the Health System 12. [ Yes: 05/30/21 ER, diverticulitis 08/04/21-09/29/21 PTx, dorsalgia ] Is there a discrepancy between the food court team member's list of OUTSIDE care (from OT5), and the OUTSIDE care found in the record? 13. [ 03/31/21-12/02/21 MH 07/28/21 ER f/u and mild back pain 11/18/21 low back pain 12/01/21 CSP and LBP ] List documented significant care the food court team member has received since their last PHA from a provider INSIDE the Health System 15. [ Not Answered ] Confirm that vaccine exemptions are listed in the medical record for each vaccine listed ? IV. FAMILY HISTORY AND LIFESTYLE 1. [ Yes ]? Does the [id number] reflect the food court team member's reported family history? ? VII. INDIVIDUAL MEDICAL READINESS 1. [ No ] Does the food court team member have an Assignment Limitation Code C? 3. [ Classification: 1 ] Most recently documented dental exam 4. [ Yes ] Is the food court team member current on all required immunizations in the immunization tracking system? 6. Does the food court team member have the following laboratory tests documented [...] need to be forwarded to the Health Social Insurance Analyst completing PART C: ? ? Date Record Review Completed: PART C. HEALTH CARE PROVIDER I. MENTAL HEALTH ASSESSMENT (MHA) PROVIDER INFORMATION 1. Last Name: Nader 2. First Name: Demond 3. Middle Name: 4. Service Branch: [employer] 5. 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 EMAIL: [email or web address] 8. Facility: MEDICAL 9. Unit: [facility] 10. Address: [address] [place] [address] 11. State: [place] 12. Zip Code: [address] 13. 14. Date HCP Review initiated: ? [...] ? 12. Address requests as reported on food court team member questions 7 through 10 (in Yardage Control Clerk Section . Behavioral Health): ? ? Request medical appointment: Appt is scheduled ? 13. Supplemental services recommended/information provided: ? ? No supplemental services required ? Date A Certified: ? III. PERIODIC HEALTH ASSESSMENT (PHA) PROVIDER INFORMATION 1. Last Name: Santos 2. First Name: Arturo 3. Middle Name: 4. Service Branch: [employer] 5. 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 Title: Physician Mold Press Operator (PA) 7. EMAIL: [email or web address] 8. Facility: [facility] 9. Unit: [address] 10. Address: [address] [place] [address] 11. State: [place] 12. Zip Code: [address] 13. 14. Date HCP Review initiated: ? IV. PERIODIC HEALTH ASSESSMENT PROVIDER RECOMMENDATIONS and REFERRALS 1. Provider concerns with this assessment: No issues or concerns identified ? V. SUMMARY AND COMMENTS 1. Additional information summarizing findings during the food court team member assessment: ? 2. Provider Comments: SM already had appointment with PCM since PHAQ was completed. ? . INDIVIDUAL MEDICAL READINESS DISPOSITION DETERMINATION ? ? MIKE: Not Ready? ? DEN: Ready? ? IMM: Ready? ? LAB: Ready? ? ME: Ready ? ? IMR Status: Not Medically Ready ? VII. SERVICE MEDICAL DEPLOYABILITY EVALUATION INDICATED Based on your review of all documentation, is the food court team member medically deployable without limitations?? Reference Mignon 6490.07 ? ?No (food court team member currently has a medical condition that DOES require duty limitation(s) AND limits deployability) ? Date PHA Completed: ? END OF [id number] REPORT ? [facility] Review Summary ? [ No ] Does [...] labs, imaging, other diagnostic testing via the [facility] Patient Portal. ? -A total of? 20-29?min. with the following actions?below and as applicable based on this EHR as above: ? x?reviewing?previous notes?and/or specialty notes x froq-ld-aupe w/ pt x medical charting including documenting [...] this note were scribed by my medical administrative(s). I have verified the information and medical decision making is my own. ? Not on PRP, flying status, AuOf. No indication for new or modified FR/DR/MR at this time.? Will not be extending pt's profile unless rehab with PT for LBP. ? //Electronically signed// ? BREN ANDRADE, XENIA, [employer]?, [employer], [place] Family Nurse Practitioner? 2.?Low back pain Acute, [...] labs, imaging, other diagnostic testing via the [facility] Patient Portal. ? -A total of? 20-29?min. [...] this note were scribed by my medical administrative(s). I have verified the information and medical decision making is my own. ? Not on PRP, flying status, AuOf. new x30 days for FR/DR/MR at this time. ? //Electronically signed// ? BREN ANDRADE, SHI-C, [employer]?, [employer], [place] Family Nurse Practitioner? Ordered: cyclobenzaprine(cyclobenzaprine 10 mg oral tablet), See Instructions, TAKE ONE TABLET BY MOUTH AT BEDTIME NEEDED FOR MUSCLE SPASM, # 21 tab(s), 0 total refill(s), Acute, TAKE ONE TABLET BY MOUTH AT BEDTIME NEEDED FOR MUSCLE SPASM, Pharmacy: [facility] [Not filled] ? Orders: naproxen(naproxen 500 mg oral tablet), 1 tab(s), Oral, BID, # 20 tab(s), 0 total refill(s), Acute, 12/19/2021, 1 tab(s) Oral BID, Pharmacy: [facility] [Not filled] acetaminophen(Tylenol 325 mg oral tablet), 1 tab(s), Oral, every 4 hr, PRN pain or fever, # 100 tab(s), 0 total refill(s), Acute, 12/19/2021, 1 tab(s) Oral every 4 hr,PRN:as needed for pain or fever, Pharmacy: [facility] [Not filled] Extracted from:Title: ER [...] imaging, other diagnostic testing via the [facility] [email or web address] Patient Portal. ? Not on PRP or flying status. x30 days new or modified FR/DR/MR at this time ? //Electronically signed// ? XENIA TRAN, ?, [employer], [place] Family Nurse Practitioner? Ordered: [...] Acute, 08/28/2021, 1 tab(s) Oral BID, Pharmacy: [facility] [Not filled] ? 2.?Diverticulitis of colon Resolved.??Per guidelines will order for CSP to assess for malignancy and other?pathology.? ?25 y/o male with mild diverticulitis noted of distal colon at ED May 2021. Sxs have resolved.? Order for colonoscopy with interpretation thanks! ? Informed pt to f/u after CSP.? Given f/u precautions.? PVUA. ? Ordered: Referral Request 2.0 ? Extracted from:Title: funeral director/embalmer/owner-Bloody stool Author: HOLLY WALSH RN Date: 05/30/21 -Per [facility] 2020 protocol, patient should be seen at the [facility] today.?Advised patient to be evaluated at urgent care today because there are no available clinic appointments today. ?Patient would like to be seen at the [facility]. Patient assisted with making appointment for tomorrow at [facility] @0830. Referral placed. -Red flags [...] get after hours Urgent Care referral at [phone] ? Patient verbalized understanding and agreeable with plan of care. Patient intends to comply.? BELT MAKER Raymond, please review. Thank you. ? Talk time?9?minutes ? ? 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 ? Ordered: Administration,Pt-Foc [facility] [address] Brief Comm Tech-Based Svc, Virt, Phys, Est Pt; 5-10 Min Med Dis G2012 ? Addendum by OUMAR MONTANA WHNP on October 29, 2020 08:21:05 PDT ANNUAL PERIODIC HEALTH ASSESSMENT ? I. NEONATAL PEDIATRIC NURSE INFORMATION AND DEMOGRAPHICS (SMI) 1. Last Name: DARRION 2. First Name: KYRA 3. Middle Name: OZ 4. Assessment Date: 5. : 6. Age: 25 7. Social Security Number: [id number] 8. Gender: M 9. DoD ID: [id number] 10. Service Branch: [employer] 11. Status: 12. Pay Grade: E04 13. 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 Duty Station/Location: [place] 15. [facility]: [id number] 16. Is this your first Periodic Health Assessment (PHA)?: N 17. Are you enrolled in a secure messaging system with your health care provider?:? N ? 18. Current contact information: Preferred Method: Other Phone DSN: Phone: [phone] EMAIL: [email or web address] Address: [facility] [address] [place] State: [place] Zip Code: [address] ? 19. Point of contact who can always reach you: Name: Marah Cuellar Phone 1: [phone] Phone 2: EMAIL: [email or web address] Address: [facility] [address] [place] [address] State: [place] Zip Code: [address] ? . BEHAVIORIAL HEALTH (MHA) 1. a. [...] watchful or easily startled? No 5. d. [place] numb or detached from others, activities, or [...] like to schedule a visit with a hadoop admin or a community support counselor?: No ? PART C. HEALTH CARE PROVIDER I. MENTAL HEALTH ASSESSMENT (MHA) PROVIDER INFORMATION 1. Last Name: NAN 2. First Name: OUMAR 3. Middle Name: May 13. Service Branch: [employer] 5. 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 Title: Nurse Practitioner (BELT MAKER) 7. EMAIL: [email or web address] 8. Facility: [address] [place] [address] 9. Unit: [facility] 10. Address: [address] [place] [address] 11. State: [place] 12. Zip Code: [address] 13. Phone: [phone] 14. Date HCP Review initiated: ? 1.? [...] identified concerns needing referrals: None 11. Comments: food court team member reported they have not gambled in the past 12 months. ? ? Virtual MHA was reviewed with by phone after [...] ? 12. Address requests as reported on food court team member questions 7 through 10 (in Yardage Control Clerk Section . Behavioral Health): ? ? Request medical appointment: Noted ? 13. Supplemental services recommended/information provided: ? ? Health Education and Information ? Date MHA Certified: ? ? 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 Ordered: Administration,Pt-Foc [facility] [address] Brief Comm Tech-Based Svc, Virt, Phys, Est Pt; 5-10 Min Med Dis G2012 ? Addendum by OUMAR MONTANA WHNP on July 14, 2019 14:49:00 PST ANNUAL PERIODIC HEALTH ASSESSMENT ? I. NEONATAL PEDIATRIC NURSE INFORMATION AND DEMOGRAPHICS (SMI) 1. Last Name: DARRION 2. First Name: KYRA 3. Middle Name: OZ 4. Assessment Date: 5. : 6. Age: 23 7. Social Security Number: [id number] 8. Gender: M 9. DoD ID: [id number] 10. Service Branch: [employer] 11. Status: 12. Pay Grade: E03 13. Unit Name: [address] [place] [address] 14. Duty Station/Location: [place] 15. C: [id number] 16. Is this your first Periodic Health Assessment (PHA)?: N 17. Are you enrolled in a secure messaging system with your health care provider?:? N ? 18. Current contact information: Preferred Method: EMAIL DSN: Phone: [phone] EMAIL: [email or web address] Address: [facility] [address] State: [place] Zip Code: [address] ? 19. Point of contact who can always reach you: Name: AARON MAIER Phone 1: [phone] Phone 2: EMAIL: [email or web address] Address: [address] [facility] State: [place] Zip Code: [address] ? . BEHAVIORIAL HEALTH (MHA) 1. a. [...] watchful or easily startled? No 5. d. [place] numb or detached from others, activities, or [...] like to schedule a visit with a hadoop admin or a community support counselor?: No ? PART C. HEALTH CARE PROVIDER I. MENTAL HEALTH ASSESSMENT (MHA) PROVIDER INFORMATION 1. Last Name: NAN 2. First Name: OUMAR 3. Middle Name: May 13. Service Branch: [employer] 5. 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 Title: Nurse Practitioner (BELT MAKER) 7. EMAIL: [email or web address] 8. Facility: [address] [place] [address] 9. Unit: [facility] 10. Address: [address] [place] [address] 11. State: [place] 12. Zip Code: [address] 13. Phone: [phone] 14. Date HCP Review initiated: ? 1.? [...] Information ? Date MHA Certified: ? ? 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 ? 2.?Dyslipidemia ?Continue?Fenofibrate,?and?follo w a healthy diet limiting saturated fats (red [...] be discussing disconsolation with Psychiatrist.? Willa Cardoso CTR?CONVEYOR SYSTEM DISPATCHER-C [facility] Provider Flight Medicine? [address] [place], [place]??[address] [facility]- [phone] ? 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 Willa Cardoso CTR?CONVEYOR SYSTEM DISPATCHER-C [facility] Provider Flight Medicine? [address] [place], [place]??[address] [facility] [phone] ? Extracted from:Title: LBP Profile f/u Author: [...] minutes.? Pt to f/u with PCM at [facility] to request PT as he will benefit [...] labs, imaging, other diagnostic testing via the [facility] Patient Portal. ? -A total of approximately? 30 minutes- [address]1592? ( Face to face ? 20 minutes??) ? Date of service:? ?10?_?September 2022? with the following actions?below and as applicable based on this EHR as above: ? reviewing?previous notes?and/or specialty notes, including JLV x oucp-hn-ffct w/ pt x medical charting including documenting [...] medical?board 5 minutes spent updating immunizations on janice in reconciliation w/IMR ? _ please see attached documents: ekg, pft, or?consent forms in [facility] chart ? ?Follow up?PRN. -Portions of this note were scribed by my medical administrative(s). I have verified the information and medical decision making is my own. ? YES:Reviewed pertinent?Mental Health Screening scores below?- pt is low risk.?Pt denies suicidal or homicidal ideations No?CSSRS YES:?AARON -7? YES:?PHQ- 9? No?[place] No?MoCA No?Audit No?PCL/PTSD Screening ? //SIGNED// Bren Andrade, XENIA, ?, [facility], [place] Family Nurse Practitioner? [facility], [address] [facility], [place] [phone] ? Ordered: lidocaine topical(lidocaine 5% topical film), [...] Acute, 11/16/2022, 1 tab(s) Oral BID, Pharmacy: [facility] [Not filled] acetaminophen(Tylenol 325 mg oral tablet), 1 tab(s), Oral, every 4 hr, PRN pain or fever, # 30 tab(s), 0 total refill(s), Acute, 11/16/2022, 1 tab(s) Oral every 4 hr,PRN:pain or fever, Pharmacy: [facility] [Not filled] ? 2.?Acute stress reaction Pt seeing [facility]/MH ongoing has appts.? Denies suicidal or homicidal [...] down ?- unable to reconcile meds/history/immunizations as [employer] system was down at the time of [...] imaging, other diagnostic testing via the [facility] [email or web address] Patient Portal. ? -A total of approximately? 30 minutes- [address]? ( Face to face ? 20 minutes??) ? Date of service:? ??_?Aug 2022? with the following actions?below and as applicable based on this EHR as above: ? ?reviewing?previous notes?and/or specialty notes x mkmm-ab-codz w/ pt x medical charting including documenting [...] documents: ekg, pft, or?consent forms in [facility] janice chart ? ?Follow up?PRN. -Portions of this note were scribed by my medical administrative(s). I have verified the information and medical decision making is my own. ? YES:Reviewed pertinent?Mental Health Screening scores below?- pt is low risk.?Pt denies suicidal or homicidal ideations ? No?CSSRS ? YES:?AARON -7? ? YES:?PHQ- 9? ? No?[place] ? No?MoCA ? No?Audit ? No?PCL/PTSD Screening ? ? //SIGNED// Bren Andrade, XENIA, ARISTEO?, [facility], [place] Family Nurse Practitioner? [facility], [address] [facility] Abdiel [facility], [place] [phone] ? Ordered: mupirocin topical(mupirocin 2% topical ointment), 1 appl(s), Topical, TID, X 7 days, # 15 g, 0 total refill(s), Acute, 1 appl(s) Topical TID,x7 days, Pharmacy: [facility] [Not filled] Referral Request 2.0 ? 2.?Male erectile dysfunction, unspecified same as above ? ? 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 Reviewed e2766. No new specific concerns identified in past medical or family history when compared to the PHAQ. All information was updated to the e2766 as needed. Electronic records reviewed to include member s summary and drivability technician's Record Review section of PHAQ which [...] accomplished. Follow up?PRN. ? Arturo Graham, CTR, PATejC? [address] [facility]? [place], [place]? ANNUAL PERIODIC HEALTH ASSESSMENT ? I. NEONATAL PEDIATRIC NURSE INFORMATION AND DEMOGRAPHICS (SMI) 1. Last Name: DARRION 2. First Name: KYRA 3. Middle Name: OZ 4. Assessment Date: 5. : 6. Age: 26 7. Gender: M 8. DoD ID Number: [id number] 9. Service Branch: [employer] 10. 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 Pay Grade: E04 13. Unit Name: [address] [place] [address] 14. Duty Station/Location: [place] 15. UIC: [id number] 16. Is this your first Periodic Health Assessment (PHA)?: N 17. Are you enrolled in a secure messaging system with your health care provider?:? N ? 18. Current contact information: Preferred Method: Day Time Phone DSN: [id number] Day Time Phone: [phone] Night Time Phone: Email 1: [email or web address] Email 2: Address: [facility]: [facility] State: [place] Zip Code: [address] ? 19. Point of contact who can always reach you: Name: Marah Cuellar Phone 1: [phone] Phone 2: EMAIL: [email or web address] Address: [address] [place] [address]: [place] State: [place] Zip Code: [address] ? II. DEPLOYMENT INFORMATION (DEP) 1. [ Never deployed ] Total number of deployments in the PAST 5 YEARS 4. [ N ] Are you going to deploy within the NEXT 120 DAYS? ? III. OCCUPATIONAL INFORMATION (OCC) 1? [ [id number] ] What is your occupational code 2. [...] easily startled? 6. d. [ No ] [place] numb or detached from others, activities, or your surroundings? 6. e. [ Not answered ] [place] guilt or unable to stop blaming yourself [...] like to schedule a visit with a hadoop admin, mental health care provider, or a community [...] 8. [ tylenol ] What prescriptions or ahlh-oxj-egharwa medications are you CURRENTLY taking for health [...] any health concerns? ? XI. SEPARATION AND SENIOR LIVING 1. [ No ] Are you planning to separate or retire within the next year from Active Duty or [place] Duty (activated for greater than 30 continuous days) OR do you intend to file a claim for disability compensation with the [employer]? ? PART B. RECORD REVIEW AND RECOMMENDATIONS I. RECORD REVIEWER INFORMATION 1. Last Name: BEATA 2. First Name: FELISA 3. Middle Name: JOSSIE 4. Service Branch: [employer] 5. 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 EMAIL: [email or web address] 8. Facility: [facility] 9. Unit: [address] [place] [address] 10. Address: [address] [place] [address] 11. State: [place] 12. Zip Code: [address] 13. 14. Date Record Review: ? II. MEDICAL SCREENING 1. [ ] Date of food court team member's most recent PHA 2. [ 5 feet 8 inches? ?Date: ] food court team member's most recently documented height 3. [ 182 pounds? Date: ] food court team member's most recently documented weight 4. [ 126/80? Date: ] food court team member's most recently documented blood pressure reading 5. [ No ] Does the food court team member have a history of abnormal blood pressure since their last PHA? 6. [ Yes ] Does the food court team member have a laboratory test of sickle cell trait documented in their permanent medical record? 7. [ No Cholesterol Test Documented ] What is the date of the food court team member's most recently documented cholesterol test? 9. [ tylenol ]? List of food court team member's active medications listed in their permanent medical record 10. [ Yes: tylenol ] Is there a discrepancy between the active medication record review and the food court team member's self-reported list of medications? 11. [ 05/30/21 ER, diverticulitis 08/04/21-09/29/21 PTx, dorsalgia ] List documented significant care the food court team member has received since their last PHA from a provider OUTSIDE the Health System 12. [ Yes: 05/30/21 ER, diverticulitis 08/04/21-09/29/21 PTx, dorsalgia ] Is there a discrepancy between the food court team member's list of OUTSIDE care (from OT5), and the OUTSIDE care found in the record? 13. [ 03/31/21-12/02/21 MH 07/28/21 ER f/u and mild back pain 11/18/21 low back pain 12/01/21 CSP and LBP ] List documented significant care the food court team member has received since their last PHA from a provider INSIDE the Health System 15. [ Not Answered ] Confirm that vaccine exemptions are listed in the medical record for each vaccine listed ? IV. FAMILY HISTORY AND LIFESTYLE 1. [ Yes ]? Does the [id number] reflect the food court team member's reported family history? ? VII. INDIVIDUAL MEDICAL READINESS 1. [ No ] Does the food court team member have an Assignment Limitation Code C? 3. [ Classification: 1 ] Most recently documented dental exam 4. [ Yes ] Is the food court team member current on all required immunizations in the immunization tracking system? 6. Does the food court team member have the following laboratory tests documented [...] need to be forwarded to the Health Social Insurance Analyst completing PART C: ? ? Date Record Review Completed: PART C. HEALTH CARE PROVIDER I. MENTAL HEALTH ASSESSMENT (MHA) PROVIDER INFORMATION 1. Last Name: Nader 2. First Name: Demond 3. Middle Name: 4. Service Branch: [employer] 5. 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 EMAIL: [email or web address] 8. Facility: [address] [place] [address] 9. Unit: [facility] 10. Address: [address] [place] [address] 11. State: [place] 12. Zip Code: [address] 13. 14. Date HCP Review initiated: ? [...] ? 12. Address requests as reported on food court team member questions 7 through 10 (in Yardage Control Clerk Section . Behavioral Health): ? ? Request medical appointment: Appt is scheduled ? 13. Supplemental services recommended/information provided: ? ? No supplemental services required ? Date MHA Certified: ? III. PERIODIC HEALTH ASSESSMENT (PHA) PROVIDER INFORMATION 1. Last Name: Santos 2. First Name: Arturo 3. Middle Name: 4. Service Branch: [employer] 5. 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 Title: Physician Mold Press Operator (PA) 7. EMAIL: [email or web address] 8. Facility: [address] [place] [address] 9. Unit: [address] [place] [address] 10. Address: [address] [place] [address] 11. State: [place] 12. Zip Code: [address] 13. 14. Date HCP Review initiated: ? IV. PERIODIC HEALTH ASSESSMENT PROVIDER RECOMMENDATIONS and REFERRALS 1. Provider concerns with this assessment: No issues or concerns identified ? V. SUMMARY AND COMMENTS 1. Additional information summarizing findings during the food court team member assessment: ? 2. Provider Comments: already had appointment with PCM since PHAQ was completed. ? . INDIVIDUAL MEDICAL READINESS DISPOSITION DETERMINATION ? ? MIKE: Not Ready? ? DEN: Ready? ? IMM: Ready? ? LAB: Ready? ? ME: Ready ? ? IMR Status: Not Medically Ready ? VII. SERVICE MEDICAL DEPLOYABILITY EVALUATION INDICATED Based on your review of all documentation, is the food court team member medically deployable without limitations?? Reference [facility] 6490.07 ? ?No (food court team member currently has a medical condition that DOES require duty limitation(s) AND limits deployability) ? Date PHA Completed: ? END OF [id number] REPORT ? [facility] Review Summary ? [ No ] Does [...] conditions that dictate a referral to the [facility] Board? ? Active Medical Conditions:? None. ? [...] labs, imaging, other diagnostic testing via the [facility] Patient Portal. ? -A total of? 20-29?min. with the following actions?below and as applicable based on this EHR as above: ? x?reviewing?previous notes?and/or specialty notes x rdas-mr-wmwf w/ pt x medical charting including documenting [...] this note were scribed by my medical administrative(s). I have verified the information and medical decision making is my own. ? Not on PRP, flying status, AuOf. No indication for new or modified FR/DR/MR at this time.? Will not be extending pt's profile unless rehab with PT for LBP. ? //Electronically signed// ? BREN ANDRADE, XENIA, ?, [facility], [place] Family Nurse Practitioner? 2.?Low back pain Acute, [...] labs, imaging, other diagnostic testing via the [facility] Patient Portal. ? -A total of? 20-29?min. [...] this note were scribed by my medical administrative(s). I have verified the information and medical [...] AT BEDTIME NEEDED FOR MUSCLE SPASM, Pharmacy: [facility] [Not filled] ? Orders: naproxen(naproxen 500 mg oral tablet), 1 tab(s), Oral, BID, # 20 tab(s), 0 total refill(s), Acute, 12/19/2021, 1 tab(s) Oral BID, Pharmacy: [facility] [Not filled] acetaminophen(Tylenol 325 mg oral tablet), 1 tab(s), Oral, every 4 hr, PRN pain or fever, # 100 tab(s), 0 total refill(s), Acute, 12/19/2021, 1 tab(s) Oral every 4 hr,PRN:as needed for pain or fever, Pharmacy: [facility] [Not filled] Extracted from:Title: ER [...] imaging, other diagnostic testing via the [facility] [email or web address] Patient Portal. ? Not on PRP or [...] 08/28/2021, 1 tab(s) Oral BID, [facility]: [facility] [Not filled] ? 2.?Diverticulitis of colon Resolved.??Per guidelines will order for CSP to assess for malignancy and other?pathology.? ?25 y/o male with mild diverticulitis noted of distal colon at ED May 2021. Sxs have resolved.? Order for colonoscopy with interpretation thanks! ? Informed pt to f/u after CSP.? Given f/u precautions.? PVUA. ? Ordered: Referral Request 2.0 ? Extracted from:Title: funeral director/embalmer/owner-Bloody stool Author: HOLLY WALSH RN Date: 05/30/21 -Per [facility] 2020 protocol, patient should be seen at the [facility] today.?Advised patient to be evaluated at urgent care today because there are no available clinic appointments today. ?Patient would like to be seen at the [facility]. Patient assisted with making appointment for tomorrow at [facility] @0830. Referral placed. -Red flags [...] get after hours Urgent Care referral at [phone] ? Patient verbalized understanding and agreeable with plan of care. Patient intends to comply.? BELT MAKER Raymond, please review. Thank you. ? Talk time?9?minutes ? ? 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 Ordered: Administration,Pt-Foc Hlth [place]sk [place] [id number] Brief Comm Tech-Based Svc, Virt, Phys, Est Pt; 5-10 Min Med Dis G2012 ? Addendum by OUMAR MONTANA WHNP on October 29, 2020 08:21:05 PDT ANNUAL PERIODIC HEALTH ASSESSMENT ? I. NEONATAL PEDIATRIC NURSE INFORMATION AND DEMOGRAPHICS (SMI) 1. Last Name: DARRION 2. First Name: KYRA 3. Middle Name: OZ 4. Assessment Date: 5. : 6. Age: 25 7. Social Security Number: [id number] 8. Gender: M 9. DoD ID: [id number] 10. Service Branch: [employer] 11. Status: 12. Pay Grade: E04 13. Unit Name: [address] 14. Duty Station/Location: [place] 15. UIC: [id number] 16. Is this your first Periodic Health Assessment (PHA)?: N 17. Are you enrolled in a secure messaging system with your health care provider?:? N ? 18. Current contact information: Preferred Method: Other Phone DSN: Phone: [phone] EMAIL: [email or web address] Address: [facility] [address] [place] State: [place] Zip Code: [address] ? 19. Point of contact who can always reach you: Name: Marah Cuellar Phone 1: [phone] Phone 2: EMAIL: [email or web address] Address: [facility] [address] [place] [address] State: [place] Zip Code: [address] ? . [facility] ([facility]HA[facility] 1. a. Over the [...] watchful or easily startled? No 5. d. [place] numb or detached from others, activities, or [...] like to schedule a visit with a hadoop admin or a community support counselor?: No ? PART C. HEALTH CARE PROVIDER I. MENTAL HEALTH ASSESSMENT (MHA) PROVIDER INFORMATION 1. Last Name: NAN 2. First Name: OUMAR 3. Middle Name: May 13. Service Branch: [employer] 5. 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 Title: Nurse Practitioner (BELT MAKER) 7. EMAIL: [email or web address] 8. Facility: [address] [place] [address] 9. Unit: [facility] 10. Address: [address] [place] [address] [employer] 11. State: [place] 12. Zip Code: [address] 13. Phone: [phone] 14. Date HCP Review initiated: ? 1.? [...] identified concerns needing referrals: None 11. Comments: food court team member reported they have not gambled in [...] ? 12. Address requests as reported on food court team member questions 7 through 10 (in Yardage Control Clerk Section . Behavioral Health): ? ? Request medical appointment: Noted ? 13. Supplemental services recommended/information provided: ? ? Health Education and Information ? Date MHA Certified: ? ? 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 Ordered: Administration,Pt-Foc th Rsk Asses Inst [id number] Brief Comm Tech-Based Svc, Virt, Phys, Est Pt; 5-10 Min Med Dis G2012 ? Addendum by OUMAR MONTANA WHNP on July 14, 2019 14:49:00 PST ANNUAL PERIODIC HEALTH ASSESSMENT ? I. NEONATAL PEDIATRIC NURSE INFORMATION AND DEMOGRAPHICS (SMI) 1. Last Name: DARRION 2. First Name: KYRA 3. Middle Name: OZ 4. Assessment Date: 5. : 6. Age: 23 7. Social Security Number: [id number] 8. Gender: M 9. DoD ID: [id number] 10. Service Branch: [employer] 11. Status: 12. Pay Grade: E03 13. 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 Duty Station/Location: [place] 15. C: [id number] 16. Is this your first Periodic Health Assessment (PHA)?: N 17. Are you enrolled in a secure messaging system with your health care provider?:? N ? 18. Current contact information: Preferred Method: EMAIL DSN: Phone: [phone] EMAIL: [email or web address] Address: [facility] [address] [facility] State: [place] Zip Code: [address] ? 19. Point of contact who can always reach you: Name: AARON MAIER Phone 1: [phone] Phone 2: EMAIL: [email or web address] Address: [address] [facility] State: [place] Zip Code: [address] ? . [facility] HEALTH (MHA) 1. a. Over the PAST [...] watchful or easily startled? No 5. d. [place] numb or detached from others, activities, or [...] like to schedule a visit with a hadoop admin or a community support counselor?: No ? PART C. HEALTH CARE PROVIDER I. MENTAL HEALTH ASSESSMENT (MHA) PROVIDER INFORMATION 1. Last Name: NAN 2. First Name: OUMAR 3. Middle Name: May 13. Service Branch: [employer] 5. 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 Title: Nurse Practitioner (BELT MAKER) 7. EMAIL: [email or web address] 8. Facility: [address] [place] [address] 9. Unit: [facility] 10. Address: [address] [place] [address] Abd[address] [employer] 11. State: [place] 12. Zip Code: [address] 13. Phone: [phone] 14. Date HCP Review initiated: ? 1.? [...] Information ? Date MHA Certified: ? ? 06/23/[address] [place] [address] Functional Status Combined list of recent functional and cognitive assessments recorded at [employer] and [employer] (VA).VA Functional Spring Measurement (FIM) Scale: 1 = Total Assistance (Subject = 0% +), 2 = Maximal Assistance (Subject = 25% +), 3 = Moderate Assistance (Subject = 50% +), 4 = Minimal Assistance (Subject = 75% +), 5 = Supervision, 6 = Modified Spring (Device), 7 = Complete Spring (Timely, Safely). Assessment Date/Time Source Assessment Type Assessment Skill Assessment Score Assessment Details No data available for this section
--- NOTE | 2024-06-23 15:11 | MHC.PC.OV ---
Vital Signs 06/23/24 15:16 Height 5 ft 8 in Weight 194 lb 6 oz BMI 29.6 BP 106/74 Blood Pressure Location Lt brachial Position Sitting Respiration 14 Pulse 62 Pulse Source Pulse Oximeter Pulse Oximetry (%) 97 Oxygen Delivery Method Room Air Intake Visit Reasons: 2 mos dyslipidemia, MDD Intake Note: Follow up. Needs [employer] paperwork filled out. [employer] Required: No Allergies No Known Allergies Allergy (Verified 06/23/24 15:21) Medication List - Last Reconciled 06/23/24 by Efren Cerda CNP citalopram 20 mg PO BEDTIME 30 days escitalopram oxalate 10 mg PO DAILY fenofibrate 160 mg PO DAILY 30 days Tobacco use date assessed: 06/23/24 Dental Screening Dental Screen Date: 04/28/24 HPI HPI Comments History of Present Illness Details 28-year-old male presents for dyslipidemia major depression follow-up. He admits to taking his medications as prescribed without adverse reactions. He is on escitalopram 10 mg daily and fenofibrate 160 mg daily. Reports controlled anxiety and depressive symptoms. He generally sleep well. He lives with his in 1-year-old child. His is over 20 weeks with their second child. He is happy with his family. He offers no complaints and denies acute symptoms at this time. He was followed by a therapist every 2-3 months via telehealth and a therapist biweekly from [facility] until a month ago. He stopped contacting them because he thought he no longer needs them. [facility] Medical History Lower back pain Surgical History No pertinent past surgical history Family History Mother High blood pressure High cholesterol Fibromyalgia Vitiligo Maternal Grandfather High blood pressure High cholesterol Diabetes Cardiovascular disease Paternal Grandfather Diabetes Cardiovascular disease Social History (Updated 06/23/24 @ 15:20 by Charlene Chambers CMA) Household Members: Spouse Housing: House Do you presently have visiting nurse or other home services: No Unable to assess alcohol history related to: Unknown Comment: Rj has been referred to [facility]. 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 1. Little interest or pleasure in doing things: not at all 2. Feeling down, depressed, or hopeless: not at all 3. Trouble falling or staying asleep, or sleeping too much: not at all 4. Feeling tired or having little energy: not at all 5. Poor appetite or overeating: not at all 6. Feeling bad about yourself - or that you are a failure or have let yourself or your family down: not at all 7. Trouble concentrating on things, such as reading the newspaper or watching television: not at all 8. Moving or speaking so slowly that other people could have noticed. Or the opposite - being so fidgety or restless that you have been moving around a lot more than usual: not at all 9. Thoughts that you would be better off or of hurting yourself in some way: not at all Total score: 0 Depression Screening Interpretation: Negative Depression Screening Done: Yes 36791 - PHQ-9 Billing: Yes Source: Developed by Drs. bAel Mcclendon, Bridgette Doe, Jorge A Quintana and colleagues, with an educational prachi from [employer]. Thrive Questionnaire Date Thrive assessed: 06/23/24 I am a: Patient What is your living situation today?: I have a place to live, but I am worried about losing it in the future Within the past 12 months, did the food you bought not last and you didn't have the money to get more?: I choose not to answer this question Within the past 12 months, did you worry whether your food would run out before you got money to buy more?: Sometimes True Do you have trouble paying for medicines?: No Do you have trouble getting transportation to medical appointments?: No Do you have trouble paying your heating and electricity bill?: Yes Do you have trouble taking care of your child, family member or friend?: No Do you have trouble with day-to-day activities such as bathing, preparing meals, shopping, managing finances, etc.?: No Are you currently unemployed and looking for a job?: No Are you interested in more education?: Yes Please select the resources that you would like help with: Food, Childcare and Education Currently or been in a relationship where the following occur: No concerns reported THRIVE Score: 3 AUDIT C Alcohol Use Questionnaire (AUDIT-C) 1. How often do you have a drink containing alcohol?: Monthly or less 2. How many drinks containing alcohol do you have on a typical day when you are drinking?: 1 or 2 3. How often do you have six or more drinks on one occasion?: Never Total Score: 1 AARON-7 AMB Questionnaire AARON-7 Date AARON - 7 assessed: 06/23/24 Feeling nervous, anxious, or on edge: 0 = Not at all Not being able to stop or control worryin = Not at all Worrying too much about different things: 0 = Not at all Trouble relaxin = Not at all Being so restless that it is hard to sit still: 0 = Not at all Becoming easily annoyed or irritable: 0 = Not at all Feeling afraid as if something awful might happen: 0 = Not at all Total AARON-7 score (0-4 normal; 5-9 mild; 10-14 moderate; 15-21 severe): 0 Source: Developed by Drs. Abel Mcclendon, Bridgette Doe, Jorge A Quintana and colleagues, with an educational prachi from [employer]. AARON-7 Assessment Billing AARON-7 Assessment Tool: AARON-7 Assessment 73281 Review of Systems Const Details: Const Denies chills, Denies fatigue, Denies fever(s), Denies headache(s) and Denies weakness ENT Denies dizziness and Denies headache(s) Card Denies chest pain, Denies lightheadedness, Denies dyspnea and Denies other (Palpitations) Resp Denies cough, Denies dyspnea, Denies wheezing and Denies other ( shortness of breath) GI Denies abdominal pain, Denies melena, Denies hematochezia, Denies change in bowel habits, Denies dyspepsia and Denies nausea Denies hematuria and Denies dysuria Musc Denies abnormal gait, Denies myalgias, Denies arthralgias, Denies numbness and Denies tingling Skin/Breast Denies rash, Denies unusual bruising and Denies wounds Neuro Denies abnormal gait, Denies dizziness, Denies headache(s), Denies memory loss, Denies numbness, Denies Sensory deficit (Neuro), Denies tingling and Denies weakness Psych Denies anxiety, Denies depression, Denies memory loss Endo Denies cold intolerance, Denies fatigue, Denies heat intolerance, Denies polydipsia and Denies polyuria Aller/Immun Denies wheezing Physical exam (Primary Care) Vital Signs: Last Vital Signs Pulse 62 06/23/24 15:16 Resp 14 06/23/24 15:16 BP 106/74 06/23/24 15:16 Pulse Ox 97 06/23/24 15:16 Oxygen Delivery Method Room Air 06/23/24 15:16 BMI result Body Mass Index 29.6 Tobacco/Smoking Status: Tobacco use Status Tobacco use date assessed 06/23/24 06/23/24 15:15 Patient Tobacco Use Status Never used Tobacco 06/23/24 15:20 e-Cigarette/Vaping Use Never Used 06/23/24 15:20 PHQ-9: PHQ-9 Score PHQ-9: Total score 0 06/23/24 15:20 Depression Screening Interpretation: Negative Thrive Assessment: Date of Thrive Assessment Date Thrive assessed 06/23/24 06/23/24 15:20 Currently or been in a relationship where the following occur: No concerns reported Const Other: General: no acute distress and well developed Nutritional Appearance: well nourished Orientation/consciousness: patient oriented x3 HENMT Head: Yes normocephalic and Yes atraumatic Eyes General: appearance normal, both eyes and all related structures Pupils: Equal, round and reactive pupils present EOM: EOMs intact bilaterally Resp Effort & Inspection: normal respiratory effort Auscultation: clear to auscultation bilaterally Cardio Rate: regular rate Rhythm: regular rhythm Heart sounds: S1 normal heart sound present, S2 normal heart sound present, no gallops, no murmurs and no rubs GI Palpation (GI): No Abdominal aortic bruit present, Soft to palpation, nontender, No hepatosplenomegaly present and No Rebound tenderness present Auscultation: normal bowel sounds General: Yes no CVA tenderness Back/Spine/Pelvis Back: no CVA tenderness Cervical Spine: cervical ROM normal and No Cervical spine tenderness Thoracic/Lumbar Spine: thoraco-lumbar ROM normal, No pain with thoraco-lumbar ROM, No thoracic spinal tenderness and No lumbar spinal tenderness Extrem General: Yes normal to inspection, No edema and No calf tenderness Skin General: warm and dry. Normal skin color. Normal skin turgor Neuro General: patient oriented x3, gait normal and no focal neuro deficit Cranial nerves: Yes Equal, round and reactive pupils present Cognition (Neuro): normal cognition Gait exam (Neuro): Normal gait present Sensory Exam: No Sensory deficit (Neuro) Psych Appearance: grossly normal Affect: normal affect Attitude: cooperative Thought process: Normal thought process present Coding Level of Care Code Est Pt Level 3 (35490) Diagnoses Dyslipidemia E78.5 MDD (major depressive disorder), recurrent episode, moderate F33.1 Additional Codes AARON-7 Assessment Billing - AARON-7 Assessment Tool: AARON-7 Assessment 19617 ([id number]) PHQ-9 - 28545 - PHQ-9 Billing: Yes ([id number]) Assessment & Plan Assessment & Plan (1) Dyslipidemia: Code(s): E78.5 - Hyperlipidemia, unspecified Category: Medical Plan: Recent triglyceride level with slight improvement, 245 from 298, HDL level slightly low, 36, total cholesterol and LDL levels are normal. Continue to take fenofibrate as prescribed. Advised to limit foods high in saturated fat and avoid foods high in trans fat. Routine exercise encouraged. Fast for 10-12 hours, may drink water, and get lipid panel blood work done 2-3 days before next visit. Follow-up in 2 months or sooner with symptoms or concerns. Verbalized understanding and agreed with treatment plan. (2) MDD (major depressive disorder), recurrent episode, moderate: Code(s): F33.1 - Major depressive disorder, recurrent, moderate Category: Medical Plan: Controlled anxiety and depressive symptoms. Continue current treatment regimen. Continue follow-up with therapist and psychiatrist. Return with symptoms or concerns. Verbalized understanding and agreed with the treatment plan. Orders: Orders Lipid Panel 2 Months E78.5 - Hyperlipidemia, unspecified Medications: Discontinued citalopram Discontinued Reason: Patient no longer taking 20 mg PO BEDTIME 30 days 30 tabs 0RF
[2024-06-23 15:16] VITALS: BP 106/74; PULSE 62; RESP 14; O2SAT 97; BMI 29.6
== END 2024-06-23 16:00 | disposition home or self-care (01) ==
PROVIDERS: PCP Nurse Practitioner Family; Visit Provider Nurse Practitioner Family
DX: E78.5 Hyperlipidemia, unspecified (principal); F33.1 Major depressive disorder, recurrent, moderate

== ENCOUNTER → 2024-06-23 15:03 | Outpatient (BNVA) | payer OTHER, SELFPAY | PROVIDERS: PCP Nurse Practitioner Family; Visit Provider Nurse Practitioner Family | DX: E78.5 Hyperlipidemia, unspecified (principal); F33.1 Major depressive disorder, recurrent, moderate | CPT/HCPCS: 96127; 99212 ==

== ENCOUNTER 2024-11-20 13:01 | Outpatient (REF) | payer OTHER, SELFPAY ==
--- OUTSIDE RECORDS SUMMARY | 2024-11-20 13:57 | XMS_ITS | Continuity of Care Document ---
Author Name [facility] Organization [facility] Care Team Providers Care Nib Adjuster Name Role Phone [facility] Unavailable Unavailable Problems Combined list of problems from Department of Defense and Veterans Affairs facilities. It does not include entries that were removed or entered in error. 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 Follow up CSP Aug 2021 revelaed single 4mm sigmoid polyp, otherwise unremarkable w/o evidence of diverticulosis . 0128C-92ND [facility] Dyslipidemia Active Condition 0310C-AF- C-66t h [facility] Ganglion cyst of left dorsal wrist2 Active Condition 3 mm diameter; asymptomatic: 12/2018 Unknown Organization Insomnia Active Condition 4347Q-AQ-S-66 t h [facility] LBP - Low back pain Active Condition 1150R-JQ-T-66t h [facility] Low back pain Active Condition 0128C-92 ND [facility] Pain of left wrist Active Condition Unknown Organization Medications Combined list of outpatient medications from [...] CDT Oral (given by mouth) Complet ed 11/13/20182018 20.0 0128C-9 2ND [facility] chlorhexidi ne 0.12% mucous membrane liquid 15 mL, Oral, BID, swish and spit; do not swallow, # 473 mL, 0 total refill(s ), Maintena nce, [facility] pharmacy dispense (Rx) Oral (given by mouth) Discont inued 11/05/2020 9 2020 473.0 0128C-9 2ND [facility] clonazePAM 0.5 mg oral tablet 2 tab(s), Oral, Daily, 0 total refill(s ), Maintena nce Oral (given by mouth) Ordered 2023 0310C-A F-C-[facility]t [facility] CLONIDINE HCL (clonidine HCl), 0.1 MG, TABLET, ORAL, [facility], 1000 ea. BOTTLE Active [id number] 4 2023 45 Pharmac y Data Transac tion Service Facilit y CLONIDINE HCL (clonidine HCl), 0.1 MG, TABLET, ORAL, [facility], 1000 ea. BOTTLE Active [id number] 4 2023 45 Pharmac y Data Transac tion Service Facilit y cyclobenzap rine 10 mg oral tablet See Instruct ions, TAKE ONE TABLET BY MOUTH AT BEDTIME NEEDED FOR MUSCLE SPASM, # 21 tab(s), 0 total refill(s ), Acute, Pharmacy : [facility] Complet ed 12/19/2021 2 2021 21.0 0128C-9 2ND [facility] cyclobenzap rine 10 mg oral tablet 1 tab(s), Oral, TID, 0 total refill(s ), Maintena nce Oral (given by mouth) Discont inued 11/18/20212021 0128C-9 2ND [facility] CYCLOBENZAP RINE HCL (cyclobenza dayana HCl), 10 MG, TABLET, ORAL, [facility], 1000 ea. BOTTLE Active [id number] 4 2023 45 Pharmac y Data Transac tion Service Facilit y escitalopra m 10 mg oral tablet 1 tab(s), Oral, Daily, 0 total refill(s ), Maintena nce Oral (given by mouth) Ordered 20230C-A F-C-66t h [facility] ESCITALOPRA M OXALATE (ESCITALOPR AM OXALATE), 10 MG, TABLET, ORAL, [facility], 100 ea. BOTTLE Active [id number] 4 2023 30 Pharmac y Data Transac tion Service Facilit y FENOFIBRATE (fenofibrat e,micronize d), 134 MG, CAPSULE, ORAL, [facility], 100 ea. BOTTLE Cancele d [id number] : 2023 0 Pharmac y Data Transac tion Service Facilit y FENOFIBRATE (fenofibrat e,micronize d), 134 MG, CAPSULE, ORAL, [facility], 100 ea. BOTTLE Active [id number] 4 2023 30 Pharmac y Data Transac tion Service Facilit y FENOFIBRATE (fenofibrat e,micronize d), 134 MG, CAPSULE, ORAL, [facility], 100 ea. BOTTLE Active [id number] 4 2023 30 Pharmac y Data Transac tion Service Facilit y fenofibrate 30 mg oral capsule 1 cap(s), Oral, Daily, # 30 cap(s), 0 total refill(s ), Maintena nce Oral (given by mouth) Ordered 2023 30.0 0310C-A F-C-66t h [facility] ibuprofen 800 mg oral tablet 1 tab(s), Oral, TID, PRN pain, # 30 tab(s), 0 total refill(s ), Acute, 03/17/20 2:00:00 AM [facility], [facility] pharmacy dispense (Rx) Oral (given by mouth) Complet ed 03/17/2020 9 2019 30.0 0128C-9 2ND [facility] lidocaine 5% topical film 1 patch(es ), Topical, Daily, Leave on for up to 12 hours within a 24 hour period (12 hours on, 12 hours off), # 30 patch(es ), 3 total refill(s ), Maintena [facility], Pharmacy : [facility] Topica l (on the skin) Discont inued 04/12/2024 3 2023 30.0 0128C-9 2ND [facility] lidocaine 5% topical film 1 patch(es ), Topical, Daily, Leave on for up to 12 hours within a 24 hour period (12 hours on, 12 hours off), # 30 patch(es ), 3 total refill(s ), [facility] Topica l (on the skin) Discont inued 11/18/2021 2 2021 30.0 0128C-9 2ND [facility] melatonin every day at bedtime, 0 total refill(s ), [facility] in[facility] 04/12/20242023 0128C-9 2ND [facility] mupirocin 2% topical ointment 1 appl(s), Topical, TID, X 7 days, # 15 g, 0 total refill(s ), Acute, [facility] Topica l (on the skin) Complet ed 09/11/2022 3 2022 15.0 0128C-9 2ND [facility] naproxen 500 mg oral tablet 1 tab(s), Oral, BID, # 20 tab(s), 0 total refill(s ), Acute, 12/19/21 2:00:00 AM CDT, [facility] Oral (given by mouth) Complet ed 12/19/2021 2 2021 20.0 0128C-9 2ND [facility] naproxen 500 mg oral tablet 1 tab(s), Oral, BID, # 20 tab(s), 0 total refill(s ), Acute, 11/16/22 2:00:00 AM CDT, Pharmacy : [facility] Oral (given by mouth) Complet ed 11/16/2022 3 2022 20.0 0128C-9 2ND [facility] naproxen 500 mg oral tablet 1 tab(s), Oral, BID, # 20 tab(s), 0 total refill(s ), Acute, 08/28/21 2:00:00 AM CDT, Pharmacy : [facility] Oral (given by mouth) Complet ed 08/28/2021 2 2021 20.0 0128C-9 2ND [facility] Percocet 5 mg-325 mg oral tablet 1 tab(s), Oral, every 4 hr, PRN pain, # 24 tab(s), 0 total refill(s ), Acute, 03/24/19 2:00:00 AM 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 BOTTLE Active [id number] 4 2023 30 Pharmac y Data Transac tion Service Facilit y PRAZOSIN HCL (prazosin HCl), 1 MG, CAPSULE, ORAL, NOVITIUM/AN I PH, 100 ea. BOTTLE Active [id number] 4 2023 30 Pharmac y Data Transac tion Service Facilit y TRAZODONE HCL (trazodone HCl), 50 MG, TABLET, ORAL, [facility] [place], 100 ea. BOTTLE Active [id number] 4 2023 15 Pharmac y Data Transac tion Service Facilit y TRAZODONE HCL (trazodone HCl), 50 MG, TABLET, ORAL, [facility] [place], 100 ea. BOTTLE Active [id number] 4 2023 15 Pharmac y Data Transac tion Service Facilit y Tylenol Oral, 0 total refill(s ), Maintena nce Oral (given by mouth) Discont inued 09/16/202220228C-9 2ND [facility] Tylenol 325 mg oral tablet 1 tab(s), Oral, every 4 hr, PRN pain or fever, # 100 tab(s), 0 total refill(s ), Acute, 12/19/21 2:00:00 AM CDT, Pharmacy : [facility] Oral (given by mouth) Complet ed 12/19/2021 2 2021 100.0 0128C-9 2ND [facility] Tylenol 325 mg oral tablet 1 tab(s), Oral, every 4 hr, PRN pain or fever, # 30 tab(s), 0 total refill(s ), Acute, 11/16/22 2:00:00 AM CDT, Pharmacy : [facility] Oral (given by mouth) Complet ed 11/16/2022 3 2022 30.0 8C-9 2ND [facility] Allergies, Adverse Reactions, Alerts Combined list of allergies from Department of Defense and Veterans Affairs facilities. It does not include entries that were removed or entered in error. Substance Category Reaction Severity Reaction type Status Date Reported Comments Source No Known Allergies Drug allergy (disorder) active 09/16/2022 [facility] [place], [place] ([facility]) Immunizations Combined list of available immunizations from the Department of Defense and Veterans Affairs facilities. 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 Comments Source influenza, injectable, quadrivalent- pf 2021 GENEVIEVERCAN ETE [id number] 150 complet ed Result Comment: Route: Unknown Manufactu rer: OTH (SKB) 127C-9 2ND [facility] COVID Vaccine Pfizer 2020 FantasmaylinRyan er Stacyul sung, left (delt oid) [id number] PFIZER complet ed COVID Vaccine Pfizer 08/20/20 Given 127C-9 2ND [facility] COVID Vaccine Pfizer 2020 TABITHJOHANITH Clement sung, left (delt oid) [id number] 208 PFIZER complet ed COVID Vaccine Pfizer 08/01/20 Given 0128C-9 2ND [facility] Human Papillomaviru s 9-valent vaccine 2018 CAPTGENEVIEVE RCANETE [id number] 165 complet ed Result Comment: Route: Unknown Manufactu rer: OTH (MSD) 0128C-9 2ND [facility] human papillomaviru s vaccine 2018 Sivakumar howard Arm [id number] 165 [employer] complet ed human papilloma virus vaccine 11/09/18 Given 0128C-9 2ND [facility] Human Papillomaviru s 9-valent vaccine 2018 GENEVIEVERCAN ETE [id number] 165 complet ed Result Comment: Route: Unknown Manufactu rer: OT (MSD) 0128C-9 2ND [facility] Human Papillomaviru s 9-valent vaccine 2017 GENEVIEVERCAN ETE [id number] 165 complet ed Result Comment: Route: Unknown [...] adult dosage DoD adenovirus vaccine, live 2017 [id number] 9 143 Teva [employer] ls complet ed adenoviru s vaccine, live 09/29/17 Given Ambulat ory Pharmac y tetanus, diphtheria, acellular pertu is 2017 [id number] 115 GlaxoSmithKli ne complet ed tetanus, diphtheri a, acellular pertussis 09/29/17 Given Ambulat ory Pharmac y meningococcal A,C,Y,W-135 (MCV4P) 2017 [id number] F 114 sanofi pasteur complet ed meningoco [...] diphtheria toxoid conjugate vaccine (MCV4P) 1 2017 [id number] F 114 Sanofi Pasteur (PMC) complet ed meningoco ccal polysacch aride (groups A, C, Y and W-135) diphtheri a toxoid conjugate vaccine (MCV4P) DoD tetanus toxoid, reduced diphtheria toxoid, and acellular pertu is vaccine, adsorbed 1 2017 [id number] 115 SocialDiabetes (SKB) complet ed tetanus toxoid, reduced diphtheri a toxoid, and acellular pertussis vaccine, adsorbed DoD Adenovirus, type 4 and type 7, live, oral 1 2017 [id number] 9 143 [employer] (BRR) complet ed Adenoviru s, type 4 and type 7, live, oral DoD Influenza, injectable, Madin Su Canine Kidney, quadrivalent with preservative 1 2017 [id number] 186 Seqirus (SEQ) comple t ed Influenza [...] Prevention' s HIV diagnostic algorithm. Refer to [facility] Lab Guide for additional information : [email or web address] [email or web address] entertainmentx. [facility]/ [email or web address]/EPIL [email or web address] [email or web address] x Testing performed by [employer] leandro peck. 5600A-US [facility] EPILAB Miscellan eous Sendouts Repository [...] Prevention' s HIV diagnostic algorithm. Refer to [facility] Lab Guide for additional information : [email or web address]/ [email or web address]/EPIL [email or web address] [email or web address] x Testing performed by [employer] leandro peck. Performed by: Epidemiolog y Laboratory Service [facility] [address] [place] [address], [place] [address] 0128C-92 [facility] GRP-FAIR CHILD Miscellan eous Sendouts Repository Sample.EPI RECEIVED 11/04 Result Comment: INTERPRETAT ION(S): Performed by: Epidemiolog y Laboratory Service [facility] [address] [place] [address], [place] [address] 0128C-92 [facility] GRP-[facility] CHILD Molecular Infectiou s Disease Reason for Test? Diagnosi s ( 1 9:28 AM) 04/25 N 8C-92 ND [facility] GRP-[facility] CHILD Molecular Infectiou s Disease SARS-CoV-2 PCR [...] for this test is supported by the [place] Inspector of Health and Human Service s (HHS [...] the test may no longer be used). 0128C-92 ND [facility] GRP-FAIR CHILD Infectiou s Disease Flu A Rapid Ag Neg (01/15/21 7:53 AM) 01/15 N 0128C-92 [place] MED [facility] CHILD Infectiou s Disease SARS-CoV-2 ANTIGEN Negative (01/15/21 7:53 AM) 01/15 N 0128C-92 ND [facility] GRP-FAIR CHILD Infectiou s Disease Flu B Rapid Ag Neg (01/15/21 7:53 AM) 01/15 N 8C-92 ND [facility] GRP-FAIR CHILD Infectiou s Disease Reason for Test? Diagnosi s (01/15/21 7:53 AM) 01/15 N 0128C-92 ND [facility] GRP-FAIR CHILD Molecular Infectiou s Disease SARS-CoV-2 PCR Negative 12, 13 (01/15/21 [...] for this test is supported by the Sewer Inspector of Health and Human Service s (HHS [...] may no longer be used). 0128C- ND [facility] GRP-FAIR CHILD Molecular Infectiou s Disease Reason for Test? Diagnosi s (01/15/21 7:53 AM) 01/15 N 0128C- ND [facility] GRP-FAIR CHILD Infectiou s Disease Flu A Rapid Ag Neg (12/13/20 8:02 AM) 12/13 N 0128C-92 ND [facility] GRP-FAIR CHILD Infectiou s Disease SARS-CoV-2 ANTIGEN Negative (12/13/20 8:02 AM) 12/13 N 0128C-92 ND [facility] GRP-FAIR CHILD Infectiou s Disease Flu B Rapid Ag Neg (12/13/20 8:02 AM) 12/13 N 0128C-92 ND MED [facility]IR CHILD Infectiou s Disease Reason for Test? Diagnosi s (12/13/20 8:02 AM) 12/13 N 0128C-92 ND [facility] GRP-FAIR CHILD Molecular Infectiou s Disease Reason for Test? Diagnosi s (12/13/20 8:02 AM) 12/13 N 0128C-92 ND MED GRP-FAIR CHILD Molecular Infectiou s [...] for this test is supported by the [place] of Health and Human Service s (HHS [...] the test may no longer be used). 0128- [facility] GRP-FAIR CHILD Infectiou s Disease HIV-1/O/2. EPI NON-REAC [...] Prevention' s HIV diagnostic algorithm. Refer to [facility] Lab Guide for additional information : [email or web address]/k j/kx5/Bernadette murphy/[email or web address] _[email or web address].aspx Testing performed by Osmany peck. Performed by: Epidemiolog y Laboratory Service [facility] [address] [place] [address], [place] [address] 0128C-92 [place] [facility] GRP-FAIR CHILD Miscellan eous Sendouts Repository Sample.EPI RECEIVED 10/25 Result Comment: INTERPRETAT ION(S): Performed by: Epidemiolog y Laboratory Service [facility] [address] [place] [address], [place] [address] 0128C-92 [place] [facility]P-[facility]IR CHILD Immunolog y/Serolog y Hep C Ab Non-Reac tive (10/26/19 11:16 AM) 10/25 N 0125A-AM C [place] Immunolog y/Serolog y Hep B Surface Ab Reactive *ABN* (10/26/19 11:16 AM) 10/25 A 0125A-AM C [place] Immunolog y/Serolog y Hep A Ab Reactive *ABN* (10/26/19 11:16 AM) 10/25 A 0125A-AM C [place] Immunolog y/Serolog y Hep B Surface Ag Non-Reac tive 1 (10/26/19 11:16 AM) 10/25 N Interpretiv e Data: Note to [facility] Physicians: = Acute Hepatitis A, B, or C is a reportable illness. If these results indicate acute hepatitis, please forward the results to PM,DOCTOR . Preventive Medicine will contact the patient to begin contact tracing. 0125A-AM C [place] Immunolog y/Serolog y Hep B Core Ab Non-Reac tive (6/18/20 11:16 AM) 10/25 N 0125A-AM C [place] [...] 0.5% for GC. At this prevalence, the [facility] r estimates the overall sensitivity and specificity for CT to be 94.1% and 99.6% respectivel y. For GC the sensitivity and specificity rates are 97.1% and 99.8%. The Positive Predictive Value and the Negative Predictive Value calculated by the manufacture r using the above clinical trial data [...] n. Performed by: Epidemiolog y Laboratory Service [facility] Bldg. [address] [place] [phone] 0128C [place] MED GRP-[facility] CHILD Vital Signs Combined list of inpatient and outpatient Vital Signs from Department of Defense and Veterans Affairs, ranging from 12 months to all on record, depending upon the facility. Vital Sign Value Date Comments Source Peripheral Pulse Rate 66 bpm 12/13/2020 14:55:00 0128C-ND MED [facility] Respiratory Rate 16 br/min 12/13/2020 14:55:00 0128CND MED GR[facility] Temperature Tympanic 36.8 Anupama 12/13/2020 14:55:00 0128CND MED [facility] Systolic Blood Pressure 120 mm[Hg] 12/13/2020 14:55:00 0128CND MED [facility] Diastolic Blood Pressure 83 mm[Hg] 12/13/2020 14:55:00 0128C-ND MED [facility] Mean Arterial Pressure, Calc 95 mm[Hg] 12/13/2020 14:55:00 0128C-92ND M ED GRP-[facility] Blood Pressure Method Automatic 11/09/2018 17:27:00 0128C-92ND MED [facility] Systolic Blood Pressure 111 mm[Hg] 11/09/2018 17:27:00 0128C-92ND MED [facility] Diastolic Blood Pressure 67 mm[Hg] 11/09/2018 17:27:00 0128C-92ND MED [facility] Peripheral Pulse Rate 79 bpm 11/09/2018 17:27:00 0128C-92ND MED [facility] Temperature Oral 36.7 Anupama 11/09/2018 17:27:00 0128C-92ND MED GR[facility] Respiratory Rate 16 br/min 11/09/2018 17:27:00 0128C-92ND MED [facility] Mean Arterial Pressure, Calc 82 mm[Hg] 11/09/2018 17:27:00 0128C-92ND M ED GRP-[facility] BP Site Left arm 07/28/2021 14:37:00 0128C -92ND MED [facility] Blood Pressure Manual Automatic 07/28/2021 14:37:00 0128C-92ND MED [facility] Mean Arterial Pressure, Calc 96 mm[Hg] 07/28/2021 14:37:00 0128C-92ND M ED GRP-[facility] Peripheral Pulse Rate 79 bpm 07/28/2021 14:37:00 0128C-92ND MED [facility] Respiratory Rate 16 br/min 07/28/2021 14:37:00 0128C-92ND MED [facility] Systolic Blood Pressure 127 mm[Hg] 07/28/2021 14:37:00 0128C-92ND MED [facility] Diastolic Blood Pressure 81 mm[Hg] 07/28/2021 14:37:00 0128C-92ND MED GR[facility] Blood Pressure Manual Automatic 12/01/2021 17:24:00 0128C-92ND MED GR[facility] Temperature Oral 36.9 Anupama 12/01/2021 17:24:00 0128C-92ND MED GRP[facility] BP Site Right arm 12/01/2021 17:24:00 0128C -92ND MED [facility] Respiratory Rate 16 br/min 12/01/2021 17:24:00 0128C-92ND MED GR[facility] Mean Arterial Pressure, Calc 95 mm[Hg] 12/01/2021 17:24:00 0128C-92ND M ED GRP-[facility] Peripheral Pulse Rate 87 bpm 12/01/2021 17:24:00 0128C-92ND MED GR[facility] Systolic Blood Pressure 126 mm[Hg] 12/01/2021 17:24:00 0128C-92ND MED GR[facility] Diastolic Blood Pressure 80 mm[Hg] 12/01/2021 17:24:00 0128C-92ND MED GR[facility] Mean Arterial Pressure, Calc 93 mm[Hg] 01/15/2021 15:11:00 0128C-92ND M ED GRP-[facility] Peripheral Pulse Rate 81 bpm 01/15/2021 15:11:00 0128C-92ND MED [facility] Respiratory Rate 16 br/min 01/15/2021 15:11:00 0128C-92ND MED GRP[facility] Temperature Oral 37.1 Anupama 01/15/2021 15:11:00 0128C-92ND MED GRP[facility] Systolic Blood Pressure 120 mm[Hg] 01/15/2021 15:11:00 0128C-92ND MED GRP[facility] Diastolic Blood Pressure 79 mm[Hg] 01/15/2021 15:11:00 0128C-92ND MED GRP-[facility] BP Site Left arm 01/15/2021 15:11:00 0128C -92ND MED GRP-[facility] Blood Pressure Manual Automatic 01/15/2021 15:11:00 0128C-92ND MED GRP[facility] Mean Arterial Pressure, Calc 95 mm[Hg] 12/01/2021 17:00:00 0128C-92ND M ED GRP-[facility] Systolic Blood Pressure 126 mm[Hg] 12/01/2021 17:00:00 0128C-92ND MED GRP[facility] Diastolic Blood Pressure 80 mm[Hg] 12/01/2021 17:00:00 0128C-92ND MED GRP[facility] Peripheral Pulse Rate 87 bpm 12/01/2021 17:00:00 0128C-92ND MED GRP-[facility] Temperature Oral 36.9 Anupama 12/01/2021 17:00:00 0128C-92ND MED GRP-[facility] Mean Arterial Pressure, Calc 82 mm[Hg] 12/28/2018 16:11:00 0128C-92ND M ED GRP-ABDIEL Respiratory Rate 16 br/min 12/28/2018 16:11:00 0128C-92ND MED GRP[facility] Systolic Blood Pressure 115 mm[Hg] 12/28/2018 16:11:00 0128C-92ND MED GRP[facility] Diastolic Blood Pressure 65 mm[Hg] 12/28/2018 16:11:00 0128C-92ND MED GRP-[facility]DI[facility] Temperature Oral 36.8 Anupama 12/28/2018 16:11:00 0128C-92ND MED GRP-[facility] Peripheral Pulse Rate 54 bpm 12/28/2018 16:11:00 0128C-92ND MED GRP[facility] Systolic Blood Pressure 121 mm[Hg] 09/16/2022 14:55:00 0128C-92ND MED GRP-[facility] Diastolic Blood Pressure 80 mm[Hg] 09/16/2022 14:55:00 0128C-92ND MED GRP-[facility]DI[facility] Mean Arterial Pressure, Calc 94 mm[Hg] 09/16/2022 14:55:00 0128C-92ND M ED GRP-ABDIEL Respiratory Rate 14 br/min 09/16/2022 14:55:00 0128C-92ND MED GRP-[facility] Peripheral Pulse Rate 76 bpm 09/16/2022 14:55:00 0128C-92ND MED GRP-[facility] Temperature Oral [...] ADM Date DC Date Status Disposition Source [place] [address]([facility]) OUTPATIENT [id number] Notes Entered by: ANUJ CASTANEDA 07 Oct 2017 1029 ------- ------- ------- ------- -- Strep Prophyl axis ALETHA CASTANEDA 10/07 Released w/o Limitations [facility] [facility] [place] [address]([facility], Drew robbins) [facility] Treatment [facility] [email or web address] [place] [address]([facility], BMT) OUTPATIENT [id number] CATRACHO SPAULDING 10/08 Released w/o Limitations [place] [address]([facility], B[facility]) [employer]([facility]) OUTPATIENT [id number] Notes Entered by: Luz Marina SMITH 19 Jan 2018 0659 ------- ------- ------- ------- -- SICK CALL - Insect ite swollen on right hand middle finger/ Right leg back thigh SURENDRA DAVILA 01/19 Released w/o Limitations [employer]([facility] ) [employer]([facility]) OUTPATIENT [id number] Notes Entered by: EMILY MAYORGA 19 Jan 2018 1601 ------- ------- ------- ------- -- WALK IN [facility] to [facility] PAPO ORDOÑEZ 01/19 Released w/o Limitations [employer]([facility]) [id number] AMDS Outpatient [id number] RALPH CORONA 01/10 Discharge Disposition: Home or Self Care [id number] AMDS 0310C-AF- C-66th [facility] [id number] Adjustm ent disorde r, unspeci fied,Hy perlipi demia, unspeci fied,EX AM/ASSE 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, 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, 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 [facility]) ELISHA BBOUD 04/12 Discharge Disposition: Home or Self Care 0310C-A F-C-66t h [facility] 0C-AF- C-66th [facility] Between Visit [id number] 05/19 Discharge Disposition: Home or Self Care 0310C-A F-C-66t h [facility] 0C-AF- C-66th [facility] [id number] [facility] er for adminis trative examina tions, unspeci fied [facility] 07/11 Discharge Disposition: Home or Self Care 0310C-A F-C-66t h [facility] Procedures Combined list of: 1) Procedures from Department of Veterans Affairs facilities going back up to thelast 18 months, not all OR non-surgical procedures are included; 2) All procedures from the Department of Defense facilities. Procedure Procedure Type Code Date Perfomer Comments [facility] e Diagnostic colonoscopy 08/05/19 22 0128C-92ND MED GRP-[facility]IR[facility] LD WTEx4 0C-AF-C- 66th [facility] ELECTROCARDIOGRAM, ROUTINE ECG WITH AT LEAST 12 LEADS; WITH INTERPRETATION AND REPORT 01/20/20 18 [facility] PURE TONE AUDIOMETRY (THRESHOLD); AIR ONLY 10/09/19 18 [facility] THERAPEUTIC, PROPHYLACTIC, OR DIAGNOSTIC INJECTION (SPECIFY SUBSTANCE OR DRUG); SUBCUTANEOUS OR INTRAMUSCULAR 10/08/19 18 [facility] ECG 12-Lead With Interpretation And Report ECG 12-Lead With Interpretation And Report [id number] 01/31/20 18 PAPO ORDOÑEZ [facility] Threshold Audiogram (Pure Tone) Threshold Audiogram (Pure Tone) 24200 10/09/19 18 MARISOL MERINO [facility] Supervised Injection Intramuscular Antibiotic Supervised Injection Intramuscular Antibiotic 34781 10/08/19 18 ALETHA CASTANEDA [facility] Social History Combined list of available smoking, tobacco, and other social history from Department of Defense and Veterans Affairs facilities. Social History Type Response Date Comment Sour e Sex Representation Male (finding) 02/16/2018 Un known Organization Tobacco Cigarette use: Never-cigarette user. Other Tobacco use: Never-other tobacco user (not cigarettes). Ambulatory Pharmacy Sexual Orientation Ambula tory Pharmacy Gender identity [...] Source Assessment and Plan Extracted from:Title : 469 Author: ZHENG INFANTE PA Date: 07/11/24 1. A dministrative reason for encounter review c ompleted and no issues were noted. A MONTGOMERY/469 has been updated. Bandar Garcia PA-C Aerospace Medicine Physician Export Packer/[address] [place] Extracted from:Title: Annual [facility] MHA/PHA Author: WILLA CARDOSO NP Date: 04/12/24 1. 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 SM present for virtual encounter. All age/gender specific CPS IAW USPSTF are up to date. IMR- Green. Profile- None Active. +WWQ. This MHA/PHA is for screening purposes only, and is Not to replace a face to face appointment with PCM or other specialty care i f needed. SM was informed that i f there are any h ealth concerns, i t is the SM's responsibility to schedule an appointment with PCM or specialty c are for evaluation and management. ? 2. D yslipidemia C ontinue F enofibrate, a nd f ollow a healthy diet limiting saturated fats (red meats, processed meats, full fat dairy), regular exercise, and maintaining a healthy weight; continue F/U with PCM for lipid panel monitoring and HLP management. 3. A djustment disorder Continue E scitalopram as prescribed, and continue F/U with Psychiatry for management. SM informed that prolonged use of Clonazepam over 6 months could result in a [employer] review; instructed SM to discuss alternative treatment to Clonazepam; SM verbalized understanding; SM reports that Clonazepam is not needed, and will be discussing disconsolation with Psychiatrist. Willa Cardoso CTR F BLENDER OPERATOR-C [facility] Provider Flight Medicine [address] [facility] [place] [address] Office- [phone] Extracted from:Title: Annual [facility] MHA/PHA Author: WILLA CARDOSO NP Date: 03/26/23 1. 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 SM present for virtual encounter. All age/gender specific CPS IAW USPSTF are up to date. IMR- R ed for profile; Profile- Yes, MR for adjustment disorder with mixed anxiety and depressed mood expires 20 Jun 2023. NOT -WWQ. 2. L BP - Low back pain F/U with PCM as needed. 3. A djustment disorder F/U with civilian care referral for management. 4. I nsomnia Continue OTC Melatonin as needed/ per packaging instructions; F/U with PCM for persistent or worsening symptoms. Willa Cardoso CTR F BLENDER OPERATOR-C [facility] Provider Flight Medicine [address] [facility] [place] [address] Office- [phone] Extracted from:Title: LBP Profile f/u Author: BREN ANDRADE NP Date: 09/16/22 1. L ow back pain Chronic, improvement, controlled. Pt desires to resolve profile. He endorses has been performing HEP and dedicated PT since fall 2022. Pt with pain 2-3/10 tightness of low back, no changes except soreness from moving boxes d/t upcoming PCS. pt w/o red flag sxs. Continue conservative management- ordered meds for pt lidocaine patches, naproxen, tylenol prn as directed. intermittent ice/heat q2 hours prn pain. epsom salt bath to relax muscles. Pt to continue relative rest. Recommend no prolonged sitting or standing >30 minutes.? Pt to f/u with PCM at [facility] to request PT as he will benefit from this. Patient informed c hronicity of l ow back pain c an i ncrease future f lare ups humphrey w/strenuous physical activity a nd will m ost likely r ecur intermittently in the future; therefore, c ontinue conservative s elf management and practice appropriate posture, good body mechanics for preventive measures. Return precautions and report to ED for any red flags discussed. Patient expressed understanding and intent to comply. Informed pt to f/u prn PVUA. Not on PRP or f lying status, N o A uOf. YES: i ndication for new or modified - resolved FR Return precautions discussed. Patient expressed understanding and intent to comply. All questions answered. Patient agreed to notification regarding results of labs, imaging, other diagnostic testing via the [facility] [employer] Patient Portal. -A total of approximately 30 minutes- 45118 ( Face to face 20 minutes ) Date of service: 1 0 _ M ay 2022 with the following actions b elow and as applicable based on this EHR as above: reviewing p revious notes a nd/or specialty notes, including JLV x idap-le-qbxl w/ pt x medical charting including documenting the findings in the note r eview of diagnostic testing including: __ labs __ radiology studies x ordering meds, test, or procedures x greater than 50% in counseling/coordination of care: diagnosis/diff dx, treatment and follow up plan. x AGAM/ASIMS review/update x Medical Standards processes/FFD requirement and/or disqualifications and process for medical b oard 5 minutes spent updating immunizations on mariluz in reconciliation w/IMR _ please see attached documents: ekg, pft, or c onsent forms in [facility] chart F keturah angelo P RN. -Portions of this note were scribed by my medical scientific liaison(s). I have verified the information and medical decision making is my own. YES:Reviewed pertinent M ental Health Screening scores below - pt is low risk. P t denies suicidal or homicidal ideations No C SSRS YES: G AD -7 YES: P HQ- 9 No E pworth No M oCA No A julianne No P CL/PTSD Screening //SIGNED// Bren Andrade, XENIA, , [employer], [place] Family Nurse Practitioner [facility] [address] [facility], [place] [phone] Ordered: lidocaine topical(lidocaine 5% topical film), 1 [...] Acute, 11/16/2022, 1 tab(s) Oral BID, Pharmacy: [facility] [Not filled] acetaminophen(Tylenol 325 mg oral tablet), 1 tab(s), Oral, every 4 hr, PRN pain or fever, # 30 tab(s), 0 total refill(s), Acute, 11/16/2022, 1 tab(s) Oral every 4 hr,PRN:pain or fever, Pharmacy: [facility] [Not filled] 2. A cute stress reaction Pt seeing FAP/MH ongoing has appts. Denies suicidal or homicidal ideations- has all his appts. Pt feels safe at home and at work. Informed pt to f/u with new PCM at next base to f/u w/continuity of MH care. Pt has no further needs and pt to f/u prn PVUA Extracted from:Title: Pain of Left Toes (System Outage) Author: BREN ANDRADE NP Date: 09/01/22 1. P ain in left toe(s) see SF600 for charting- ACI was completed b [facility] system shut down - unable to reconcile meds/history/immunizations as [facility] system was down at the time of appt. - Adding codes/dx/referral/med t o this encounter. 26 y/o male with ingrown toenail of 1st/2nd/3rd digit of left foot. Referral to podiatry for consideration of removal and for eval and tx thanks! Not on PRP or f lying status, N o A uOf. No i ndication for new or modified FR/MR/DR Return precautions discussed. Patient expressed understanding and intent to comply. All questions answered. Patient agreed to notification regarding results of labs, imaging, other diagnostic testing via the [facility] [employer] Patient Portal. -A total of approximately 30 minutes- 87620 ( Face to face 20 minutes ) Date of service: 2 5 _ A pr 2022 with the following actions b elow and as applicable based on this EHR as above: r eviewing p revious notes a nd/or specialty notes x czzx-wn-uahj w/ pt x medical charting including documenting the findings in the note r eview of diagnostic testing including: __ labs __ radiology studies x medication adjustment x greater than 50% in counseling/coordination of care: diagnosis/diff dx, treatment and follow up plan. A GARRETT/ASIMS review/update Medical Standards processes/FFD requirement and/or disqualifications and process for medical b oard _ please see attached documents: ekg, pft, or c onsent forms in S [employer] chart F keturah angelo P RN. -Portions of this note were scribed by my medical scientific liaison(s). I have verified the information and medical decision making is my own. YES:Reviewed pertinent M ental Health Screening scores below - pt is low risk. P t denies suicidal or homicidal ideations No C SSRS YES: G AD -7 YES: P HQ- 9 No E pworth No M oCA No A julianne No P CL/PTSD Screening //SIGNED// Bren Andrade, XENIA, ARISTEO , [place], [place] Family Nurse Practitioner [facility] [facility] [place], [place] [phone] Ordered: mupirocin topical(mupirocin 2% topical ointment), 1 appl(s), Topical, TID, X 7 days, # 15 g, 0 total refill(s), Acute, 1 appl(s) Topical TID,x7 days, Pharmacy: [facility] [Not filled] Referral Request 2.0 2. M johan erectile dysfunction, unspecified same as above Extracted from:Title: PHA Author: ARTURO GRAHAM PA Date: 01/13/22 1. 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 Reviewed [id number]. No new specific concerns identified in past medical or family history when compared to the PHAQ. All information was updated to the e2766 as needed. Electronic records reviewed to include member s summary and veterinary technician's Record Review section of PHAQ which is attached to this note. Completed provider portion of the PHAQ, any abnormalities were noted in the Provider Comments section below. Not on PRP or flying status. No indication for new or modified DR/MR/FR at this time. -Hx of low back pain. Active AF469 w/ MR/DR/FR. PT to start Jan 2022. ASIMS: R ED. Due for audiogram. All Preventative Screening Recommendations IAW USPSTF have been accomplished. Follow up P RN. Arturo Graham, CTR, PA-C [address] [facility], [place] ANNUAL PERIODIC HEALTH ASSESSMENT I. 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 INFORMATION AND DEMOGRAPHICS (SMI) 1. Last Name: DARRION 2. First Name: KYRA 3. Middle Name: OZ 4. Assessment Date: 5. : 6. Age: 26 7. Gender: M 8. DoD ID Number: [id number] 9. Service Branch: [employer] 10. 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 Pay Grade: E04 13. Unit Name: [address] [place] [address] 14. Duty Station/Location: [place] 15. C: [id number] 16. Is this your first Periodic Health Assessment (PHA)?: N 17. Are you enrolled in a secure messaging system with your health care provider?: N 18. Current contact information: Preferred Method: Day Time Phone DSN: [id number] Day Time Phone: [phone] Night Time Phone: Email 1: [email or web address] Email 2: Address: [facility]: [facility] State: [place] Zip Code: [address] 19. Point of contact who can always reach you: Name: Marah Cuellar Phone 1: [phone] Phone 2: EMAIL: [email or web address] Address: [address] [place] [address]: [place] State: [place] Zip Code: [address] II. DEPLOYMENT INFORMATION (DEP) 1. [ Never deployed ] Total number of deployments in the PAST 5 YEARS 4. [ N ] Are you going to deploy within the NEXT 120 DAYS? III. 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 [ No ] Does your specialty require an operational duty physical exam? 4. [ No ] Are you currently enrolled in a medical surveillance/occupational health program?: No IV. MEDICAL CONDITIONS (MIKE): 1. Since your last PHA, have you experienced any of the following health conditions, and if so, what is your status? [ ] Conditions with no medical care [ ] Conditions with medical care, but no longer under treatment [ ] Conditions with medical care, and NOW under treatment 2. Since your last PHA, have you experienced any of the following health conditions, and if so, what is your status? [ ] Conditions with no medical care [ Recurring muscle, joint, or low back pain ] Conditions with medical care, but no longer under treatment [ ] Conditions with medical care, and NOW under treatment 3. For any condition marked YES in question 1 or 2, are you currently on any profile or limited duty for that condition? [ ] Conditions 4. [ Not Sure ] [...] a temporary profile or on limited duty? V. INDIVIDUAL MEDICAL READINESS (IMR) 1. [ No ] Do you have any allergies? 3. [ Not required ] Do you have red medical warning dog tags? 4. [ No ] Do you wear corrective lenses? . BEHAVIORAL HEALTH (MHA) 1. a. [ None ] Over the PAST MONTH, what major life stressors have you experienced that are a cause of significant concern or make it difficult for you to do your work, take care of things at home, or get along with other people (for example, serious conflicts with others, relationship problems, or a legal, disciplinary or financial problem)? 2. a. [ No ] In the PAST YEAR did you receive care for any mental health condition or concern such as, but not limited to post traumatic stress disorder (PTSD), depression, anxiety disorder, alcohol abuse or substance abuse? 3. [ None ] What prescription or over-the counter medications (including herbals/supplements) for sleep, pain, combat stress, or a mental health problem are you CURRENTLY taking? 4. a. [ Yes ] In the [...] six or more drinks on one occasion? 6. Have you ever had any experience [...] easily startled? 6. d. [ No ] [place] numb or detached from others, activities, or your surroundings? 6. e. [ Not answered ] [place] guilt or unable to stop blaming yourself or others for the event(s) or any problems the event(s) may have caused? 7. Over the LAST 2 WEEKS, how often have you been bothered by the following problems? 7. a. [ Not at all ] Little interest or pleasure in doing things 7. b. [ Not at all ] Feeling down, depressed, or hopeless 8. [ Yes ] Would you like [...] like to schedule a visit with a tire builder heavy service, mental health care provider, or a community support counselor? VII. FAMILY HISTORY AND LIFESTYLE (LIF) 1. [ Fair ] Overall, how would you rate your health during the PAST MONTH? 2. [ Heart-related conditions, Diabet ] Member indicates that family members have the following problems 4. The following family members has/had a history of heart-related conditions: High Blood Pressure: Mother Heart Attack: Grandfather Sudden Cardiac : Grandfather 5. The following family members has/had a history of diabetes: Type II: Grandfather 6. [ Yes ] I participate in moderate intensity physical activites at least 2.5 hours, or a combination of moderate and vigorous aerobic activites, for at least 75 minutes per week. 7. In a typical week, I do physical activities specifically designed to STRENGTHEN my muscles: [ 2 ] Day(s) per week 8. [ tylenol ] What prescriptions or wsmn-nwj-jqgfyng medications are you CURRENTLY taking for health problems on a ROUTINE BASIS? 9. Which of the following products have you taken since your last PHA: None of the above 11. Think about the PAST 30 DAYS. How often did you eat/drink the following foods/beverages? [ 1 or 2 servings per week ] Fruits [ 1 or 2 servings per week ] Vegetables [ Rarely or Never ] Starchy Vegetables [ Rarely or Never ] Whole Grains [ 1 or 2 servings per week ] Dairy and Calcium Containing Foods [ 1 or 2 servings per week ] Fish [ 3 to 6 servings per week ] Lean Protein [ 1 or 2 servings per week ] Sugar-Sweetened Beverages ] Have you had a cholesterol check by a health healthcare specialist within the PAST 5 YEARS? 13.a. In the PAST 30 DAYS, which of the following products have you used on at least one day? None 15. Which of the following best [...] worried enough to use a home test? X. OTHER MEDICAL (OTH) 1. [ 3 [...] care provider to discuss any health concerns? XI. SEPARATION AND FPC 1. [ No ] Are you planning to separate or retire within the next year from Active Duty or [place] Duty (activated for greater than 30 continuous days) OR do you intend to file a claim for disability compensation with the Veterans Benefits Administration? PART B. RECORD REVIEW AND RECOMMENDATIONS I. RECORD REVIEWER INFORMATION 1. Last Name: BEATA 2. First Name: FELISA 3. Middle Name: JOSSIE 4. Service Branch: [employer] 5. 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 EMAIL: [email or web address] 8. Facility: [facility] 9. Unit: [address] [place] [address] 10. Address: [address] [place] [address] 11. State: [place] 12. Zip Code: [address] 13. 14. Date Record Review: II. MEDICAL SCREENING 1. 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 [ 5 feet 8 inches D ate: ] architecture faculty member's most recently documented height 3. [ 182 pounds Date: ] architecture faculty member's most recently documented weight 4. [ 126/80 Date: ] architecture faculty member's most recently documented blood pressure reading 5. [ No ] Does the architecture faculty member have a history of abnormal blood pressure since their last PHA? 6. [ Yes ] Does the architecture faculty member have a laboratory test of sickle cell trait documented in their permanent medical record? 7. [ No Cholesterol Test Documented ] What is the date of the architecture faculty member's most recently documented cholesterol test? 9. [ tylenol ] List of architecture faculty member's active medications listed in their permanent medical record 10. [ Yes: tylenol ] Is there a discrepancy between the active medication record review and the architecture faculty member's self-reported list of medications? 11. 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 [ Yes: 05/30/21 ER, diverticulitis 08/04/21-09/29/21 PTx, dorsalgia ] Is there a discrepancy between the architecture faculty member's list of OUTSIDE care (from OT5), and the OUTSIDE care found in the record? 13. 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 [ Not Answered ] Confirm that vaccine exemptions are listed in the medical record for each vaccine listed IV. FAMILY HISTORY AND LIFESTYLE 1. [ Yes ] Does the OB8701 reflect the architecture faculty member's reported family history? VII. INDIVIDUAL MEDICAL READINESS 1. [ No ] Does the architecture faculty member have an Assignment Limitation Code C? 3. [ Classification: 1 ] Most recently documented dental exam 4. [ Yes ] Is the architecture faculty member current on all required immunizations in the immunization tracking system? 6. Does the architecture faculty member have the following laboratory tests documented in their permanent medical record? [ Yes ] HIV test within the PAST 24 months [ Yes ] G6PD results on file? [ Yes ] Blood type and Rh on file [ Yes ] DNA test on file IX. ADDITIONAL RECORD REVIEWER COMMENTS 1. This record review does NOT have a need for provider notification or referral.2. Additional comments about this record review that need to be forwarded to the Health Dynamite Packing Machine Feeder completing PART C: Date Record Review Completed: PART C. HEALTH CARE PROVIDER I. MENTAL HEALTH ASSESSMENT (MHA) PROVIDER INFORMATION 1. Last Name: Nader 2. First Name: Demond 3. Middle Name: 4. Service Branch: [employer] 5. 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 EMAIL: [email or web address] 8. Facility: [facility] 9. Unit: [facility] 10. Address: [address] [place] [address] 11. State: [place] 12. Zip Code: [address] 13. 14. Date HCP Review initiated: 1. Member marked that they did not have a concern or a difficulty with a major life stressor. 2. Address concerns identified on member questions 2 and 3. History of mental health care: N/A Member's response: Provider's comments: none Medications: N/A Member's response: Provider's comments: Tylenol, seasonal allergy medications (OTC) and ZZquil for sleep. 3. Member's AUDIT-C screening score was 1. (nothing required) 4. Member did not britney yes on two or more of questions 6a through 6e. 5. Member did not britney More than half the days or nearly every day on question 7a or 7b. 6. Suicide risk evaluation. 6. a. Ask: Over [...] No 6. g. Further risk assessment comments: 7. Member states that they have not had thoughts or concerns over the past month that they might hurt or lose control with someone. 9. Summary of Provider's identified concerns needing referrals: None 11. Comments: SM does not endorse SI, HI or self-harm. SM reported having a good support system which includes his and work friends. SM expressed having awareness of available mental health resources on Base. SM denied having any current resource or service needs. No concerns or referral needs identified at this time. 12. 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 Behavioral Health): Request medical appointment: Appt is scheduled 13. Supplemental services recommended/information provided: No supplemental services required Date MHA Certified: III. PERIODIC HEALTH ASSESSMENT (PHA) PROVIDER INFORMATION 1. Last Name: Santos 2. First Name: Arturo 3. Middle Name: 4. Service Branch: [employer] 5. 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 EMAIL: [email or web address] 8. Facility: [address] [place] [address] 9. Unit: [address] [place] [address] 10. Address: [address] [place] [address]. State: [place] 12. Zip Code: [address] 13. 14. Date HCP Review initiated: IV. PERIODIC HEALTH ASSESSMENT PROVIDER RECOMMENDATIONS and REFERRALS 1. Provider concerns with this assessment: No issues or concerns identified V. SUMMARY AND COMMENTS 1. Additional information summarizing findings during the architecture faculty member assessment: 2. Provider Comments: already had appointment with PCM since PHAQ was completed. . INDIVIDUAL MEDICAL READINESS DISPOSITION DETERMINATION MIKE: Not Ready DEN: Ready IMM: Ready LAB: Ready ME: Ready IMR Status: Not Medically Ready VII. 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 Reference [facility] 6490.07 N o (architecture faculty member currently has a medical condition that DOES require duty limitation(s) AND limits deployability) Date PHA Completed: END OF [id number] REPORT [facility] Review Summary [ No ] Does the member have 4 or more consecutive fitness exemptions or any waist circumference exemptions? [ No ] Does the member have a history of a RILO/MEB? [ No ] Does the member have any abnormal laboratory results since their last PHA? [ No ] Does the member have any pathology or radiology results since their last PHA? [ No ] Does the member have any outstanding medical concerns/open consults or referrals? [ No ] Is the member currently under specialty medical care? [ No ] Does the member have any conditions that dictate a referral to the [employer] Board? Active Medical Conditions: None. 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 D iverticulitis of colon Asymptomatic. Will request records for full report of biopsy of polyp and CSP. Preliminary results reviewed WNL- No diverticulosis noted on CSP- 4mm polyp of sigmoid colon removed with biopsy. Pt to increase fiber in diet- also given contact for nutrition for assistance for fiber diet if needed. Given pt f/u precautions and RTC if sxs return or if severe abdominal pain, fever/chills, severe n/v, lightheadedness/dizziness pt to seek care ER. Informed pt to f/u prn PVUA Return precautions discussed. Patient expressed understanding and intent to comply. All questions answered. Patient agreed to notification regarding results of labs, imaging, other diagnostic testing via the [employer] Patient Portal. -A total of 20-29 m in. with the following actions b elow and as applicable based on this EHR as above: x r eviewing p revious notes a nd/or specialty notes x [id number] w/ pt x medical charting including documenting the findings in the note r eview of diagnostic testing including: __ labs __ radiology studies x medication adjustment x greater than 50% in counseling/coordination of care: diagnosis/diff dx, treatment and follow up plan. A GARRETT/ASIMS review/update M edical Standards processes/FFD requirement and/or disqualifications and process for medical?board F keturah Driscoll RN. -Portions of this note were scribed by my medical scientific liaison(s). I have verified the information and medical decision making is my own. Not on PRP, flying status, AuOf. No indication for new or modified FR/DR/MR at this time. Will not be extending pt's profile unless rehab with PT for LBP. //Electronically signed// BREN ANDRADE, XENIA, , [facility], [place] Family Nurse Practitioner 2. L ow back pain Acute, Suspect low b ack strain. Continued L BP - pt continue to take medication. No focal neuro deficits or evidence of radiculopathy. No indication for i maging at this time.? re-educated pt: Counselled on conservative home management including ice/heat TID, stretching, a voiding strenuous activity but maintenance of normal day to day activities as able. Will treat symptomatically naproxen BID prn and tylenol as ordered. Pt counseled to only take flexiril at bedtime- no driving or operate machinery within 10 hours of taking flexiril or mix with alcohol Pt given check out sheet - PT schedule here at [facility]. If not improved with PT - pt to f/u with PCM and consider imaging and pain management though I do not believe this is necessary based on sxs and DAYANA. No back pain red flags. Pt to f/u after course of PT and sooner for new/worsening sxs. Informed pt to f/u prn PVUA. Extracted from:Title: Virtual: LBP Author: BREN ANDRADE NP Date: 11/18/21 1. L ow back pain Acute, Suspect back strain. No focal neuro deficits or evidence of radiculopathy. No indication for i maging at this time.?Counselled on conservative home management including ice/heat TID, stretching, a voiding strenuous activity but maintenance of normal day to day activities as able. Will treat symptomatically naproxen BID prn and tylenol as ordered. Pt counseled to only take flexiril at bedtime- no driving or operate machinery within 10 hours of taking flexiril or mix with alcohol Pt given phone number to PT schedule here at [facility]. If not improved with PT- pt to f/u with PCM and consider imaging and pain management though I do not believe this is necessary based on sxs and DAYANA. No back pain red flags. Pt already has f/u appt with PCM in 2 weeks for f/u to today's visit. Informed pt to f/u prn PVUA. Return precautions discussed. Patient expressed understanding and intent to comply. All questions answered. Patient agreed to notification regarding results of labs, imaging, other diagnostic testing via the [employer] Patient Portal. -A total of 20-29 m in. with the following actions b elow and as applicable based on this EHR as above: x reviewing p revious notes a nd/or specialty notes x virtual w/ pt x medical charting including documenting the findings in the note r eview of diagnostic testing including: __ labs __ radiology studies m edication adjustment x greater than 50% in counseling/coordination of care: diagnosis/diff dx, treatment and follow up plan. x AGAM/ASIMS review/update x Medical Standards processes/FFD requirement and/or disqualifications and process for medical b oard F keturah angelo P RN. -Portions of this note were scribed by my medical scientific liaison(s). I have verified the information and medical decision making is my own. Not on PRP, flying status, AuOf. new x30 days for FR/DR/MR at this time. //Electronically signed// XENIA TRAN, Aristeo , [facility], [place] Family Nurse Practitioner Ordered: cyclobenzaprine(cyclobenzaprine 10 mg oral tablet), See Instructions, TAKE ONE TABLET BY MOUTH AT BEDTIME NEEDED FOR MUSCLE SPASM, # 21 tab(s), 0 total refill(s), Acute, TAKE ONE TABLET BY MOUTH AT BEDTIME NEEDED FOR MUSCLE SPASM, Pharmacy: [facility] [Not filled] Orders: naproxen(naproxen 500 mg oral tablet), 1 tab(s), Oral, BID, # 20 tab(s), 0 total refill(s), Acute, 12/19/2021, 1 tab(s) Oral BID, Pharmacy: [facility] [Not filled] acetaminophen(Tylenol 325 mg oral tablet), 1 tab(s), Oral, every 4 hr, PRN pain or fever, # 100 tab(s), 0 total refill(s), Acute, 12/19/2021, 1 tab(s) Oral every 4 hr,PRN:as needed for pain or fever, Pharmacy: [facility] [Not filled] Extracted from:Title: ER f/u and Mid Back Pain Author: BREN ANDRADE NP Date: 07/28/21 1. B ack pain Acute, mechanical mid back pain Suspect back strain. No focal neuro deficits or evidence of radiculopathy. No indication for i maging at this time.?Counselled on conservative home management including ice/heat TID, stretching, a voiding strenuous activity but maintenance of normal day to day activities as able. Will treat symptomatically w/topical txs and naproxenas ordered. Pt counseled to only take flexiril at bedtime- no driving or operate machinery within 10 hours of taking flexiril. If not improved with PT- pt to f/u with PCM and consider imaging and pain management though I do not believe this is necessary based on sxs and DAYANA. Informed pt to f/u prn PVUA. Return precautions discussed. Patient expressed understanding and intent to comply. All questions answered. Patient agreed to notification regarding results of labs, imaging, other diagnostic testing via the [employer] Patient Portal. Not on PRP or flying status. x30 days new or modified FR/DR/MR at this time //Electronically signed// BREN ANDRADE, XENIA, , [facility], [place] Family Nurse Practitioner Ordered: lidocaine topical, 1 patch(es), Topical, Daily, [...] Acute, 08/28/2021, 1 tab(s) Oral BID, Pharmacy: [facility] [Not filled] 2. D iverticulitis of colon Resolved. Per guidelines will order for CSP to assess for malignancy and other p athology. [age] y/o male with mild diverticulitis noted of distal colon at ED May 2021. Sxs have resolved.? Order for colonoscopy with interpretation thanks! Informed pt to f/u after CSP. Given f/u precautions. PVUA. Ordered: Referral Request 2.0 Extracted from:Title: Virtual MHA Author: OUMAR MONTANA WHNP Date: 10/29/20 1. 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 Addendum: SM reports rash on right arm x 2 months (~ 2 x 3 inches) in diameter. Rash started 1 week after receiving 2nd COVID vaccine dose in right arm. Rash is occasionally pruritic. Has been applying moisturizing lotion. Instructed to try OTC Hydrocortisone cream BID x 1 to 2 weeks prn a nd to schedule PCM f/u if rash does not resolve. He verbalized understanding and agreed to plan of care. Ordered: Administration,[facility] [address] Brief Comm Tech-Based Svc, Virt, Phys, Est Pt; 5-10 Min Med Dis G2012 Addendum by OUMAR MONTANA WHNP on October 29, 2020 08:21:05 PDT ANNUAL PERIODIC HEALTH ASSESSMENT I. 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 INFORMATION AND DEMOGRAPHICS (SMI) 1. Last Name: DARRION 2. First Name: KYRA 3. Middle Name: OZ 4. Assessment Date: 5. : 6. Age: 25 7. Social Security Number: [id number] 8. Gender: M 9. DoD ID: [id number] 10. Service Branch: [employer] 11. Status: 12. Pay Grade: E04 13. Unit Name: [facility] 14. Duty Station/Location: [place] 15. UIC: [id number] 16. Is this your first Periodic Health Assessment (PHA)?: N 17. Are you enrolled in a secure messaging system with your health care provider?: N 18. Current contact information: Preferred Method: Other Phone DSN: Phone: [phone] EMAIL: [email or web address] Address: [address] [place] [address] [address] [place] State: [place] Zip Code: [address] 19. Point of contact who can always reach you: Name: Marah Cuellar Phone 1: [phone] Phone 2: EMAIL: [email or web address] Address: [facility] [address]ella [address] [place] [address] State: [place] Zip Code: [address] . [facility] (MHA) 1. a. Over the PAST MONTH, what major life stressors have you experienced that are a cause of significant concern or make it difficult for you to do your work, take care of things at home, or get along with other people (for example, serious conflicts with others, relationship problems, or a legal, disciplinary or financial problem)? : None 2. In the PAST YEAR did you receive care for any mental health condition or concern such as, but not limited to post traumatic stress disorder (PTSD), depression, anxiety disorder, alcohol abuse or substance abuse? : No 3. What prescription or over-the counter medications (including herbals/supplements) for sleep, pain, combat stress, or a mental health problem are you CURRENTLY taking? : None 4. a. How often do you have a drink containing alcohol? Monthly or less 4. b. How many drinks containing alcohol do you have on a typical day when you are drinking? 1 or 2 4. c. How often do you have six or more drinks on one occasion? Never 5. Have you ever had any experience [...] watchful or easily startled? No 5. d. [place] numb or detached from others, activities, or your surroundings? No 6. Over the LAST 2 WEEKS, how often have you been bothered by the following problems? 6. a. Little interest or pleasure in doing things: Not at all 6. b. Feeling down, depressed, or hopeless: Not at all 7. Would you like to schedule an appointment with a health care provider to discuss any health concern(s)?: Yes 8. Are you interested in receiving information or assistance for a stress, emotional or alcohol concern?: No 9. Are you interested in receiving assistance for a family or relationship concern?: No 10. Would you like to schedule a visit with a tire builder heavy service or a community support counselor?: No PART C. HEALTH CARE PROVIDER I. MENTAL HEALTH ASSESSMENT (MHA) PROVIDER INFORMATION 1. Last Name: NAN 2. First Name: OUMAR 3. Middle Name: May 4. 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 EMAIL: [email or web address] 8. Facility: [address] [place] [address] GP 9. Unit: [facility] 10. Address: [address] [place] [address] 11. State: [place] 12. Zip Code: [address] 13. Phone: [phone] 14. Date HCP Review initiated: 1. Member marked that they did not have a concern or a difficulty with a major life stressor. 2. Address concerns identified on member questions 2 and 3. History of mental health care: N/A Member's response: Provider's comments: Medications: N/A Member's response: Provider's comments: 3. Member's AUDIT-C screening score was 1. (nothing required) 4. Member did not britney yes on two or more of questions 5a through 5d. 5. Member did not britney More than half the days or nearly every day on question 6a or 6b. 6. Member has not been bothered by thoughts that they would be better off or of hurting themself in some way. 7. Member states that they have not had thoughts or concerns over the past month that they might hurt or lose control with someone. 9. Summary of Provider's identified concerns needing referrals: None 11. 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 Virtual MHA was reviewed with SM by [...] further action is needed at this time. Addendum: SM reports rash on right arm x 2 months (~ 2 x 3 inches) in diameter. Rash started 1 week after receiving 2nd COVID vaccine dose in right arm. Rash is occasionally pruritic. Has been applying moisturizing lotion. Instructed to try OTC Hydrocortisone cream BID x 1 to 2 weeks and to schedule PCM f/u if rash does not resolve. He verbalized understanding and agreed to plan of care. 12. 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 Behavioral Health): Request medical appointment: Noted 13. Supplemental services recommended/information provided: Health Education and Information Date MHA Certified: Extracted from:Title: Virtual MHA Author: OUMAR MONTANA WHNP Date: 07/14/19 1. 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 He does not endorse depression, PTSD, risky drinking, critical stressors, emotional problems or SI/HI. His brief virtual MSE is WNL. At this time, he appears to be well adjusted to his home, work, and social environments. A vailable mental health resources were briefly reviewed with SM with encouragement to access as needed. He verbalized understanding. needed. No further action is needed a t this time. Ordered: Administration,Pt-Foc [facility] [address] Brief Comm Tech-Based Svc, Virt, Phys, Est Pt; 5-10 Min Med Dis G2012 Addendum by OUMAR MONTANA WHNP on July 14, 2019 14:49:00 PST ANNUAL PERIODIC HEALTH ASSESSMENT I. 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 INFORMATION AND DEMOGRAPHICS (SMI) 1. Last Name: DARRION 2. First Name: KYRA 3. Middle Name: OZ 4. Assessment Date: 5. : 6. Age: 23 7. Social Security Number: [id number] 8. Gender: M 9. DoD ID: [id number] 10. Service Branch: [employer] 11. Status: 12. Pay Grade: E03 13. Unit Name: [facility] 14. Duty Station/Location: [place] 15. UIC: [id number] 16. Is this your first Periodic Health Assessment (PHA)?: N 17. Are you enrolled in a secure messaging system with your health care provider?: N 18. Current contact information: Preferred Method: EMAIL DSN: Phone: [phone] EMAIL: [email or web address] Address: [place] [id number] State: [place] Zip Code: [address] 19. Point of contact who can always reach you: Name: AARON MAIER Phone 1: [phone] Phone 2: EMAIL: [email or web address] Address: [address] [facility] State: [place] Zip Code: [address] . BEHAVIORIAL HEALTH (MHA) 1. a. Over the PAST MONTH, what major life stressors have you experienced that are a cause of significant concern or make it difficult for you to do your work, take care of things at home, or get along with other people (for example, serious conflicts with others, relationship problems, or a legal, disciplinary or financial problem)? : None 2. In the PAST YEAR did you receive care for any mental health condition or concern such as, but not limited to post traumatic stress disorder (PTSD), depression, anxiety disorder, alcohol abuse or substance abuse? : No 3. What prescription or over-the counter medications (including herbals/supplements) for sleep, pain, combat stress, or a mental health problem are you CURRENTLY taking? : None 4. a. How often do you have a drink containing alcohol? 2-4 times a month 4. b. How many drinks containing alcohol do you have on a typical day when you are drinking? 1 or 2 4. c. How often do you have six or more drinks on one occasion? Never 5. Have you ever had any experience [...] watchful or easily startled? No 5. d. [place] numb or detached from others, activities, or your surroundings? No 6. Over the LAST 2 WEEKS, how often have you been bothered by the following problems? 6. a. Little interest or pleasure in doing things: Not at all 6. b. Feeling down, depressed, or hopeless: Not at all 7. Would you like to schedule an appointment with a health care provider to discuss any health concern(s)?: No 8. Are you interested in receiving information or assistance for a stress, emotional or alcohol concern?: No 9. Are you interested in receiving assistance for a family or relationship concern?: No 10. Would you like to schedule a visit with a tire builder heavy service or a community support counselor?: No PART C. HEALTH CARE PROVIDER I. MENTAL HEALTH ASSESSMENT (MHA) PROVIDER INFORMATION 1. Last Name: NAN 2. First Name: OUMAR 3. Middle Name: May 13. 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 EMAIL: [email or web address] 8. Facility: [facility] 9. Unit: [facility] 10. Address: [address] [facility] [place] [place] [employer] 11. State: [place] 12. Zip Code: [address] 13. Phone: [phone] 14. Date HCP Review initiated: 1. Member marked that they did not have a concern or a difficulty with a major life stressor. -- Gambling Disorder Evaluation --- Member does not become restless, irritable, or anxious when trying to stop/cut down on gambling. --- Member does not try to keep family and friends from knowing how much they carrizales. --- Member has NOT had to get help with living expenses from family, friends, or welfare during the past 12 months as a result of gambling. 2. Address concerns identified on member questions 2 and 3. History of mental health care: N/A Member's response: Provider's comments: Medications: N/A Member's response: Provider's comments: 3. Member's AUDIT-C screening score was 2. (nothing required) 4. Member did not britney yes on two or more of questions 5a through 5d. 5. Member did not britney More than half the days or nearly every day on question 6a or 6b. 6. Member has not been bothered by thoughts that they would be better off or of hurting themself in some way. 7. Member states that they have not had thoughts or concerns over the past month that they might hurt or lose control with someone. 9. Summary of Provider's identified concerns needing [...] with SM with encouragement to access as needed. He verbalized understanding. needed. No further action is needed at this time. 13. Supplemental services recommended/information provided: Health Education and Information Date MHA Certified: 11/20/2024 [id number] Assessment and Plan Extracted from:Title : 469 Author: ZHENG INFANTE PA Date: 07/11/24 1. A dministrative reason for encounter review c ompleted and no issues were noted. A MONTGOMERY/469 has been updated. Bandar Garcia PA-C Aerospace Medicine Physician [employer]/[facility] [place] Extracted from:Title: Annual DoD MHA/PHA Author: WILLA CARDOSO NP Date: 04/12/24 1. 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 SM present for virtual encounter. All age/gender specific CPS IAW USPSTF are up to date. IMR- Green. Profile- None Active. +WWQ. This MHA/PHA is for screening purposes only, and is Not to replace a face to face appointment with PCM or other specialty care i f needed. SM was informed that i f there are any h ealth concerns, i t is the SM's responsibility to schedule an appointment with PCM or specialty c are for evaluation and management. ? 2. D yslipidemia C ontinue F enofibrate, a nd f ollow a healthy diet limiting saturated fats (red meats, processed meats, full fat dairy), regular exercise, and maintaining a healthy weight; continue F/U with PCM for lipid panel monitoring and HLP management. 3. A djustment disorder Continue E scitalopram as prescribed, and continue F/U with Psychiatry for management. SM informed that prolonged use of Clonazepam over 6 months could result in a USAF review; instructed SM to discuss alternative treatment to Clonazepam; SM verbalized understanding; SM reports that Clonazepam is not needed, and will be discussing disconsolation with Psychiatrist. Willa Cardoso CTR F BLENDER OPERATOR-C [facility] Provider [facility] [address] [place] [address] [place] [address] Office- [phone] Extracted from:Title: Annual DoD MHA/PHA Author: WILLA CARDOSO NP Date: 03/26/23 1. 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 SM present for virtual encounter. All age/gender specific CPS IAW USPSTF are up to date. IMR- R ed for profile; Profile- Yes, MR for adjustment disorder with mixed anxiety and depressed mood expires 20 Jun 2023. NOT -WWQ. 2. L BP - Low back pain F/U with PCM as needed. 3. A djustment disorder F/U with civilian care referral for management. 4. I nsomnia Continue OTC Melatonin as needed/ per packaging instructions; F/U with PCM for persistent or worsening symptoms. Willa Cardoso CTR F BLENDER OPERATOR-C [facility] Provider [facility] [address] [place] [address] [facility] [place] [address] Office- [phone] Extracted from:Title: LBP Profile f/u Author: BREN ANDRADE NP Date: 09/16/22 1. L ow back pain Chronic, improvement, controlled. Pt desires to resolve profile. He endorses has been performing HEP and dedicated PT since fall 2022. Pt with pain 2-3/10 tightness of low back, no changes except soreness from moving boxes d/t upcoming PCS. pt w/o red flag sxs. Continue conservative management- ordered meds for pt lidocaine patches, naproxen, tylenol prn as directed. intermittent ice/heat q2 hours prn pain. epsom salt bath to relax muscles. Pt to continue relative rest. Recommend no prolonged sitting or standing >30 minutes.? Pt to f/u with PCM at [facility] to request PT as he will benefit from this. Patient informed c hronicity of l ow back pain c an i ncrease future f lare ups humphrey w/strenuous physical activity a nd will m ost likely r ecur intermittently in the future; therefore, c ontinue conservative s elf management and practice appropriate posture, good body mechanics for preventive measures. Return precautions and report to ED for any red flags discussed. Patient expressed understanding and intent to comply. Informed pt to f/u prn PVUA. Not on PRP or f lying status, N o A uOf. YES: i ndication for new or modified - resolved FR Return precautions discussed. Patient expressed understanding and intent to comply. All questions answered. Patient agreed to notification regarding results of labs, imaging, other diagnostic testing via the [facility] [employer] Patient Portal. -A total of approximately 30 minutes- 29054 ( Face to face 20 minutes ) Date of service: 1 0 _ M ay 2022 with the following actions b elow and as applicable based on this EHR as above: reviewing p revious notes a nd/or specialty notes, including JLV x wytn-hs-ozya w/ pt x medical charting including documenting the findings in the note r eview of diagnostic testing including: __ labs __ radiology studies x ordering meds, test, or procedures x greater than 50% in counseling/coordination of care: diagnosis/diff dx, treatment and follow up plan. x AGAM/ASIMS review/update x Medical Standards processes/FFD requirement and/or disqualifications and process for medical b oard 5 minutes spent updating immunizations on mariluz in reconciliation w/IMR _ please see attached documents: ekg, pft, or c onsent forms in [facility] mariluz chart F keturah angelo P RN. -Portions of this note were scribed by my medical scientific liaison(s). I have verified the information and medical decision making is my own. YES:Reviewed pertinent M ental Health Screening scores below - pt is low risk. P t denies suicidal or homicidal ideations No C SSRS YES: G AD -7 YES: P HQ- 9 No E pworth No M oCA No A julianne No P CL/PTSD Screening //SIGNED// Bren Moser. Raymond, SHI-C, ARISTEO , [employer], [place] Family Nurse Practitioner [facility], [address] [place] [facility], [place] [phone] Ordered: lidocaine topical(lidocaine 5% topical film), 1 [...] Acute, 11/16/2022, 1 tab(s) Oral BID, Pharmacy: [facility] [Not filled] acetaminophen(Tylenol 325 mg oral tablet), 1 tab(s), Oral, every 4 hr, PRN pain or fever, # 30 tab(s), 0 total refill(s), Acute, 11/16/2022, 1 tab(s) Oral every 4 hr,PRN:pain or fever, Pharmacy: [facility] [Not filled] 2. A cute stress reaction Pt seeing FAP/MH ongoing has appts. Denies suicidal or homicidal ideations- has all his appts. Pt feels safe at home and at work. Informed pt to f/u with new PCM [place] next base to f/u w/continuity of MH care. Pt has no further needs and pt to f/u prn PVUA Extracted from:Title: Pain of Left Toes (System Outage) Author: BERN ANDRADE NP Date: 09/01/22 1. P ain in left toe(s) see SF600 for charting- ACI was completed b efore system shut down - unable to reconcile meds/history/immunizations as mariluz system was down at the time of appt. - Adding codes/dx/referral/med t o this encounter. 26 y/o male with ingrown toenail of 1st/2nd/3rd digit of left foot. Referral to podiatry for consideration of removal and for eval and tx thanks! Not on PRP or f lying status, N o A uOf. No i ndication for new or modified FR/MR/DR Return precautions discussed. Patient expressed understanding and intent to comply. All questions answered. Patient agreed to notification regarding results of labs, imaging, other diagnostic testing via the [facility] [employer] Patient Portal. -A total of approximately 30 minutes- [id number] ( Face to face 20 minutes ) Date of service: 2 5 _ A pr 2022 with the following actions b elow and as applicable based on this EHR as above: r eviewing p revious notes a nd/or specialty notes x hmoq-zt-fbjr w/ pt x medical charting including documenting the findings in the note r eview of diagnostic testing including: __ labs __ radiology studies x medication adjustment x greater than 50% in counseling/coordination of care: diagnosis/diff dx, treatment and follow up plan. A GARRETT/ASIMS review/update Medical Standards processes/FFD requirement and/or disqualifications and process for medical b oard _ please see attached documents: ekg, pft, or c onsent forms in [facility] [employer] chart F keturah angelo P RN. -Portions of this note were scribed by my medical scientific liaison(s). I have verified the information and medical decision making is my own. YES:Reviewed pertinent M ental Health Screening scores below - pt is low risk. P t denies suicidal or homicidal ideations No C SSRS YES: G AD -7 YES: P HQ- 9 No E pworth No M oCA No A julianne No P CL/PTSD Screening //SIGNED// XENIA Tran, , [employer], [place] Family Nurse Practitioner [facility], [address] [place], [place] [phone] Ordered: mupirocin topical(mupirocin 2% topical ointment), 1 appl(s), Topical, TID, X 7 days, # 15 g, 0 total refill(s), Acute, 1 appl(s) Topical TID,x7 days, Pharmacy: [facility] [Not filled] Referral Request 2.0 2. M johan erectile dysfunction, unspecified same as above Extracted from:Title: PHA Author: ARTURO GRAHAM PA Date: 01/13/22 1. 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 Reviewed [id number]. No new specific concerns identified in past medical or family history when compared to the PHAQ. All information was updated to the e2766 as needed. Electronic records reviewed to include member s summary and veterinary technician's Record Review section of PHAQ which is attached to this note. Completed provider portion of the PHAQ, any abnormalities were noted in the Provider Comments section below. Not on PRP or flying status. No indication for new or modified DR/MR/FR at this time. -Hx of low back pain. Active AF469 w/ MR/DR/FR. PT to start Jan 2022. ASIMS: R ED. Due for audiogram. All Preventative Screening Recommendations IAW USPSTF have been accomplished. Follow up P RN. Arturo Graham, CTR, PA-C [address] [facility]/[place], [place] ANNUAL PERIODIC HEALTH ASSESSMENT I. 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 INFORMATION AND DEMOGRAPHICS ([facility]) 1. Last Name: DARRION 2. First Name: KYRA 3. Middle Name: OZ 4. Assessment Date: 5. : 6. Age: 26 7. Gender: M 8. DoD ID Number: [id number] 9. Service Branch: [employer] 10. 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 Pay Grade: E04 13. Unit Name: [address] [place] [address] 14. Duty Station/Location: [place] 15. [facility]: [id number] 16. Is this your first Periodic Health Assessment (PHA)?: N 17. Are you enrolled in a secure messaging system with your health care provider?: N 18. Current contact information: Preferred Method: Day Time Phone DSN: [id number] Day Time Phone: [phone] Night Time Phone: Email 1: [email or web address] Email 2: Address: [facility]: [facility] State: [place] Zip Code: [address] 19. Point of contact who can always reach you: Name: Marah Cuellar Phone 1: [phone] Phone 2: EMAIL: [email or web address] Address: [address] [place] [address]: [place] State: [place] Zip Code: [address] II. DEPLOYMENT INFORMATION (DEP) 1. [ Never deployed ] Total number of deployments in the PAST 5 YEARS 4. [ N ] Are you going to deploy within the NEXT 120 DAYS? III. 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 [ No ] Does your specialty require an operational duty physical exam? 4. [ No ] Are you currently enrolled in a medical surveillance/occupational health program?: No IV. MEDICAL CONDITIONS (MIKE): 1. Since your last PHA, have you experienced any of the following health conditions, and if so, what is your status? [ ] Conditions with no medical care [ ] Conditions with medical care, but no longer under treatment [ ] Conditions with medical care, and NOW under treatment 2. Since your last PHA, have you experienced any of the following health conditions, and if so, what is your status? [ ] Conditions with no medical care [ Recurring muscle, joint, or low back pain ] Conditions with medical care, but no longer under treatment [ ] Conditions with medical care, and NOW under treatment 3. For any condition marked YES in question 1 or 2, are you currently on any profile or limited duty for that condition? [ ] Conditions 4. [ Not Sure ] [...] a temporary profile or on limited duty? V. INDIVIDUAL MEDICAL READINESS (IMR) 1. [ No ] Do you have any allergies? 3. [ Not required ] Do you have red medical warning dog tags? 4. [ No ] Do you wear corrective lenses? . BEHAVIORAL HEALTH (MHA) 1. a. [ None ] Over the PAST MONTH, what major life stressors have you experienced that are a cause of significant concern or make it difficult for you to do your work, take care of things at home, or get along with other people (for example, serious conflicts with others, relationship problems, or a legal, disciplinary or financial problem)? 2. a. [ No ] In the PAST YEAR did you receive care for any mental health condition or concern such as, but not limited to post traumatic stress disorder (PTSD), depression, anxiety disorder, alcohol abuse or substance abuse? 3. [ None ] What prescription or over-the counter medications (including herbals/supplements) for sleep, pain, combat stress, or a mental health problem are you CURRENTLY taking? 4. a. [ Yes ] In the [...] six or more drinks on one occasion? 6. Have you ever had any experience [...] easily startled? 6. d. [ No ] [place] numb or detached from others, activities, or your surroundings? 6. e. [ Not answered ] [place] guilt or unable to stop blaming yourself or others for the event(s) or any problems the event(s) may have caused? 7. Over the LAST 2 WEEKS, how often have you been bothered by the following problems? 7. a. [ Not at all ] Little interest or pleasure in doing things 7. b. [ Not at all ] Feeling down, depressed, or hopeless 8. [ Yes ] Would you like [...] like to schedule a visit with a tire builder heavy service, mental health care provider, or a community support counselor? VII. FAMILY HISTORY AND LIFESTYLE (LIF) 1. [ Fair ] Overall, how would you rate your health during the PAST MONTH? 2. [ Heart-related conditions, Diabet ] Member indicates that family members have the following problems 4. The following family members has/had a history of heart-related conditions: High Blood Pressure: Mother Heart Attack: Grandfather Sudden Cardiac : Grandfather 5. The following family members has/had a history of diabetes: Type II: Grandfather 6. [ Yes ] I participate in moderate intensity physical activites at least 2.5 hours, or a combination of moderate and vigorous aerobic activites, for at least 75 minutes per week. 7. In a typical week, I do physical activities specifically designed to STRENGTHEN my muscles: [ 2 ] Day(s) per week 8. [ tylenol ] What prescriptions or ybuc-lho-uziuxxo medications are you CURRENTLY taking for health problems on a ROUTINE BASIS? 9. Which of the following products have you taken since your last PHA: None of the above 11. Think about the PAST 30 DAYS. How often did you eat/drink the following foods/beverages? [ 1 or 2 servings per week ] Fruits [ 1 or 2 servings per week ] Vegetables [ Rarely or Never ] Starchy Vegetables [ Rarely or Never ] Whole Grains [ 1 or 2 servings per week ] Dairy and Calcium Containing Foods [ 1 or 2 servings per week ] Fish [ 3 to 6 servings per week ] Lean Protein [ 1 or 2 servings per week ] Sugar-Sweetened Beverages ] Have you had a cholesterol check by a health healthcare specialist within the PAST 5 YEARS? 13.a. In the PAST 30 DAYS, which of the following products have you used on at least one day? None 15. Which of the following best [...] worried enough to use a home test? X. OTHER MEDICAL (OTH) 1. [ 3 [...] care provider to discuss any health concerns? XI. SEPARATION AND FPC 1. [ No ] Are you planning to separate or retire within the next year from Active Duty or [place] Duty (activated for greater than 30 continuous days) OR do you intend to file a claim for disability compensation with the [employer]? PART B. RECORD REVIEW AND RECOMMENDATIONS I. RECORD REVIEWER INFORMATION 1. Last Name: BEATA 2. First Name: FELISA 3. Middle Name: JOSSIE 4. Service Branch: [employer] 5. 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 EMAIL: [email or web address] 8. Facility: [address] [place] [address] 9. Unit: [address] [place] [address] 10. Address: [address] [place] [address] 11. State: [place] 12. Zip Code: [address] 13. 14. Date Record Review: II. MEDICAL SCREENING 1. 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 [ 5 feet 8 inches D ate: ] architecture faculty member's most recently documented height 3. [ 182 pounds Date: ] architecture faculty member's most recently documented weight 4. [ 126/80 Date: ] architecture faculty member's most recently documented blood pressure reading 5. [ No ] Does the architecture faculty member have a history of abnormal blood pressure since their last PHA? 6. [ Yes ] Does the architecture faculty member have a laboratory test of sickle cell trait documented in their permanent medical record? 7. [ No Cholesterol Test Documented ] What is the date of the architecture faculty member's most recently documented cholesterol test? 9. [ tylenol ] List of architecture faculty member's active medications listed in their permanent medical record 10. [ Yes: tylenol ] Is there a discrepancy between the active medication record review and the architecture faculty member's self-reported list of medications? 11. 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 [ Yes: 05/30/21 ER, diverticulitis 08/04/21-09/29/21 PTx, dorsalgia ] Is there a discrepancy between the architecture faculty member's list of OUTSIDE care (from OT5), and the OUTSIDE care found in the record? 13. 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 [ Not Answered ] Confirm that vaccine exemptions are listed in the medical record for each vaccine listed IV. FAMILY HISTORY AND LIFESTYLE 1. [ Yes ] Does the SD1321 reflect the architecture faculty member's reported family history? VII. INDIVIDUAL MEDICAL READINESS 1. [ No ] Does the architecture faculty member have an Assignment Limitation Code C? 3. [ Classification: 1 ] Most recently documented dental exam 4. [ Yes ] Is the architecture faculty member current on all required immunizations in the immunization tracking system? 6. Does the architecture faculty member have the following laboratory tests documented in their permanent medical record? [ Yes ] HIV test within the PAST 24 months [ Yes ] G6PD results on file? [ Yes ] Blood type and Rh on file [ Yes ] DNA test on file IX. ADDITIONAL RECORD REVIEWER COMMENTS 1. This record review does NOT have a need for provider notification or referral.2. Additional comments about this record review that need to be forwarded to the Health Dynamite Packing Machine Feeder completing PART C: Date Record Review Completed: PART C. HEALTH CARE PROVIDER I. MENTAL HEALTH ASSESSMENT (MHA) PROVIDER INFORMATION 1. Last Name: Nader 2. First Name: Demond 3. Middle Name: 4. Service Branch: [employer] 5. 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 EMAIL: [email or web address] 8. Facility: [facility] 9. Unit: [facility] 10. Address: [address] [place] [address] 11. State: [place] 12. Zip Code: [address] 13. 14. Date HCP Review initiated: 1. Member marked that they did not have a concern or a difficulty with a major life stressor. 2. Address concerns identified on member questions 2 and 3. History of mental health care: N/A Member's response: Provider's comments: none Medications: N/A Member's response: Provider's comments: Tylenol, seasonal allergy medications (OTC) and ZZquil for sleep. 3. Member's AUDIT-C screening score was 1. (nothing required) 4. Member did not britney yes on two or more of questions 6a through 6e. 5. Member did not britney More than half the days or nearly every day on question 7a or 7b. 6. Suicide risk evaluation. 6. a. Ask: Over [...] No 6. g. Further risk assessment comments: 7. Member states that they have not had thoughts or concerns over the past month that they might hurt or lose control with someone. 9. Summary of Provider's identified concerns needing referrals: None 11. Comments: SM does not endorse SI, HI or self-harm. SM reported having a good support system which includes his and work friends. SM expressed having awareness of available mental health resources on Base. SM denied having any current resource or service needs. No concerns or referral needs identified at this time. 12. 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 Behavioral Health): Request medical appointment: Appt is scheduled 13. Supplemental services recommended/information provided: No supplemental services required Date MHA Certified: III. PERIODIC HEALTH ASSESSMENT (PHA) PROVIDER INFORMATION 1. Last Name: Santos 2. First Name: Arturo 3. Middle Name: 4. Service Branch: [employer] 5. 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 EMAIL: [email or web address] 8. Facility: [address] [place] [address] 9. Unit: [address] [place] [address] 10. Address: [address] [place] [address] 11. State: [place] 12. Zip Code: [address] 13. 14. Date HCP Review initiated: IV. PERIODIC HEALTH ASSESSMENT PROVIDER RECOMMENDATIONS and REFERRALS 1. Provider concerns with this assessment: No issues or concerns identified V. SUMMARY AND COMMENTS 1. Additional information summarizing findings during the architecture faculty member assessment: 2. Provider Comments: SM already had appointment with PCM since PHAQ was completed. . INDIVIDUAL MEDICAL READINESS DISPOSITION DETERMINATION MIKE: Not Ready DEN: Ready IMM: Ready LAB: Ready ME: Ready IMR Status: Not Medically Ready VII. 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 Reference [facility] 6490.07 N o (architecture faculty member currently has a medical condition that DOES require duty limitation(s) AND limits deployability) Date PHA Completed: END OF [id number] REPORT [facility] Review Summary [ No ] Does the member have 4 or more consecutive fitness exemptions or any waist circumference exemptions? [ No ] Does the member have a history of a RILO/MEB? [ No ] Does the member have any abnormal laboratory results since their last PHA? [ No ] Does the member have any pathology or radiology results since their last PHA? [ No ] Does the member have any outstanding medical concerns/open consults or referrals? [ No ] Is the member currently under specialty medical care? [ No ] Does the member have any conditions that dictate a referral to the [facility] Board? Active Medical Conditions: None. 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 D iverticulitis of colon Asymptomatic. Will request records for full report of biopsy of polyp and CSP. Preliminary results reviewed WNL- No diverticulosis noted on CSP- 4mm polyp of sigmoid colon removed with biopsy. Pt to increase fiber in diet- also given contact for nutrition for assistance for fiber diet if needed. Given pt f/u precautions and RTC if sxs return or if severe abdominal pain, fever/chills, severe n/v, lightheadedness/dizziness pt to seek care ER. Informed pt to f/u prn PVUA Return precautions discussed. Patient expressed understanding and intent to comply. All questions answered. Patient agreed to notification regarding results of labs, imaging, other diagnostic testing via the [employer] Patient Portal. -A total of 20-29 m in. with the following actions b elow and as applicable based on this EHR as above: x r eviewing p revious notes a nd/or specialty notes x noxm-hs-cunq w/ pt x medical charting including documenting the findings in the note r eview of diagnostic testing including: __ labs __ radiology studies x medication adjustment x greater than 50% in counseling/coordination of care: diagnosis/diff dx, treatment and follow up plan. A GARRETT/ASIMS review/update M edical Standards processes/FFD requirement and/or disqualifications and process for medical?board F keturah Driscoll RN. -Portions of this note were scribed by my medical scientific liaison(s). I have verified the information and medical decision making is my own. Not on PRP, flying status, AuOf. No indication for new or modified FR/DR/MR at this time. Will not be extending pt's profile unless rehab with PT for LBP. //Electronically signed// BREN ANDRADE, SHI-C, [place] , [place], [place] Family Nurse Practitioner 2. L ow back pain Acute, Suspect low b ack strain. Continued L BP - pt continue to take medication. No focal neuro deficits or evidence of radiculopathy. No indication for i maging at this time.? re-educated pt: Counselled on conservative home management including ice/heat TID, stretching, a voiding strenuous activity but maintenance of normal day to day activities as able. Will treat symptomatically naproxen BID prn and tylenol as ordered. Pt counseled to only take flexiril at bedtime- no driving or operate machinery within 10 hours of taking flexiril or mix with alcohol Pt given check out sheet - PT schedule here at [facility]. If not improved with PT - pt to f/u with PCM and consider imaging and pain management though I do not believe this is necessary based on sxs and DAYANA. No back pain red flags. Pt to f/u after course of PT and sooner for new/worsening sxs. Informed pt to f/u prn [facility]. Extracted from:Title: Virtual: LBP Author: BREN ANDRADE NP Date: 11/18/21 1. L ow back pain Acute, Suspect back strain. No focal neuro deficits or evidence of radiculopathy. No indication for i maging at this time.?Counselled on conservative home management including ice/heat TID, stretching, a voiding strenuous activity but maintenance of normal day to day activities as able. Will treat symptomatically naproxen BID prn and tylenol as ordered. Pt counseled to only take flexiril at bedtime- no driving or operate machinery within 10 hours of taking flexiril or mix with alcohol Pt given phone number to PT schedule here at [facility]. If not improved with PT- pt to f/u with PCM and consider imaging and pain management though I do not believe this is necessary based on sxs and DAYANA. No back pain red flags. Pt already has f/u appt with PCM in 2 weeks for f/u to today's visit. Informed pt to f/u prn PVUA. Return precautions discussed. Patient expressed understanding and intent to comply. All questions answered. Patient agreed to notification regarding results of labs, imaging, other diagnostic testing via the [employer] Patient Portal. -A total of 20-29 m in. with the following actions b elow and as applicable based on this EHR as above: x reviewing p revious notes a nd/or specialty notes x virtual w/ pt x medical charting including documenting the findings in the note r eview of diagnostic testing including: __ labs __ radiology studies m edication adjustment x greater than 50% in counseling/coordination of care: diagnosis/diff dx, treatment and follow up plan. x AGAM/ASIMS review/update x Medical Standards processes/FFD requirement and/or disqualifications and process for medical b oaewa F keturah Driscoll RN. -Portions of this note were scribed by my medical scientific liaison(s). I have verified the information and medical decision making is my own. Not on PRP, flying status, AuOf. new x30 days for FR/DR/MR at this time. //Electronically signed// BREN ANDRADE, SHI-C, , [employer], [place] Family Nurse Practitioner Ordered: cyclobenzaprine(cyclobenzaprine 10 mg oral tablet), See Instructions, TAKE ONE TABLET BY MOUTH AT BEDTIME NEEDED FOR MUSCLE SPASM, # 21 tab(s), 0 total refill(s), Acute, TAKE ONE TABLET BY MOUTH AT BEDTIME NEEDED FOR MUSCLE SPASM, Pharmacy: [facility] [Not filled] Orders: naproxen(naproxen 500 mg oral tablet), 1 tab(s), Oral, BID, # 20 tab(s), 0 total refill(s), Acute, 12/19/2021, 1 tab(s) Oral BID, Pharmacy: [facility] [Not filled] acetaminophen(Tylenol 325 mg oral tablet), 1 tab(s), Oral, every 4 hr, PRN pain or fever, # 100 tab(s), 0 total refill(s), Acute, 12/19/2021, 1 tab(s) Oral every 4 hr,PRN:as needed for pain or fever, Pharmacy: [facility] [Not filled] Extracted from:Title: ER f/u and Mid Back Pain Author: BREN ANDRADE NP Date: 07/28/21 1. B ack pain Acute, mechanical mid back pain Suspect back strain. No focal neuro deficits or evidence of radiculopathy. No indication for i maging at this time.?Counselled on conservative home management including ice/heat TID, stretching, a voiding strenuous activity but maintenance of normal day to day activities as able. Will treat symptomatically w/topical txs and naproxenas ordered. Pt counseled to only take flexiril at bedtime- no driving or operate machinery within 10 hours of taking flexiril. If not improved with PT- pt to f/u with PCM and consider imaging and pain management though I do not believe this is necessary based on sxs and DAYANA. Informed pt to f/u prn PVUA. Return precautions discussed. Patient expressed understanding and intent to comply. All questions answered. Patient agreed to notification regarding results of labs, imaging, other diagnostic testing via the [facility] [employer] Patient Portal. Not on PRP or flying status. x30 days new or modified FR/DR/MR at this time //Electronically signed// BREN ANDRADE, XENIA, , [employer], [place] Family Nurse Practitioner Ordered: lidocaine topical, 1 patch(es), Topical, Daily, [...] Acute, 08/28/2021, 1 tab(s) Oral BID, Pharmacy: [facility] [Not filled] 2. D iverticulitis of colon Resolved. Per guidelines will order for CSP to assess for malignancy and other p athology. [age] y/o male with mild diverticulitis noted of distal colon at ED May 2021. Sxs have resolved.? Order for colonoscopy with interpretation thanks! Informed pt to f/u after CSP. Given f/u precautions. PVUA. Ordered: Referral Request 2.0 Extracted from:Title: Virtual A Author: OUMAR MONTANA WHNP Date: 10/29/20 1. 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 Addendum: SM reports rash on right arm x 2 months (~ 2 x 3 inches) in diameter. Rash started 1 week after receiving 2nd COVID vaccine dose in right arm. Rash is occasionally pruritic. Has been applying moisturizing lotion. Instructed to try OTC Hydrocortisone cream BID x 1 to 2 weeks prn a nd to schedule PCM f/u if rash does not resolve. He verbalized understanding and agreed to plan of care. Ordered: Administration,Pt-Foc [facility] [address]108 Brief Comm Tech-Based Svc, Virt, Phys, Est Pt; 5-10 Min Med Dis G2012 Addendum by OUMAR MONTANA WHNP on October 29, 2020 08:21:05 PDT ANNUAL PERIODIC HEALTH ASSESSMENT I. 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 INFORMATION AND DEMOGRAPHICS (SMI) 1. Last Name: DARRION 2. First Name: KYRA 3. Middle Name: OZ 4. Assessment Date: 5. : 6. Age: 25 7. Social Security Number: [id number] 8. Gender: M 9. Do[employer] ID: [id number] 10. Service Branch: [employer] 11. Status: 12. Pay Grade: E04 13. Unit Name: [address] [place] [address] 14. Duty Station/Location: [place] 15. [facility]: [id number] 16. Is this your first Periodic Health Assessment (PHA)?: N 17. Are you enrolled in a secure messaging system with your health care provider?: N 18. Current contact information: Preferred Method: Other Phone DSN: Phone: [phone] EMAIL: [email or web address] Address: [facility] [address] [place] State: [place] Zip Code: [address] 19. Point of contact who can always reach you: Name: Marah Cuellar Phone 1: [phone] Phone 2: EMAIL: [email or web address] Address: [facility] [address] [place] [address] State: [place] Zip Code: [address] . BEHAVIORIAL HEALTH (MHA) 1. a. Over the PAST MONTH, what major life stressors have you experienced that are a cause of significant concern or make it difficult for you to do your work, take care of things at home, or get along with other people (for example, serious conflicts with others, relationship problems, or a legal, disciplinary or financial problem)? : None 2. In the PAST YEAR did you receive care for any mental health condition or concern such as, but not limited to post traumatic stress disorder (PTSD), depression, anxiety disorder, alcohol abuse or substance abuse? : No 3. What prescription or over-the counter medications (including herbals/supplements) for sleep, pain, combat stress, or a mental health problem are you CURRENTLY taking? : None 4. a. How often do you have a drink containing alcohol? Monthly or less 4. b. How many drinks containing alcohol do you have on a typical day when you are drinking? 1 or 2 4. c. How often do you have six or more drinks on one occasion? Never 5. Have you ever had any experience [...] watchful or easily startled? No 5. d. [place] numb or detached from others, activities, or your surroundings? No 6. Over the LAST 2 WEEKS, how often have you been bothered by the following problems? 6. a. Little interest or pleasure in doing things: Not at all 6. b. Feeling down, depressed, or hopeless: Not at all 7. Would you like to schedule an appointment with a health care provider to discuss any health concern(s)?: Yes 8. Are you interested in receiving information or assistance for a stress, emotional or alcohol concern?: No 9. Are you interested in receiving assistance for a family or relationship concern?: No 10. Would you like to schedule a visit with a tire builder heavy service or a community support counselor?: No PART C. HEALTH CARE PROVIDER I. MENTAL HEALTH ASSESSMENT (MHA) PROVIDER INFORMATION 1. Last Name: NAN 2. First Name: OUMAR 3. Middle Name: May 13. 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 EMAIL: [email or web address] 8. Facility: [address] [place] [address] 9. Unit: [facility] 10. Address: [address] [place] [address] 11. State: [place] 12. Zip Code: [address] 13. Phone: [phone] 14. Date HCP Review initiated: 1. Member marked that they did not have a concern or a difficulty with a major life stressor. 2. Address concerns identified on member questions 2 and 3. History of mental health care: N/A Member's response: Provider's comments: Medications: N/A Member's response: Provider's comments: 3. Member's AUDIT-C screening score was 1. (nothing required) 4. Member did not britney yes on two or more of questions 5a through 5d. 5. Member did not britney More than half the days or nearly every day on question 6a or 6b. 6. Member has not been bothered by thoughts that they would be better off or of hurting themself in some way. 7. Member states that they have not had thoughts or concerns over the past month that they might hurt or lose control with someone. 9. Summary of Provider's identified concerns needing referrals: None 11. 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 Virtual MHA was reviewed with SM by [...] further action is needed at this time. Addendum: SM reports rash on right arm x 2 months (~ 2 x 3 inches) in diameter. Rash started 1 week after receiving 2nd COVID vaccine dose in right arm. Rash is occasionally pruritic. Has been applying moisturizing lotion. Instructed to try OTC Hydrocortisone cream BID x 1 to 2 weeks and to schedule PCM f/u if rash does not resolve. He verbalized understanding and agreed to plan of care. 12. 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 Behavioral Health): Request medical appointment: Noted 13. 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 He does not endorse depression, PTSD, risky drinking, critical stressors, emotional problems or SI/HI. His brief virtual MSE is WNL. At this time, he appears to be well adjusted to his home, work, and social environments. A vailable mental health resources were briefly reviewed with SM with encouragement to access as needed. He verbalized understanding. needed. No further action is needed a t this time. Ordered: [facility] Brief Comm Tech-Based Svc, Virt, Phys, Est Pt; 5-10 Min Med Dis G2012 Addendum by OUMAR MONTANA WHNP on July 14, 2019 14:49:00 [facility] ANNUAL PERIODIC HEALTH ASSESSMENT I. 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 INFORMATION AND DEMOGRAPHICS (SMI) 1. Last Name: DARRION 2. First Name: KYRA 3. Middle Name: OZ 4. Assessment Date: 5. : 6. Age: 23 7. Social Security Number: [id number] 8. Gender: M 9. DoD ID: [id number] 10. Service Branch: [employer] 11. Status: 12. Pay Grade: E03 13. Unit Name: [address] [place] [address] 14. Duty Station/Location: [place] 15. [employer]: [id number] 16. Is this your first Periodic Health Assessment (PHA)?: N 17. Are you enrolled in a secure messaging system with your health care provider?: N 18. Current contact information: Preferred Method: EMAIL DSN: Phone: [phone] EMAIL: [email or web address] Address: [facility] [address] [facility] State: [place] Zip Code: [address] 19. Point of contact who can always reach you: Name: AARON ZURITAL Phone 1: [phone] Phone 2: EMAIL: [email or web address] Address: [address] [facility] State: [place] Zip Code: [address] . BEHAVIORIAL HEALTH (MHA) 1. a. Over the PAST MONTH, what major life stressors have you experienced that are a cause of significant concern or make it difficult for you to do your work, take care of things at home, or get along with other people (for example, serious conflicts with others, relationship problems, or a legal, disciplinary or financial problem)? : None 2. In the PAST YEAR did you receive care for any mental health condition or concern such as, but not limited to post traumatic stress disorder (PTSD), depression, anxiety disorder, alcohol abuse or substance abuse? : No 3. What prescription or over-the counter medications (including herbals/supplements) for sleep, pain, combat stress, or a mental health problem are you CURRENTLY taking? : None 4. a. How often do you have a drink containing alcohol? 2-4 times a month 4. b. How many drinks containing alcohol do you have on a typical day when you are drinking? 1 or 2 4. c. How often do you have six or more drinks on one occasion? Never 5. Have you ever had any experience [...] watchful or easily startled? No 5. d. [place] numb or detached from others, activities, or your surroundings? No 6. Over the LAST 2 WEEKS, how often have you been bothered by the following problems? 6. a. Little interest or pleasure in doing things: Not at all 6. b. Feeling down, depressed, or hopeless: Not at all 7. Would you like to schedule an appointment with a health care provider to discuss any health concern(s)?: No 8. Are you interested in receiving information or assistance for a stress, emotional or alcohol concern?: No 9. Are you interested in receiving assistance for a family or relationship concern?: No 10. Would you like to schedule a visit with a tire builder heavy service or a community support counselor?: No PART C. HEALTH CARE PROVIDER I. MENTAL HEALTH ASSESSMENT (MHA) PROVIDER INFORMATION 1. Last Name: NAN 2. First Name: OUMAR 3. Middle Name: May 13. 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 EMAIL: [email or web address] 8. Facility: [address] [place] [address] 9. Unit: [facility] 10. Address: [address] [place] [address] 11. State: [place] 12. Zip Code: [address] 13. Phone: [phone] 14. Date HCP Review initiated: 1. Member marked that they did not have a concern or a difficulty with a major life stressor. -- Gambling Disorder Evaluation --- Member does not become restless, irritable, or anxious when trying to stop/cut down on gambling. --- Member does not try to keep family and friends from knowing how much they carrizales. --- Member has NOT had to get help with living expenses from family, friends, or welfare during the past 12 months as a result of gambling. 2. Address concerns identified on member questions 2 and 3. History of mental health care: N/A Member's response: Provider's comments: Medications: N/A Member's response: Provider's comments: 3. Member's AUDIT-C screening score was 2. (nothing required) 4. Member did not britney yes on two or more of questions 5a through 5d. 5. Member did not britney More than half the days or nearly every day on question 6a or 6b. 6. Member has not been bothered by thoughts that they would be better off or of hurting themself in some way. 7. Member states that they have not had thoughts or concerns over the past month that they might hurt or lose control with someone. 9. Summary of Provider's identified concerns needing [...] with SM with encouragement to access as needed. He verbalized understanding. needed. No further action is needed at this time. 13. Supplemental services recommended/information provided: Health Education and Information Date MHA Certified: 11/20/[address] [place] [address] Functional Status Combined list of recent functional and cognitive assessments recorded at [employer] (VA).VA Functional Dixie Measurement (FIM) Scale: 1 = Total Assistance (Subject = 0% +), 2 = Maximal Assistance (Subject = 25% +), 3 = Moderate Assistance (Subject = 50% +), 4 = Minimal Assistance (Subject = 75% +), 5 = Supervision, 6 = Modified Dixie (Device), 7 = Complete Dixie (Timely, Safely). Assessment Date/Time Source Assessment Type Assessment Skill Assessment Score Assessment Details No data available for this section
[2024-11-20 17:35] LABS: Cholesterol 142 mg/dL (<200); HDL Cholesterol 26 mg/dL (>40); Triglycerides 381 mg/dL (<150)
== END 2024-11-20 13:02 | disposition home or self-care (01) ==
LOC: HO.HMGCLDS 13:01
PROVIDERS: PCP Nurse Practitioner Family; Visit Provider Nurse Practitioner Family
DX: E78.5 Hyperlipidemia, unspecified (principal)
CPT/HCPCS: 36415; 80061

== ENCOUNTER 2024-12-15 08:23 | Outpatient (AMB) | payer OTHER, SELFPAY ==
--- NOTE | 2024-12-15 08:25 | MHC.PC.OV ---
Vital Signs 12/15/24 08:32 Height 5 ft 8 in Weight 194 lb BMI 29.5 BP 116/80 Blood Pressure Location Lt brachial Position Sitting Respiration 16 Pulse 91 Pulse Source Pulse Oximeter Temp 97.7 F Temp Source Temporal Artery Scan Pulse Oximetry (%) 98 Oxygen Delivery Method Room Air Intake Visit Reasons: Left ankle injury, Family therapy options Intake Note: Rj presents in the office today for a left ankle injury. Would like to discuss family therapy options. Patient has form. Allergies No Known Allergies Allergy (Verified 12/15/24 08:42) Medication List - Last Reconciled 12/15/24 by Efren Cerda CNP escitalopram oxalate 10 mg PO DAILY fenofibrate 160 mg PO DAILY 30 days naproxen 500 mg PO BID PRN Tobacco use date assessed: 12/15/24 Dental Screening Dental Screen Date: 12/15/24 Did you have a dental visit in the last 12 months?: No Did you have a dental problem in the last 6 months where you did not have access to dental care?: No Was dental information given to patient?: Patient has dentist HPI HPI Comments History of Present Illness Details 29-year-old male presents with complaints of intermittent pain to his left ankle for the past 4 months. He describes the pain as soreness, only with prolonged walking. He denies fall, injury, or trauma. He notes that he has been dealing with a lot of work and family stressors. He is with two young daughter. He had a therapist at [facility] who he stopped seeing a few months ago because he dislikes the fact that he talked more about himself. He is followed by a shop cooper at [facility] every 3-4 months. He reports controlled anxiety and depression. He wants to connect with a family counselor for him and his spouse. He states that he ran out of fenofibrate 2 months ago. He has been making healthy dietary choices. He is active but does not exercise. [facility] Medical History Lower back pain Surgical History No pertinent past surgical history Family History Mother High blood pressure High cholesterol Fibromyalgia Vitiligo Maternal Grandfather High blood pressure High cholesterol Diabetes Cardiovascular disease Paternal Grandfather Diabetes Cardiovascular disease Social History (Updated 12/15/24 @ 08:31 by Nasreen Fuentes MA) Household Members: Spouse Housing: House Do you presently have visiting nurse or other home services: No Unable to assess alcohol history related to: Unknown Alcohol intake: never Comment: Rj has been referred to [facility]. 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 1. Little interest or pleasure in doing things: not at all 2. Feeling down, depressed, or hopeless: not at all 3. Trouble falling or staying asleep, or sleeping too much: not at all 4. Feeling tired or having little energy: several days 5. Poor appetite or overeating: not at all 6. Feeling bad about yourself - or that you are a failure or have let yourself or your family down: not at all 7. Trouble concentrating on things, such as reading the newspaper or watching television: several days 8. Moving or speaking so slowly that other people could have noticed. Or the opposite - being so fidgety or restless that you have been moving around a lot more than usual: not at all 9. Thoughts that you would be better off or of hurting yourself in some way: not at all Total score: 2 Depression Screening Interpretation: Negative Depression Screening Done: Yes 67400 - PHQ-9 Billing: Yes Source: Developed by Drs. Abel Mcclendon, Bridgette Doe, Jorge A Quintana and colleagues, with an educational prachi from [employer]. Thrive Questionnaire Date Thrive assessed: 06/23/24 I am a: Patient What is your living situation today?: I have a place to live, but I am worried about losing it in the future Within the past 12 months, did the food you bought not last and you didn't have the money to get more?: I choose not to answer this question Within the past 12 months, did you worry whether your food would run out before you got money to buy more?: Sometimes True Do you have trouble paying for medicines?: No Do you have trouble getting transportation to medical appointments?: No Do you have trouble paying your heating and electricity bill?: Yes Do you have trouble taking care of your child, family member or friend?: No Do you have trouble with day-to-day activities such as bathing, preparing meals, shopping, managing finances, etc.?: No Are you currently unemployed and looking for a job?: No Are you interested in more education?: Yes Currently or been in a relationship where the following occur: No concerns reported THRIVE Score: 3 AARON-7 AMB Questionnaire AARON-7 Date AARON - 7 assessed: 12/15/24 Feeling nervous, anxious, or on edge: 0 = Not at all Not being able to stop or control worryin = Not at all Worrying too much about different things: 0 = Not at all Trouble relaxin = Several days Being so restless that it is hard to sit still: 0 = Not at all Becoming easily annoyed or irritable: 1 = Several days Feeling afraid as if something awful might happen: 0 = Not at all Total AARON-7 score (0-4 normal; 5-9 mild; 10-14 moderate; 15-21 severe): 2 Source: Developed by Drs. Abel Mcclendon, Bridgette Doe, Jorge A Quintana and colleagues, with an educational prachi from [employer]. AARON-7 Assessment Billing AARON-7 Assessment Tool: AARON-7 Assessment 66404 ACT Questionnaire In the past 4 weeks, how much of the time did your asthma keep you from getting as much done at work, school or at home?: None of the time During the past 4 weeks, how often have you had shortness of breath?: Not at all During the past 4 weeks, how often did your asthma symptoms wake you up at night or earlier than usual in the morning?: Not at all During the past 4 weeks, how often have you had to use your rescue inhaler or nebulizer medication?: Not at all How would you rate your asthma control during the past 4 weeks?: Completely controlled ACT Interpretation: Negative Score: 25 Review of Systems Const Details: Const Denies chills, Denies fatigue, Denies fever(s), Denies headache(s) and Denies weakness ENT Denies dizziness and Denies headache(s) Card Denies chest pain, Denies lightheadedness, Denies dyspnea and Denies other (Palpitations) Resp Denies cough, Denies dyspnea, Denies wheezing and Denies other ( shortness of breath) GI Denies abdominal pain, Denies melena, Denies hematochezia, Denies change in bowel habits, Denies dyspepsia and Denies nausea Denies hematuria and Denies dysuria Musc Reports as per HPI Skin/Breast Denies rash, Denies unusual bruising and Denies wounds Neuro Denies abnormal gait, Denies dizziness, Denies headache(s), Denies memory loss, Denies numbness, Denies Sensory deficit (Neuro), Denies tingling and Denies weakness Psych Denies anxiety, Denies depression, Denies memory loss Endo Denies cold intolerance, Denies fatigue, Denies heat intolerance, Denies polydipsia and Denies polyuria Aller/Immun Denies wheezing Physical exam (Primary Care) Vital Signs: Last Vital Signs Temp 97.7 F 12/15/24 08:32 Pulse 91 12/15/24 08:32 Resp 16 12/15/24 08:32 BP 116/80 12/15/24 08:32 Pulse Ox 98 12/15/24 08:32 Oxygen Delivery Method Room Air 12/15/24 08:32 BMI result Body Mass Index 29.5 Tobacco/Smoking Status: Tobacco use Status Tobacco use date assessed 12/15/24 12/15/24 08:31 Patient Tobacco Use Status Never used Tobacco 12/15/24 08:31 e-Cigarette/Vaping Use Never Used 12/15/24 08:31 Depression Screening Interpretation: Negative Thrive Assessment: Date of Thrive Assessment Date Thrive assessed 06/23/24 12/15/24 08:27 Currently or been in a relationship where the following occur: No concerns reported Const Other: General: no acute distress and well developed Nutritional Appearance: well nourished Orientation/consciousness: patient oriented x3 HENMT Head: Yes normocephalic and Yes atraumatic Eyes General: appearance normal, both eyes and all related structures Pupils: Equal, round and reactive pupils present EOM: EOMs intact bilaterally Resp Effort & Inspection: normal respiratory effort Auscultation: clear to auscultation bilaterally Cardio Rate: regular rate Rhythm: regular rhythm Heart sounds: S1 normal heart sound present, S2 normal heart sound present, no gallops, no murmurs and no rubs GI Palpation (GI): No Abdominal aortic bruit present, Soft to palpation, nontender, No hepatosplenomegaly present and No Rebound tenderness present Auscultation: normal bowel sounds General: Yes no CVA tenderness Back/Spine/Pelvis Back: no CVA tenderness Cervical Spine: cervical ROM normal and No Cervical spine tenderness Thoracic/Lumbar Spine: thoraco-lumbar ROM normal, No pain with thoraco-lumbar ROM, No thoracic spinal tenderness and No lumbar spinal tenderness Extrem General: Yes normal to inspection, No edema or erythema and No calf tenderness Skin General: warm and dry. Normal skin color. Normal skin turgor Neuro General: patient oriented x3, gait normal and no focal neuro deficit Cranial nerves: Yes Equal, round and reactive pupils present Cognition (Neuro): normal cognition Gait exam (Neuro): Normal gait present Sensory Exam: No Sensory deficit (Neuro) Psych Appearance: grossly normal Affect: normal affect Attitude: cooperative Thought process: Normal thought process present Coding Level of Care Code Est Pt Level 4 (72808) Diagnoses Dyslipidemia E78.5 Left ankle pain M25.572 Situational stress F43.9 Additional Codes Asthma Control Questionnaire - ACT Interpretation: Negative ([id number]) AARON-7 Assessment Billing - AARON-7 Assessment Tool: AARON-7 Assessment 36851 ([id number]) PHQ-9 - 02219 - PHQ-9 Billing: Yes ([id number]) Assessment & Plan Assessment & Plan (1) Dyslipidemia: Code(s): E78.5 - Hyperlipidemia, unspecified Category: Medical Plan: He states that he ran out of fenofibrate 2 months ago. He has been making healthy dietary choices. He is active but does not exercise. Recent triglycerides level is elevated, 381 from 245, HDL is low, 26. Triglycerides and total cholesterol levels are normal. Fenofibrate 160 mg refilled; advised to take as prescribed. Advised to limit foods high in saturated fat and avoid foods high in trans fat. Routine exercise encouraged. Fast for 10-12 hours, may drink water, and perform lipid panel blood work 2-3 days before next visit. Follow-up for telehealth visit in 2 months. Verbalized understanding and agreed with the plan. (2) Left ankle pain: Code(s): M25.572 - Pain in left ankle and joints of left foot Category: Medical Plan: Reports intermittent pain to his left ankle for the past 4 months. He describes the pain as soreness, only with prolonged walking. He denies fall, injury, or trauma. Normal exam of the left ankle. Naproxen 500 mg twice daily as needed ordered; advised to take as prescribed and with food. Instructed on the risks, benefits, and potential adverse reactions of the medication. Warm/cool compresses encouraged. Avoid prolonged standing. X-ray of left ankle ordered. Follow-up with worsening or new symptoms. Verbalized understanding and agreed with the plan. (3) Situational stress: Code(s): F43.9 - Reaction to severe stress, unspecified Category: Medical Plan: He notes that he has been dealing with a lot of work and family stressors. He is with two young daughter. He had a therapist at [facility] who he stopped seeing a few months ago because he dislikes the fact that he talked more about himself. He is followed by a shop cooper at [facility] every 3-4 months. He reports controlled anxiety and depression. He wants to connect with a family counselor for him and his spouse. PHQ-9 and AARON-7 scores are normal. Routine exercise encouraged. Advised to follow-up with [facility] to establish with a family therapist. Continue current treatment regimen. Follow-up with psychiatrist as planned. Verbalized understanding and agreed with the plan. Orders: Orders XR ankle LT 2V Today M25.572 - Pain in left ankle and joints of left foot Medications: New naproxen 500 mg PO BID PRN 60 tabs 0RF pain
[2024-12-15 08:32] VITALS: BP 116/80; PULSE 91; RESP 16; TEMP 36.5; O2SAT 98; BMI 29.5
--- OUTSIDE RECORDS SUMMARY | 2024-12-15 08:34 | XMS_ITS | Continuity of Care Document ---
Author Name [facility] Organization [facility] Care Team Providers Care Glacing Machine Tender Name Role Phone [facility] Unavailable Unavailable Problems Combined list of problems from Department of Defense and Veterans Affairs facilities. It does not include entries that were removed or entered in error. 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 Follow up CSP Aug 2021 revelaed single 4mm sigmoid polyp, otherwise unremarkable w/o evidence of diverticulosis . 0128C-92ND MED GRP-ABDIEL Dyslipidemia Active Condition 0310C-AF- C-66t h [facility] Ganglion cyst of left dorsal wrist2 Active Condition 3 mm diameter; asymptomatic: 12/2018 Unknown Organization Insomnia Active Condition 6545V-ZY-G-66 t h [facility] LBP - Low back pain Active Condition 6701P-LD-T-66t h [facility] Low back pain Active [...] mL, 0 total refill(s ), Maintena nce, [facility] pharmacy dispense (Rx) Oral (given by mouth) Discont inued 11/05/2020 9 2020 473.0 0128C-9 2ND MED GRP-[facility] clonazePAM 0.5 mg oral tablet 2 tab(s), Oral, Daily, 0 total refill(s ), Maintena nce Oral (given by mouth) Ordered 2023 0310C-A F-C-66t h [facility] cyclobenzap rine 10 mg oral tablet See Instruct ions, TAKE ONE TABLET BY MOUTH AT BEDTIME NEEDED FOR MUSCLE SPASM, # 21 tab(s), 0 total refill(s ), Acute, Pharmacy : [facility] Complet ed 12/19/2021 2 2021 21.0 0128C-9 2ND MED GRP-[facility] cyclobenzap rine 10 mg oral tablet 1 tab(s), Oral, TID, 0 total refill(s ), Maintena nce Oral (given by mouth) Discont inued 11/18/20212021 0128C-9 2ND MED GRP-[facility] CYCLOBENZAP RINE HCL (cyclobenza dayana HCl), 10 MG, TABLET, ORAL, TEVA [place], 1000 ea. BOTTLE Active [id number] 2023 45 Pharmac y Data Transac tion Service Facilit y escitalopra m 10 mg oral tablet 1 tab(s), Oral, Daily, 0 total refill(s ), Maintena nce Oral (given by mouth) Ordered 2023 0310C-A F-C-66t h [facility] FENOFIBRATE (fenofibrat e,micronize d), 134 MG, CAPSULE, ORAL, [employer] PHARMA L, 100 ea. BOTTLE Cancele d [id number] : 2023 0 Pharmac y Data Transac tion Service Facilit y fenofibrate 30 mg oral capsule 1 cap(s), Oral, Daily, # 30 cap(s), 0 total refill(s ), Maintena nce Oral (given by mouth) Ordered 2023 30.0 0310C-A F-C-66t h [facility] ibuprofen 800 mg oral tablet 1 tab(s), Oral, TID, PRN pain, # 30 tab(s), 0 total refill(s ), Acute, 03/17/20 2:00:00 AM ATOMIC PROCESS ENGINEER, [facility] pharmacy dispense (Rx) Oral (given by mouth) Complet ed 03/17/2020 9 2019 30.0 0128C-9 2ND MED GRP-[facility] lidocaine 5% topical film 1 patch(es ), Topical, Daily, Leave on for up to 12 hours within a 24 hour period (12 hours on, 12 hours off), # 30 patch(es ), 3 total refill(s ), Maintena nce, Pharmacy : [facility] Topica l (on the skin) Discont inued 04/12/2024 3 2023 30.0 0128C-9 2ND MED GRP-[facility] lidocaine 5% topical film 1 patch(es ), Topical, Daily, Leave on for up to 12 hours within a 24 hour period (12 hours on, 12 hours off), # 30 patch(es ), 3 total refill(s ), Maintena nce, Pharmacy : [facility] Topica l (on the skin) Discont inued 11/18/2021 2 2021 30.0 0128C-9 2ND MED GRP-[facility] melatonin every day at bedtime, 0 total refill(s ), Maintena nce Discont inued 04/12/20242023 0128C-9 2ND MED [facility] mupirocin 2% topical ointment 1 appl(s), Topical, TID, X 7 days, # 15 g, 0 total refill(s ), Acute, Pharmacy : [facility] Topica l (on the skin) Complet ed 09/11/2022 3 2022 15.0 0128C-9 2ND MED [facility] naproxen 500 mg oral tablet 1 tab(s), Oral, BID, # 20 tab(s), 0 total refill(s ), Acute, 12/19/21 2:00:00 AM CDT, [facility] Oral (given by mouth) Complet ed 12/19/2021 2 2021 20.0 0128C-9 2ND MED GRP[facility] naproxen 500 mg oral tablet 1 tab(s), Oral, BID, # 20 tab(s), 0 total refill(s ), Acute, 11/16/22 2:00:00 AM CDT, Pharmacy : [facility] Oral (given by mouth) Complet ed 11/16/2022 3 2022 20.0 0128C-9 2ND MED GRP-[facility] naproxen 500 mg oral tablet 1 tab(s), Oral, BID, # 20 tab(s), 0 total refill(s ), Acute, 08/28/21 2:00:00 AM CDT, Pharmacy : [facility] Oral (given by mouth) Complet ed 08/28/2021 2 2021 20.0 0128C-9 2ND MED GR[facility] Percocet 5 mg-325 mg oral tablet 1 tab(s), Oral, every 4 hr, PRN pain, # 24 tab(s), 0 total refill(s ), Acute, 03/24/19 2:00:00 AM ATOMIC PROCESS ENGINEER, [facility] pharmacy dispense (Rx) Oral (given by mouth) Complet ed 03/24/2019 9 2018 24.0 0128C-9 2ND MED [facility] Tylenol Oral, 0 total refill(s ), Maintena nce Oral (given by mouth) Discont inued 09/16/20222022 0128C-9 2ND MED [facility] Tylenol 325 mg oral tablet 1 tab(s), Oral, every 4 hr, PRN pain or fever, # 100 tab(s), 0 total refill(s ), Acute, 12/19/21 2:00:00 AM CDT, Pharmacy : [facility] Oral (given by mouth) Complet ed 12/19/2021 2 2021 100.0 0128C-9 2ND MED GRP-[facility] Tylenol 325 mg oral tablet 1 tab(s), Oral, every 4 hr, PRN pain or fever, # 30 tab(s), 0 total refill(s ), Acute, 11/16/22 2:00:00 AM CDT, Pharmacy : [facility] Oral (given by mouth) Complet [...] (disorder) active 09/16/2022 [facility] [place] Immunizations Combined list of available immunizations from the Department of Defense and Veterans Affairs facilities. Immunization Series Date Given Administered By Site Reaction Lot Number CVX Code Drug Hearing Aid Repairer Status Comments Source influenza, injectable, quadrivalent- pf 2021 GENEVIEVERCAN ETE [id number] 150 complet ed Result Comment: Route: Unknown Manufactu rer: OTH (SKB) 8C-9 2ND MED GRP-[facility] COVID Vaccine Pfizer 2020 Geraldine er Shoul sung, left (delt oid) [id number] PFIZER complet ed COVID Vaccine Pfizer 08/20/20 Given 127C-9 2ND MED GRP-[facility] COVID Vaccine Pfizer 2020 JONO Vaughan sung, left (delt oid) [id number] 208 PFIZER complet ed COVID Vaccine Pfizer 08/01/20 Given 0128C-9 2ND MED GRP-[facility] Human Papillomaviru s 9-valent vaccine 2018 CAPTGENEVIEVE RCANETE [id number] 165 complet ed Result Comment: Route: Unknown Manufactu rer: OTH (MSD) 0128C-9 2ND MED GRP-[facility] RCHILD human papillomaviru s vaccine 2018 Sivakumar Morley anita Arm [id number] 165 [employer] complet ed human papilloma virus vaccine 11/09/18 Given 0128C-9 2ND MED GRP-[facility] Human Papillomaviru s 9-valent vaccine 2018 GENEVIEVERCAN ETE [id number] 165 complet ed Result Comment: Route: Unknown Manufactu rer: OT (MSD) 0128C-9 2ND MED GRP-[facility]ETH [facility] Human Papillomaviru s 9-valent vaccine 2017 GENEVIEVERCAN ETE [id number] 165 complet ed Result Comment: Route: Unknown [...] adult dosage DoD adenovirus vaccine, live 2017 [id number] 143 Teva Pharmaceutica ls complet ed adenoviru s vaccine, live 09/29/17 Given Ambulat ory Pharmac y tetanus, diphtheria, acellular pertu is 2017 [id number] 115 GlaxoSmithKli ne complet ed tetanus, diphtheri a, acellular pertussis 09/29/17 Given Ambulat ory Pharmac y meningococcal A,C,Y,W-135 (MCV4P) 2017 [id number] F 114 sanofi pasteur complet ed meningoco [...] diphtheria toxoid conjugate vaccine (MCV4P) 1 2017 [id number] F 114 Sanofi Pasteur (PMC) complet ed meningoco ccal polysacch aride (groups A, C, Y and W-135) diphtheri a toxoid conjugate vaccine (MCV4P) DoD tetanus toxoid, reduced diphtheria toxoid, and acellular pertu is vaccine, adsorbed 1 2017 [id number] 115 Feed[employer]Machine (SKB) complet ed tetanus toxoid, reduced diphtheri a toxoid, and acellular pertussis vaccine, adsorbed DoD Adenovirus, type 4 and type 7, live, oral 1 2017 [id number] 9 143 [facility] ([facility]) complet ed Adenoviru s, type 4 and type 7, live, oral DoD Influenza, injectable, Madin Su Canine Kidney, quadrivalent with preservative 1 2017 [id number] 186 Seqirus (SEQ) comple t ed Influenza [...] Prevention' s HIV diagnostic algorithm. Refer to [facility] Lab Guide for additional information : [email or web address]://[employer]. [facility]/ kj/kx5/EPIL ab/Pages/la b_guide.asp x Testing performed [...] Prevention' s HIV diagnostic algorithm. Refer to [facility] Lab Guide for additional information : [email or web address]://[employer]. [facility]/ kj/kx5/EPIL ab/Pages/la b_guide.asp x Testing performed by [employer] leandro peck. Performed by: Epidemiolog y Laboratory Service [facility] [employer] [address] [place] [address], [place] [address] 0128C-92 ND MED GRP-FAIR CHILD Miscellan eous Sendouts Repository Sample.EPI RECEIVED 11/04 Result Comment: INTERPRETAT ION(S): Performed by: Epidemiolog y Laboratory Service ClasesDFORMERLY [facility], [facility] [address] [place] [address], [place] [address] 0128C-92 ND MED GRP-FAIR CHILD Molecular Infectiou s Disease Reason for Test? Diagnosi s ( 1 9:28 AM) 04/25 N 127C- [place] MED GRP-FAIR CHILD Molecular Infectiou s [...] for this test is supported by the Filter Tip Catcher of Health and Human Service s (HHS [...] may no longer be used). 0128C-92 ND MED GRP-FAIR CHILD Infectiou s [...] (01/15/21 7:53 AM) 01/15 N 0128C-92 [place] [facility] GRP-FAIR CHILD Molecular Infectiou s Disease SARS-CoV-2 [...] for this test is supported by the [place] of Health and Human Service s (HHS [...] ANTIGEN Negative (12/13/20 8:02 AM) 12/13 N 0128- [facility] GRP-FAIR CHILD Infectiou s Disease Flu B Rapid Ag Neg (12/13/20 8:02 AM) 12/13 N 0128- [facility] GRP-FAIR CHILD Infectiou s Disease Reason for Test? Diagnosi s (12/13/20 8:02 AM) 12/13 N 0128- [facility] GRP-[facility] CHILD Molecular Infectiou s Disease Reason for Test? Diagnosi s (12/13/20 8:02 AM) 12/13 N 0128- [facility] GRP-[facility] CHILD Molecular Infectiou s Disease SARS-CoV-2 PCR [...] for this test is supported by the [place] of Health and Human Service s (HHS [...] test may no longer be used). 0128 [facility] CHILD Infectiou s Disease HIV-1/O/2. EPI NON-REAC [...] Prevention' s HIV diagnostic algorithm. Refer to [facility] Lab Guide for additional information : [email or web address] .[email or web address]/k j/kx5/Bernadette b/Pages/lab _guide.aspx Testing performed by [employer] leandro peck. Performed by: Epidemiolog y Laboratory Service [facility], [facility] [address] [place] [address], [place] [address] 0128C-92 MD MED GRP-FAIR CHILD Miscellan eous Sendouts Repository Sample.EPI RECEIVED 10/25 Result Comment: INTERPRETAT ION(S): Performed by: Zipzoomiolog y Laboratory Service [facility]/[employer] [facility] [address] [place] [address], [place] [address] 0128C-92 MD MED GRP-FAIR CHILD Immunolog y/Serolog y Hep [...] 10/25 N Interpretiv e Data: Note to [facility] Physicians: = Acute Hepatitis A, B, or [...] the Negative Predictive Value calculated by the [employer] using the above clinical trial data are [...] n. Performed by: Epidemiolog y Laboratory Service [facility] Bldg. [address] [place] [address] 0128C MD MED GRP-Qualiall CHILD Vital Signs Combined list of inpatient and outpatient Vital Signs from Department of Defense and Veterans Affairs, ranging from 12 months to all on record, depending upon the facility. Vital Sign Value Date Comments Source Peripheral Pulse Rate 66 bpm 12/13/2020 14:55:00 0128C-ND MED GRP-[facility]DI[facility] Respiratory Rate 16 br/min 12/13/2020 14:55:00 0128CND MED GRP-ABDIEL Temperature Tympanic 36.8 Anupama 12/13/2020 14:55:00 0128C-ND MED GRP-[facility] Systolic Blood Pressure 120 mm[Hg] 12/13/2020 14:55:00 0128C-ND MED GRP-[facility] Diastolic Blood Pressure 83 mm[Hg] 12/13/2020 14:55:00 0128C-ND MED GRP-ABDIEL Mean Arterial Pressure, Cuff (Calc) 95 mm[Hg] 12/13/2020 14:55:00 0128C-92ND M ED [...] 17:27:00 0128C-92ND MED GRP-ABDIEL Mean Arterial Pressure, Cuff (Calc) 82 mm[Hg] 11/09/2018 17:27:00 0128C-92ND M ED GRP-ABIDEL BP Site Left arm 07/28/2021 14:37:00 0128C -92ND MED GRP-ABDIEL Blood Pressure Manual Automatic 07/28/2021 14:37:00 0128C-92ND MED GRP-ABDIEL Mean Arterial Pressure, Cuff (Calc) 96 mm[Hg] 07/28/2021 14:37:00 0128C-92ND M ED [...] 17:24:00 0128C-92ND MED GRP-ABDIEL Mean Arterial Pressure, Cuff (Calc) 95 mm[Hg] 12/01/2021 17:24:00 0128C-92ND M ED GRP-ABDIEL Peripheral Pulse Rate 87 bpm 12/01/2021 17:24:00 0128C-92ND MED GRP-ABDIEL Systolic Blood Pressure 126 mm[Hg] 12/01/2021 17:24:00 0128C-92ND MED GRP-ABDIEL Diastolic Blood Pressure 80 mm[Hg] 12/01/2021 17:24:00 0128C-92ND MED GRP-ABDIEL Mean Arterial Pressure, Cuff (Calc) 93 mm[Hg] 01/15/2021 15:11:00 0128C-92ND M ED [...] 15:11:00 0128C-92ND MED GRP-ABDIEL Mean Arterial Pressure, Cuff (Calc) 95 mm[Hg] 12/01/2021 17:00:00 0128C-92ND M ED GRP-BADIEL Systolic Blood Pressure 126 mm[Hg] 12/01/2021 17:00:00 0128C-92ND MED GRP-ABDIEL Diastolic Blood Pressure 80 mm[Hg] 12/01/2021 17:00:00 0128C-92ND MED GRP-ABDIEL Peripheral Pulse Rate 87 bpm 12/01/2021 17:00:00 0128C-92ND MED GRP-ABDIEL Temperature Oral 36.9 Anupama 12/01/2021 17:00:00 0128C-92ND MED GRP-ABDIEL Mean Arterial Pressure, Cuff (Calc) 82 mm[Hg] 12/28/2018 16:11:00 0128C-92ND M ED [...] 14:55:00 0128C-92ND MED GRP-ABDIEL Mean Arterial Pressure, Cuff (Calc) 94 mm[Hg] 09/16/2022 14:55:00 0128C-92ND M ED [...] ADM Date DC Date Status Disposition [place] [address]([facility]) OUTPATIENT [id number] Notes Entered by: ANUJ CASTANEDA 07 Oct 2017 1029 ------- ------- ------- ------- -- Strep Prophyl axis ALETHA CASTANEDA 10/07 Released w/o Limitations [facility] [place] [address]([facility], [facility]) [place] [address](Hea ring Conservat ion, BMT) OUTPATIENT [id number] CATRACHO SPAULDING 10/08 [facility]itations [facility] [place] [address](H earing Conserv ation, BMT) [employer]([facility]) OUTPATIENT [id number] Notes Entered by: Luz Marina SMITH 19 Jan 2018 0659 ------- ------- ------- ------- -- SICK CALL - Insect ite swollen on right hand middle finger/ Right leg back thigh SURENDRA DAVILA 01/19 Released w/o Limitations [employer]([facility] ) [employer]([facility]) OUTPATIENT [id number] Notes Entered by: EMILY MAYORGA 19 Jan 2018 1601 ------- ------- ------- ------- -- WALK IN Reactio n to [facility] PAPO ORDOÑEZ 01/19 Released w/o Limitations [employer]([facility]) [id number]-[id number] AMDS Outpatient [id number] RALPH CORONA 01/10 Discharge Disposition: Home or Self Care 8344R-4 39 AMDS 0310C-AF- C-66th [facility] [id number] Adjustm ent disorde r, unspeci fied,Hy perlipi cynthia, unspeci fied,EX AM/ASSE 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, 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, 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 Desai HEALTH ASSESSM ENT (PHA) ELISHA BBOUD 04/12 Discharge Disposition: Home or Self Care 0310C-A F-C-66t h [facility] 0310C-AF- C-66th [facility] Between Visit [id number] 05/19 Discharge Disposition: Home or Self Care 0310C-A F-C-66t h [facility] 0C-AF- C-66th [facility] Clinic [id number] [facility] er for adminis trative examina tions, unspeci fied ZHENG BOSS 07/11 Discharge Disposition: Home or Self Care 0310C-A F-C-66t h [facility] Procedures Combined list of: 1) Procedures from Department of Veterans Affairs facilities [facility], not all [place] non-surgical procedures are included; 2) All procedures from the Department of Defense facilities. Procedure Procedure Type Code Date Perfomer Comments Nirav e Diagnostic colonoscopy 08/05/19 22 0128C-92ND MED GRP-FAIRCHI LD WTEx4 0C-AF-C- 66th [facility] ECG 12-Lead With Interpretation And Report ECG 12-Lead With Interpretation And Report [id number] 01/31/20 18 PAPO ORDOÑEZ [facility] Threshold Audiogram (Pure Tone) Threshold Audiogram (Pure Tone) [id number] 10/09/19 18 MARISOL MERINO [facility] Supervised Injection Intramuscular Antibiotic Supervised Injection Intramuscular Antibiotic [id number] 10/08/19 18 ALETHA CASTANEDA [facility] ELECTROCARDIOGRAM, ROUTINE ECG WITH AT LEAST 12 LEADS; WITH INTERPRETATION AND REPORT 01/20/20 18 [facility] Social History Combined list of available smoking, tobacco, and other social history from Department of Defense and Veterans Affairs facilities. Social History Type Response Date Comment [facility] e Sex Representation Male (finding) 02/16/2018 Un [...] updated. Bandar Garcia PA-C Aerospace Medicine Physician Footwear Machinery Instructor/MINER PLACER [address] [place], [place] [address]adron Kati [place] Extracted from:Title: Annual [facility] MHA/PHA Author: WILLA CARDOSO NP Date: 04/12/24 1. 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 Willa Cardoso CTR F OUTSIDE SOLAR SALES CONSULTANT-[place] [facility] [place] Flight Medicine [address] [facility] [place] [address] Office- [phone] Extracted from:Title: Annual DoD MHA/PHA Author: WILLA CARDOSO NP Date: 03/26/23 1. 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 Willa Cardoso CTR F OUTSIDE SOLAR SALES CONSULTANT-C [facility] [place] Provider Flight Medicine [address] [employer] [facility] [address] Office- [phone] Extracted from:Title: LBP Profile f/u Author: BREN [...] minutes.? [facility] will [...] labs, imaging, other diagnostic testing via the [facility] [employer] Patient Portal. -A total of approximately 30 minutes- 56893 ( Face to face 20 minutes ) Date of service: 1 0 _ M ay 2022 with the following actions b elow and as applicable based on this EHR as above: reviewing p revious notes a nd/or specialty notes, including JLV x [id number]-ej-ssgg w/ pt x medical charting including documenting [...] ekg, pft, or c onsent forms in [facility] mariluz chart F keturah angelo P RN. -Portions of this note were scribed by my medical equipment technician(s). I have verified the information and medical decision making is my own. YES:Reviewed pertinent M ental Health Screening scores below - pt is low risk. P t denies suicidal or homicidal ideations No C SSRS YES: G AD -7 YES: P HQ- 9 No E pworth No M oCA No A julianne No P CL/PTSD Screening //SIGNED// Bren Andrade, XENIA, ARISTEO , [employer], [place] Family Nurse Practitioner [facility], [address] [place], [place] [phone] Ordered: lidocaine topical(lidocaine 5% topical film), 1 [...] Acute, 11/16/2022, 1 tab(s) Oral BID, Pharmacy: [facility] [Not filled] acetaminophen(Tylenol 325 mg oral tablet), 1 tab(s), Oral, every 4 hr, PRN pain or fever, # 30 tab(s), 0 total refill(s), Acute, 11/16/2022, 1 tab(s) Oral every 4 hr,PRN:pain or fever, Pharmacy: [facility] [Not filled] 2. A cute stress [...] 1. P ain in left toe(s) see 600 for charting- ACI was completed b [facility] system shut down - unable to reconcile meds/history/immunizations as [employer] system was down at the time of [...] labs, imaging, other diagnostic testing via the [facility] [employer] Patient Portal. -A total of approximately 30 minutes- 25438 ( Face to face 20 minutes ) Date of service: 2 5 _ A pr 2022 with the following actions b elow and as applicable based on this EHR as above: r eviewing p revious notes a nd/or specialty notes x [id number]-[id number] w/ pt x medical charting including documenting [...] ekg, pft, or c onsent forms in [facility] mariluz chart F keturah angelo P RN. -Portions of this note were scribed by my medical equipment technician(s). I have verified the information and medical decision making is my own. YES:Reviewed pertinent M ental Health Screening scores below - pt is low risk. P t denies suicidal or homicidal ideations No C SSRS YES: G AD -7 YES: P HQ- 9 No E pworth No M oCA No A julianne No P CL/PTSD Screening //SIGNED// XENIA Tran, , [employer], [place] Family Nurse Practitioner [facility], [address] [facility], [place] [phone] Ordered: mupirocin topical(mupirocin 2% topical ointment), 1 appl(s), Topical, TID, X 7 days, # 15 g, 0 total refill(s), Acute, 1 appl(s) Topical TID,x7 days, Pharmacy: [facility] [Not filled] Referral Request 2.0 2. M forest erectile dysfunction, unspecified same as above Extracted from:Title: PHA Author: ARTURO GRAHAM PA Date: 01/13/22 1. 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 Reviewed [id number]. No new specific concerns identified in past medical or family history when compared to the PHAQ. All information was updated to the e2766 as needed. Electronic records reviewed to include member s summary and air conditioning technician's Record Review section of PHAQ which [...] USPSTF have been accomplished. Follow up P MARIUSZ. Arturo Graham, [facility], PA-C [address] [facility]/[place], [place] ANNUAL PERIODIC HEALTH ASSESSMENT I. 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 Last Name: DARRION 2. First Name: KYRA 3. Middle Name: OZ 4. Assessment Date: 5. : 6. Age: 26 7. Gender: M 8. Do[employer] ID Number: [id number] 9. Service Branch: [employer] 10. 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 Pay Grade: E04 13. Unit Name: [address] [place] [address] 14. Duty Station/Location: DON[place] 15. UIC: [id number] 16. Is this your first Periodic Health Assessment (PHA)?: N 17. Are you enrolled in a secure messaging system with your health care provider?: N 18. Current contact information: Preferred Method: Day Time Phone DSN: [id number] Day Time Phone: [phone] Night Time Phone: Email 1: [email or web address] Email 2: Address: [facility]: [facility] State: [place] Zip Code: [address] 19. Point of contact who can always reach you: Name: Marah Cuellar Phone 1: [phone] Phone 2: EMAIL: [email or web address] Address: [address] [place] [address]: [place] State: [place] Zip Code: [address] II. DEPLOYMENT INFORMATION (DEP) 1. [ Never deployed ] Total number of deployments in the PAST 5 YEARS 4. [ N ] Are you going to deploy within the NEXT 120 DAYS? III. OCCUPATIONAL INFORMATION (OCC) 1 [ [id number] ] What is your occupational code 2. [...] easily startled? 6. d. [ No ] De Lancey numb or detached from others, activities, or your surroundings? 6. e. [ Not answered ] De Lancey guilt or unable to stop blaming yourself [...] like to schedule a visit with a practice office associate, mental health care provider, or a community [...] 8. [ tylenol ] What prescriptions or dgaw-vep-dnvhafv medications are you CURRENTLY taking for health [...] had a cholesterol check by a health team primary care physician within the PAST 5 YEARS? 13.a. In [...] discuss any health concerns? XI. SEPARATION AND LONGTERM 1. [ No ] Are you planning to separate or retire within the next year from Active Duty or [place] Duty (activated for greater than 30 continuous days) OR do you intend to file a claim for disability compensation with the Veterans Benefits Administration? PART B. RECORD REVIEW AND RECOMMENDATIONS I. RECORD REVIEWER INFORMATION 1. Last Name: BEATA 2. First Name: FELISA 3. Middle Name: JOSSIE 4. Service Branch: [employer] 5. 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 EMAIL: [email or web address] 8. Facility: [facility] 9. Unit: [address] [place] [address] 10. Address: [address] [place] [address] 11. State: [place] 12. Zip Code: [address] 13. 14. Date Record Review: II. MEDICAL SCREENING 1. [ ] Date of human resources team member's most recent PHA 2. [ 5 feet 8 inches D ate: ] human resources team member's most recently documented height 3. [ 182 pounds Date: ] human resources team member's most recently documented weight 4. [ 126/80 Date: ] human resources team member's most recently documented blood pressure reading 5. [ No ] Does the human resources team member have a history of abnormal blood pressure since their last PHA? 6. [ Yes ] Does the human resources team member have a laboratory test of sickle cell trait documented in their permanent medical record? 7. [ No Cholesterol Test Documented ] What is the date of the human resources team member's most recently documented cholesterol test? 9. [ tylenol ] List of human resources team member's active medications listed in their permanent medical record 10. [ Yes: tylenol ] Is there a discrepancy between the active medication record review and the human resources team member's self-reported list of medications? 11. [ 05/30/21 ER, diverticulitis 08/04/21-09/29/21 PTx, dorsalgia ] List documented significant care the human resources team member has received since their last PHA from a provider OUTSIDE the Health System 12. [ Yes: 05/30/21 ER, diverticulitis 08/04/21-09/29/21 PTx, dorsalgia ] Is there a discrepancy between the human resources team member's list of OUT[facility]IDE care ([facility]), and the OUTSIDE care found in the record? 13. [ 03/31/21-12/02/21 MH 07/28/21 ER f/u and mild back pain 11/18/21 low back pain 12/01/21 CSP and LBP ] List documented significant care the human resources team member has received since their last PHA from a provider INSIDE the Health System 15. [ Not Answered ] Confirm that vaccine exemptions are listed in the medical record for each vaccine listed IV. FAMILY HISTORY AND LIFESTYLE 1. [ Yes ] Does the [id number] reflect the human resources team member's reported family history? VII. INDIVIDUAL MEDICAL READINESS 1. [ No ] Does the human resources team member have an Assignment Limitation Code C? 3. [ Classification: 1 ] Most recently documented dental exam 4. [ Yes ] Is the human resources team member current on all required immunizations in the immunization tracking system? 6. Does the human resources team member have the following laboratory tests [...] need to be forwarded to the Health Pulpit Operator completing PART C: Date Record Review Completed: PART C. HEALTH CARE PROVIDER I. MENTAL HEALTH ASSESSMENT (MHA) PROVIDER INFORMATION 1. Last Name: Nader 2. First Name: Demond 3. Middle Name: 4. Service Branch: [employer] 5. 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 EMAIL: [email or web address] 8. Facility: [facility] 9. Unit: [facility] 10. Address: [address] [place] [address] 11. State: [place] 12. Zip Code: [address] 13. 14. Date HCP Review initiated: 1. [...] time. 12. Address requests as reported on human resources team member questions 7 through 10 (in Cabin Outfitter Section . Behavioral Health): Request medical appointment: Appt is scheduled 13. Supplemental services recommended/information provided: No supplemental services required Date MHA Certified: III. PERIODIC HEALTH ASSESSMENT (PHA) PROVIDER INFORMATION 1. Last Name: Santos 2. First Name: Arturo 3. Middle Name: 4. Service Branch: [employer] 5. 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 Title: Physician Footwear Machinery Instructor (PA) 7. EMAIL: [email or web address] 8. Facility: [address] [place] [address] [facility]. [facility] 10. Address: [address] [place] [address] 11. State: [place] 12. Zip Code: [address] 13. 14. Date HCP Review initiated: IV. PERIODIC HEALTH ASSESSMENT PROVIDER RECOMMENDATIONS and REFERRALS 1. Provider concerns with this assessment: No issues or concerns identified V. SUMMARY AND COMMENTS 1. Additional information summarizing findings during the human resources team member assessment: 2. Provider Comments: already had appointment with PCM since PHAQ was completed. . INDIVIDUAL MEDICAL READINESS DISPOSITION DETERMINATION MIKE: Not Ready DEN: Ready IMM: Ready LAB: Ready ME: Ready IMR Status: Not Medically Ready VII. SERVICE MEDICAL DEPLOYABILITY EVALUATION INDICATED Based on your review of all documentation, is the human resources team member medically deployable without limitations? Reference Mignon 6490.07 N o (human resources team member currently has a medical condition that DOES require duty limitation(s) AND limits deployability) Date PHA Completed: END OF SW1590 RE[place] [facility] [place] Summary [ No [...] conditions that dictate a referral to the [facility]? Active Medical Conditions: None. [ NA [...] in AF physical fitness program END OF [facility] SUMMARY Extracted from:Title: CSP [...] labs, imaging, other diagnostic testing via the [employer] [facility] Patient Portal. -A total of 20-29 m in. with the following actions b elow and as applicable based on this EHR as above: x r eviewing p revious notes a nd/or specialty notes x fiue-sf-ruto w/ pt x medical charting including documenting [...] this note were scribed by my medical equipment technician(s). I have verified the information and medical decision making is my own. Not on PRP, flying status, AuOf. No indication for new or modified FR/DR/MR at this time. Will not be extending pt's profile unless rehab with PT for LBP. //Electronically signed// BREN ANDRADE, XENIA, , [employer], [place] Family Nurse Practitioner 2. L ow back [...] labs, imaging, other diagnostic testing via the [facility] [employer] Patient Portal. -A total of 20-29 m [...] this note were scribed by my medical equipment technician(s). I have verified the information and medical decision making is my own. Not on PRP, flying status, AuOf. new x30 days for FR/DR/MR at this time. //Electronically signed// BREN ANDRADE, XENIA, [place] , [employer], [place] Family Nurse Practitioner Ordered: cyclobenzaprine(cyclobenzaprine 10 mg oral tablet), See Instructions, TAKE ONE TABLET BY MOUTH AT BEDTIME NEEDED FOR MUSCLE SPASM, # 21 tab(s), 0 total refill(s), Acute, TAKE ONE TABLET BY MOUTH AT BEDTIME NEEDED FOR MUSCLE SPASM, Pharmacy: [facility] [Not filled] Orders: naproxen(naproxen 500 mg oral tablet), 1 tab(s), Oral, BID, # 20 tab(s), 0 total refill(s), Acute, 12/19/2021, 1 tab(s) Oral BID, Pharmacy: [facility] [Not filled] acetaminophen(Tylenol 325 mg oral tablet), 1 tab(s), Oral, every 4 hr, PRN pain or fever, # 100 tab(s), 0 total refill(s), Acute, 12/19/2021, 1 tab(s) Oral every 4 hr,PRN:as needed for pain or fever, Pharmacy: [facility] [Not filled] Extracted from:Title: ER [...] labs, imaging, other diagnostic testing via the [employer] Patient Portal. Not on PRP or flying status. x30 days new or modified FR/DR/MR at this time //Electronically signed// BREN ANDRADE, XENIA, [employer] , [employer], [place] Family Nurse Practitioner Ordered: [...] Acute, 08/28/2021, 1 tab(s) Oral BID, Pharmacy: [facility] [Not filled] 2. D iverticulitis of [...] WHNP Date: 10/29/20 1. 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 Ordered: Administration,[facility] [id number] Brief Comm Tech-Based Svc, Virt, Phys, Est Pt; 5-10 Min Med Dis G2012 Addendum by OUMAR MONTANA WHNP on October 29, 2020 08:21:05 [facility] ANNUAL PERIODIC HEALTH ASSESSMENT I. 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 Last Name: DARRION 2. First Name: KYRA 3. Middle Name: OZ 4. Assessment Date: 5. : 6. Age: 25 7. Social Security Number: [id number] 8. Gender: M 9. DoD ID: [id number] 10. Service Branch: [employer] 11. Status: 12. Pay Grade: E04 13. Unit Name: [address] [facility] 14. Duty Station/Location: [facility] 15. UIC: [id number] 16. Is this your first Periodic Health Assessment (PHA)?: N 17. Are you enrolled in a secure messaging system with your health care provider?: N 18. Current contact information: Preferred Method: Other Phone DSN: Phone: [phone] EMAIL: [email or web address] Address: [address] [place] [address] [address] [place] State: [place] Zip Code: [address] 19. Point of contact who can always reach you: Name: Marah Cuellar Phone 1: [phone] Phone 2: EMAIL: [email or web address] Address: [address] [place] [address] [address] [place] [address] State: [place] Zip Code: [address] . BEHAVIORIAL HEALTH (MHA) 1. a. Over [...] watchful or easily startled? No 5. d. De [place]y numb or detached from others, activities, or [...] like to schedule a visit with a practice office associate or a community support counselor?: No PART C. HEALTH CARE PROVIDER I. MENTAL HEALTH ASSESSMENT (MHA) PROVIDER INFORMATION 1. Last Name: NAN 2. First Name: OUMAR 3. Middle Name: May 13. Service Branch: [employer] 5. 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 EMAIL: [email or web address] 8. Facility: [facility] 9. Unit[place] [facility] 10. Address: [address] [place] [address] 11. State: [place] 12. Zip Code: [address] 13. Phone: [phone] 14. Date HCP Review initiated: 1. Member [...] identified concerns needing referrals: None 11. Comments: human resources team member reported they have not gambled [...] care. 12. Address requests as reported on human resources team member questions 7 through 10 (in Cabin Outfitter Section . Behavioral Health): Request medical appointment: Noted 13. Supplemental services recommended/information provided: Health Education and Information Date MHA Certified: Extracted from:Title: Virtual MHA Author: OUMAR MONTANA WHNP Date: 07/14/19 1. 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 Ordered: Administration,Pt-Foc [facility] [address] Brief Comm Tech-Based Svc, Virt, Phys, Est Pt; 5-10 Min Med Dis G2012 Addendum by OUMAR MONTANA WHNP on July 14, 2019 14:49:00 [facility] ANNUAL PERIODIC HEALTH ASSESSMENT I. 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 Last Name: DARRION 2. First Name: KYRA 3. Middle Name: OZ 4. Assessment Date: 5. : 6. Age: 23 7. Social Security Number: [id number] 8. Gender: M 9. DoD ID: [id number] 10. Service Branch: [employer] 11. Status: 12. Pay Grade: E03 13. Unit Name: [address] [place] [address] 14. Duty Station/Location: [facility] 15. UIC: [id number] 16. Is this your first Periodic Health Assessment (PHA)?: N 17. Are you enrolled in a secure messaging system with your health care provider?: N 18. Current contact information: Preferred Method: EMAIL DSN: Phone: [phone] EMAIL: [email or web address] Address: [facility] [address] [facility] State: [place] Zip Code: [address] 19. Point of contact who can always reach you: Name: AARON MAIER Phone 1: [phone] Phone 2: EMAIL: [email or web address] Address: [address] [facility] State: [place] Zip Code: [address] . BEHAVIORIAL HEALTH (MHA) 1. a. Over [...] watchful or easily startled? No 5. d. De [place] numb or detached from others, activities, or [...] like to schedule a visit with a practice office associate or a community support counselor?: No PART C. HEALTH CARE PROVIDER I. MENTAL HEALTH ASSESSMENT (MHA) PROVIDER INFORMATION 1. Last Name: NAN 2. First Name: OUMAR 3. Middle Name: May 13. Service Branch: [employer] 5. 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 EMAIL: [email or web address] 8. Facility: [facility] 9. Unit: [facility] 10. Address: [address] [facility] [employer] [employer] 11. State: [place] 12. Zip Code: [address] 13. Phone: [phone] 14. Date HCP Review initiated: 1. Member [...] Health Education and Information Date MHA Certified: 12/15/2024 [id number] [facility] Assessment and Plan Extracted from:Title : 469 Author: ZHENG INFANTE PA Date: 07/11/24 1. A dministrative reason for encounter review c ompleted and no issues were noted. A [place]TGOMERY/469 has been updated. Bandar Garcia PA-C [employer] Physician Footwear Machinery Instructor/[facility] [place] Extracted from:Title: Annual [facility] MHA/PHA Author: WILLA CARDOSO NP Date: 04/12/24 1. 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 Willa Cardoso CTR F OUTSIDE SOLAR SALES CONSULTANT-C [facility] Provider [facility] Medicine [address] [place] [address] [place] [address] Office- [phone] Extracted from:Title: Annual [employer] MHA/PHA Author: WILLA CARDOSO NP Date: 03/26/23 1. 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 Willa Cardoso CTR F OUTSIDE SOLAR SALES CONSULTANT-C [facility] Medicine [address] [place] [address] [place] [address] Office- [phone] Extracted from:Title: LBP Profile f/u Author: BREN [...] minutes.? Pt to f/u with PCM at [facility] to request PT as he will benefit [...] labs, imaging, other diagnostic testing via the [facility] [employer] Patient Portal. -A total of approximately 30 minutes- 90583 ( Face to face 20 minutes ) Date of service: 1 0 _ M ay 2022 with the following actions b elow and as applicable based on this EHR as above: reviewing p revious notes a nd/or specialty notes, including JLV x zhxj-yj-jzvd w/ pt x medical charting including documenting the findings in the note r brian of diagnostic testing including: __ labs __ [...] ekg, pft, or c onsent forms in [facility] chart F ollow up P RN. -Portions of this note were scribed by my medical equipment technician(s). I have verified the information and medical decision making is my own. YES:Reviewed pertinent M ental Health Screening scores below - pt is low risk. P t denies suicidal or homicidal ideations No C SSRS YES: G AD -7 YES: P HQ- 9 No E pworth No M oCA No A julianne No P CL/PTSD Screening //SIGNED// Bren R. Raymond, XENAI, ARISTEO , [employer], [place] Family Nurse Practitioner [facility], [address] [facility] [employer], [place] [phone] Ordered: lidocaine topical(lidocaine 5% topical film), 1 [...] Acute, 11/16/2022, 1 tab(s) Oral BID, Pharmacy: [facility] [Not filled] acetaminophen(Tylenol 325 mg oral tablet), 1 tab(s), Oral, every 4 hr, PRN pain or fever, # 30 tab(s), 0 total refill(s), Acute, 11/16/2022, 1 tab(s) Oral every 4 hr,PRN:pain or fever, Pharmacy: [facility] [Not filled] 2. A cute stress [...] labs, imaging, other diagnostic testing via the [facility] [employer] Patient Portal. -A total of approximately 30 minutes- 75877 ( Face to face 20 minutes ) Date of service: 2 5 _ A pr 2022 with the following actions b elow and as applicable based on this EHR as above: r eviewing p revious notes a nd/or specialty notes x nrou-zt-vuyk w/ pt x medical charting including documenting [...] ekg, pft, or c onsent forms in [facility] [employer] chart F olrajat angelo P RN. -Portions of this note were scribed by my medical equipment technician(s). I have verified the information and medical decision making is my own. YES:Reviewed pertinent M ental Health Screening scores below - pt is low risk. P t denies suicidal or homicidal ideations No C SSRS YES: G AD -7 YES: P HQ- 9 No E pworth No M oCA No A julianne No P CL/PTSD Screening //SIGNED// Bren Andrade, XENIA, , [facility], [place] Family Nurse Practitioner [facility], [facility] [facility] [place] [phone] Ordered: mupirocin topical(mupirocin 2% topical ointment), 1 appl(s), Topical, TID, X 7 days, # 15 g, 0 total refill(s), Acute, 1 appl(s) Topical TID,x7 days, Pharmacy: [facility] [Not filled] Referral Request 2.0 2. M forest erectile dysfunction, unspecified same as above Extracted from:Title: PHA Author: ARTURO GRAHAM PA Date: 01/13/22 1. 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 Reviewed [id number]. No new specific concerns identified in past medical or family history when compared to the PHAQ. All information was updated to the e2766 as needed. Electronic records reviewed to include member s summary and air conditioning technician's Record Review section of PHAQ which [...] P RN. Arturo Graham, CTR, PA-C [address] [facility]/[place], [place] ANNUAL PERIODIC HEALTH ASSESSMENT I. 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 INFORMATION AND DEMOGRAPHICS ([facility]) 1. Last Name: DARRION 2. First Name: KYRA 3. Middle Name: OZ 4. Assessment Date: 5. : 6. Age: 26 7. Gender: M 8. DoD ID Number: [id number] 9. Service Branch: [employer] 10. 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 Pay Grade: E04 13. Unit Name: [address] [facility] 14. Duty Station/Location: [facility] 15. UI: [id number] 16. Is this your first Periodic Health Assessment (PHA)?: N 17. Are you enrolled in a secure messaging system with your health care provider?: N 18. Current contact information: Preferred Method: Day Time Phone DSN: [phone] Day Time Phone: [phone] Night Time Phone: Email 1: [email or web address] Email 2: Address: [facility]: [facility] State: [place] Zip Code: [address] 19. Point of contact who can always reach you: Name: Marah Cuellar Phone 1: [phone] Phone 2: EMAIL: [email or web address] Address: [address] [place] [address]: [place] State: [place] Zip Code: [address] II. DEPLOYMENT INFORMATION (DEP) 1. [ Never deployed ] Total number of deployments in the PAST 5 YEARS 4. [ N ] Are you going to deploy within the NEXT 120 DAYS? III. OCCUPATIONAL INFORMATION (OCC) 1 [ [id number] ] What is your occupational code 2. [...] easily startled? 6. d. [ No ] De [place]y numb or detached from others, activities, or your surroundings? 6. e. [ Not answered ] De [place] guilt or unable to stop blaming yourself [...] like to schedule a visit with a practice office associate, mental health care provider, or a community [...] 8. [ tylenol ] What prescriptions or bbzi-yru-tiqtmgw medications are you CURRENTLY taking for health [...] had a cholesterol check by a health team primary care physician within the PAST 5 YEARS? 13.a. In [...] discuss any health concerns? XI. SEPARATION AND LONGTERM 1. [ No ] Are you planning to separate or retire within the next year from Active Duty or [place] Duty (activated for greater than 30 continuous days) OR do you intend to file a claim for disability compensation with the [employer] Benefits Administration? PART B. RECORD REVIEW AND RECOMMENDATIONS I. RECORD REVIEWER INFORMATION 1. Last Name: BEATA 2. First Name: FELISA 3. Middle Name: JOSSIE 4. Service Branch: [employer] 5. 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 EMAIL: [email or web address] 8. Facility: [facility] 9. Unit: [address] [place] [address] 10. Address: [address] [place] [address]. State: [facility]. Zip Code: [address] 13. 14. Date Record Review: II. MEDICAL SCREENING 1. [ ] Date of human resources team member's most recent PHA 2. [ 5 feet 8 inches D ate: ] human resources team member's most recently documented height 3. [ 182 pounds Date: ] human resources team member's most recently documented weight 4. [ 126/80 Date: ] human resources team member's most recently documented blood pressure reading 5. [ No ] Does the human resources team member have a history of abnormal blood pressure since their last PHA? 6. [ Yes ] Does the human resources team member have a laboratory test of sickle cell trait documented in their permanent medical record? 7. [ No Cholesterol Test Documented ] What is the date of the human resources team member's most recently documented cholesterol test? 9. [ tylenol ] List of human resources team member's active medications listed in their permanent medical record 10. [ Yes: tylenol ] Is there a discrepancy between the active medication record review and the human resources team member's self-reported list of medications? 11. [ 05/30/21 ER, diverticulitis 08/04/21-09/29/21 PTx, dorsalgia ] List documented significant care the human resources team member has received since their last PHA from a provider OUTSIDE the Health System 12. [ Yes: 05/30/21 ER, diverticulitis 08/04/21-09/29/21 PTx, dorsalgia ] Is there a discrepancy between the human resources team member's list of OUTSIDE care (from OT5), and the OUTSIDE care found in the record? 13. [ 03/31/21-12/02/21 MH 07/28/21 ER f/u and mild back pain 11/18/21 low back pain 12/01/21 CSP and LBP ] List documented significant care the human resources team member has received since their last PHA from a provider INSIDE the Health System 15. [ Not Answered ] Confirm that vaccine exemptions are listed in the medical record for each vaccine listed IV. FAMILY HISTORY AND LIFESTYLE 1. [ Yes ] Does the [id number] reflect the human resources team member's reported family history? VII. INDIVIDUAL MEDICAL READINESS 1. [ No ] Does the human resources team member have an Assignment Limitation Code C? 3. [ Classification: 1 ] Most recently documented dental exam 4. [ Yes ] Is the human resources team member current on all required immunizations in the immunization tracking system? 6. Does the human resources team member have the following laboratory tests [...] need to be forwarded to the Health Pulpit Operator completing PART C: Date Record Review Completed: PART C. HEALTH CARE PROVIDER I. MENTAL HEALTH ASSESSMENT (MHA) PROVIDER INFORMATION 1. Last Name: Nader 2. First Name: Demond 3. Middle Name: 4. Service Branch: [employer] 5. 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 EMAIL: [email or web address] 8. Facility: [address] [place] [address] 9. Unit: [facility] 10. Address: [address] [place] [address] 11. State: [place] 12. Zip Code: [address] 13. 14. Date HCP Review initiated: 1. [...] time. 12. Address requests as reported on human resources team member questions 7 through 10 (in Cabin Outfitter Section . Behavioral Health): Request medical appointment: Appt is scheduled 13. Supplemental services recommended/information provided: No supplemental services required Date MHA Certified: III. PERIODIC HEALTH ASSESSMENT (PHA) PROVIDER INFORMATION 1. Last Name: Santos 2. First Name: Arturo 3. Middle Name: 4. Service Branch: [employer] 5. 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 Title: Physician Footwear Machinery Instructor (PA) 7. EMAIL: [email or web address] 8. Facility: [address] [place] [address] 9. Unit: [address] [place] [address] 10. Address: [address] [place] [address] 11. State: [place] 12. Zip Code: [address] 13. 14. Date HCP Review initiated: IV. PERIODIC HEALTH ASSESSMENT PROVIDER RECOMMENDATIONS and REFERRALS 1. Provider concerns with this assessment: No issues or concerns identified V. SUMMARY AND COMMENTS 1. Additional information summarizing findings during the human resources team member assessment: 2. Provider Comments: SM already had appointment with PCM since PHAQ was completed. . INDIVIDUAL MEDICAL READINESS DISPOSITION DETERMINATION MIKE: Not Ready DEN: Ready IMM: Ready LAB: Ready ME: Ready IMR Status: Not Medically Ready VII. SERVICE MEDICAL DEPLOYABILITY EVALUATION INDICATED Based on your review of all documentation, is the human resources team member medically deployable without limitations? Reference [facility] 6490.07 N o (human resources team member currently has a medical condition that DOES require duty limitation(s) AND limits deployability) Date PHA Completed: END OF [id number] [place] [facility] [place] Summary [ No [...] in AF physical fitness program END OF [facility] [place] Extracted from:Title: CSP [...] labs, imaging, other diagnostic testing via the [facility] Patient Portal. -A total of 20-29 m in. with the following actions b elow and as applicable based on this EHR as above: x r eviewing p revious notes a nd/or specialty notes x oqim-yo-pvrz w/ pt x medical charting including documenting [...] this note were scribed by my medical equipment technician(s). I have verified the information and medical decision making is my own. Not on PRP, flying status, AuOf. No indication for new or modified FR/DR/MR at this time. Will not be extending pt's profile unless rehab with PT for LBP. //Electronically signed// XENIA TRAN, , [employer], [place] Family Nurse Practitioner 2. L ow back [...] labs, imaging, other diagnostic testing via the [facility] Patient Portal. -A total of 20-29 m [...] and/or disqualifications and process for medical b magan Driscoll RN. -Portions of this note were scribed by my medical equipment technician(s). I have verified the information and medical decision making is my own. Not on PRP, flying status, AuOf. new x30 days for FR/DR/MR at this time. //Electronically signed// BREN ANDRADE, XENIA, [employer] , [employer], [place] Family Nurse Practitioner Ordered: cyclobenzaprine(cyclobenzaprine 10 mg oral tablet), See Instructions, TAKE ONE TABLET BY MOUTH AT BEDTIME NEEDED FOR MUSCLE SPASM, # 21 tab(s), 0 total refill(s), Acute, TAKE ONE TABLET BY MOUTH AT BEDTIME NEEDED FOR MUSCLE SPASM, Pharmacy: [facility] [Not filled] Orders: naproxen(naproxen 500 mg oral tablet), 1 tab(s), Oral, BID, # 20 tab(s), 0 total refill(s), Acute, 12/19/2021, 1 tab(s) Oral BID, Pharmacy: [facility] [Not filled] acetaminophen(Tylenol 325 mg oral tablet), 1 tab(s), Oral, every 4 hr, PRN pain or fever, # 100 tab(s), 0 total refill(s), Acute, 12/19/2021, 1 tab(s) Oral every 4 hr,PRN:as needed for pain or fever, Pharmacy: [facility] [Not filled] Extracted from:Title: ER [...] labs, imaging, other diagnostic testing via the [facility] Patient Portal. Not on PRP or flying status. x30 days new or modified FR/DR/MR at this time //Electronically signed// BREN ANDRADE, XENIA, [employer] , [employer], [place] Family Nurse Practitioner Ordered: [...] Acute, 08/28/2021, 1 tab(s) Oral BID, Pharmacy: [facility] [Not filled] 2. D iverticulitis of [...] WHNP Date: 10/29/20 1. 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 Ordered: Administration,Pt-[facility] [id number] Brief Comm Tech-Based Svc, Virt, Phys, Est Pt; 5-10 Min Med Dis G2012 Addendum by OUMAR MONTANA WHNP on October 29, 2020 08:21:05 PDT ANNUAL PERIODIC HEALTH ASSESSMENT I. 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 Last Name: DARRION 2. First Name: KYRA 3. Middle Name: OZ 4. Assessment Date: 5. : 6. Age: 25 7. Social Security Number: [id number] 8. Gender: M 9. DoD ID: [id number] 10. Service Branch: [employer] 11. Status: 12. Pay Grade: E04 13. Unit Name: [address] [place] [address] 14. Duty Station/Location: [place] 15. UIC: [id number] 16. Is this your first Periodic Health Assessment (PHA)?: N 17. Are you enrolled in a secure messaging system with your health care provider?: N 18. Current contact information: Preferred Method: Other Phone DSN: Phone: [phone] EMAIL: [email or web address] Address: [facility] [address] [place] State: [place] Zip Code: [address] 19. Point of contact who can always reach you: Name: Marah Cuellar Phone 1: [phone] Phone 2: EMAIL: [email or web address] Address: [facility] [address] [place] [address] State: [place] Zip Code: [address] . BEHAVIORIAL HEALTH (MHA) 1. a. Over [...] watchful or easily startled? No 5. d. [place] numb or detached from others, activities, or [...] like to schedule a visit with a practice office associate or a community support counselor?: No PART C. HEALTH CARE PROVIDER I. MENTAL HEALTH ASSESSMENT (MHA) PROVIDER INFORMATION 1. Last Name: NAN 2. First Name: OUMAR 3. Middle Name: May 13. Service Branch: [employer] 5. 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 EMAIL: [email or web address] 8. Facility: [address] [place] [address] 9. [place] [facility] [place] 10. Address: [address] [place] [address] 11. State: [place] 12. Zip Code: [address] 13. Phone: [phone] 14. Date HCP Review initiated: 1. Member [...] identified concerns needing referrals: None 11. Comments: human resources team member reported they have not gambled [...] action is needed at this time. Addendum: THANIA reports rash on right arm x 2 [...] care. 12. Address requests as reported on human resources team member questions 7 through 10 (in [employer]in Out[employer]itter Section . Behavioral Health): Request medical appointment: Noted 13. 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 Ordered: Administration,Pt-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 Last Name: DARRION 2. First Name: KYRA 3. Middle Name: OZ 4. Assessment Date: 5. : 6. Age: 23 7. Social Security Number: [id number] 8. Gender: M 9. DoD ID: [id number] 10. Service Branch: [employer] 11. Status: 12. Pay Grade: E03 13. Unit Name: [address] [place] [address] 14. Duty Station/Location: [place] 15. UIC: [id number] 16. Is this your first Periodic Health Assessment (PHA)?: N 17. Are you enrolled in a secure messaging system with your health care provider?: N 18. Current contact information: Preferred Method: EMAIL DSN: Phone: [phone] EMAIL: [email or web address] Address: [facility] [address] State: [place] Zip Code: [address] 19. Point of contact who can always reach you: Name: AARON MAIER Phone 1: [phone] Phone 2: EMAIL: [email or web address] Address: [address] [facility] State: [place] Zip Code: [address] . BEHAVIORIAL HEALTH (MHA) 1. a. Over [...] watchful or easily startled? No 5. d. [place] numb or detached from others, activities, or [...] like to schedule a visit with a practice office associate or a community support counselor?: No PART C. HEALTH CARE PROVIDER I. MENTAL HEALTH ASSESSMENT (MHA) PROVIDER INFORMATION 1. Last Name: NAN 2. First Name: OUMAR 3. Middle Name: May 13. Service Branch: [employer] 5. 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 EMAIL: [email or web address] 8. Facility: [facility] 9. [place] [facility] 10. Address: [address] [place] [address] [place] 11. State: [place] 12. Zip Code: [address] 13. Phone: [phone] 14. Date HCP Review initiated: 1. Member [...] Health Education and Information Date MHA Certified: 12/15/[id number] [place] [address] Functional Status Combined list of recent functional and cognitive assessments recorded at [employer] of [employer] and [employer] Affairs (VA).VA Functional Gladstone Measurement (FIM) Scale: 1 = Total Assistance (Subject = 0% +), 2 = Maximal Assistance (Subject = 25% +), 3 = Moderate Assistance (Subject = 50% +), 4 = Minimal Assistance (Subject = 75% +), 5 = Supervision, 6 = Modified Gladstone (Device), 7 = Complete Gladstone (Timely, Safely). Assessment Date/Time Source Assessment Type Assessment Skill Assessment Score Assessment Details No data available for this section
== END 2024-12-15 09:10 | disposition home or self-care (01) ==
LOC: HO.HMCFM 08:24
PROVIDERS: PCP Nurse Practitioner Family; Visit Provider Nurse Practitioner Family
DX: E78.5 Hyperlipidemia, unspecified (principal); M25.572 Pain in left ankle and joints of left foot; F43.9 Reaction to severe stress, unspecified

== ENCOUNTER → 2024-12-15 08:23 | Outpatient (BNVA) | payer OTHER, SELFPAY | PROVIDERS: PCP Nurse Practitioner Family; Visit Provider Nurse Practitioner Family | DX: E78.5 Hyperlipidemia, unspecified (principal); M25.572 Pain in left ankle and joints of left foot; F43.9 Reaction to severe stress, unspecified | CPT/HCPCS: 96127; 96160; 99212 ==

== ENCOUNTER 2025-03-05 08:15 | Outpatient (REF) | payer OTHER, SELFPAY ==
[2025-03-05 11:10] LABS: Cholesterol 126 mg/dL (<200); HDL Cholesterol 30 mg/dL (>40); Triglycerides 391 mg/dL (<150)
== END 2025-03-05 08:16 | disposition home or self-care (01) ==
LOC: HO.HMGCLDS 08:15
PROVIDERS: PCP Nurse Practitioner Family; Visit Provider Nurse Practitioner Family
DX: E78.5 Hyperlipidemia, unspecified (principal)
CPT/HCPCS: 36415; 80061

== ENCOUNTER 2025-03-09 11:15 | Outpatient (AMB) | payer OTHER, SELFPAY ==
--- NOTE | 2025-03-09 11:13 | A.OFFPC_ITS ---
Intake Visit Reasons: 2 mos dyslipidemia RE Intake Note: patient here for 2 month follow up on Dyslipidemia Dairy Consultant Required: No Allergies No Known Allergies Allergy (Verified 03/09/25 12:37) Tobacco use date assessed: 03/09/25 Dental Screening Dental Screen Date: 03/09/25 Did you have a dental visit in the last 12 months?: Yes Did you have a dental problem in the last 6 months where you did not have access to dental care?: No Was dental information given to patient?: Patient has dentist HPI HPI Comments History of Present Illness Details 29-year-old male presents for a [facility] visit for dyslipidemia. He has not taking fenofibrate since he ran out of refills in December. He generally eats unhealthy. He is active but does not exercise. No acute symptoms at this time. [facility] Medical History Lower back pain Surgical History No pertinent past surgical history Family History Mother High blood pressure High cholesterol Fibromyalgia Vitiligo Maternal Grandfather High blood pressure High cholesterol Diabetes Cardiovascular disease Paternal Grandfather Diabetes Cardiovascular disease Social History (Updated 12/15/24 @ 08:31 by Nasreen Fuentes MA) Household Members: Spouse Housing: House Do you presently have visiting nurse or other home services: No Alcohol intake: never Comment: Rj has been referred to [facility]. 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 Abel Mcclendon, Bridgette Doe, Jorge A Quintana and colleagues, with an educational prachi from [employer]. Review of Systems Const Details: Denies chills, Denies fatigue, Denies fever(s), Denies headache(s) and Denies weakness Cardiac Denies chest pain, Denies claudication, Denies leg edema, Denies lightheadedness, Denies palpitations, Denies dyspnea, Denies dyspnea on exertion, Denies orthopnea and Denies other (Loss of consciousness) Resp Denies cough, Denies excessive phlegm production, Denies dyspnea, Denies dyspnea on exertion, Denies snoring and Denies wheezing Physical exam (Primary Care) Tobacco/Smoking Status: Tobacco use Status Tobacco use date assessed 03/09/25 03/09/25 11:15 Patient Tobacco Use Status Never used Tobacco 03/09/25 11:15 e-Cigarette/Vaping Use Never Used 03/09/25 11:15 Thrive Assessment: Date of Thrive Assessment Date Thrive assessed 06/23/24 03/09/25 11:15 Const Other: Patient is alert and oriented x3 Telehealth Telehealth Telehealth Platform: Telephone Location of provider rendering services: practice address Location of patient: address on file Patient Identification confirmed using: Name, : Yes Telehealth method: voice only Patient verbally consented to treatment: Yes Patient verbally consented to billing insurance company: Yes Patient informed of any privacy concerns related to visit: Yes Coding Level of Care Code Tele Est Pt Level 3 (68925) Diagnoses Dyslipidemia E78.5 Laboratory tests ordered as part of a complete physical exam (CPE) Z00.00 Time Spent (min) 15 Assessment & Plan Assessment & Plan (1) Dyslipidemia: Code(s): E78.5 - Hyperlipidemia, unspecified Category: Medical Plan: Recent triglycerides level was significantly elevated, 391, previous level was 381, HDL is low, 30. Total cholesterol and LDL levels are normal. Advised to limit foods high in saturated fat and avoid foods high in trans fat. Routine exercise encouraged. Fast for 10-12 hours, may drink water, and perform fasting lab work a few days before next visit. Follow-up for an extended physical exam in 6 weeks. Return sooner with symptoms or concerns. Verbalized understanding and agreed with the the plan. (2) Laboratory tests ordered as part of a complete physical exam (CPE): Code(s): Z00.00 - Encounter for general adult medical examination without abnormal findings Category: Medical Plan: Fasting labs ordered as part of a complete physical exam. Advised to fast for at least 10 hours before getting labs drawn. May drink water Verbalized understanding and agreed with treatment plan. Orders: Orders Lipid Panel 6 Weeks E78.5 - Hyperlipidemia, unspecified Microalbumin, Random (w Creat) 6 Weeks Z00.00 - Encounter for general adult medical examination without abnormal findings TSH reflex Free T4 6 Weeks Z00.00 - Encounter for general adult medical examination without abnormal findings UA CC w/rflx Micro + Cult 6 Weeks Z00.00 - Encounter for general adult medical examination without abnormal findings Vitamin D 25-OH Total 6 Weeks Z00.00 - Encounter for general adult medical examination without abnormal findings Complete Blood Count Auto Diff 6 Weeks Z00.00 - Encounter for general adult medical examination without abnormal findings Comprehensive [place]. Panel Fast 6 Months E78.5 - Hyperlipidemia, unspecified Medications: Refilled fenofibrate 160 mg PO DAILY 30 tabs 3RF 30 days
== END 2025-03-09 12:37 | disposition home or self-care (01) ==
LOC: HO.HMCFM 11:16
PROVIDERS: PCP Nurse Practitioner Family; Visit Provider Nurse Practitioner Family
DX: E78.5 Hyperlipidemia, unspecified (principal); Z00.00 Encounter for general adult medical examination without abnormal findings

== ENCOUNTER 2025-04-21 08:21 | Outpatient (REF) | payer OTHER, SELFPAY ==
[2025-04-21 11:35] LABS: MANUAL DIFF FLAG NO
[2025-04-21 11:47] LABS: Hematocrit 44.3 % (42.0-52.0); Hemoglobin 15.0 g/dl (14.0-18.0); Imm Gran Abs Auto 0.01 X10*3/uL (0.00-0.03); Imm Gran Pct Auto 0.3 % (0.0-0.4); Lymphocytes Absolute Auto 1.1 X10*3/uL (1.2-4.9); Mean Corpuscular HGB Conc 33.9 g/dl (31.0-36.0); Mean Corpuscular Hemoglobin 29.5 pg (27.0-33.0); Mean Corpuscular Volume 87.2 fL (80.0-98.0); NRBC Abs Auto 0.000 X10*3/uL (0.0-0.012); NRBC Pct Auto 0.0 /100WBC (0.0-0.2); Platelet Count 288 X10*3/uL (160-400); Red Blood Count 5.08 X10*6/uL (4.60-5.80); White Blood Count 3.9 X10*3/uL (4.8-10.8)
[2025-04-21 12:03] LABS: Appearance Urine Clear; Glucose Urine UA Negative (Negative); PH 6.5 (5.0-9.0); Specific Gravity - Urine 1.020 (1.005-1.025); UMIC TRIGGER UACC YES
[2025-04-21 12:11] LABS: Cholesterol 113 mg/dL (<200); HDL Cholesterol 36 mg/dL (>40); Triglycerides 209 mg/dL (<150)
[2025-04-21 12:37] LABS: Microalbum/Creatinine Ratio Ur 96.2 ug/mg cr (<30)
== END 2025-04-21 08:22 | disposition home or self-care (01) ==
LOC: HO.HMGCLDS 08:21
PROVIDERS: PCP Nurse Practitioner Family; Visit Provider Nurse Practitioner Family
DX: Z00.00 Encounter for general adult medical examination without abnormal findings (principal); E78.5 Hyperlipidemia, unspecified; Z13.21 Encounter for screening for nutritional disorder
CPT/HCPCS: 36415; 80061; 81001; 81003; 82043; 82306; 82570; 84443; 85025

== ENCOUNTER 2025-04-24 09:34 | Outpatient (AMB) | payer OTHER, SELFPAY ==
--- NOTE | 2025-04-24 09:38 | A.OFFPC_ITS ---
Vital Signs 04/24/25 09:43 Height 5 ft 8 in Weight 190 lb 8 oz BMI 29.0 BP 136/78 Blood Pressure Location Rt brachial Position Sitting Respiration 12 Pulse 82 Pulse Source Pulse Oximeter Temp 97.2 F Temp Source Temporal Artery Scan Pulse Oximetry (%) 96 Oxygen Delivery Method Room Air Intake Visit Reasons: CPE Intake Note: CPE Bus Person Dishwasher Required: No Allergies No Known Allergies Allergy (Verified 04/24/25 09:51) Medication List - Last Reconciled 04/24/25 by Efren Cerda CNP escitalopram oxalate 10 mg PO DAILY fenofibrate 160 mg PO DAILY 30 days naproxen 500 mg PO BID PRN Tobacco use date assessed: 04/24/25 Dental Screening Dental Screen Date: 04/24/25 Did you have a dental visit in the last 12 months?: Yes Did you have a dental problem in the last 6 months where you did not have access to dental care?: No Was dental information given to patient?: Patient has dentist HPI HPI Comments 2 History of Present Illness Details 29-year-old male, accompanied by his son 21 months old son, presents for an extended physical exam and review of recent lab results. He admits to taking his medications as prescribed without adverse reactions. He notes that his mood is generally well-controlled. He is followed by a psychiatrist at [facility] every 3-4 months. Acute issue(s) - None Past Medical History - Dyslipidemia, back stiffness, anxiety, depression Social History - Nonsmoker. Does not vape. Drinks 1/2 a bottle of mixed drink once monthly.. Denies recreational drug use - Has been making healthy dietary choice s. Exercises routinely. Generally sleep well Health maintenance - Last eye exam was 8 years ago. Referr ed to Ophthalmology for routine eye exam - Last dental visit was 2 weeks ago - Last Tdap vaccine was in 09/29/2017 - Vaccinated for the influenza vaccine l ast month Specialists [facility] psychiatry every 3-4 months [facility] Medical History Lower back pain Surgical History No pertinent past surgical history Family History Mother High blood pressure High cholesterol Fibromyalgia Vitiligo Maternal Grandfather High blood pressure High cholesterol Diabetes Cardiovascular disease Paternal Grandfather Diabetes Cardiovascular disease Social History (Updated 12/15/24 @ 08:31 by Nasreen Fuentes MA) Household Members: Spouse Housing: House Do you presently have visiting nurse or other home services: No Alcohol intake: never Comment: Rj has been referred to [facility]. 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 1. Little interest or pleasure in doing things: not at all 2. Feeling down, depressed, or hopeless: not at all 3. Trouble falling or staying asleep, or sleeping too much: not at all 4. Feeling tired or having little energy: not at all 5. Poor appetite or overeating: not at all 6. Feeling bad about yourself - or that you are a failure or have let yourself or your family down: not at all 7. Trouble concentrating on things, such as reading the newspaper or watching television: not at all 8. Moving or speaking so slowly that other people could have noticed. Or the opposite - being so fidgety or restless that you have been moving around a lot more than usual: not at all 9. Thoughts that you would be better off or of hurting yourself in some way: not at all Total score: 0 Depression Screening Interpretation: Negative Depression Screening Done: Yes 57762 - PHQ-9 Billing: Patient declined-do not bill Source: Developed by Drs. Abel Mcclendon, Bridgette Doe, Jorge A Quintana and colleagues, with an educational prachi from [employer]. Thrive Questionnaire Date Thrive assessed: 04/24/25 I am a: Patient What is your living situation today?: I have a place to live, but I am worried about losing it in the future Within the past 12 months, did the food you bought not last and you didn't have the money to get more?: I choose not to answer this question Within the past 12 months, did you worry whether your food would run out before you got money to buy more?: Sometimes True Do you have trouble paying for medicines?: No Do you have trouble getting transportation to medical appointments?: No Do you have trouble paying your heating and electricity bill?: Yes Do you have trouble taking care of your child, family member or friend?: No Do you have trouble with day-to-day activities such as bathing, preparing meals, shopping, managing finances, etc.?: No Are you currently unemployed and looking for a job?: No Are you interested in more education?: Yes Currently or been in a relationship where the following occur: No concerns reported THRIVE Score: 3 AUDIT C Alcohol Use Questionnaire (AUDIT-C) 1. How often do you have a drink containing alcohol?: Monthly or less 2. How many drinks containing alcohol do you have on a typical day when you are drinking?: 1 or 2 3. How often do you have six or more drinks on one occasion?: Never Total Score: 1 Score Reviewed/Action Taken: Yes AARON-7 AMB Questionnaire AARON-7 Date AARON - 7 assessed: 04/24/25 Feeling nervous, anxious, or on edge: 0 = Not at all Not being able to stop or control worryin = Not at all Worrying too much about different things: 0 = Not at all Trouble relaxin = Not at all Being so restless that it is hard to sit still: 0 = Not at all Becoming easily annoyed or irritable: 0 = Not at all Feeling afraid as if something awful might happen: 0 = Not at all Total AARON-7 score (0-4 normal; 5-9 mild; 10-14 moderate; 15-21 severe): 0 Source: Developed by Drs. Abel Mcclendon, Bridgette Doe, Jorge A Quintana and colleagues, with an educational prachi from [employer]. AARON-7 Assessment Billing AARON-7 Assessment Tool: AARON-7 Assessment 55077 Review of Systems Const Details: Denies chills, Denies fatigue, Denies fever(s), Denies headache(s) and Denies weakness HEENT Denies change in vision, Denies dizziness, Denies headache(s), Denies hearing loss, Denies nasal congestion, Denies sinus pain, Denies sinus pressure and Denies sore throat Card Denies chest pain, Denies lightheadedness, Denies dyspnea and Denies other (palpitations) Resp Denies cough, Denies dyspnea and Denies wheezing GI Denies abdominal pain, Denies melena, Denies hematochezia, Denies change in bowel habits, Denies dyspepsia and Denies nausea Denies hematuria and Denies dysuria Musc Denies abnormal gait, Denies myalgias, Denies arthralgias, Denies numbness and Denies tingling Skin/Breast Denies rash, Denies unusual bruising and Denies wounds Neuro Denies abnormal gait, Denies dizziness, Denies headache(s), Denies memory loss, Denies numbness, Denies Sensory deficit (Neuro), Denies tingling and Denies weakness Psych Denies anxiety, Denies depression and Denies memory loss Endo Denies cold intolerance, Denies fatigue, Denies heat intolerance, Denies polydipsia and Denies polyuria Allen/Lymph Denies easy bleeding and Denies easy bruising Aller/Immun Denies wheezing Physical exam (Primary Care) Vital Signs: Last Vital Signs Temp 97.2 F 04/24/25 09:43 Pulse 82 04/24/25 09:43 Resp 12 04/24/25 09:43 BP 136/78 04/24/25 09:43 Pulse Ox 96 04/24/25 09:43 Oxygen Delivery Method Room Air 04/24/25 09:43 BMI result Body Mass Index 29.0 Tobacco/Smoking Status: Tobacco use Status Tobacco use date assessed 04/24/25 04/24/25 09:41 Patient Tobacco Use Status Never used Tobacco 04/24/25 09:39 e-Cigarette/Vaping Use Never Used 04/24/25 09:39 Depression Screening Interpretation: Negative Thrive Assessment: Date of Thrive Assessment Date Thrive assessed 04/24/25 04/24/25 09:41 Currently or been in a relationship where the following occur: No concerns reported Const Other: General: no acute distress, well developed, alert and awake Nutritional Appearance: well nourished Orientation/consciousness: patient oriented x3 HENMT Head: Yes normocephalic and Yes atraumatic Ears: hearing grossly normal bilaterally and TM's normal bilaterally General nose exam: Normal external nose present and Normal nares present Mouth: Normal oral and palatal mucosa present and moist mucous membranes Teeth and gingiva: dentition normal Throat: Yes oropharynx normal Eyes Pupils: Equal, round and reactive pupils present and Pupil accommodation reflex normal EOM: EOMs intact bilaterally Neck Neck: Yes normal visual inspection, Yes no lymphadenopathy and Yes trachea midline Thyroid: Thyroid normal Carotids: no bruits Lymphatic: no lymphadenopathy noted Chest Chest palpation & inspection: normal inspection of the chest Resp Effort & Inspection: normal respiratory effort Auscultation: clear to auscultation bilaterally Cardio Rate: regular rate Rhythm: regular rhythm Heart sounds: S1 normal heart sound present, S2 normal heart sound present, no gallops, no murmurs and no rubs Bruits: no abdominal aortic bruits and no carotid bruits GI Palpation (GI): No Abdominal aortic bruit present, Soft to palpation, nontender, No hepatosplenomegaly present and No Rebound tenderness present Auscultation: normal bowel sounds General: Yes no CVA tenderness Back/Spine/Pelvis Back: no CVA tenderness Cervical Spine: cervical ROM normal and No Cervical spine tenderness Thoracic/Lumbar Spine: thoraco-lumbar ROM normal, No pain with thoraco-lumbar ROM, No thoracic spinal tenderness and No lumbar spinal tenderness Skin General: warm and dry. Normal skin color. Normal skin turgor Lesions: no lesions Rashes: no rashes Trauma: no lacerations or abrasions Wounds: no wounds Nails: normal Neuro General: patient oriented x3, gait normal and CN's II-XI intact bilaterally Cranial nerves: Yes Equal, round and reactive pupils present Cognition (Neuro): normal cognition Gait exam (Neuro): Normal gait present Motor exam (neuro): 5/5 motor strength present throughout Sensory Exam: No Sensory deficit (Neuro) Deep tendon reflexes (DTR's): Right patellar reflex intensity grade: 2+ and Left patellar reflex intensity grade: 2+ Extrem General: Yes normal to inspection, No edema and No calf tenderness Psych Appearance: grossly normal Affect: normal affect Attitude: cooperative Thought process: Normal thought process present Coding Level of Care Code Est Pt Level 3 (50779) Est Pt Prev Care 18-39y(70435) Diagnoses Normal physical examination, routine Z00.00 Dyslipidemia E78.5 Vitamin D deficiency E55.9 Microalbuminuria R80.9 Additional Codes AARON-7 Assessment Billing - AARON-7 Assessment Tool: AARON-7 Assessment 97620 ([id number]) Assessment & Plan Assessment & Plan (1) Normal physical examination, routine: Code(s): Z00.00 - Encounter for general adult medical examination without abnormal findings Category: Medical Plan: No significant functional limitation noted. Continue current treatment regimen. Healthy diet and routine exercise encouraged. Follow-up for transfer of care with a new PCP within the practice in 2-3 months. Return sooner with symptoms or concerns. Verbalized understanding and agreed with the plan. (2) Dyslipidemia: Code(s): E78.5 - Hyperlipidemia, unspecified Category: Medical Plan: Recent triglycerides is elevated, 209 from 391, HDL is slightly low, 36, total cholesterol and LDL levels are normal. Continue current treatment regimen. Advised to limit foods high in saturated fat and avoid foods high in trans fat. Routine exercise encouraged. Fast for 10-12 hours, may drink water, and perform lipid panel blood work a few days before next visit. Will also check CMP which was inadvertently not included in his recent lab order. Follow-up in 2-3 months. Verbalized understanding and agreed with the plan. (3) Vitamin D deficiency: Code(s): E55.9 - Vitamin D deficiency, unspecified Category: Medical Plan: Recent vitamin-D level is slightly low, 28.7. Vitamin D3 25 mcg daily ordered; advised to take as prescribed. Repeat vitamin-D blood work before next visit. Verbalized understanding and agreed with the plan. (4) Microalbuminuria: Code(s): R80.9 - Proteinuria, unspecified Category: Medical Plan: Recent urine microalbumin/creatinine ratio is elevated, 96.2. Normal creatinine level. Likely dehydration. Adequate hydration encouraged. Repeat urine microalbumin lab work before next visit. Verbalized understanding and agreed with the plan. Orders: Orders Comprehensive [place]oy. Panel Fast Today Z00.00 - Encounter for general adult medical examination without abnormal findings Lipid Panel 2 Months E78.5 - Hyperlipidemia, unspecified Microalbumin, Random (w Creat) 2 Months R80.9 - Proteinuria, unspecified Vitamin D 25-OH Total 2 Months E55.9 - Vitamin D deficiency, unspecified Medications: New cholecalciferol (vitamin D3) 25 mcg PO DAILY 90 tabs 2RF 90 days
[2025-04-24 09:43] VITALS: BP 136/78; PULSE 82; RESP 12; TEMP 36.2; O2SAT 96; BMI 29.0
== END 2025-04-24 10:18 | disposition home or self-care (01) ==
PROVIDERS: PCP Nurse Practitioner Family; Visit Provider Nurse Practitioner Family
DX: Z00.00 Encounter for general adult medical examination without abnormal findings (principal); E78.5 Hyperlipidemia, unspecified; E55.9 Vitamin D deficiency, unspecified; R80.9 Proteinuria, unspecified

== ENCOUNTER → 2025-04-24 09:34 | Outpatient (BNVA) | payer OTHER, SELFPAY | PROVIDERS: PCP Nurse Practitioner Family; Visit Provider Nurse Practitioner Family | DX: Z13.31 Encounter for screening for depression (principal) | CPT/HCPCS: 96127 ==